=== PATIENT | male | born 1940 | race Caucasian/White ===

== ENCOUNTER → 2020-10-21 10:25 | Outpatient (BNVA) | payer BC, SELFPAY | PROVIDERS: PCP Internal Medicine; Visit Provider Urology ==

== ENCOUNTER 2020-10-25 09:31 | Outpatient (REF) | payer BC, SELFPAY ==
--- NOTE | ~2020-10-25 | XR_ITS ---
EXAMINATION: XR ANKLE, LEFT CLINICAL INFORMATION: Pain left ankle and left foot. COMPARISON: None. TECHNIQUE: AP, lateral, and mortise views of the left ankle. FINDINGS: There is no visible acute fracture, dislocation or lytic process. The ankle mortise and subtalar joints are normal. Small calcaneal heel and moderate retrocalcaneal enthesophytes are seen. There is extensive vascular calcification present. XR/XR ankle LT min 3V IMPRESSION: No acute fracture or dislocation. Moderate retrocalcaneal and small calcaneal heel enthesophyte.
== END 2020-10-25 09:32 | disposition home or self-care (01) ==
LOC: HO.HOSX 09:31
PROVIDERS: PCP Internal Medicine; Visit Provider Orthopaedic Surgery
DX: M25.572 Pain in left ankle and joints of left foot (principal); M25.372 Other instability, left ankle
CPT/HCPCS: 73610

== ENCOUNTER → 2020-11-01 10:56 | Outpatient (BNVA) | payer BC, SELFPAY | PROVIDERS: PCP Internal Medicine; Visit Provider Urology | DX: C67.9 Malignant neoplasm of bladder, unspecified (principal) | CPT/HCPCS: 52000 ==

== ENCOUNTER 2020-11-21 12:06 | Day surgery (SDC) | payer BC, SELFPAY ==
[2020-11-16 11:21] VITALS: BMI 25.1
--- NOTE | 2020-11-18 13:09 | HO.ANESPROP2 ---
Documented by User: Esperanza Debra 11/18/20 13:14 HPI - Anesthesia Eval Consult details Narrative: 80yo M for TUR Bladder Tumor,gemcitabine 2GM insertion last TURBT 02/2020 with GA-LMA 4 PMFSH Active Problems Active Problems: All Active Problems (Updated 11/01/20 @ 08:45 by HENRRY Segundo) Iron deficiency (Acute) Elevated PSA (Acute) Bradyarrhythmia (Acute) Diverticulosis (Acute) History of heart artery stent (Acute) Hypertension, essential (Acute) Coronary artery disease (Acute) Bladder cancer (Acute) Past Medical History Medical History Benign prostatic hyperplasia with lower urinary tract symptoms Bladder cancer Bladder tumor Bradyarrhythmia Cataract Coronary artery disease Past heart attack Family History Family History Father Heart problem CHF (congestive heart failure) Diabetes mellitus Mother Diabetes mellitus Sister Throat cancer Daughter No problems noted. Son No problems noted. Son No problems noted. Surgical History Surgical History History of coronary artery stent placement History of surgery Social History Social History Alcohol intake: current Alcohol intake frequency: a few times a month Advance Directives: No Advance Directives Information Provided: Yes Current occupational status: retired Gender identity: male Meds Allergies Allergy/AdvReac Type Severity Reaction Status Date / Time codeine [Codeine] Allergy Unknown LETHARGY Verified 11/01/20 08:45 From Antihistamine AdvReac Unknown CAN'T TAKE Uncoded 10/25/20 09:59 DUE TO BPH Home Medications Medication Instructions Recorded Confirmed Last Taken Type lisinopril 1 tab PO DAILY 04/13/20 07/08/20 Unknown History loteprednol etabonate 1 drp OPHTHALMIC (EYE) BID 04/13/20 07/08/20 Unknown History niacin 3 tab PO BEDTIME 04/13/20 07/08/20 Unknown History tamsulosin 1 cap PO DAILY 04/13/20 07/08/20 Unknown History thyroid (pork) [[place] Thyroid] 1.5 tab PO DAILY 04/13/20 07/08/20 Unknown History epinephrine 0.3 mg/0.3 mL 0.3 ml IM ONCE PRN 10/25/20 Unknown History injection, auto-injector finasteride 5 mg tablet 5 mg PO DAILY 10/25/20 Unknown History tadalafil 20 mg tablet 20 mg PO DAILY PRN 10/25/20 Unknown History Exam Exam Date and Time: November 18, 2020 1309 Height,Weight and Vital Signs: Height 5 ft 9 in Weight 77.111 kg Narrative Narrative: Routine cardiac visit 06/2020 - stable, physically active without any anginal symptoms Assessment and Plan Assessment Anesthesia Assessment: Chart Reviewed Documented by User: Aniyah Cisneros 11/21/20 16:17 [facility] Past Medical History Medical History Benign prostatic hyperplasia with lower urinary tract symptoms Bladder cancer Bladder tumor Bradyarrhythmia Cataract Coronary artery disease Past heart attack Family History Family History Father Heart problem CHF (congestive heart failure) Diabetes mellitus Mother Diabetes mellitus Sister Throat cancer Daughter No problems noted. Son No problems noted. Son No problems noted. Surgical History Surgical History History of coronary artery stent placement History of surgery Social History Social History Alcohol intake: current Alcohol intake frequency: a few times a month Advance Directives: No Advance Directives Information Provided: Yes Current occupational status: retired Gender identity: male Meds Allergies Allergy/AdvReac Type Severity Reaction Status Date / Time codeine [Codeine] Allergy Unknown LETHARGY Verified 11/01/20 08:45 From Antihistamine AdvReac Unknown CAN'T TAKE Uncoded 10/25/20 09:59 DUE TO BPH Home Medications Medication Instructions Recorded Confirmed Last Taken Type lisinopril 1 tab PO DAILY 04/13/20 07/08/20 Unknown History loteprednol etabonate 1 drp OPHTHALMIC (EYE) BID 04/13/20 07/08/20 Unknown History niacin 3 tab PO BEDTIME 04/13/20 07/08/20 Unknown History tamsulosin 1 cap PO DAILY 04/13/20 07/08/20 Unknown History thyroid (pork) [[place] Thyroid] 1.5 tab PO DAILY 04/13/20 07/08/20 Unknown History epinephrine 0.3 mg/0.3 mL 0.3 ml IM ONCE PRN 10/25/20 Unknown History injection, auto-injector finasteride 5 mg tablet 5 mg PO DAILY 10/25/20 Unknown History tadalafil 20 mg tablet 20 mg PO DAILY PRN 10/25/20 Unknown History Exam Airway Mallampati Class: II TM Dist: >3cm Neck ROM: Full Loose/Missing/Broken Teeth: No Heart: RRR Lungs: CTA Assessment and Plan Assessment Anesthesia Assessment: Anesthesia Plan Discussed and Chart Reviewed Final Anesthetic Review NPO: Yes ASA Class: II Final Preanesthetic Review: Meds/Allgs Chart Reviewed, Consent Obtained/Reviewed and Anes Risks/Benef Reviewed Patient Risk: Low Procedure Risk: Low Anesthetic Plan Anesthetic Plan: GA Disposition: Standard PACU
[2020-11-21] VITALS (11 sets, daily range): BP systolic 133–179; BP diastolic 53–76; PULSE 39–64; RESP 14–17; TEMP 35.9–36.1; O2SAT 97–100
--- NOTE | 2020-11-21 09:24 | HE.PHANOTE ---
GEMZAR FOR BLADDER INSTILLATION GIVEN TODAY FOR OR ADMINISTRATION
--- NOTE | 2020-11-21 16:28 | MHC.SHP ---
Pre-Procedural Eval Section A The patient is an INPATIENT: No Changes since office visit: No Cold of Flu in the past 2 weeks, No New Medical Problems, No Changes in Medication and No Patient answered all questions The History & Physical has been completed within 30 days and I have reviewed it.: Yes Section B Chief Complaint: bladder ca Allergies: Allergies Allergy/AdvReac Type Severity Reaction Status Date / Time codeine [Codeine] Allergy Unknown LETHARGY Verified 11/01/20 08:45 From Antihistamine AdvReac Unknown CAN'T TAKE Uncoded 10/25/20 09:59 DUE TO BPH Plan Diagnosis/Plan: Unchanged (TURBT with gemcitabine) I have reviewed the history and physical and performed a pertinent physical examination on my patient. No changes have occurred unless specified.
[2020-11-21] MEDS: levoFLOXacin 500 MG TABLET PO (16:48)
--- NOTE | 2020-11-21 17:24 | W.PM.OPN ---
Operative Note Operative Note Date of Service: 11/21/20 Narrative: PreOperative Diagnosis: bladder cancer Post Operative Diagnosis: bladder cancer Procedure: TURBT and Gemcitabine installation Surgeon: Dr Claudio Davalos Anesthesia: general Indications for procedure: Satnam has had prior bladder cancer resection. He presents for surveillance TURBT with gemcitabine. Appointments were delayed secondary to caring for his sick daughter. He understands them may be extensive tumor. Risks and benefits of cystoscopy and TURBT have been discussed. Gemcitabine is intended to reduce clinical recurrence. Procedure: After informed consent was verified the patient was brought to the operating room and placed in a supine position. anesthesia was administered per protocol. the patient was placed in a modified dorsal lithotomy position and prepped and draped in a sterile fashion. Safety pause time-out was performed. Antibiotics were confirmed. A 26 Nepali continuous flow resectoscope was inserted per urethra. The visual obturator was used in order to minimize potential for urethral damage. Examination of his bladder revealed it was in surprisingly good condition. There were 3 small lesions all of which were able to be resected and fulgurated. The narrow band imaging light was used and areas of potential change were identified which were fulgurated. These were quite extensive on the posterior bladder wall. Mild ooze was Encountered. Of note his prostate is rather large and While he has been on combination therapy he would benefit from a prostate procedure. This will be discussed in follow-up. At the completion of the procedure the bladder was irrigated. The cystoscope was removed. A [address] catheter was inserted into the bladder. 10 cc was placed in the balloon. 2 g of gemcitabine in 100 cc of normal saline was instilled into the bladder. the flow from the catheter was left clamped. The inflow to the catheter was attached to a 3 L normal saline bag. The patient Tolerated the procedure well. They were extubated in the operating room and transferred in stable condition to the recovery area. Gemcitabine will remain in the bladder for 1 hour. At the completion of 1 hour the clamp will be removed. The gemcitabine will be allowed to egress to the urine collection bag. The 3 L bag of normal saline will be run at maximum rate through the bladder in order to dilute any residual gemcitabine. The Jack catheter will then be removed. Pathology: none Drains: none
[2020-11-21] MEDS: Ketorolac Tromethamine 30 MG/ML VIAL IVPUSH (17:56)
[2020-11-21] MEDS: Acetaminophen 325 MG TABLET 650 MG PO (17:58)
[2020-11-21] MEDS: oxyCODONE HCl Immed Release 5 MG TABLET PO (18:00)
== END 2020-11-21 19:35 | disposition home or self-care (01) ==
PROVIDERS: PCP Internal Medicine; Visit Provider Urology
PROC: 0TBB8ZZ Excision of Bladder, Via Natural or Artificial Opening Endoscopic (ICD-10-PCS; CPT 52234; principal; 2020-11-21 12:30)
DX: C67.9 Malignant neoplasm of bladder, unspecified (principal); N40.1 Benign prostatic hyperplasia with lower urinary tract symptoms; I25.10 Atherosclerotic heart disease of native coronary artery without angina pectoris; Z98.61 Coronary angioplasty status; I25.2 Old myocardial infarction; Z79.899 Other long term (current) drug therapy; Z88.8 Allergy status to other drugs, medicaments and biological substances
CPT/HCPCS: 52234; 51720; J1885; J2405; J3010; J9201

== ENCOUNTER → 2020-12-01 11:55 | Outpatient (BNVA) | payer BC, SELFPAY | PROVIDERS: PCP Internal Medicine; Visit Provider Urology ==

== ENCOUNTER 2021-03-07 08:54 | Outpatient (REF) | payer BC, SELFPAY ==
[2021-03-07 17:18] LABS: Urine Cytology See Pathology rpt
== END 2021-03-07 08:55 | disposition home or self-care (01) ==
LOC: HO.LNP 08:54
PROVIDERS: PCP Internal Medicine; Visit Provider Urology
DX: C67.9 Malignant neoplasm of bladder, unspecified (principal); N40.1 Benign prostatic hyperplasia with lower urinary tract symptoms
CPT/HCPCS: 52000; 88112

== ENCOUNTER 2021-06-06 09:43 | Outpatient (REF) | payer BC, SELFPAY | END 2021-06-06 09:44 | disposition home or self-care (01) | LOC: HO.LAB 09:43 | PROVIDERS: PCP Internal Medicine; Visit Provider Urology | DX: C67.9 Malignant neoplasm of bladder, unspecified (principal); N40.1 Benign prostatic hyperplasia with lower urinary tract symptoms | CPT/HCPCS: 51798; 52000; 88121 ==

== ENCOUNTER 2021-07-27 12:35 | Outpatient (REF) | payer BC, SELFPAY ==
--- NOTE | ~2021-07-27 | US_ITS ---
EXAMINATION: US RETROPERITONEAL LIMITED (RENAL ONLY) CLINICAL INFORMATION: Left-sided back pain.. COMPARISON: CT scan abdomen pelvis 05/28/2019 TECHNIQUE: Grayscale ultrasound and color Doppler exam of kidneys bilateral. FINDINGS: RIGHT KIDNEY: 12.3 x 6.5 x 5.5 cm (SAG x AP x TRV). The kidney is normal in size, contour, and echogenicity. Renal cortical thickness is normal. No calculi or focal parenchymal lesions. No hydronephrosis. LEFT KIDNEY: 11.8 x 6.7 x 4.2 cm (SAG x AP x TRV). There is moderate hydronephrosis of left kidney with distention renal pelvis, calyces and left hydroureter. Dilatation of the ureter can be visualized down to the mid- lower pelvis. Left UVJ is not visualized due to bowel gas. There is a small 1 to 2 mm size stone at the lower pole left kidney. No stone in the visualized portion of the left ureter. In the bladder the right ureteral jet is seen but the left ureteral jet is not visualized. The prostate is enlarged but better visualized on CAT scan 05/28/2019. The severity of the hydronephrosis of left kidney has worsened since prior CAT scan 05/28/2019. US/US renal BI IMPRESSION: Moderate hydronephrosis left kidney which has worsened since CAT scan 05/28/2019. This may be due to the enlarged prostate which was better visualized on the prior CT study..
== END 2021-07-27 12:36 | disposition home or self-care (01) ==
LOC: HO.US 12:35
PROVIDERS: PCP Internal Medicine; Visit Provider Internal Medicine
DX: M54.10 Radiculopathy, site unspecified (principal); M54.9 Dorsalgia, unspecified
CPT/HCPCS: 76775

== ENCOUNTER 2021-07-29 11:08 | Inpatient (IN) | payer BC, SELFPAY ==
--- NOTE | ~2021-07-29 | FL_ITS ---
EXAMINATION: XR FL WITH IMAGES CLINICAL INFORMATION: Ureteral stent. COMPARISON: None TECHNIQUE: Fluoroscopy performed by Dr. Claudio Davalos. Fluoroscopy Time: 24.7 seconds. DAP: 9.49 mGy. Images: 1. FINDINGS: A single image demonstrates the upper portion of an internally dwelling double-J stent on the left. FL/FL guidance in OR IMPRESSION: Fluoroscopy and spot films provided during stent placement.
--- NOTE | ~2021-07-29 | CT_ITS ---
EXAMINATION: CT CHEST, ABDOMEN AND PELVIS WITH CONTRAST CLINICAL INFORMATION: History of cancer, upper back and flank pain COMPARISON: None TECHNIQUE: Multidetector volumetric imaging was performed of the chest, abdomen and pelvis following administration of 85 mL of Omnipaque 350. Oral contrast was not administered. Sagittal and coronal reformatted images were obtained on the technologist's workstation. This CT examination was performed using dose optimization techniques as appropriate, variously including the following: *Automated exposure control *Adjustment of mA and/or kV according to patient size (this includes techniques or standardized protocols for targeted exams where dose is matched to indication/reason for exam; i.e. extremities or head) *Use of iterative reconstruction technique DLP: 848 mGy-cm FINDINGS: CHEST WALL: Unremarkable. ABDOMINAL AND PELVIC WALL: Small fat-containing umbilical hernia. Small fat-containing left inguinal hernia. AXILLA: No lymphadenopathy. MEDIASTINUM: Heart is normal in size. There is circumferential thickening of the mid to distal esophagus, difficult to assess degree given lack of esophageal distention. No mediastinal lymphadenopathy. No hilar lymphadenopathy. Multivessel coronary artery calcification. Prominent pulmonary arteries which can be seen in the setting of pulmonary hypertension PLEURA: Trace left pleural effusion. LIVER AND BILIARY TREE: Focal fat in the liver noted along the falciform ligament. GALLBLADDER: Layering density within the gallbladder lumen may reflect layering sludge or noncalcified stones. No findings to suggest cholecystitis. PANCREAS: Unremarkable SPLEEN: Unremarkable ADRENAL GLANDS: Unremarkable. KIDNEYS AND URETERS: Moderate left hydroureteronephrosis with the ureter dilated to the level of the pelvic sidewall not to the level of the bladder without obstructing stone. The ureter at the point of decompression appears relatively asymmetrically hyperenhancing and a discrete lesion cannot be excluded. There is associated periureteral subtle thickening and enhancement proximally and involving the renal pelvis. There is asymmetric left perinephric fat stranding with mulugeta free fluid surrounding the proximal ureter and renal collecting system suggestive of calyceal rupture. UPPER GASTROINTESTINAL TRACT: The stomach and duodenum are unremarkable. VASCULAR: Unremarkable. LYMPH NODES: No lymphadenopathy. FREE FLUID: Perinephric free fluid as detailed above. BLADDER: There is asymmetric masslike hyperenhancing wall thickening wall thickening involving the right anterolateral superior and posterior bladder wall, measuring up to 1.1 cm in thickness. PELVIC VISCERA: Prostate is markedly enlarged measuring 6.2 cm in transverse diameter. LOWER GASTROINTESTINAL TRACT: Colonic diverticulosis without evidence of diverticulitis. OSSEOUS STRUCTURES: Multilevel anterior flowing syndesmophytes in the thoracic spine recommend correlation with any history of ankylosing spondylitis.. Multilevel degenerative disc disease. LUNGS: Left lower lobe pulmonary micronodule, 9:194. Few scattered calcified pulmonary granulomas. Bibasilar atelectasis. 3 mm solid left upper lobe pulmonary nodule, 9:217. Dependent and linear appearing secretions are noted within the trachea suggesting aspiration. CT/CT abdomen pelvis w con IMPRESSION: There is asymmetric masslike hyperenhancing wall thickening involving the right anterolateral superior and posterior bladder wall, measuring up to 1.1 cm in thickness, suspicious for bladder neoplasm. Recommend urologic referral if not already obtained. Moderate left hydroureteronephrosis with the ureter dilated to the level of the pelvic sidewall not to the level of the bladder without obstructing stone. The ureter at the point of decompression appears relatively asymmetrically hyperenhancing and a discrete lesion cannot be excluded. Urologic referral is again recommended. There is asymmetric left perinephric fat stranding with mulugeta free fluid surrounding the proximal ureter and renal collecting system suggestive of calyceal rupture. There is associated periureteral subtle thickening and enhancement proximally and involving the renal pelvis, for which superinfection cannot be excluded. There is circumferential thickening of the mid to distal esophagus, difficult to assess degree given lack of esophageal distention. Recommend correlation with symptoms of reflux or esophagitis and consideration of endoscopy if clinically appropriate. Few indeterminate solid pulmonary nodules measuring up to 3 mm. Recommend continued imaging follow-up per clinical oncologic recommendations, given provided history of malignancy. Dependent and linear appearing secretions are noted within the trachea suggesting aspiration, however recommend attention on follow-up to ensure no discrete endobronchial nodule. Trace left pleural effusion. Layering density within the gallbladder lumen may reflect layering sludge or noncalcified stones. No findings to suggest cholecystitis. The findings and recommendations were discussed with ELIOT Garrett by telephone at 07/29/2021 5:44 PM and it was ascertained that the content and urgency of the report was understood at the time of direct communication.
[2021-07-29 11:12] VITALS: BP 167/67; PULSE 90; RESP 16; TEMP 36.6; O2SAT 98; BMI 26.6
--- NOTE | 2021-07-29 14:56 | ED.MALEGU ---
HPI - Male Genitourinary General Chief complaint: Urogenital-Male Stated complaint: swollen groin, problem urinating Time Seen by Provider: 07/29/21 14:44 Source: patient and family () Mode of arrival: ambulatory Limitations: no limitations History of Present Illness HPI Narrative: Patient is a 80 year old male presenting to the emergency department today with scrotal swelling and left flank pain. Patient states that a week ago, he began to have left flank pain. Patient states that he saw his PCP on Saturday who did an ultrasound that showed swelling of the kidney but was otherwise unremarkable. Patient states that now he is having scrotal swelling and his left flank pain is getting worse. Patient denies any dizziness, lightheadedness, nausea, vomiting, fever, chills, blurry vision, double vision, loss of vision, chest pain, difficulty breathing, shortness of breath, back pain, night sweats, pain with urination, increased urinary frequency, increased urinary urgency, blood in his urine or stool, syncope or a near syncopal episode, recent trauma or falls, bowel incontinence, bladder incontinence, bowel retention, bladder retention, or any other complaints at this time. Patient states that he has a history of bladder cancer for which he follows up with a local urologist. Patient states that he has been urinating appropriately. MD Complaint: testicle swelling Onset (ago): day(s) Duration: constant Location: penis, right testicle and left testicle Related Data Home Medications Medication Instructions Recorded Confirmed lisinopril 10 mg tablet 1 tab PO DAILY 04/13/20 07/25/21 loteprednol etabonate 0.5 % eye 1 drp OPHTHALMIC (EYE) BID 04/13/20 07/25/21 drops,suspension niacin 500 mg tablet,extended 3 tab PO BEDTIME 04/13/20 07/25/21 release 24 hr thyroid (pork) 30 mg tablet 1.5 tab PO DAILY 04/13/20 07/25/21 (Twilight Thyroid) epinephrine 0.3 mg/0.3 mL 0.3 ml IM ONCE PRN 10/25/20 07/25/21 injection, auto-injector finasteride 5 mg tablet 5 mg PO DAILY 10/25/20 07/25/21 tadalafil 20 mg tablet 20 mg PO DAILY 10/25/20 07/25/21 Previous Rx's Medication Instructions Recorded tamsulosin 0.4 mg capsule 0.4 mg PO BEDTIME 90 Days #90 cap 06/06/21 baclofen 5 mg tablet 5 mg PO BID 7 Days #14 tab 07/25/21 tramadol 50 mg tablet 50 mg PO Q8H PRN 7 Days #20 tab 07/26/21 Allergies Allergy/AdvReac Type Severity Reaction Status Date / Time codeine [Codeine] Allergy Unknown LETHARGY Verified 07/25/21 09:40 From Antihistamine AdvReac Unknown CAN'T TAKE Uncoded 07/25/21 09:40 DUE TO BPH Review of Systems Constitutional: Constitutional: Reports no additional constitutional complaints, Denies chills, Denies fever(s) and Denies night sweats Eyes: Eyes: Reports no additional eye complaints, Denies blurry vision, Denies change in vision, Denies diplopia, Denies eye discharge, Denies loss of vision and Denies eye pain ENT: Denies dizziness Cardiovascular: Cardiovascular: Reports no additional cardiovascular complaints, Denies chest pain, Denies lightheadedness, Denies Loss of Consciousness and Denies dyspnea Respiratory: Respiratory: Reports no additional respiratory complaints and Denies dyspnea Gastrointestinal: Gastrointestinal: Reports no additional gastrointestinal complaints, Denies abdominal pain, Denies melena, Denies hematochezia, Denies change in bowel habits and Denies change in stool character Comments: left flank pain Genitourinary: Genitourinary: Reports no additional male genitourinary complaints, Denies hematuria, Denies oliguria, Denies difficulty urinating, Denies dysuria, Denies urinary frequency, Denies urinary hesitancy, Denies urinary incontinence and Denies urinary urgency Musculoskeletal: Musculoskeletal: Reports no additional musculoskeletal complaints, Denies numbness and Denies tingling Neurologic: Denies dizziness, Denies loss of vision, Denies numbness and Denies tingling Psychiatric: Psychiatric: Reports no additional psychiatric complaints Endocrine: Endocrine: Reports no additional endocrine complaints Hematologic/Lymphatic: Hematologic/Lymphatic: Reports no additional hematologic/lymphatic complaints Allergic/Immunologic: Allergic/Immunologic: Reports no additional allergic/immunologic complaints PMFSH Past Medical History Attestation statement: The following information was validated with the patient. Source: old records reviewed Medical History Benign prostatic hyperplasia with lower urinary tract symptoms Bladder cancer Bladder tumor Bradyarrhythmia Cataract Coronary artery disease Past heart attack Surgical History History of coronary artery stent placement History of surgery Family History Family History Father Heart problem CHF (congestive heart failure) Diabetes mellitus Mother Diabetes mellitus Sister Throat cancer Daughter No problems noted. Son No problems noted. Son No problems noted. Other Substance use disorder Social History Social History Housing: House Alcohol intake: current Alcohol intake frequency: does not drink Patient Tobacco Use Status: Never used Tobacco Use of substances other than those prescribed or required for medical reasons: No Advance Directives: No Advance Directives Information Provided: No Current occupational status: retired Gender identity: Male Physical Exam Vital Signs: Vital Signs: Last Vital Signs Temp 98.9 F 07/29/21 15:37 Pulse 88 07/29/21 15:37 Resp 16 07/29/21 15:37 BP 168/66 H 07/29/21 15:37 Pulse Ox 99 07/29/21 15:37 BMI result Body Mass Index 26.6 Const: General: cooperative, no acute distress, alert and awake Nutritional Appearance: well nourished Orientation/consciousness: patient oriented x3 Limitations: no limitations HENMT: Head: Yes normal to inspection and Yes atraumatic Ears: hearing grossly normal bilaterally and external ears normal General nose exam: Normal external nose present, no nasal discharge noted and no epistaxis Face and sinus: Yes normal facial exam, No abrasion and No laceration Mouth: Normal oral and palatal mucosa present, no drooling and no muffled voice Eyes: General: appearance normal, both eyes and all related structures Periorbital: periorbital findings normal Eyelids: Yes eyelids normal Conjunctivae: conjunctivae normal Pupils: Equal, round and reactive pupils present EOM: EOMs intact bilaterally Neck: Neck: Yes normal visual inspection, Yes full ROM and Yes no lymphadenopathy Chest: Chest palpation & inspection: normal inspection of the chest Resp: Effort & Inspection: normal respiratory effort and able to speak in complete sentences Auscultation: clear to auscultation bilaterally Cardio: Rate: regular rate Rhythm: regular rhythm GI: Inspection: Yes normal to inspection Palpation (GI): Soft to palpation and Tenderness to palpation present (GI) (left flank with CVA tenderness) : Penis: Localized penile swelling present (scrotal and penile) Neuro: General: patient oriented x3 and moves all extremities Cranial nerves: Yes Equal, round and reactive pupils present Cognition (Neuro): normal cognition Motor exam (neuro): 5/5 motor strength present throughout Sensory Exam: Normal double simultaneous stimulation for sensation Coordination: [id number] test normal Extrem: General: Yes normal to inspection, Yes full ROM and Yes capillary refill normal Psych: Appearance: grossly normal Mental Status: mental status grossly normal Affect: normal affect Attitude: cooperative Thought process: Normal thought process present Thought content: Normal thought content present Insight: Good insight present (Psych) Course Consultations Consultation #1: Spoke to radiologist at [facility] who stated that the patient's bladder cancer possibly spread up his left ureter and he has a calyceal rupture. Time: 17:43 Consultation #2: Spoke to Dr. Samuel who stated the patient should be admitted for pain management and may possibly need to undergo a nephrectomy at some point during his hospital stay. States that his service will consult on the patient. Time: 17:50 Consultation #3: Dr. Gonzales agrees to hospital admission. MDM - Male Genitourinary MDM Narrative Medical decision making narrative: Patient is a 80 year old male presenting to the emergency department today with left flank pain and scrotal swelling. Patient's physical exam showed swelling of the scrotum and penis with left sided CVA tenderness. Patient's blood work showed an elevated WBC count and creatine. Patient's abdominal and chest CT had multiple findings on it, as noted in the imaging portion of this note. Of note, the radiologist states that there could be spreading of the bladder cancer up the ureter and there is free fluid suggesting a calyceal rupture. I called and spoke to the communications station manager diamond selector, Dr. Burch who recommended the patient be admitted for pain control and his service would consult on the case. I explained my physical exam findings as well as all test results to the patient and the patient's . I answered all questions asked by the patient and the patient's . Patient received 8mg of IV Morphine which he stated only helped his symptoms slightly. I spoke to Dr. Gonzales, the hospitalist diamond selector, who agreed to admission. Patient's clinical presentation was not consistent with sepsis throughout my time caring for him. Differential Diagnosis Differential diagnosis: Likely urinary tract infection (kidney stone, bladder cancer metastasis) Medical Records Attestation: I reviewed the patient's medical records. Lab Data Attestation: I reviewed the patient's lab results. Result diagrams: 07/29/21 15:17 07/29/21 15:17 Labs: Lab Results 07/29/21 07/29/21 Range/Units 15:17 15:17 WBC 11.8 H (4.8-10.8) X10*3/uL RBC 4.34 L (4.60-5.80) X10*6/uL Hgb 12.1 L (14.0-18.0) g/dl Hct 37.6 L (42.0-52.0) % MCV 86.6 (80.0-98.0) fL MCH 27.9 (27.0-33.0) pg MCHC 32.2 (31.0-36.0) g/dl RDW 16.8 H (11.0-16.0) % Plt Count 456 H (160-400) X10*3/uL MPV 9.2 L (9.4-12.4) fL Immature Gran % (Auto) 0.6 H (0.0-0.4) % Neut % (Auto) 78.4 H (45-73) % Lymph % (Auto) 10.5 L (20-40) % [place] % (Auto) 9.9 (2-11) % Eos % (Auto) 0.3 (0-4) % Baso % (Auto) 0.3 (0-2) % Lymph # (Auto) 1.2 (1.2-4.9) X10*3/uL [place] # (Auto) 1.2 (0.1-1.2) X10*3/uL Eos # (Auto) 0.0 (0.0-0.4) X10*3/uL Baso # (Auto) 0.0 (0.0-0.2) X10*3/uL Abs Immat Gran (auto) 0.07 H (0.00-0.03) X10*3/uL Absolute Neuts (auto) 9.2 H (2.0-8.3) x10*3/uL Absolute Nucleated RBC 0.000 (0.0-0.012) X10*3/uL Nucleated RBC % (auto) 0.0 (0.0-0.2) /100WBC Sodium 129 L (135-145) mmol/L Potassium 4.6 (3.3-5.1) mmol/L Chloride 95 L (96-108) mmol/L Carbon Dioxide 22 (22-29) mmol/L Anion Gap 17 (12-20) BUN 20 H (9-16) mg/dL Creatinine 1.54 H (0.5-1.4) mg/dL Estim Creat Clear Calc 38.8 Estimated GFR 44 Fasting Glucose 101 H (60-99) mg/dL Calcium 8.7 (8.4-10.2) mg/dL Magnesium 2.0 (1.6-2.6) mg/dL Total Bilirubin 0.6 (0.0-1.0) mg/dL AST 14 (5-37) U/L ALT 8 (0-40) U/L Alkaline Phosphatase 61 (39-117) U/L Total Protein 6.5 (6.5-8.0) g/dL Albumin 3.4 L (3.5-5.0) g/dL Imaging Data Chest, abdomen, pelvis CT: Attestation: I personally reviewed and interpreted this imaging study as follows: Radiologist's impression: EXAMINATION: CT CHEST, ABDOMEN AND PELVIS WITH CONTRAST CLINICAL INFORMATION: History of cancer, upper back and flank pain? COMPARISON: None? TECHNIQUE: Multidetector volumetric imaging was performed of the chest, abdomen and pelvis following administration of 85 mL of Omnipaque 350. Oral contrast was not administered. Sagittal and coronal reformatted images were obtained on the technologist's workstation. This CT examination was performed using dose optimization techniques as appropriate, variously including the following: *Automated exposure control *Adjustment of mA and/or kV according to patient size (this includes techniques or standardized protocols for targeted exams where dose is matched to indication/reason for exam; i.e. extremities or head) *Use of iterative reconstruction technique DLP: 848 mGy-cm FINDINGS: CHEST WALL: Unremarkable. ABDOMINAL AND PELVIC WALL:? Small fat-containing umbilical hernia. Small fat-containing left inguinal hernia.? AXILLA: No lymphadenopathy.? MEDIASTINUM:? Heart is normal in size. There is circumferential thickening of the mid to distal esophagus, difficult to assess degree given lack of esophageal distention. No mediastinal lymphadenopathy. No hilar lymphadenopathy. Multivessel coronary artery calcification. Prominent pulmonary arteries which can be seen in the setting of pulmonary hypertension PLEURA: Trace left pleural effusion.? LIVER AND BILIARY TREE: Focal fat in the liver noted along the falciform ligament.? GALLBLADDER: Layering density within the gallbladder lumen may reflect layering sludge or noncalcified stones. No findings to suggest cholecystitis.? PANCREAS: Unremarkable? SPLEEN: Unremarkable? ADRENAL GLANDS: Unremarkable.? KIDNEYS AND URETERS: Moderate left hydroureteronephrosis with the ureter dilated to the level of the pelvic sidewall not to the level of the bladder without obstructing stone. The ureter at the point of decompression appears relatively asymmetrically hyperenhancing and a discrete lesion cannot be excluded. There is associated periureteral subtle thickening and enhancement proximally and involving the renal pelvis.? There is asymmetric left perinephric fat stranding with mulugeta free fluid surrounding the proximal ureter and renal collecting system suggestive of calyceal rupture. UPPER GASTROINTESTINAL TRACT: The stomach and duodenum are unremarkable. ? VASCULAR: Unremarkable. LYMPH NODES: No lymphadenopathy. FREE FLUID: Perinephric free fluid as detailed above. BLADDER: There is asymmetric masslike hyperenhancing wall thickening wall thickening involving the right anterolateral superior and posterior bladder wall, measuring up to 1.1 cm in thickness. PELVIC VISCERA: Prostate is markedly enlarged measuring 6.2 cm in transverse diameter. LOWER GASTROINTESTINAL TRACT: Colonic diverticulosis without evidence of diverticulitis. OSSEOUS STRUCTURES: Multilevel anterior flowing syndesmophytes in the thoracic spine recommend correlation with any history of ankylosing spondylitis.. Multilevel degenerative disc disease.? LUNGS:? Left lower lobe pulmonary micronodule, 9:194. Few scattered calcified pulmonary granulomas. Bibasilar atelectasis. 3 mm solid left upper lobe pulmonary nodule, 9:217.? Dependent and linear appearing secretions are noted within the trachea suggesting aspiration. CT/CT chest w con IMPRESSION: ? There is asymmetric masslike hyperenhancing wall thickening involving the right anterolateral superior and posterior bladder wall, measuring up to 1.1 cm in thickness, suspicious for bladder neoplasm. Recommend urologic referral if not already obtained. ? Moderate left hydroureteronephrosis with the ureter dilated to the level of the pelvic sidewall not to the level of the bladder without obstructing stone. The ureter at the point of decompression appears relatively asymmetrically hyperenhancing and a discrete lesion cannot be excluded. Urologic referral is again recommended.? There is asymmetric left perinephric fat stranding with umlugeta free fluid surrounding the proximal ureter and renal collecting system suggestive of calyceal rupture. ? There is associated periureteral subtle thickening and enhancement proximally and involving the renal pelvis, for which superinfection cannot be excluded. ? There is circumferential thickening of the mid to distal esophagus, difficult to assess degree given lack of esophageal distention. Recommend correlation with symptoms of reflux or esophagitis and consideration of endoscopy if clinically appropriate. ? Few indeterminate solid pulmonary nodules measuring up to 3 mm. Recommend continued imaging follow-up per clinical oncologic recommendations, given provided history of malignancy. ? Dependent and linear appearing secretions are noted within the trachea suggesting aspiration, however recommend attention on follow-up to ensure no discrete endobronchial nodule. ? Trace left pleural effusion.? ? Layering density within the gallbladder lumen may reflect layering sludge or noncalcified stones. No findings to suggest cholecystitis.? ? The findings and recommendations were discussed with ELIOT Garrett by telephone at 07/29/2021 5:44 PM and it was ascertained that the content and urgency of the report was understood at the time of direct communication. ? Dictated By: Pushpa Lora MD Signed By: Electronically signed by Pushpa Lora MD 07/29/21 Discharge Plan Discharge Clinical Impression: Intractable pain, Hydronephrosis, Bladder cancer Patient Disposition: Admitted As Inpatient Print Language: Malaysian
[2021-07-29] MEDS: Morphine Sulfate 4 MG/ML CARTRIDGE IVPUSH ×3 (15:21→19:28)
[2021-07-29 15:23] VITALS: BP 166/74; PULSE 92; RESP 16; O2SAT 98
[2021-07-29 15:26] LABS: MANUAL DIFF FLAG NO
[2021-07-29 15:27] LABS: Basophils Percent Auto 0.3 % (0-2); Eosinophils Percent Auto 0.3 % (0-4); Hematocrit 37.6 % (42.0-52.0); Hemoglobin 12.1 g/dl (14.0-18.0); Imm Gran Abs Auto 0.07 X10*3/uL (0.00-0.03); Imm Gran Pct Auto 0.6 % (0.0-0.4); Lymphocytes Absolute Auto 1.2 X10*3/uL (1.2-4.9); Lymphocytes Percent Auto 10.5 % (20-40); Mean Corpuscular HGB Conc 32.2 g/dl (31.0-36.0); Mean Corpuscular Hemoglobin 27.9 pg (27.0-33.0); Mean Corpuscular Volume 86.6 fL (80.0-98.0); Mean Platelet Volume 9.2 fL (9.4-12.4); Monocytes Absolute Auto 1.2 X10*3/uL (0.1-1.2); Monocytes Percent Auto 9.9 % (2-11); Neutrophils Absolute Auto 9.2 x10*3/uL (2.0-8.3); Neutrophils Percent Auto 78.4 % (45-73); Platelet Count 456 X10*3/uL (160-400); Red Blood Count 4.34 X10*6/uL (4.60-5.80); Red Cell Distribution Width 16.8 % (11.0-16.0); White Blood Count 11.8 X10*3/uL (4.8-10.8)
[2021-07-29 15:37] VITALS: BP 168/66; PULSE 88; RESP 16; TEMP 37.2; O2SAT 99
[2021-07-29 15:45] LABS: Alanine Aminotransferase 8 U/L (0-40); Albumin Level 3.4 g/dL (3.5-5.0); Alkaline Phosphatase 61 U/L (39-117); Anion Gap 17 (12-20); Aspartate Amino Transferase 14 U/L (5-37); Bilirubin Total 0.6 mg/dL (0.0-1.0); Blood Urea Nitrogen 20 mg/dL (9-16); Calcium 8.7 mg/dL (8.4-10.2); Carbon Dioxide 22 mmol/L (22-29); Chloride 95 mmol/L (96-108); Creatinine Clr Calc Pharmacy 38.8; Estimated Glomerular Filt Rate 44; Glucose Fasting 101 mg/dL (60-99); Potassium 4.6 mmol/L (3.3-5.1); Sodium 129 mmol/L (135-145); Total Protein 6.5 g/dL (6.5-8.0)
[2021-07-29] MEDS: iohexoL 350 MG/ML 100 ML INFUS..BTL IV (16:38)
[2021-07-29 18:00] VITALS: BP 169/79; PULSE 92; RESP 16; TEMP 36.8; O2SAT 99
[2021-07-29] MEDS: Ketorolac Tromethamine 30 MG/ML VIAL IVPUSH (18:17)
[2021-07-29 18:43] LABS: Appearance Urine CLEAR; Color Urine YELLOW; Glucose Urine UA NEG (NEG); Leukocyte Esterase Urine NEG (NEG); Nitrite Urine NEG (NEG); PH 5.5 (5.0-8.0); UACC Culture Trigger NO; Urine Blood TRACE (NEG); Urine Ketones 40 MG/DL (NEG); Urine Protein 1+ MG/DL (NEG-TRACE)
--- NOTE | 2021-07-29 18:48 | PHA.MEDREC ---
Pharmacy Consult ? Medication Reconciliation Pharmacy has completed the medication reconciliation. Pt was on 10 day course of doxycycline hyclate but stated that he is no longer taking it. Also stated that he took a hundred OTC supplements for his cancer but could only recall 3 of them (multivitamin, vitamin C, and vitamin D) but was unsure of what doses. He also had a prescription bottle of tramadol with him but stated that he was no longer taking that either. Selena Bearden, PharmD
[2021-07-29 18:49] LABS: Mucus Urine TRACE /LPF; Squamous Epithelial Cell Urine TRACE /LPF; WBC Urine 0-2 /HPF (0-4)
--- NOTE | 2021-07-29 18:51 | PM.IMHP ---
History of Present Illness Date of Service: 07/29/21 Chief Complaint: flank pain 80 year old male presenting to the emergency department today with scrotal swelling and left flank pain. Patient states that a week ago, he began to have left flank pain. Patient states that he saw his PCP on Saturday who did an ultrasound that showed swelling of the kidney but was otherwise unremarkable. Patient states that now he is having scrotal swelling and his left flank pain is getting worse. Patient denies any dizziness, lightheadedness, nausea, vomiting, fever, chills, blurry vision, double vision, loss of vision, chest pain, difficulty breathing, shortness of breath, back pain, night sweats, pain with urination, increased urinary frequency, increased urinary urgency, blood in his urine or stool, syncope or a near syncopal episode, recent trauma or falls, bowel incontinence, bladder incontinence, bowel retention, bladder retention, or any other complaints at this time. Patient states that he has a history of bladder cancer for which he follows up with a local urologist. Patient states that he has been urinating appropriately. ER course CT abd/pelvis demonstrates extension of known bladder Ca into ureter with hydronephrosis left kidney. Discussion with Urology..admit pain management and Uro consulr Review of Systems Review of Systems: as per [facility] Medical History Benign prostatic hyperplasia with lower urinary tract symptoms Bladder cancer Bladder tumor Bradyarrhythmia Cataract Coronary artery disease Past heart attack Family History Father Heart problem CHF (congestive heart failure) Diabetes mellitus Mother Diabetes mellitus Sister Throat cancer Daughter No problems noted. Son No problems noted. Son No problems noted. Other Substance use disorder Surgical History History of coronary artery stent placement History of surgery Social History Housing: House Alcohol intake: current Alcohol intake frequency: does not drink Patient Tobacco Use Status: Never used Tobacco Use of substances other than those prescribed or required for medical reasons: No Advance Directives: No Advance Directives Information Provided: No Current occupational status: retired Gender identity: Male Meds Allergies Allergy/AdvReac Type Severity Reaction Status Date / Time codeine [Codeine] Allergy Unknown LETHARGY Verified 07/25/21 09:40 From Antihistamine AdvReac Unknown CAN'T TAKE Uncoded 07/25/21 09:40 DUE TO BPH Active Medications: Current Medications Acetaminophen (Acetaminophen 325 Mg Tablet) 650 mg PO Q6H PRN PRN Reason: Pain, Mild (Pain Scale 1-3) Enoxaparin Sodium (Enoxaparin Sodium 40 Mg/0.4 Ml Syringe) 40 mg SUBCUT Q24H [facility] Piperacillin Sod/Tazobactam (Sod 3.375 gm/ Sodium Chloride) 50 mls @ 100 mls/hr IV Q6H [facility] Morphine Sulfate (Morphine Sulfate 4 Mg/Ml Cartridge) 4 mg IVPUSH Q4H PRN; Protocol PRN Reason: Pain, Severe (Pain Scale 7-10) Ondansetron HCl (Ondansetron Hcl 4 Mg/2 Ml Vial) 4 mg IVPUSH Q8H PRN PRN Reason: Nausea Oxycodone HCl (Oxycodone Hcl Immed Release 5 Mg Tablet) 10 mg PO Q4H PRN PRN Reason: Pain, Moderate (Pain Scale 4-6 Pharmacy Consult (Consult Rx Perform Med Rec) 1 each MISCELLANE ONCE PRN PRN Reason: Consult order Sodium Chloride (0.9 % Sodium Chloride Flush 3 Ml Syringe) [facility] Medications Medication Instructions Recorded Confirmed Last Taken Type lisinopril 10 mg tablet 1 tab PO BEDTIME 04/13/20 07/29/21 07/29/21 History niacin 500 mg tablet,extended 3 tab PO BEDTIME 04/13/20 07/29/21 07/28/21 History release 24 hr thyroid (pork) 30 mg tablet 1.5 tab PO DAILY 04/13/20 07/29/21 07/29/21 History ([place] Thyroid) epinephrine 0.3 mg/0.3 mL 0.3 ml IM ONCE PRN 10/25/20 07/29/21 Unknown History injection, auto-injector ascorbic acid (vitamin C) 500 mg 500 mg PO DAILY 07/29/21 07/29/21 Unknown History tablet (Vitamin C) chlorhexidine gluconate 0.12 % 15 ml PO BID 07/29/21 07/29/21 07/29/21 History mouthwash cholecalciferol (vitamin D3) 10 20 mcg PO DAILY 07/29/21 07/29/21 Unknown History mcg (400 unit) tablet (Vitamin D3) multivitamin 1 tab PO DAILY 07/29/21 07/29/21 Unknown History Physical Exam Vital Signs and Narrative: Vital Signs: Last Vital Signs Temp 98.2 F 07/29/21 18:00 Pulse 92 07/29/21 18:00 Resp 16 07/29/21 18:00 BP 169/79 H 07/29/21 18:00 Pulse Ox 99 07/29/21 18:00 BMI result Body Mass Index 26.6 Const: General: No acute distress Orientation/consciousness: patient oriented x3 Resp: Effort & Inspection: normal respiratory effort Auscultation: clear to auscultation bilaterally, no crackles, no rales and no rhonchi Cardio: Jugular venous distension: no JVD Rate: regular rate Rhythm: regular rhythm Heart sounds: S1 normal heart sound present and S2 normal heart sound present GI: Inspection: Yes normal to inspection and No distended Palpation (GI): Soft to palpation, nontender and no guarding Auscultation: normal bowel sounds : General: Yes CVA tenderness (left) Penis: edematous Scrotum: edematous Back/Spine/Pelvis: Back: CVA tenderness (left) Neuro: General: patient oriented x3, gait normal and CN's II-XI intact bilaterally Extrem: General: Yes edema (1+) Results Labs CBC and Chem 7: 07/29/21 15:17 07/29/21 15:17 Labs: Laboratory Results - last 24 hr 07/29/21 07/29/21 07/29/21 15:17 15:17 18:35 MCV 86.6 MCH 27.9 MCHC 32.2 RDW 16.8 H Plt Count 456 H MPV 9.2 L Immature Gran % (Auto) 0.6 H Neut % (Auto) 78.4 H Lymph % (Auto) 10.5 L [place] % (Auto) 9.9 Eos % (Auto) 0.3 Baso % (Auto) 0.3 Lymph # (Auto) 1.2 [place] # (Auto) 1.2 Eos # (Auto) 0.0 Baso # (Auto) 0.0 Abs Immat Gran (auto) 0.07 H Absolute Neuts (auto) 9.2 H Absolute Nucleated RBC 0.000 Nucleated RBC % (auto) 0.0 Anion Gap 17 Estim Creat Clear Calc 38.8 Estimated GFR 44 Fasting Glucose 101 H Calcium 8.7 Magnesium 2.0 Total Bilirubin 0.6 AST 14 ALT 8 Alkaline Phosphatase 61 Total Protein 6.5 Albumin 3.4 L Urine Color YELLOW Urine Appearance CLEAR Urine pH 5.5 Ur Specific [place] 1.020 Urine Protein 1+ H Urine Glucose (UA) NEG Urine Ketones 40 Urine Blood TRACE Urine Nitrite NEG Ur Leukocyte Esterase NEG Urine RBC 1-4 Urine WBC 0-2 Ur Squamous Epith Cells TRACE Urine Bacteria NONE Urine Mucus TRACE Imaging Radiologist's Impressions: Impressions Abdomen/Pelvis CT 07/29/21 16:50 IMPRESSION: There is asymmetric masslike hyperenhancing wall thickening involving the right anterolateral superior and posterior bladder wall, measuring up to 1.1 cm in thickness, suspicious for bladder neoplasm. Recommend urologic referral if not already obtained. Moderate left hydroureteronephrosis with the ureter dilated to the level of the pelvic sidewall not to the level of the bladder without obstructing stone. The ureter at the point of decompression appears relatively asymmetrically hyperenhancing and a discrete lesion cannot be excluded. Urologic referral is again recommended. There is asymmetric left perinephric fat stranding with mulugeta free fluid surrounding the proximal ureter and renal collecting system suggestive of calyceal rupture. There is associated periureteral subtle thickening and enhancement proximally and involving the renal pelvis, for which superinfection cannot be excluded. There is circumferential thickening of the mid to distal esophagus, difficult to assess degree given lack of esophageal distention. Recommend correlation with symptoms of reflux or esophagitis and consideration of endoscopy if clinically appropriate. Few indeterminate solid pulmonary nodules measuring up to 3 mm. Recommend continued imaging follow-up per clinical oncologic recommendations, given provided history of malignancy. Dependent and linear appearing secretions are noted within the trachea suggesting aspiration, however recommend attention on follow-up to ensure no discrete endobronchial nodule. Trace left pleural effusion. Layering density within the gallbladder lumen may reflect layering sludge or noncalcified stones. No findings to suggest cholecystitis. The findings and recommendations were discussed with ELIOT Garrett by telephone at 07/29/2021 5:44 PM and it was ascertained that the content and urgency of the report was understood at the time of direct communication. Chest CT 07/29/21 16:50 IMPRESSION: There is asymmetric masslike hyperenhancing wall thickening involving the right anterolateral superior and posterior bladder wall, measuring up to 1.1 cm in thickness, suspicious for bladder neoplasm. Recommend urologic referral if not already obtained. Moderate left hydroureteronephrosis with the ureter dilated to the level of the pelvic sidewall not to the level of the bladder without obstructing stone. The ureter at the point of decompression appears relatively asymmetrically hyperenhancing and a discrete lesion cannot be excluded. Urologic referral is again recommended. There is asymmetric left perinephric fat stranding with mulugeta free fluid surrounding the proximal ureter and renal collecting system suggestive of calyceal rupture. There is associated periureteral subtle thickening and enhancement proximally and involving the renal pelvis, for which superinfection cannot be excluded. There is circumferential thickening of the mid to distal esophagus, difficult to assess degree given lack of esophageal distention. Recommend correlation with symptoms of reflux or esophagitis and consideration of endoscopy if clinically appropriate. Few indeterminate solid pulmonary nodules measuring up to 3 mm. Recommend continued imaging follow-up per clinical oncologic recommendations, given provided history of malignancy. Dependent and linear appearing secretions are noted within the trachea suggesting aspiration, however recommend attention on follow-up to ensure no discrete endobronchial nodule. Trace left pleural effusion. Layering density within the gallbladder lumen may reflect layering sludge or noncalcified stones. No findings to suggest cholecystitis. The findings and recommendations were discussed with ELIOT Garrett by telephone at 07/29/2021 5:44 PM and it was ascertained that the content and urgency of the report was understood at the time of direct communication. Assessment and Plan (1) Bladder cancer: Status: Acute (2) Hydronephrosis of left kidney: Status: Acute (3) Coronary artery disease: Status: Acute Plan [id number] with know Hx bladder Ca presents with left flank pain along with scrotal/leg swelling worse over last [address] demonstratesextension of bladder ca into adjacent ureter with hydrouretal/nephrosis. 1. Bladder Ca w/extension to ureter -Urology Consult -empirical coverage with Zosyn - pain control with oxycodone/MSO4 (received toradol in ER..caution with FAITH) 2. HTN - took ACEI tonight - follow renals/divalents in am -adjust/modify based on forthcoming data 3. Hypothyroidism - continue outpatient therapies 4. Edema( in backdrop of know CAD) -check BNP now and in am 5. Hyponatremia -check urine sodium - gentle IVF's overnight if BNP normal Full Code Lovenox Quality Stroke Does the patient have a stroke diagnosis?: No VTE Prior VTE?: No VTE Risk Level:: Medical - moderate - high VTE Device Contraindication: Treatment Not Indicated VTE Drug Contraindication: N/A - Med Ordered
[2021-07-29 19:01] LABS: COVID-19 Test Negative (Negative)
[2021-07-29] MEDS: Piperacillin Sodium/Tazobactam 3.375 GM in 0.9 % Sodium Chloride 50 ML IV (19:23)
[2021-07-29] MEDS: Enoxaparin Sodium 40 MG/0.4 ML SYRINGE SUBCUT (19:24)
[2021-07-29 19:28] VITALS: RESP 16
[2021-07-29 19:33] LABS: B Type Natriuretic Peptide 26 pg/mL (<100)
[2021-07-29] MEDS: Tamsulosin HCL 0.4 MG CAPSULE PO (20:29)
[2021-07-29] MEDS: Chlorhexidine Gluc Oral Rinse 15 ML MOUTHWASH BUCCAL (20:30)
[2021-07-29] MEDS: 0.9 % Sodium Chloride 1,000 ML 75 ML IVCONT (20:32)
--- NOTE | 2021-07-29 20:32 | PC.NURSE ---
pt ate 100% of dinner. pt denies any complaints at this time and resting comfortably. will continue to monitor pt.
--- NOTE | 2021-07-29 22:43 | PC.NURSE ---
pt up and ambulates around stretcher, pt denies complaints. no chg in pt's condition. will continue to monitor pt.
[2021-07-30] VITALS (7 sets, daily range): BP systolic 135–167; BP diastolic 57–76; PULSE 76–87; RESP 16–18; TEMP 36.2–37.1; O2SAT 98
--- NOTE | 2021-07-30 00:20 | PC.NURSE ---
pt awake and c/o pain, pt fell back to sleep and meds witnessed wasted with araceli marvin. will continue to monitor pt.
[2021-07-30] MEDS: Morphine Sulfate 4 MG/ML CARTRIDGE IVPUSH ×3 (01:33→10:17)
[2021-07-30] MEDS: Piperacillin Sodium/Tazobactam 3.375 GM in 0.9 % Sodium Chloride 50 ML IV ×4 (01:37→19:54)
--- NOTE | 2021-07-30 04:30 | PC.NURSE ---
pt up to restroom to brush teeth w/o difficulty. pt alert, respirations easy, n/l. skin w/d. pt awaiting for morning labs. will continue to monitor pt.
[2021-07-30 07:11] LABS: MANUAL DIFF FLAG NO
[2021-07-30 07:15] LABS: Basophils Percent Auto 0.4 % (0-2); Eosinophils Absolute Auto 0.1 X10*3/uL (0.0-0.4); Eosinophils Percent Auto 1.1 % (0-4); Hematocrit 35.8 % (42.0-52.0); Hemoglobin 11.8 g/dl (14.0-18.0); Imm Gran Abs Auto 0.06 X10*3/uL (0.00-0.03); Imm Gran Pct Auto 0.7 % (0.0-0.4); Lymphocytes Absolute Auto 1.2 X10*3/uL (1.2-4.9); Lymphocytes Percent Auto 13.3 % (20-40); Mean Corpuscular Hemoglobin 28.4 pg (27.0-33.0); Mean Corpuscular Volume 86.1 fL (80.0-98.0); Mean Platelet Volume 9.4 fL (9.4-12.4); Monocytes Absolute Auto 0.9 X10*3/uL (0.1-1.2); Monocytes Percent Auto 10.3 % (2-11); Neutrophils Absolute Auto 6.7 x10*3/uL (2.0-8.3); Neutrophils Percent Auto 74.2 % (45-73); Platelet Count 462 X10*3/uL (160-400); Red Blood Count 4.16 X10*6/uL (4.60-5.80); Red Cell Distribution Width 16.7 % (11.0-16.0); White Blood Count 9.1 X10*3/uL (4.8-10.8)
[2021-07-30 07:43] LABS: Alanine Aminotransferase 11 U/L (0-40); Albumin Level 3.2 g/dL (3.5-5.0); Alkaline Phosphatase 55 U/L (39-117); Anion Gap 13 (12-20); Aspartate Amino Transferase 16 U/L (5-37); Bilirubin Total 0.6 mg/dL (0.0-1.0); Blood Urea Nitrogen 22 mg/dL (9-16); Calcium 8.5 mg/dL (8.4-10.2); Carbon Dioxide 24 mmol/L (22-29); Chloride 96 mmol/L (96-108); Creatinine Clr Calc Pharmacy 39.6; Estimated Glomerular Filt Rate 45; Glucose Fasting 100 mg/dL (60-99); Potassium 4.6 mmol/L (3.3-5.1); Sodium 128 mmol/L (135-145); Total Protein 6.1 g/dL (6.5-8.0)
[2021-07-30] MEDS: Thyroid,Pork 30 MG TABLET 45 MG PO (07:59)
[2021-07-30] MEDS: Chlorhexidine Gluc Oral Rinse 15 ML MOUTHWASH BUCCAL ×2 (07:59→19:54)
[2021-07-30] MEDS: 0.9 % Sodium Chloride Flush 3 ML SYRINGE IVFLUSH ×3 (07:59→19:55)
[2021-07-30] MEDS: 0.9 % Sodium Chloride 1,000 ML 75 ML IVCONT (08:17)
--- NOTE | 2021-07-30 08:31 | MHC.CM.PN ---
EMR REVIEWED, PT ADMITTED W/FLANK PAIN AND HAS BLADDER CA AND SEES DR PATRICK, CM MET W/PT WHO IS A&OX4, REPORTS HE LIVES W/HIS WFE, IS INDEPENDENT W/ALL CARE, NO DME AND NO HOME SERVICES, PT VERIFIES PCP AND HCP, PT DECLINES NEED FOR VNA/HOME SERVICES AT THIS TIME. PCP: DARREN SIMPSON HCP: ALVARADOLIDYA BLANCHARD (SPOUSE) [phone], COPY REQUESTED. [facility] X2 D/C PLAN: HOME NO SERVICES, FOR TRANSPORT
[2021-07-30] MEDS: Famotidine 20 MG TABLET PO ×2 (10:17→19:54)
[2021-07-30] MEDS: Magnesium Hydrox/Alum Hydrox 30 ML ORAL.SUSP PO (10:17)
[2021-07-30] MEDS: oxyCODONE HCl Immed Release 5 MG TABLET 10 MG PO ×3 (13:14→22:05)
--- NOTE | 2021-07-30 13:47 | HO.PM.IMPN ---
Subjective Subjective Date of Service: 07/30/21 Review of Systems as per [facility] Physical Exam Vital Signs: Vital Signs: Last Vital Signs Temp 98 F 07/30/21 07:52 Pulse 87 07/30/21 10:16 Resp 16 07/30/21 10:16 BP 167/76 H 07/30/21 10:16 Pulse Ox 98 07/30/21 07:52 BMI result Body Mass Index 26.6 Const: General: No acute distress Orientation/consciousness: patient oriented x3 Resp: Effort & Inspection: normal respiratory effort Auscultation: clear to auscultation bilaterally, no crackles, no rales and no rhonchi Cardio: Jugular venous distension: no JVD Rate: regular rate Rhythm: regular rhythm Heart sounds: S1 normal heart sound present and S2 normal heart sound present GI: Inspection: Yes normal to inspection and No distended Palpation (GI): Soft to palpation, nontender and no guarding Auscultation: normal bowel sounds : General: Yes CVA tenderness (left) Penis: edematous Scrotum: edematous Back/Spine/Pelvis: Back: CVA tenderness (left) Neuro: General: patient oriented x3, gait normal and CN's II-XI intact bilaterally Extrem: General: Yes edema (1+) Objective Data Active Medications Acetaminophen (Acetaminophen 325 Mg Tablet) 650 mg PO Q6H PRN PRN Reason: Pain, Mild (Pain Scale 1-3) Al Hydroxide/Mg Hydroxide (Magnesium Hydrox/Alum Hydrox 30 Ml Oral.Susp) 30 ml PO Q4H PRN PRN Reason: Heartburn Last Admin: 07/30/21 10:17 Dose: 30 ml Documented by: HALLIE Chlorhexidine Gluconate (Chlorhexidine Gluc Oral Rinse 15 Ml Mouthwash) 15 ml BUCCAL BID [facility] Last Admin: 07/30/21 07:59 Dose: 15 ml Documented by: HALLIE Enoxaparin Sodium (Enoxaparin Sodium 40 Mg/0.4 Ml Syringe) 40 mg SUBCUT Q24H [facility] Last Admin: 07/29/21 19:24 Dose: 40 mg Documented by: SHIRA Famotidine (Famotidine 20 Mg Tablet) 20 mg PO BID [facility] Last Admin: 07/30/21 10:17 Dose: 20 mg Documented by: HALLIE Piperacillin Sod/Tazobactam (Sod 3.375 gm/ Sodium Chloride) 50 mls @ 100 mls/hr IV Q6H [facility] Last Infusion: 07/30/21 08:29 Dose: 0 mls/hr Documented by: HALLIE Lisinopril (Lisinopril 10 Mg Tablet) 10 mg PO BEDTIME [facility]; Protocol Last Admin: 07/29/21 20:30 Dose: Not Given Documented by: SHIRA Non-Admin Reason: Patient Refused Morphine Sulfate (Morphine Sulfate 4 Mg/Ml Cartridge) 4 mg IVPUSH Q4H PRN; Protocol PRN Reason: Pain, Severe (Pain Scale 7-10) Last Admin: 07/30/21 10:17 Dose: 4 mg Documented by: HALLIE Niacin (Niacin Er 250 Mg Tablet.Er) 1,500 mg PO BEDTIME [facility] Last Admin: 07/29/21 20:34 Dose: Not Given Documented by: SHIRA Non-Admin Reason: Med Not Available Ondansetron HCl (Ondansetron Hcl 4 Mg/2 Ml Vial) 4 mg IVPUSH Q8H PRN PRN Reason: Nausea Oxycodone HCl (Oxycodone Hcl Immed Release 5 Mg Tablet) 10 mg PO Q4H PRN PRN Reason: Pain, Moderate (Pain Scale 4-6 Last Admin: 07/30/21 13:14 Dose: 10 mg Documented by: HALLIE Pharmacy Consult (Consult Rx Perform Med Rec) 1 each MISCELLANE ONCE PRN PRN Reason: Consult order Sodium Chloride (0.9 % Sodium Chloride Flush 3 Ml Syringe) 3 ml IVFLUSH QSHIFT [facility] Last Admin: 07/30/21 07:59 Dose: 3 ml Documented by: HALLIE Tamsulosin HCl (Tamsulosin Hcl 0.4 Mg Capsule) 0.4 mg PO BEDTIME [facility] Last Admin: 07/29/21 20:29 Dose: 0.4 mg Documented by: SHIRA Thyroid (Thyroid,Pork 30 Mg Tablet) 45 mg PO DAILY@0600 [facility] Last Admin: 07/30/21 07:59 Dose: 45 mg Documented by: HALLIE Labs CBC & Chem 7: 07/30/21 07:05 07/30/21 07:05 Labs: Laboratory Results - last 24 hr 07/29/21 07/29/21 07/29/21 15:17 15:17 15:17 MCV 86.6 MCH 27.9 MCHC 32.2 RDW 16.8 H Plt Count 456 H MPV 9.2 L Immature Gran % (Auto) 0.6 H Neut % (Auto) 78.4 H Lymph % (Auto) 10.5 L [place] % (Auto) 9.9 Eos % (Auto) 0.3 Baso % (Auto) 0.3 Lymph # (Auto) 1.2 [place] # (Auto) 1.2 Eos # (Auto) 0.0 Baso # (Auto) 0.0 Abs Immat Gran (auto) 0.07 H Absolute Neuts (auto) 9.2 H Absolute Nucleated RBC 0.000 Nucleated RBC % (auto) 0.0 Anion Gap 17 Estim Creat Clear Calc 38.8 Estimated GFR 44 Fasting Glucose 101 H Calcium 8.7 Magnesium 2.0 Total Bilirubin 0.6 AST 14 ALT 8 Alkaline Phosphatase 61 B-Natriuretic Peptide 26 Total Protein 6.5 Albumin 3.4 L Urine Color Urine Appearance Urine pH Ur Specific [place] Urine Protein Urine Glucose (UA) Urine Ketones Urine Blood Urine Nitrite Ur Leukocyte Esterase Urine RBC Urine WBC Ur Squamous Epith Cells Urine Bacteria Urine Mucus COVID-19 ([facility]) COVID-19 Clin Com 07/29/21 07/29/21 07/30/21 18:35 18:35 07:05 MCV 86.1 MCH 28.4 MCHC 33.0 RDW 16.7 H Plt Count 462 H MPV 9.4 Immature Gran % (Auto) 0.7 H Neut % (Auto) 74.2 H Lymph % (Auto) 13.3 L [place] % (Auto) 10.3 Eos % (Auto) 1.1 Baso % (Auto) 0.4 Lymph # (Auto) 1.2 [place] # (Auto) 0.9 Eos # (Auto) 0.1 Baso # (Auto) 0.0 Abs Immat Gran (auto) 0.06 H Absolute Neuts (auto) 6.7 Absolute Nucleated RBC 0.000 Nucleated RBC % (auto) 0.0 Anion Gap Estim Creat Clear Calc Estimated GFR Fasting Glucose Calcium Magnesium Total Bilirubin AST ALT Alkaline Phosphatase B-Natriuretic Peptide Total Protein Albumin Urine Color YELLOW Urine Appearance CLEAR Urine pH 5.5 Ur Specific [place] 1.020 Urine Protein 1+ H Urine Glucose (UA) NEG Urine Ketones 40 Urine Blood TRACE Urine Nitrite NEG Ur Leukocyte Esterase NEG Urine RBC 1-4 Urine WBC 0-2 Ur Squamous Epith Cells TRACE Urine Bacteria NONE Urine Mucus TRACE COVID-19 ([facility]) Negative COVID-19 Clin Com See Note 07/30/21 07:05 MCV MCH MCHC RDW Plt Count MPV Immature Gran % (Auto) Neut % (Auto) Lymph % (Auto) [place] % (Auto) Eos % (Auto) Baso % (Auto) Lymph # (Auto) [place] # (Auto) Eos # (Auto) Baso # (Auto) Abs Immat Gran (auto) Absolute Neuts (auto) Absolute Nucleated RBC Nucleated RBC % (auto) Anion Gap 13 Estim Creat Clear Calc 39.6 Estimated GFR 45 Fasting Glucose 100 H Calcium 8.5 Magnesium Total Bilirubin 0.6 AST 16 ALT 11 Alkaline Phosphatase 55 B-Natriuretic Peptide Total Protein 6.1 L Albumin 3.2 L Urine Color Urine Appearance Urine pH Ur Specific [place] Urine Protein Urine Glucose (UA) Urine Ketones Urine Blood Urine Nitrite Ur Leukocyte Esterase Urine RBC Urine WBC Ur Squamous Epith Cells Urine Bacteria Urine Mucus COVID-19 ([facility]) COVID-19 Clin Com Assessment and Plan (1) Bladder cancer: Status: Acute (2) Elevated blood pressure reading: Status: Acute (3) Coronary artery disease: Status: Acute Plan 80yom with know Hx bladder Ca presents with left flank pain along with scrotal/leg swelling worse over last [address] demonstratesextension of bladder ca into adjacent ureter with hydrouretal/nephrosis. 1. Bladder Ca w/extension to ureter -Urology Consult -empirical coverage with Zosyn - pain control with oxycodone/MSO4 (received toradol in ER..caution with FAITH) 2. HTN - took ACEI tonight - follow renals/divalents in am -adjust/modify based on forthcoming data 3. Hypothyroidism - continue outpatient therapies 4. Edema( in backdrop of know CAD) - improved overnight -check BNP now and in am 5. Hyponatremia -check urine sodium - gentle IVF's overnight if BNP normal -renal consult Full Code Lovenox Quality Stroke Does the patient have a stroke diagnosis?: No VTE Prior VTE?: No VTE Risk Level:: Medical - moderate - high VTE Device Contraindication: Treatment Not Indicated VTE Drug Contraindication: N/A - Med Ordered
--- NOTE | 2021-07-30 17:53 | P.CONNP_ITS ---
History of Present Illness Reason for Consult Consult date: 07/30/21 Reason for consult: FAITH, hyponatremia Chief Complaint Chief complaint: flank pain History of Present Illness Narrative: 80 year old male with past medical history of bladder cancer who presented to the ED on 07/29 with scrotal swelling and left flank pain. He states the flank pain started ~ 1 week prior to his hospital presentation. Patient denies any dizziness, lightheadedness, nausea, vomiting, fever, chills, pain with urination, increased urinary frequency, increased urinary urgency, blood in his urine or stool, or any other complaints at this time. Patient states that he has been urinating appropriately. Initial labwork demonstrated elevated wbc ct and elevated S-Cr. In ED he received a CT scan with contrast which revealed moderate left hydroureteronephrosis. he received 8 mg IV morphine as well as toradol for pain control ROS otherwise negative. Review of Systems Review of Systems Yes all other systems are reviewed and are negative Constitutional: Reports as per [facility] Past Medical History Medical History Benign prostatic hyperplasia with lower urinary tract symptoms Bladder cancer Bladder tumor Bradyarrhythmia Cataract Coronary artery disease Past heart attack Family History Family History Father Heart problem CHF (congestive heart failure) Diabetes mellitus Mother Diabetes mellitus Sister Throat cancer Daughter No problems noted. Son No problems noted. Son No problems noted. Other Substance use disorder Surgical History Surgical History History of coronary artery stent placement History of surgery Social History Social History Housing: House Alcohol intake: current Alcohol intake frequency: does not drink Patient Tobacco Use Status: Never used Tobacco service: No Current occupational status: retired Gender identity: Male Meds Allergies Allergy/AdvReac Type Severity Reaction Status Date / Time codeine [Codeine] Allergy Unknown LETHARGY Verified 07/25/21 09:40 From Antihistamine AdvReac Unknown CAN'T TAKE Uncoded 07/25/21 09:40 DUE TO BPH Active Medications: Current Medications Acetaminophen (Acetaminophen 325 Mg Tablet) 650 mg PO Q6H PRN PRN Reason: Pain, Mild (Pain Scale 1-3) Al Hydroxide/Mg Hydroxide (Magnesium Hydrox/Alum Hydrox 30 Ml Oral.Susp) 30 ml PO Q4H PRN PRN Reason: Heartburn Last Admin: 07/30/21 10:17 Dose: 30 ml Documented by: Chlorhexidine Gluconate (Chlorhexidine Gluc Oral Rinse 15 Ml Mouthwash) 15 ml BUCCAL BID [facility] Last Admin: 07/30/21 07:59 Dose: 15 ml Documented by: Enoxaparin Sodium (Enoxaparin Sodium 40 Mg/0.4 Ml Syringe) 40 mg SUBCUT Q24H [facility] Last Admin: 07/29/21 19:24 Dose: 40 mg Documented by: Famotidine (Famotidine 20 Mg Tablet) 20 mg PO BID [facility] Last Admin: 07/30/21 10:17 Dose: 20 mg Documented by: Piperacillin Sod/Tazobactam (Sod 3.375 gm/ Sodium Chloride) 50 mls @ 100 mls/hr IV Q6H [facility] Last Infusion: 07/30/21 17:40 Dose: Infused Documented by: Lisinopril (Lisinopril 10 Mg Tablet) 10 mg PO BEDTIME [facility]; Protocol Last Admin: 07/29/21 20:30 Dose: Not Given Documented by: Morphine Sulfate (Morphine Sulfate 4 Mg/Ml Cartridge) 4 mg IVPUSH Q4H PRN; Protocol PRN Reason: Pain, Severe (Pain Scale 7-10) Last Admin: 07/30/21 10:17 Dose: 4 mg Documented by: Niacin (Niacin Er 250 Mg Tablet.Er) 1,500 mg PO BEDTIME [facility] Last Admin: 07/29/21 20:34 Dose: Not Given Documented by: Ondansetron HCl (Ondansetron Hcl 4 Mg/2 Ml Vial) 4 mg IVPUSH Q8H PRN PRN Reason: Nausea Oxycodone HCl (Oxycodone Hcl Immed Release 5 Mg Tablet) 10 mg PO Q4H PRN PRN Reason: Pain, Moderate (Pain Scale 4-6 Last Admin: 07/30/21 17:26 Dose: 10 mg Documented by: Pharmacy Consult (Consult Rx Perform Med Rec) 1 each MISCELLANE ONCE PRN PRN Reason: Consult order Sodium Chloride (0.9 % Sodium Chloride Flush 3 Ml Syringe) 3 ml IVFLUSH QSHIFT [facility] Last Admin: 07/30/21 17:07 Dose: 3 ml Documented by: Tamsulosin HCl (Tamsulosin Hcl 0.4 Mg Capsule) 0.4 mg PO BEDTIME [facility] Last Admin: 07/29/21 20:29 Dose: 0.4 mg Documented by: Thyroid (Thyroid,Pork 30 Mg Tablet) 45 mg PO DAILY@0600 [facility] Last Admin: 07/30/21 07:59 Dose: 45 mg Documented by: Home Medications Medication Instructions Recorded Confirmed Last Taken Type lisinopril 10 mg tablet 1 tab PO BEDTIME 04/13/20 07/29/21 07/29/21 History niacin 500 mg tablet,extended 3 tab PO BEDTIME 04/13/20 07/29/21 07/28/21 History release 24 hr thyroid (pork) 30 mg tablet 1.5 tab PO DAILY 04/13/20 07/29/21 07/29/21 History (Nahma Thyroid) epinephrine 0.3 mg/0.3 mL 0.3 ml IM ONCE PRN 10/25/20 07/29/21 Unknown History injection, auto-injector ascorbic acid (vitamin C) 500 mg 500 mg PO DAILY 07/29/21 07/29/21 Unknown History tablet (Vitamin C) chlorhexidine gluconate 0.12 % 15 ml PO BID 07/29/21 07/29/21 07/29/21 History mouthwash cholecalciferol (vitamin D3) 10 20 mcg PO DAILY 07/29/21 07/29/21 Unknown Histor y mcg (400 unit) tablet (Vitamin D3) multivitamin 1 tab PO DAILY 07/29/21 07/29/21 Unknown History Physical Exam Vital Signs: Last Vital Signs Temp 97.2 F 07/30/21 16:00 Pulse 77 07/30/21 16:00 Resp 18 07/30/21 16:00 BP 145/67 H 07/30/21 16:00 Pulse Ox 98 07/30/21 16:00 BMI result Body Mass Index 26.6 Const General: cooperative, alert and awake Resp Effort & Inspection: normal respiratory effort Auscultation: clear to auscultation bilaterally Cardio Jugular venous distension: no JVD Rate: regular rate Extrem General: Yes no clubbing, cyanosis or edema Results Lab Results Result Diagrams: 07/30/21 07:05 07/30/21 07:05 Lab results: Chemistry 07/29/21 07/30/21 15:17 07:05 Sodium 129 L 128 L Potassium 4.6 4.6 Carbon Dioxide 22 24 BUN 20 H 22 H Creatinine 1.54 H 1.51 H Calcium 8.7 8.5 Hematology 07/29/21 07/30/21 15:17 07:05 WBC 11.8 H 9.1 Hgb 12.1 L 11.8 L Plt Count 456 H 462 H Urinalysis 07/29/21 18:35 Urine Color YELLOW Urine Appearance CLEAR Urine pH 5.5 Ur Specific [place] 1.020 Urine Protein 1+ H Urine Glucose (UA) NEG Urine Ketones 40 Urine Blood TRACE Urine Nitrite NEG Ur Leukocyte Esterase NEG Urine RBC 1-4 Urine WBC 0-2 Ur Squamous Epith Cells TRACE Assessment and Plan (1) Hydronephrosis: Status: Acute (2) Acute kidney injury: Status: Acute Plan 80 yom with know Hx bladder Ca presents with left flank pain along with scrotal/leg swelling worse over last [address] demonstrates extension of bladder ca into adjacent ureter with hydrouretal/nephrosis. Noted to have FAITH, hyponatremia, and hydronephrosis. Nephrology consulted for additional input. Problem List: FAITH hyponatremia hydronephrosis 1.FAITH - likely 2/2 hydronephrosis and obstructive nephropathy. Urology consulted and will evaluate. Monitor I/O's avoidance of NSAIDs, acei/arb, contrast. renal dosing abx. He received contrast for CT on initial presentation. Monitor for BREONNA and support accordingly. no indication for CAGE MAKER. 2.Hyponatremia. Urine studies added. Likely secondary to poor po intake and stimulation of ADH given 1 week of flank pain/scrotal pain. Monitor S-Na Q 6 hours. limit Sodium correction to 6-8 meq/L in 24 hour period. 3. Hydronephrosis - 2/2 bladder cancer with noted rupture of calyx? Urology on board. Procedures Date of Service Date of Service: 07/30/21
[2021-07-30 18:49] LABS: Uric Acid 5.1 mg/dL (3.4-7.0)
[2021-07-30 18:54] LABS: Osmolality, Serum 280 mosm/kg (281-305)
[2021-07-30] MEDS: Enoxaparin Sodium 40 MG/0.4 ML SYRINGE SUBCUT (19:53)
[2021-07-30] MEDS: Tamsulosin HCL 0.4 MG CAPSULE PO (19:54)
[2021-07-30] MEDS: lisinopriL 10 MG TABLET PO (19:54)
[2021-07-31] MEDS: Piperacillin Sodium/Tazobactam 3.375 GM in 0.9 % Sodium Chloride 50 ML IV ×4 (01:15→20:12)
[2021-07-31] MEDS: oxyCODONE HCl Immed Release 5 MG TABLET 10 MG PO ×5 (02:31→20:12)
[2021-07-31] MEDS: Thyroid,Pork 30 MG TABLET 45 MG PO (06:19)
[2021-07-31 06:24] LABS: MANUAL DIFF FLAG NO
[2021-07-31 06:58] LABS: Basophils Percent Auto 0.5 % (0-2); Eosinophils Absolute Auto 0.1 X10*3/uL (0.0-0.4); Eosinophils Percent Auto 1.8 % (0-4); Hematocrit 32.3 % (42.0-52.0); Hemoglobin 10.5 g/dl (14.0-18.0); Imm Gran Abs Auto 0.06 X10*3/uL (0.00-0.03); Imm Gran Pct Auto 0.8 % (0.0-0.4); Lymphocytes Absolute Auto 1.1 X10*3/uL (1.2-4.9); Lymphocytes Percent Auto 14.7 % (20-40); Mean Corpuscular HGB Conc 32.5 g/dl (31.0-36.0); Mean Corpuscular Volume 86.1 fL (80.0-98.0); Mean Platelet Volume 10.4 fL (9.4-12.4); Monocytes Percent Auto 13.1 % (2-11); Neutrophils Absolute Auto 5.2 x10*3/uL (2.0-8.3); Neutrophils Percent Auto 69.1 % (45-73); Platelet Count 381 X10*3/uL (160-400); Red Blood Count 3.75 X10*6/uL (4.60-5.80); Red Cell Distribution Width 16.6 % (11.0-16.0); White Blood Count 7.6 X10*3/uL (4.8-10.8)
[2021-07-31 07:13] LABS: Alanine Aminotransferase 12 U/L (0-40); Albumin Level 2.8 g/dL (3.5-5.0); Alkaline Phosphatase 49 U/L (39-117); Anion Gap 15 (12-20); Aspartate Amino Transferase 19 U/L (5-37); Bilirubin Total 0.4 mg/dL (0.0-1.0); Blood Urea Nitrogen 24 mg/dL (9-16); Calcium 8.1 mg/dL (8.4-10.2); Carbon Dioxide 21 mmol/L (22-29); Chloride 99 mmol/L (96-108); Creatinine Clr Calc Pharmacy 39.6; Estimated Glomerular Filt Rate 45; Glucose Fasting 111 mg/dL (60-99); Potassium 5.5 mmol/L (3.3-5.1); Sodium 129 mmol/L (135-145); Total Protein 5.8 g/dL (6.5-8.0)
[2021-07-31 07:41] VITALS: BP 149/65; PULSE 77; RESP 18; TEMP 36.6; O2SAT 96
[2021-07-31] MEDS: 0.9 % Sodium Chloride Flush 3 ML SYRINGE IVFLUSH ×3 (08:34→20:13)
[2021-07-31] MEDS: Acetaminophen 325 MG TABLET 650 MG PO ×2 (08:35→17:05)
[2021-07-31] MEDS: Famotidine 20 MG TABLET PO ×2 (08:35→20:12)
[2021-07-31] MEDS: Chlorhexidine Gluc Oral Rinse 15 ML MOUTHWASH BUCCAL ×2 (08:36→20:12)
--- NOTE | 2021-07-31 12:44 | P.PNIM_ITS ---
Subjective Subjective Date of Service: 07/31/21 Review of Systems as per [facility] Physical Exam Vital Signs: Vital Signs: Last Vital Signs Temp 97.8 F 07/31/21 07:41 Pulse 77 07/31/21 07:41 Resp 18 07/31/21 07:41 BP 149/65 H 07/31/21 07:41 Pulse Ox 96 07/31/21 07:41 BMI result Body Mass Index 26.6 Const: General: No acute distress Orientation/consciousness: patient orie nted x3 Resp: Effort & Inspection: normal respiratory effort Auscultation: clear to auscultation bilaterally, no crackles, no rales and no rhonchi Cardio: Jugular venous distension: no JVD Rate: regular rate Rhythm: regular rhythm Heart sounds: S1 normal heart sound present and S2 normal heart sound present GI: Inspection: Yes normal to inspection and No distended Palpation (GI): Soft to palpation, nontender and no guarding Auscultation: normal bowel sounds : General: Yes CVA tenderness (left) Penis: edematous Scrotum: edematous Back/Spine/Pelvis: Back: CVA tenderness (left) Neuro: General: patient oriented x3, gait normal and CN's II-XI intact bilat erally Extrem: General: Yes edema (1+) Objective Data Active Medications Acetaminophen (Acetaminophen 325 Mg Tablet) 650 mg PO Q6H PRN PRN Reason: Pain, Mild (Pain Scale 1-3) Last Admin: 07/31/21 08:35 Dose: 650 mg Documented by: KAYE Al Hydroxide/Mg Hydroxide (Magnesium Hydrox/Alum Hydrox 30 Ml Oral.Susp) 30 ml PO Q4H PRN PRN Reason: Heartburn Last Admin: 07/30/21 10:17 Dose: 30 ml Documented by: HALLIE Chlorhexidine Gluconate (Chlorhexidine Gluc Oral Rinse 15 Ml Mouthwash) 15 ml BUCCAL BID [facility] Last Admin: 07/31/21 08:36 Dose: 15 ml Documented by: KAYE Enoxaparin Sodium (Enoxaparin Sodium 40 Mg/0.4 Ml Syringe) 40 mg SUBCUT Q24H [facility] Last Admin: 07/30/21 19:53 Dose: 40 mg Documented by: ELIOT Famotidine (Famotidine 20 Mg Tablet) 20 mg PO BID [facility] Last Admin: 07/31/21 08:35 Dose: 20 mg Documented by: KAYE Piperacillin Sod/Tazobactam (Sod 3.375 gm/ Sodium Chloride) 50 mls @ 100 mls/hr IV Q6H [facility] Last Infusion: 07/31/21 09:39 Dose: 0 mls/hr Documented by: CAROLE Morphine Sulfate (Morphine Sulfate 4 Mg/Ml Cartridge) 4 mg IVPUSH Q4H PRN; Protocol PRN Reason: Pain, Severe (Pain Scale 7-10) Last Admin: 07/30/21 10:17 Dose: 4 mg Documented by: HALLIE Niacin (Niacin Er 250 Mg Tablet.Er) 1,500 mg PO BEDTIME [facility] Last Admin: 07/30/21 19:54 Dose: 1,500 mg Documented by: ELIOT Ondansetron HCl (Ondansetron Hcl 4 Mg/2 Ml Vial) 4 mg IVPUSH Q8H PRN PRN Reason: Nausea Oxycodone HCl (Oxycodone Hcl Immed Release 5 Mg Tablet) 10 mg PO Q4H PRN PRN Reason: Pain, Moderate (Pain Scale 4-6 Last Admin: 07/31/21 10:47 Dose: 10 mg Documented by: KAYE Pharmacy Consult (Consult Rx Perform Med Rec) 1 each MISCELLANE ONCE PRN PRN Reason: Consult order Sodium Chloride (0.9 % Sodium Chloride Flush 3 Ml Syringe) [facility] Last Admin: 07/31/21 08:34 Dose: 3 ml Documented by: KAYE Tamsulosin HCl (Tamsulosin Hcl 0.4 Mg Capsule) 0.4 mg PO BEDTIME [facility] Last Admin: 07/30/21 19:54 Dose: 0.4 mg Documented by: ELIOT Thyroid (Thyroid,Pork 30 Mg Tablet) 45 mg PO DAILY@0600 [facility] Last Admin: 07/31/21 06:19 Dose: 45 mg Documented by: ELIOT Labs CBC & Chem 7: 07/31/21 05:58 07/31/21 05:58 Labs: Laboratory Results - last 24 hr 07/30/21 07/30/21 07/30/21 13:12 18:06 18:06 MCV MCH MCHC RDW Plt Count MPV Immature Gran % (Auto) Neut % (Auto) Lymph % (Auto) [place] % (Auto) Eos % (Auto) Baso % (Auto) Lymph # (Auto) [place] # (Auto) Eos # (Auto) Baso # (Auto) Abs Immat Gran (auto) Absolute Neuts (auto) Absolute Nucleated RBC Nucleated RBC % (auto) Anion Gap Estim Creat Clear Calc Estimated GFR Fasting Glucose Osmolality 280 L Uric Acid 5.1 Calcium Total Bilirubin AST ALT Alkaline Phosphatase Total Protein Albumin Ur Random Sodium 21.0 07/31/21 07/31/21 05:58 05:58 MCV 86.1 MCH 28.0 MCHC 32.5 RDW 16.6 H Plt Count 381 MPV 10.4 Immature Gran % (Auto) 0.8 H Neut % (Auto) 69.1 Lymph % (Auto) 14.7 L [place] % (Auto) 13.1 H Eos % (Auto) 1.8 Baso % (Auto) 0.5 Lymph # (Auto) 1.1 L [place] # (Auto) 1.0 Eos # (Auto) 0.1 Baso # (Auto) 0.0 Abs Immat Gran (auto) 0.06 H Absolute Neuts (auto) 5.2 Absolute Nucleated RBC 0.000 Nucleated RBC % (auto) 0.0 Anion Gap 15 Estim Creat Clear Calc 39.6 Estimated GFR 45 Fasting Glucose 111 H Osmolality Uric Acid Calcium 8.1 L Total Bilirubin 0.4 AST 19 ALT 12 Alkaline Phosphatase 49 Total Protein 5.8 L Albumin 2.8 L Ur Random Sodium Microbiology Microbiology Results: Microbiology 07/29/21 15:44 Blood Culture - Preliminary Blood - Venous No growth after 24 hours. 07/29/21 15:17 Blood Culture - Preliminary Blood - Venous No growth after 24 hours. Assessment and Plan (1) Bladder cancer: Status: Acute (2) Acute kidney injury: Status: Acute (3) Hypertension, essential: Status: Acute Plan 80yom with know Hx bladder Ca presents with left flank pain along with scrotal/leg swelling worse over last [address] demonstratesextension of bladder ca into adjacent ureter with hydrouretal/nep hrosis. 1. Bladder Ca w/extension to ureter -Urology Consult -empirical coverage with Zosyn - pain control with oxycodone/MSO4 (received toradol in ER..caution with FAITH) 2. HTN - D/C ACEI - follow renals/divalents in am -adjust/modify based on forthcoming data 3. Hypothyroidism - continue outpatient therapies 4. Edema( in backdrop of know CAD) -mild return -await renal Full Code Lovenox Quality Stroke Does the patient have a stroke diagnosis?: No VTE Prior VTE?: No VTE Risk Level:: Medical - moderate - high VTE Device Contraindication: Treatment Not Indicated VTE Drug Contraindication: N/A - Med Ordered
[2021-07-31] MEDS: Morphine Sulfate 4 MG/ML CARTRIDGE IVPUSH ×2 (12:51→18:29)
[2021-07-31 15:24] VITALS: BP 188/79; PULSE 78; RESP 18; TEMP 36.3; O2SAT 98
--- NOTE | 2021-07-31 17:46 | P.CNUR_ITS ---
History of Present Illness Consult details Consult date: 07/31/21 Narrative: Anmol is a patient well known to Urology Has been managed for high-grade superficial bladder cancer Prior CT imaging 2019 within normal limits He states he had had back pain for about 2 weeks prior to presentation then had swollen right testicle which appeared to be epididymitis At the point of view of admission CT scanning was done which showed left hydroureteronephrosis and a creatinine of 1.5. Baseline creatinine 0.9 Recommend cystoscopy with left retrograde, left ureteroscopy diagnostic and stent placement This will be organized for tomorrow Review of Systems Constitutional: Constitutional: Reports as per HPI and Reports no additional constitutional complaints Cardiovascular: Cardiovascular: Reports as per HPI and Reports no additional cardiovascular complaints Respiratory: Respiratory: Reports as per HPI and Reports no additional respiratory complaints Gastrointestinal: Gastrointestinal: Reports as per HPI and Reports no a dditional gastrointestinal complaints Genitourinary: Genitourinary: Reports as per HPI Musculoskeletal: Musculoskeletal: Reports no additional musculoskeletal complaints and Reports as per HPI Neurologic: Reports system reviewed and no additional complaints, except as documented and Reports as per HPI [facility] Past Medical History Medical History Benign prostatic hyperplasia with lower urinary tract symptoms Bladder cancer Bladder tumor Bradyarrhythmia Cataract Coronary artery disease Past heart attack Family History Family History Father Heart problem CHF (congestive heart failure) Diabetes mellitus Mother Diabetes mellitus Sister Throat cancer Daughter No problems noted. Son No problems noted. Son No problems noted. Other Substance use disorder Surgical History Surgical History History of coronary artery stent placement History of surgery Social History Social History Household Members: Spouse Housing: House Do you presently have visiting nurse or other home services: No Alcohol intake: current Alcohol intake frequency: does not drink Patient Tobacco Use Status: Never used Tobacco Use of substances other than those prescribed or required for medical reasons: No Currently Displaying Signs/Symptoms of Drug Intoxication Withdrawal: No Have you been hit, kicked, punched, or otherwise hurt by someone within the past year? If so, by whom?: No Do you feel safe in your current relationship?: Yes Is there a partner from a previous relationship who is making you feel unsafe now?: No Are you made to feel afraid or neglected: No Advance Directives: No Advance Directives Information Provided: No Do you have thoughts of harming others: None Do you have a plan to hurt others: No Plan Recently lost weight without trying: No How much weight loss: Not applicable Eating poorly because of decreased appetite: No Nutrition screen score: 0 Nutrition Risks: No Nutritional Risk Poor oral hygiene: No service: No Current occupational status: retired Gender identity: Male Meds Allergies Allergy/AdvReac Type Severity Reaction Status Date / Time codeine [Codeine] Allergy Unknown LETHARGY Verified 07/25/21 09:40 From Antihistamine AdvReac Unknown CAN'T TAKE Uncoded 07/25/21 09:40 DUE TO BPH Active Medications: Current Medications Acetaminophen (Acetaminophen 325 Mg Tablet) 650 mg PO Q6H PRN PRN Reason: Pain, Mild (Pain Scale 1-3) Last Admin: 07/31/21 17:05 Dose: 650 mg Documented by: Al Hydroxide/Mg Hydroxide (Magnesium Hydrox/Alum Hydrox 30 Ml Oral.Susp) 30 ml PO Q4H PRN PRN Reason: Heartburn Last Admin: 07/30/21 10:17 Dose: 30 ml Documented by: Chlorhexidine Gluconate (Chlorhexidine Gluc Oral Rinse 15 Ml Mouthwash) 15 ml BUCCAL BID [facility] Last Admin: 07/31/21 08:36 Dose: 15 ml Documented by: Enoxaparin Sodium (Enoxaparin Sodium 40 Mg/0.4 Ml Syringe) 40 mg SUBCUT Q24H [facility] Last Admin: 07/30/21 19:53 Dose: 40 mg Documented by: Famotidine (Famotidine 20 Mg Tablet) 20 mg PO BID [facility] Last Admin: 07/31/21 08:35 Dose: 20 mg Documented by: Piperacillin Sod/Tazobactam (Sod 3.375 gm/ Sodium Chloride) 50 mls @ 100 mls/hr IV Q6H [facility] Last Infusion: 07/31/21 14:28 Dose: Infused Documented by: Morphine Sulfate (Morphine Sulfate 4 Mg/Ml Cartridge) 4 mg IVPUSH Q4H PRN; Protocol PRN Reason: Pain, Severe (Pain Scale 7-10) Last Admin: 07/31/21 12:51 Dose: 4 mg Documented by: Niacin (Niacin Er 250 Mg Tablet.Er) 1,500 mg PO BEDTIME [facility] Last Admin: 07/30/21 19:54 Dose: 1,500 mg Documented by: Ondansetron HCl (Ondansetron Hcl 4 Mg/2 Ml Vial) 4 mg IVPUSH Q8H PRN PRN Reason: Nausea Oxycodone HCl (Oxycodone Hcl Immed Release 5 Mg Tablet) 10 mg PO Q4H PRN PRN Reason: Pain, Moderate (Pain Scale 4-6 Last Admin: 07/31/21 15:43 Dose: 10 mg Documented by: Pharmacy Consult (Consult Rx Perform Med Rec) 1 each MISCELLANE ONCE PRN PRN Reason: Consult order Sodium Chloride (0.9 % Sodium Chloride Flush 3 Ml Syringe) 3 ml IVFLUSH QSHIFT [facility] Last Admin: 07/31/21 15:43 Dose: 3 ml Documented by: Tamsulosin HCl (Tamsulosin Hcl 0.4 Mg Capsule) 0.4 mg PO BEDTIME [facility] Last Admin: 07/30/21 19:54 Dose: 0.4 mg Documented by: Thyroid (Thyroid,Pork 30 Mg Tablet) 45 mg PO DAILY@0600 [facility] Last Admin: 07/31/21 06:19 Dose: 45 mg Documented by: Home Medications Medication Instructions Recorded Confirmed Last Taken Type lisinopril 10 mg tablet 1 tab PO BEDTIME 04/13/20 07/29/21 07/29/21 History niacin 500 mg tablet,extended 3 tab PO BEDTIME 04/13/20 07/29/21 07/28/21 History release 24 hr thyroid (pork) 30 mg tablet 1.5 tab PO DAILY 04/13/20 07/29/21 07/29/21 History ([place] Thyroid) epinephrine 0.3 mg/0.3 mL 0.3 ml IM ONCE PRN 10/25/20 07/29/21 Unknown History injection, auto-injector ascorbic acid (vitamin C) 500 mg 500 mg PO DAILY 07/29/21 07/29/21 Unknown History tablet (Vitamin C) chlorhexidine gluconate 0.12 % 15 ml PO BID 07/29/21 07/29/21 07/29/21 History mouthwash cholecalciferol (vitamin D3) 10 20 mcg PO DAILY 07/29/21 07/29/21 Unknown History mcg (400 unit) tablet (Vitamin D3) multivitamin 1 tab PO DAILY 07/29/21 07/29/21 Unknown History Physical Exam Vital Signs: Vital Signs: Last Vital Signs Temp 97.3 F 07/31/21 15:24 Pulse 78 07/31/21 15:24 Resp 18 07/31/21 15:24 BP 188/79 H 07/31/21 15:24 Pulse Ox 98 07/31/21 15:24 BMI result Body Mass Index 26.6 Const: General: cooperative, healthy appearing, comfortable and no acute distress Orientation/consciousness: patient oriented x3 HENMT: Face and sinus: Yes normal facial exam Mouth: moist mucous membranes Neck: Neck: Yes normal visual inspection, Yes full ROM and Yes trachea midline Chest: Chest palpation & inspection: normal inspection of the chest Resp: Effort & Inspection: normal respiratory effort, able to speak in complete sentences and no respiratory distress GI: Inspection: Yes normal to inspection Back/Spine/Pelvis: Cervical Spine: normal cervical lordosis Thoracic/Lumbar Spine: thoracic and lumbar spine normal to inspection Skin: General skin exam: no rashes or lesions noted Neuro: General: patient oriented x3, tone normal and moves all extremities Extrem: General: Yes normal to inspection and Yes capillary refill normal Results Labs Result diagrams: 07/31/21 05:58 07/31/21 05:58 Labs: Abnormal lab results 07/30/21 07/31/21 07/31/21 Range/Units 18:06 05:58 05:58 RBC 3.75 L (4.60-5.80) X10*6/uL Hgb 10.5 L (14.0-18.0) g/dl Hct 32.3 L (42.0-52.0) % RDW 16.6 H (11.0-16.0) % Immature Gran % (Auto) 0.8 H (0.0-0.4) % Lymph % (Auto) 14.7 L (20-40) % [place] % (Auto) 13.1 H (2-11) % Lymph # (Auto) 1.1 L (1.2-4.9) X10*3/uL Abs Immat Gran (auto) 0.06 H (0.00-0.03) X10*3/uL Sodium 129 L (135-145) mmol/L Potassium 5.5 H (3.3-5.1) mmol/L Carbon Dioxide 21 L (22-29) mmol/L BUN 24 H (9-16) mg/dL Creatinine 1.51 H (0.5-1.4) mg/dL Fasting Glucose 111 H (60-99) mg/dL Osmolality 280 L (281-305) mosm/kg Calcium 8.1 L (8.4-10.2) mg/dL Total Protein 5.8 L (6.5-8.0) g/dL Albumin 2.8 L (3.5-5.0) g/dL Short CBC 07/31/21 Range/Units 05:58 WBC 7.6 (4.8-10.8) X10*3/uL Hgb 10.5 L (14.0-18.0) g/dl Hct 32.3 L (42.0-52.0) % Plt Count 381 (160-400) X10*3/uL BMP 07/31/21 05:58 Sodium 129 L Potassium 5.5 H Chloride 99 Carbon Dioxide 21 L BUN 24 H Creatinine 1.51 H Calcium 8.1 L Liver Function 07/31/21 Range/Units 05:58 Total Bilirubin 0.4 (0.0-1.0) mg/dL AST 19 (5-37) U/L ALT 12 (0-40) U/L Alkaline Phosphatase 49 (39-117) U/L Albumin 2.8 L (3.5-5.0) g/dL Urine 07/29/21 Range/Units 18:35 Urine Color YELLOW Urine Appearance CLEAR Urine pH 5.5 (5.0-8.0) Ur Specific [place] 1.020 (1.005-1.025) Urine Protein 1+ H (NEG-TRACE) MG/DL Urine Glucose (UA) NEG (NEG) MG/DL All other labs normal. Assessment and Plan (1) Hydronephrosis: Status: Acute (2) Benign prostatic hyperplasia with lower urinary tract symptoms: Status: Acute (3) Bladder cancer: Status: Acute Plan Risks, benefits and alternatives to therapy were discussed. These include but are not limited to infection, bleeding, damage to local organs and tissues, need for further interventions. Anesthetic risks regarding cardiac arrhythmia, blood clots, and potential mortality were discussed. The patient understands the typical recovery time and the outpatient nature of the procedure. After consideration of these risks the patient gives full informed consent and they wish to move ahead with the procedure. cystoscopy, left retrograde, left diagnostic ureteroscopy with stent placement Procedures Date of Service Date of Service: 07/31/21
[2021-07-31] MEDS: Enoxaparin Sodium 40 MG/0.4 ML SYRINGE SUBCUT (20:11)
[2021-07-31] MEDS: Tamsulosin HCL 0.4 MG CAPSULE PO (20:12)
[2021-07-31 23:40] VITALS: BP 141/67; PULSE 56; RESP 20; TEMP 36.5; O2SAT 99
[2021-08-01] MEDS: oxyCODONE HCl Immed Release 5 MG TABLET 10 MG PO ×4 (03:16→22:03)
[2021-08-01] MEDS: Piperacillin Sodium/Tazobactam 3.375 GM in 0.9 % Sodium Chloride 50 ML IV ×4 (03:16→19:33)
[2021-08-01 07:10] LABS: MANUAL DIFF FLAG NO
[2021-08-01 07:12] VITALS: BP 161/71; PULSE 83; RESP 18; TEMP 36.6; O2SAT 96
[2021-08-01 07:16] LABS: Basophils Absolute Auto 0.1 X10*3/uL (0.0-0.2); Basophils Percent Auto 0.6 % (0-2); Eosinophils Absolute Auto 0.1 X10*3/uL (0.0-0.4); Hematocrit 37.7 % (42.0-52.0); Hemoglobin 12.3 g/dl (14.0-18.0); Imm Gran Abs Auto 0.09 X10*3/uL (0.00-0.03); Imm Gran Pct Auto 0.8 % (0.0-0.4); Lymphocytes Absolute Auto 1.2 X10*3/uL (1.2-4.9); Mean Corpuscular HGB Conc 32.6 g/dl (31.0-36.0); Mean Corpuscular Hemoglobin 28.5 pg (27.0-33.0); Mean Corpuscular Volume 87.3 fL (80.0-98.0); Mean Platelet Volume 10.3 fL (9.4-12.4); Monocytes Absolute Auto 0.9 X10*3/uL (0.1-1.2); Neutrophils Absolute Auto 8.4 x10*3/uL (2.0-8.3); Neutrophils Percent Auto 78.6 % (45-73); Platelet Count 426 X10*3/uL (160-400); Red Blood Count 4.32 X10*6/uL (4.60-5.80); White Blood Count 10.7 X10*3/uL (4.8-10.8)
[2021-08-01] MEDS: Morphine Sulfate 4 MG/ML CARTRIDGE IVPUSH (07:51)
[2021-08-01 07:53] LABS: Alanine Aminotransferase 17 U/L (0-40); Albumin Level 3.3 g/dL (3.5-5.0); Alkaline Phosphatase 60 U/L (39-117); Anion Gap 20 (12-20); Aspartate Amino Transferase 29 U/L (5-37); Bilirubin Total 0.3 mg/dL (0.0-1.0); Blood Urea Nitrogen 24 mg/dL (9-16); Calcium 8.9 mg/dL (8.4-10.2); Carbon Dioxide 17 mmol/L (22-29); Chloride 100 mmol/L (96-108); Creatinine Clr Calc Pharmacy 36.7; Estimated Glomerular Filt Rate 41; Glucose Fasting 76 mg/dL (60-99); Potassium 6.1 mmol/L (3.3-5.1); Sodium 131 mmol/L (135-145); Total Protein 6.8 g/dL (6.5-8.0)
[2021-08-01] MEDS: 0.9 % Sodium Chloride Flush 3 ML SYRINGE IVFLUSH ×3 (08:03→22:04)
[2021-08-01] MEDS: Famotidine 20 MG TABLET PO ×2 (08:05→19:32)
[2021-08-01] MEDS: Chlorhexidine Gluc Oral Rinse 15 ML MOUTHWASH BUCCAL ×2 (08:08→19:33)
[2021-08-01] MEDS: Sodium Zirconium Cyclosilicate 10 GM POWD.PACK PO ×3 (08:32→19:32)
--- NOTE | 2021-08-01 10:22 | P.PNNP_ITS ---
Subjective Subjective Date of Service: 08/01/21 Interval history: Events noted Feeling OK Physical Exam Vital Signs: Vital Signs: Last Vital Signs Temp 97.8 F 08/01/21 07:12 Pulse 83 08/01/21 07:12 Resp 18 08/01/21 07:12 BP 161/71 H 08/01/21 07:12 Pulse Ox 96 08/01/21 07:12 BMI result Body Mass Index 26.6 Neck: Neck: Yes supple and Yes no JVD Resp: Auscultation: clear to auscultation bilaterally Cardio: Palpation: no palpable S3 Heart sounds: no murmurs and no rubs GI: Palpation (GI): Soft to palpation Auscultation: normal bowel sounds : Male General Exam: Yes edema Neuro: Motor exam (neuro): no asterixis Extrem: General: Yes edema Objective Data Labs CBC & Chem 7: 08/01/21 06:44 08/01/21 06:44 Labs: Laboratory Results - last 24 hr 08/01/21 08/01/21 06:44 06:44 WBC 10.7 RBC 4.32 L Hgb 12.3 L Hct 37.7 L MCV 87.3 MCH 28.5 MCHC 32.6 RDW 17.0 H Plt Count 426 H MPV 10.3 Immature Gran % (Auto) 0.8 H Neut % (Auto) 78.6 H Lymph % (Auto) 11.0 L [place] % (Auto) 8.0 Eos % (Auto) 1.0 Baso % (Auto) 0.6 Lymph # (Auto) 1.2 [place] # (Auto) 0.9 Eos # (Auto) 0.1 Baso # (Auto) 0.1 Abs Immat Gran (auto) 0.09 H Absolute Neuts (auto) 8.4 H Absolute Nucleated RBC 0.000 Nucleated RBC % (auto) 0.0 Sodium 131 L Potassium 6.1 H* Chloride 100 Carbon Dioxide 17 L Anion Gap 20 BUN 24 H Creatinine 1.63 H Estim Creat Clear Calc 36.7 Estimated GFR 41 Fasting Glucose 76 Calcium 8.9 D Total Bilirubin 0.3 AST 29 D ALT 17 Alkaline Phosphatase 60 D Total Protein 6.8 Albumin 3.3 L Microbiology Microbiology Results: Microbiology 07/29/21 15:44 Blood - Venous Blood Culture - Preliminary No growth after 48 hours. 02/12/22 15:17 Blood - Venous Blood Culture - Preliminary No growth after 48 hours. Procedures Date of Service Date of Service: 08/01/21 Assessment & Plan Assessment and plan (1) Acute kidney injury: Status: Acute Plan 80 ym with know Hx bladder Ca presents with left flank pain along with scrotal/leg swelling . CT demonstrates extension of bladder ca into adjacent ureter with hydrouretal /nephrosis. Noted to have FAITH, hyponatremia, and hydronephrosis. Nephrology consulted for additional input. Problem List: FAITH hyponatremia hydronephrosis 1.FAITH - likely 2/2 hydronephrosis and obstructive nephropathy. Monitor I/O's avoidance of NSAIDs, acei/arb, contrast. renal dosing abx. He received contrast for CT on initial presentation. Monitor for BREONNA and support accordingly. no indication for [employer]. 2.Hyponatremia. Likely secondary to poor po intake and stimulation of ADH given 1 week of flank pain/scrotal pain. Monitor S-Na Q 6 hours. limit Sodium correction to 6-8 meq/L in 24 hour period. 3. Hydronephrosis - 2/2 bladder cancer with noted rupture of calyx? Urology For stent today 4. Hyperkalemia due to FAITH/Obstruction Lokelma.? Recheck K Time Spent With Patient Time: Total time spent is greater than 50% in coordination of care (as documented) at patient's floor/unit and/or counseling patient: Time with patient: 15 - 24 minutes Progress Note: Quality Stroke Does the patient have a stroke diagnosis?: No
[2021-08-01] MEDS: Acetaminophen 325 MG TABLET 650 MG PO ×2 (11:10→19:31)
--- NOTE | 2021-08-01 13:46 | HO.PM.IMPN ---
Subjective Subjective Date of Service: 08/01/21 Review of Systems as per [facility] Physical Exam Vital Signs: Vital Signs: Last Vital Signs Temp 97.8 F 08/01/21 07:12 Pulse 83 08/01/21 07:12 Resp 18 08/01/21 07:12 BP 161/71 H 08/01/21 07:12 Pulse Ox 96 08/01/21 07:12 BMI result Body Mass Index 26.6 Const: General: No acute distress Orientation/consciousness: patient oriented x3 Resp: Effort & Inspection: normal respiratory effort Auscultation: clear to auscultation bilaterally, no crackles, no rales and no rhonchi Cardio: Jugular venous distension: no JVD Rate: regular rate Rhythm: regular rhythm Heart sounds: S1 normal heart sound present and S2 normal heart sound present GI: Inspection: Yes normal to inspection and No distended Palpation (GI): Soft to palpation, nontender and no guarding Auscultation: normal bowel sounds : General: Yes CVA tenderness (left) Penis: edematous Scrotum: edematous Back/Spine/Pelvis: Back: CVA tenderness (left) Neuro: General: patient oriented x3, gait normal and CN's II-XI intact bilaterally Extrem: General: Yes edema (1+) Objective Data Active Medications Acetaminophen (Acetaminophen 325 Mg Tablet) 650 mg PO Q6H PRN PRN Reason: Pain, Mild (Pain Scale 1-3) Last Admin: 08/01/21 11:10 Dose: 650 mg Documented by: CAROLE Al Hydroxide/Mg Hydroxide (Magnesium Hydrox/Alum Hydrox 30 Ml Oral.Susp) 30 ml PO Q4H PRN PRN Reason: Heartburn Last Admin: 07/30/21 10:17 Dose: 30 ml Documented by: HALLIE Chlorhexidine Gluconate (Chlorhexidine Gluc Oral Rinse 15 Ml Mouthwash) 15 ml BUCCAL BID [facility] Last Admin: 08/01/21 08:08 Dose: 15 ml Documented by: KAYE Enoxaparin Sodium (Enoxaparin Sodium 40 Mg/0.4 Ml Syringe) 40 mg SUBCUT Q24H [facility] Last Admin: 07/31/21 20:11 Dose: 40 mg Documented by: ELIOT Famotidine (Famotidine 20 Mg Tablet) 20 mg PO BID [facility] Last Admin: 08/01/21 08:05 Dose: 20 mg Documented by: KAYE Piperacillin Sod/Tazobactam (Sod 3.375 gm/ Sodium Chloride) 50 mls @ 100 mls/hr IV Q6H [facility] Last Infusion: 08/01/21 08:38 Dose: 0 mls/hr Documented by: CAROLE Morphine Sulfate (Morphine Sulfate 4 Mg/Ml Cartridge) 4 mg IVPUSH Q4H PRN; Protocol PRN Reason: Pain, Severe (Pain Scale 7-10) Last Admin: 08/01/21 07:51 Dose: 4 mg Documented by: KAYE Niacin (Niacin Er 250 Mg Tablet.Er) 1,500 mg PO BEDTIME [facility] Last Admin: 07/31/21 20:12 Dose: 1,500 mg Documented by: ELIOT Ondansetron HCl (Ondansetron Hcl 4 Mg/2 Ml Vial) 4 mg IVPUSH Q8H PRN PRN Reason: Nausea Oxycodone HCl (Oxycodone Hcl Immed Release 5 Mg Tablet) 10 mg PO Q4H PRN PRN Reason: Pain, Moderate (Pain Scale 4-6 Last Admin: 08/01/21 11:11 Dose: 10 mg Documented by: CAROLE Pharmacy Consult (Consult Rx Perform Med Rec) 1 each MISCELLANE ONCE PRN PRN Reason: Consult order Sodium Chloride (0.9 % Sodium Chloride Flush 3 Ml Syringe) 3 ml IVFLUSH QSHIFT [facility] Last Admin: 08/01/21 08:03 Dose: 3 ml Documented by: KAYE Sodium Zirconium Cyclosilicate (Sodium Zirconium Cyclosilicate 10 Gm Powd.Pack) 10 gm PO TID [facility] Stop: 08/02/21 21:01 Last Admin: 08/01/21 08:32 Dose: 10 gm Documented by: CAROLE Tamsulosin HCl (Tamsulosin Hcl 0.4 Mg Capsule) 0.4 mg PO BEDTIME [facility] Last Admin: 07/31/21 20:12 Dose: 0.4 mg Documented by: ELIOT Thyroid (Thyroid,Pork 30 Mg Tablet) 45 mg PO DAILY@0600 [facility] Last Admin: 08/01/21 05:04 Dose: Not Given Documented by: HO.[email or web address] Non-Admin Reason: NPO Labs CBC & Chem 7: 08/01/21 06:44 08/01/21 06:44 Labs: Laboratory Results - last 24 hr 08/01/21 08/01/21 06:44 06:44 MCV 87.3 MCH 28.5 MCHC 32.6 RDW 17.0 H Plt Count 426 H MPV 10.3 Immature Gran % (Auto) 0.8 H Neut % (Auto) 78.6 H Lymph % (Auto) 11.0 L [place] % (Auto) 8.0 Eos % (Auto) 1.0 Baso % (Auto) 0.6 Lymph # (Auto) 1.2 [place] # (Auto) 0.9 Eos # (Auto) 0.1 Baso # (Auto) 0.1 Abs Immat Gran (auto) 0.09 H Absolute Neuts (auto) 8.4 H Absolute Nucleated RBC 0.000 Nucleated RBC % (auto) 0.0 Anion Gap 20 Estim Creat Clear Calc 36.7 Estimated GFR 41 Fasting Glucose 76 Calcium 8.9 D Total Bilirubin 0.3 AST 29 D ALT 17 Alkaline Phosphatase 60 D Total Protein 6.8 Albumin 3.3 L Microbiology Microbiology Results: Microbiology 07/29/21 15:44 Blood Culture - Preliminary Blood - Venous No growth after 48 hours. 07/29/21 15:17 Blood Culture - Preliminary Blood - Venous No growth after 48 hours. Assessment and Plan (1) Bladder cancer: Status: Acute (2) Hypertension, essential: Status: Acute Plan 80yom with know Hx bladder Ca presents with left flank pain along with scrotal/leg swelling worse over last [address] demonstratesextension of bladder ca into adjacent ureter with hydrouretal/nephrosis. 1. Bladder Ca w/extension to ureter -Urology Consult...cysto/stent today -empirical coverage with Zosyn -pain control with oxycodone/MSO4 (received toradol in ER..caution with FAITH) 2. HTN - D/C ACEI - follow renals/divalents in am -adjust/modify based on forthcoming data - K+ 6.1...lokelma 3. Hypothyroidism - continue outpatient therapies 4. Edema( in backdrop of know CAD) -mild return -await renal Full Code Lovenox Quality Stroke Does the patient have a stroke diagnosis?: No VTE Prior VTE?: No VTE Risk Level:: Medical - moderate - high VTE Device Contraindication: Treatment Not Indicated VTE Drug Contraindication: N/A - Med Ordered
[2021-08-01 15:05] LABS: Potassium 5.2 mmol/L (3.3-5.1)
[2021-08-01 16:18] VITALS: BP 166/74; PULSE 68; RESP 18; TEMP 37; O2SAT 97
[2021-08-01] MEDS: Enoxaparin Sodium 40 MG/0.4 ML SYRINGE SUBCUT (19:32)
[2021-08-01] MEDS: Tamsulosin HCL 0.4 MG CAPSULE PO (19:32)
[2021-08-02] VITALS (12 sets, daily range): BP systolic 114–165; BP diastolic 61–80; PULSE 70–81; RESP 14–18; TEMP 36.6–37.3; O2SAT 96–100
[2021-08-02] MEDS: Morphine Sulfate 4 MG/ML CARTRIDGE IVPUSH (02:33)
[2021-08-02] MEDS: Piperacillin Sodium/Tazobactam 3.375 GM in 0.9 % Sodium Chloride 50 ML IV ×2 (02:33→14:34)
[2021-08-02 06:32] LABS: MANUAL DIFF FLAG NO
[2021-08-02 06:36] LABS: Basophils Absolute Auto 0.1 X10*3/uL (0.0-0.2); Basophils Percent Auto 0.5 % (0-2); Eosinophils Absolute Auto 0.2 X10*3/uL (0.0-0.4); Eosinophils Percent Auto 1.9 % (0-4); Hematocrit 37.2 % (42.0-52.0); Imm Gran Abs Auto 0.08 X10*3/uL (0.00-0.03); Imm Gran Pct Auto 0.8 % (0.0-0.4); Lymphocytes Percent Auto 18.9 % (20-40); Mean Corpuscular HGB Conc 32.3 g/dl (31.0-36.0); Mean Corpuscular Hemoglobin 28.3 pg (27.0-33.0); Mean Corpuscular Volume 87.7 fL (80.0-98.0); Mean Platelet Volume 9.6 fL (9.4-12.4); Monocytes Absolute Auto 0.9 X10*3/uL (0.1-1.2); Monocytes Percent Auto 8.3 % (2-11); Neutrophils Absolute Auto 7.2 x10*3/uL (2.0-8.3); Neutrophils Percent Auto 69.6 % (45-73); Platelet Count 570 X10*3/uL (160-400); Red Blood Count 4.24 X10*6/uL (4.60-5.80); Red Cell Distribution Width 16.8 % (11.0-16.0); White Blood Count 10.4 X10*3/uL (4.8-10.8)
[2021-08-02 07:09] LABS: Alanine Aminotransferase 16 U/L (0-40); Albumin Level 3.4 g/dL (3.5-5.0); Alkaline Phosphatase 58 U/L (39-117); Anion Gap 20 (12-20); Aspartate Amino Transferase 29 U/L (5-37); Bilirubin Total < 0.2 mg/dL (0.0-1.0); Blood Urea Nitrogen 25 mg/dL (9-16); Calcium 8.6 mg/dL (8.4-10.2); Carbon Dioxide 20 mmol/L (22-29); Chloride 99 mmol/L (96-108); Creatinine Clr Calc Pharmacy 35.4; Estimated Glomerular Filt Rate 39; Glucose Fasting 84 mg/dL (60-99); Potassium 4.9 mmol/L (3.3-5.1); Sodium 134 mmol/L (135-145)
--- NOTE | 2021-08-02 08:26 | P.CONAN_ITS ---
[facility] Active Problems Active Problems: All Active Problems (Updated 07/30/21 @ 17:56 by Yogi Soriano MD) Acute kidney injury (Acute) Hydronephrosis (Acute) Intractable pain (Acute) Hydronephrosis (Acute) Hydronephrosis of left kidney (Acute) Elevated blood pressure reading (Acute) Back pain (Acute) Back pain with left-sided radiculopathy (Acute) Benign prostatic hyperplasia with lower urinary tract symptoms (Acute) Bladder cancer (Acute) Coronary artery disease (Acute) Iron deficiency (Acute) Elevated PSA (Acute) Diverticulosis (Acute) Hypertension, essential (Acute) Past Medical History Medical History Benign prostatic hyperplasia with lower urinary tract symptoms Bladder cancer Bladder tumor Bradyarrhythmia Cataract Coronary artery disease Past heart attack Family History Family History Father Heart problem CHF (congestive heart failure) Diabetes mellitus Mother Diabetes mellitus Sister Throat cancer Daughter No problems noted. Son No problems noted. Son No problems noted. Other Substance use disorder Surgical History Surgical History History of coronary artery stent placement History of surgery History of Problems with Anesthesia: No Social History Social History Household Members: Spouse Housing: House Do you presently have visiting nurse or other home services: No Alcohol intake: current Alcohol intake frequency: a few times a month Patient Tobacco Use Status: Never used Tobacco Use of substances other than those prescribed or required for medical reasons: No Currently Displaying Signs/Symptoms of Drug Intoxication Withdrawal: No Have you been hit, kicked, punched, or otherwise hurt by someone within the past year? If so, by whom?: No Do you feel safe in your current relationship?: Yes Is there a partner from a previous relationship who is making you feel unsafe now?: No Are you made to feel afraid or neglected: No Are you DNR?: No Advance Directives: No Advance Directives Information Provided: No Do you have thoughts of harming others: None Do you have a plan to hurt others: No Plan Recently lost weight without trying: No How much weight loss: Not applicable Eating poorly because of decreased appetite: No Nutrition screen score: 0 Nutrition Risks: No Nutritional Risk Poor oral hygiene: No service: No Current occupational status: retired Gender identity: Male Meds Allergies Allergy/AdvReac Type Severity Reaction Status Date / Time codeine [Codeine] Allergy Unknown LETHARGY Verified 07/25/21 09:40 From Antihistamine AdvReac Unknown CAN'T TAKE Uncoded 07/25/21 09:40 DUE TO BPH Active Medications: Current Medications Acetaminophen (Acetaminophen 325 Mg Tablet) 650 mg PO Q6H PRN PRN Reason: Pain, Mild (Pain Scale 1-3) Last Admin: 08/01/21 19:31 Dose: 650 mg Documented by: Al Hydroxide/Mg Hydroxide (Magnesium Hydrox/Alum Hydrox 30 Ml Oral.Susp) 30 ml PO Q4H PRN PRN Reason: Heartburn Last Admin: 07/30/21 10:17 Dose: 30 ml Documented by: Chlorhexidine Gluconate (Chlorhexidine Gluc Oral Rinse 15 Ml Mouthwash) 15 ml BUCCAL BID [facility] Last Admin: 08/02/21 08:10 Dose: Not Given Documented by: Enoxaparin Sodium (Enoxaparin Sodium 40 Mg/0.4 Ml Syringe) 40 mg SUBCUT Q24H S Last Admin: 08/01/21 19:32 Dose: 40 mg Documented by: Famotidine (Famotidine 20 Mg Tablet) 20 mg PO BID [facility] Last Admin: 08/02/21 08:10 Dose: Not Given Documented by: Piperacillin Sod/Tazobactam (Sod 3.375 gm/ Sodium Chloride) 50 mls @ 100 mls/hr IV Q6H [facility] Last Admin: 08/02/21 08:09 Dose: Not Given Documented by: Morphine Sulfate (Morphine Sulfate 4 Mg/Ml Cartridge) 4 mg IVPUSH Q4H PRN; Protocol PRN Reason: Pain, Severe (Pain Scale 7-10) Last Admin: 08/02/21 02:33 Dose: 4 mg Documented by: Niacin (Niacin Er 250 Mg Tablet.Er) 1,500 mg PO BEDTIME [facility] Last Admin: 08/01/21 19:32 Dose: 1,500 mg Documented by: Ondansetron HCl (Ondansetron Hcl 4 Mg/2 Ml Vial) 4 mg IVPUSH Q8H PRN PRN Reason: Nausea Oxycodone HCl (Oxycodone Hcl Immed Release 5 Mg Tablet) 10 mg PO Q4H PRN PRN Reason: Pain, Moderate (Pain Scale 4-6 Last Admin: 08/01/21 22:03 Dose: 10 mg Documented by: Pharmacy Consult (Consult Rx Perform Med Rec) 1 each MISCELLANE ONCE PRN PRN Reason: Consult order Sodium Chloride (0.9 % Sodium Chloride Flush 3 Ml Syringe) 3 ml IVFLUSH QSHIFT [facility] Last Admin: 08/02/21 08:09 Dose: Not Given Documented by: Sodium Zirconium Cyclosilicate (Sodium Zirconium Cyclosilicate 10 Gm Powd.Pack) 10 gm PO TID [facility] Stop: 08/02/21 21:01 Last Admin: 08/02/21 08:10 Dose: Not Given Documented by: Tamsulosin HCl (Tamsulosin Hcl 0.4 Mg Capsule) 0.4 mg PO BEDTIME [facility] Last Admin: 08/01/21 19:32 Dose: 0.4 mg Documented by: Thyroid (Thyroid,Pork 30 Mg Tablet) 45 mg PO DAILY@0600 [facility] Last Admin: 08/02/21 05:04 Dose: Not Given Documented by: Home Medications Medication Instructions Recorded Confirmed Last Taken Type lisinopril 10 mg tablet 1 tab PO BEDTIME 04/13/20 07/29/21 07/29/21 History niacin 500 mg tablet,extended 3 tab PO BEDTIME 04/13/20 07/29/21 07/28/21 History release 24 hr thyroid (pork) 30 mg tablet 1.5 tab PO DAILY 04/13/20 07/29/21 07/29/21 History ([place] Thyroid) epinephrine 0.3 mg/0.3 mL 0.3 ml IM ONCE PRN 10/25/20 07/29/21 Unknown History injection, auto-injector ascorbic acid (vitamin C) 500 mg 500 mg PO DAILY 07/29/21 07/29/21 Unknown History tablet (Vitamin C) chlorhexidine gluconate 0.12 % 15 ml PO BID 07/29/21 07/29/21 07/29/21 History mouthwash cholecalciferol (vitamin D3) 10 20 mcg PO DAILY 07/29/21 07/29/21 Unknown History mcg (400 unit) tablet (Vitamin D3) multivitamin 1 tab PO DAILY 07/29/21 07/29/21 Unknown History Exam Exam Date and Time: August 02, [id number] Height,Weight and Vital Signs: Height 5 ft 9 in Weight 81.647 kg Last Vital Signs Temp 98.7 F 08/02/21 08:01 Pulse 79 08/02/21 08:01 Resp 18 08/02/21 08:01 BP 163/62 H 08/02/21 08:01 Pulse Ox 97 08/02/21 08:01 Pertinent Lab Results Pertinent Lab Results: Laboratory Tests 07/29/21 07/29/21 07/29/21 15:17 15:17 15:17 WBC 11.8 H RBC 4.34 L Hgb 12.1 L Hct 37.6 L MCV 86.6 MCH 27.9 MCHC 32.2 RDW 16.8 H Plt Count 456 H MPV 9.2 L Immature Gran % (Auto) 0.6 H Neut % (Auto) 78.4 H Lymph % (Auto) 10.5 L [place] % (Auto) 9.9 Eos % (Auto) 0.3 Baso % (Auto) 0.3 Lymph # (Auto) 1.2 [place] # (Auto) 1.2 Eos # (Auto) 0.0 Baso # (Auto) 0.0 Abs Immat Gran (auto) 0.07 H Absolute Neuts (auto) 9.2 H Absolute Nucleated RBC 0.000 Nucleated RBC % (auto) 0.0 Sodium 129 L Potassium 4.6 Chloride 95 L Carbon Dioxide 22 Anion Gap 17 BUN 20 H Creatinine 1.54 H Estim Creat Clear Calc 38.8 Estimated GFR 44 Fasting Glucose 101 H Osmolality Uric Acid Calcium 8.7 Magnesium 2.0 Total Bilirubin 0.6 AST 14 ALT 8 Alkaline Phosphatase 61 B-Natriuretic Peptide 26 Total Protein 6.5 Albumin 3.4 L Urine Color Urine Appearance Urine pH Ur Specific [place] Urine Protein Urine Glucose (UA) Urine Ketones Urine Blood Urine Nitrite Ur Leukocyte Esterase Urine RBC Urine WBC Ur Squamous Epith Cells Urine Bacteria Urine Mucus Ur Random Sodium COVID-19 ([facility]) COVID-19 Clin Com 07/29/21 07/29/21 07/30/21 18:35 18:35 07:05 WBC 9.1 RBC 4.16 L Hgb 11.8 L Hct 35.8 L MCV 86.1 MCH 28.4 MCHC 33.0 RDW 16.7 H Plt Count 462 H MPV 9.4 Immature Gran % (Auto) 0.7 H Neut % (Auto) 74.2 H Lymph % (Auto) 13.3 L [place] % (Auto) 10.3 Eos % (Auto) 1.1 Baso % (Auto) 0.4 Lymph # (Auto) 1.2 [place] # (Auto) 0.9 Eos # (Auto) 0.1 Baso # (Auto) 0.0 Abs Immat Gran (auto) 0.06 H Absolute Neuts (auto) 6.7 Absolute Nucleated RBC 0.000 Nucleated RBC % (auto) 0.0 Sodium Potassium Chloride Carbon Dioxide Anion Gap BUN Creatinine Estim Creat Clear Calc Estimated GFR Fasting Glucose Osmolality Uric Acid Calcium Magnesium Total Bilirubin AST ALT Alkaline Phosphatase B-Natriuretic Peptide Total Protein Albumin Urine Color YELLOW Urine Appearance CLEAR Urine pH 5.5 Ur Specific [place] 1.020 Urine Protein 1+ H Urine Glucose (UA) NEG Urine Ketones 40 Urine Blood TRACE Urine Nitrite NEG Ur Leukocyte Esterase NEG Urine RBC 1-4 Urine WBC 0-2 Ur Squamous Epith Cells TRACE Urine Bacteria NONE Urine Mucus TRACE Ur Random Sodium COVID-19 ([facility]) Negative COVID-19 [employer] Com See Note 07/30/21 07/30/21 07/30/21 07:05 13:12 18:06 WBC RBC Hgb Hct MCV MCH MCHC RDW Plt Count MPV Immature Gran % (Auto) Neut % (Auto) Lymph % (Auto) [place] % (Auto) Eos % (Auto) Baso % (Auto) Lymph # (Auto) [place] # (Auto) Eos # (Auto) Baso # (Auto) Abs Immat Gran (auto) Absolute Neuts (auto) Absolute Nucleated RBC Nucleated RBC % (auto) Sodium 128 L Potassium 4.6 Chloride 96 Carbon Dioxide 24 Anion Gap 13 BUN 22 H Creatinine 1.51 H Estim Creat Clear Calc 39.6 Estimated GFR 45 Fasting Glucose 100 H Osmolality 280 L Uric Acid Calcium 8.5 Magnesium Total Bilirubin 0.6 AST 16 ALT 11 Alkaline Phosphatase 55 B-Natriuretic Peptide Total Protein 6.1 L Albumin 3.2 L Urine Color Urine Appearance Urine pH Ur Specific [place] Urine Protein Urine Glucose (UA) Urine Ketones Urine Blood Urine Nitrite Ur Leukocyte Esterase Urine RBC Urine WBC Ur Squamous Epith Cells Urine Bacteria Urine Mucus Ur Random Sodium 21.0 COVID-19 ([facility]) COVID-19 Clin Com 07/30/21 07/31/21 07/31/21 18:06 05:58 05:58 WBC 7.6 RBC 3.75 L Hgb 10.5 L Hct 32.3 L MCV 86.1 MCH 28.0 MCHC 32.5 RDW 16.6 H Plt Count 381 MPV 10.4 Immature Gran % (Auto) 0.8 H Neut % (Auto) 69.1 Lymph % (Auto) 14.7 L [place] % (Auto) 13.1 H Eos % (Auto) 1.8 Baso % (Auto) 0.5 Lymph # (Auto) 1.1 L [place] # (Auto) 1.0 Eos # (Auto) 0.1 Baso # (Auto) 0.0 Abs Immat Gran (auto) 0.06 H Absolute Neuts (auto) 5.2 Absolute Nucleated RBC 0.000 Nucleated RBC % (auto) 0.0 Sodium 129 L Potassium 5.5 H Chloride 99 Carbon Dioxide 21 L Anion Gap 15 BUN 24 H Creatinine 1.51 H Estim Creat Clear Calc 39.6 Estimated GFR 45 Fasting Glucose 111 H Osmolality Uric Acid 5.1 Calcium 8.1 L Magnesium Total Bilirubin 0.4 AST 19 ALT 12 Alkaline Phosphatase 49 B-Natriuretic Peptide Total Protein 5.8 L Albumin 2.8 L Urine Color Urine Appearance Urine pH Ur Specific [place] Urine Protein Urine Glucose (UA) Urine Ketones Urine Blood Urine Nitrite Ur Leukocyte Esterase Urine RBC Urine WBC Ur Squamous Epith Cells Urine Bacteria Urine Mucus Ur Random Sodium COVID-19 ([facility]) COVID-19 Clin Com 08/01/21 08/01/21 08/01/21 06:44 06:44 14:30 WBC 10.7 RBC 4.32 L Hgb 12.3 L Hct 37.7 L MCV 87.3 MCH 28.5 MCHC 32.6 RDW 17.0 H Plt Count 426 H MPV 10.3 Immature Gran % (Auto) 0.8 H Neut % (Auto) 78.6 H Lymph % (Auto) 11.0 L [place] % (Auto) 8.0 Eos % (Auto) 1.0 Baso % (Auto) 0.6 Lymph # (Auto) 1.2 [place] # (Auto) 0.9 Eos # (Auto) 0.1 Baso # (Auto) 0.1 Abs Immat Gran (auto) 0.09 H Absolute Neuts (auto) 8.4 H Absolute Nucleated RBC 0.000 Nucleated RBC % (auto) 0.0 Sodium 131 L Potassium 6.1 H* 5.2 H Chloride 100 Carbon Dioxide 17 L Anion Gap 20 BUN 24 H Creatinine 1.63 H Estim Creat Clear Calc 36.7 Estimated GFR 41 Fasting Glucose 76 Osmolality Uric Acid Calcium 8.9 D Magnesium Total Bilirubin 0.3 AST 29 D ALT 17 Alkaline Phosphatase 60 D B-Natriuretic Peptide Total Protein 6.8 Albumin 3.3 L Urine Color Urine Appearance Urine pH Ur Specific [place] Urine Protein Urine Glucose (UA) Urine Ketones Urine Blood Urine Nitrite Ur Leukocyte Esterase Urine RBC Urine WBC Ur Squamous Epith Cells Urine Bacteria Urine Mucus Ur Random Sodium COVID-19 ([facility]) COVID-19 [employer] Com 08/02/21 08/02/21 06:22 06:22 WBC 10.4 RBC 4.24 L Hgb 12.0 L Hct 37.2 L MCV 87.7 MCH 28.3 MCHC 32.3 RDW 16.8 H Plt Count 570 H D MPV 9.6 Immature Gran % (Auto) 0.8 H Neut % (Auto) 69.6 Lymph % (Auto) 18.9 L [place] % (Auto) 8.3 Eos % (Auto) 1.9 Baso % (Auto) 0.5 Lymph # (Auto) 2.0 [place] # (Auto) 0.9 Eos # (Auto) 0.2 Baso # (Auto) 0.1 Abs Immat Gran (auto) 0.08 H Absolute Neuts (auto) 7.2 Absolute Nucleated RBC 0.000 Nucleated RBC % (auto) 0.0 Sodium 134 L Potassium 4.9 Chloride 99 Carbon Dioxide 20 L Anion Gap 20 BUN 25 H Creatinine 1.69 H Estim Creat Clear Calc 35.4 Estimated GFR 39 Fasting Glucose 84 Osmolality Uric Acid Calcium 8.6 Magnesium Total Bilirubin < 0.2 AST 29 ALT 16 Alkaline Phosphatase 58 B-Natriuretic Peptide Total Protein 7.0 Albumin 3.4 L Urine Color Urine Appearance Urine pH Ur Specific [place] Urine Protein Urine Glucose (UA) Urine Ketones Urine Blood Urine Nitrite Ur Leukocyte Esterase Urine RBC Urine WBC Ur Squamous Epith Cells Urine Bacteria Urine Mucus Ur Random Sodium COVID-19 ([facility]) COVID-19 [employer] Airway Mallampati Class: III TM Dist: >3cm Neck ROM: Full Loose/Missing/Broken Teeth: No Heart: RRR Lungs: CTA Assessment and Plan Assessment Anesthesia Assessment: Anesthesia Plan Discussed and Chart Reviewed Final Anesthetic Review History of Problems with Anesthesia: No NPO: Yes ASA Class: III Final Preanesthetic Review: Meds/Allgs Chart Reviewed, Consent Obtained/Reviewed and Anes Risks/Benef Reviewed Patient Risk: Intermediate Procedure Risk: Low Anesthetic Plan Anesthetic Plan: GA Disposition: Standard PACU
--- NOTE | 2021-08-02 08:34 | MHC.SHP ---
Pre-Procedural Eval Section A Date of Service: 08/02/21 The patient is an INPATIENT: Yes Changes since office visit: No Cold of Flu in the past 2 weeks, No New Medical Problems, No Changes in Medication and No Patient answered all questions The History & Physical has been completed within 30 days and I have reviewed it.: Yes Section B Chief Complaint: flank pain Allergies: Allergies Allergy/AdvReac Type Severity Reaction Status Date / Time codeine [Codeine] Allergy Unknown LETHARGY Verified 07/25/21 09:40 From Antihistamine AdvReac Unknown CAN'T TAKE Uncoded 07/25/21 09:40 DUE TO BPH Plan Diagnosis/Plan: Unchanged ( cystoscopy, left retrograde, left ureteroscopy, left stent placement) I have reviewed the history and physical and performed a pertinent physical examination on my patient. No changes have occurred unless specified.
--- NOTE | 2021-08-02 09:39 | P.OP_ITS ---
Operative Note Operative Note Date of Service: 08/02/21 Narrative: PreOperative Diagnosis: Left hydro ureteral nephrosis Post Operative Diagnosis: Enlarged prostate with J hooking of left ureter and hydroureteronephrosis Procedure: Cystoscopy, left retrograde, left ureteroscopy with left stent placement Surgeon: Dr Claudio Davalos Anesthesia: General Indications for procedure: Elevated creatinine, question of bladder mass on imaging Procedure: After informed consent was verified the patient was brought to the operating room and placed in a supine position. Anesthesia was administered per protocol. Patient was placed in modified dorsal lithotomy position and prepped and draped in sterile fashion. Safety pause time-out was performed. Antibiotics have been given. Cystoscopy performed. No abnormality noted of anterior posterior urethra. Bladder was entered. No evidence of recurrent bladder cancer. He has a very large median lobe was prostate. Both ureteric orifices normal position. Left ureteric orifice cannulated retrograde examination performed. Tortuous ureter shown with J hooking. Attempt made to place wire however was unable to advance. Switched to rigid ureteral scope. Rigid ureteral scope was advanced into the opening of the left ureteric orifice and a sharp turn could be seen in the path of the ureter. We were able to navigate a wire around the stone up into the kidney. The rigid scope was removed. The open-ended catheter was placed over the wire in wire exchanged for a Sensor wire. The Sensor wire was backloaded on the cystoscope in cystoscope advanced again. Six [place] by 26 cm stent was placed without difficulty. The bladder was emptied. A Jack catheter was placed. He tolerated procedure well was extubated in operating room transferred in stable condition to recovery area Pathology: Enlarged prostate Drains: 6 [place] by 26 cm double-J stent
[2021-08-02] MEDS: Sodium Zirconium Cyclosilicate 10 GM POWD.PACK PO ×2 (14:31→22:55)
--- NOTE | 2021-08-02 15:04 | P.PNIM_ITS ---
Subjective Subjective Date of Service: 08/02/21 Interval History: To OR today; had cysto/L retrograde/L ureteroscopy with L stent placement No pain No hematuria No fever Review of Systems Review of Systems: Yes all other systems are reviewed and are negative Physical Exam Vital Signs: Vital Signs: Last Vital Signs Temp 97.9 F 08/02/21 11:14 Pulse 75 08/02/21 11:14 Resp 18 08/02/21 11:14 BP 165/66 H 08/02/21 11:14 Pulse Ox 98 08/02/21 11:14 BMI result Body Mass Index 26.6 Gen: in no acute distress HEENT: sclera anicteric, moist mucus membranes Neck: supple Lungs: clear to auscultation bilaterally Heart: regular rate and rhythm, no murmurs Abd: soft, non-tender, non-distended Ext: no edema Skin: warm/well-perfused Neuro: alert and oriented x3, no focal findings Psych: appropriate affect Objective Data Active Medications Acetaminophen (Acetaminophen 325 Mg Tablet) 650 mg PO Q6H PRN PRN Reason: Pain, Mild (Pain Scale 1-3) Last Admin: 08/01/21 19:31 Dose: 650 mg Documented by: JEOVANY Acetaminophen (Acetaminophen 325 Mg Tablet) 650 mg PO ONCE PRN PRN Reason: Pain, Mild (Pain Scale 1-3) Al Hydroxide/Mg Hydroxide (Magnesium Hydrox/Alum Hydrox 30 Ml Oral.Susp) 30 ml PO Q4H PRN PRN Reason: Heartburn Last Admin: 07/30/21 10:17 Dose: 30 ml Documented by: COOPEB Albuterol Sulfate (Albuterol Sulfate (0.083%) 2.5 Mg/3 Ml Vial.Neb) 2.5 mg INHALE ONCE PRN PRN Reason: Wheezing Chlorhexidine Gluconate (Chlorhexidine Gluc Oral Rinse 15 Ml Mouthwash) 15 ml BUCCAL BID [facility] Last Admin: 08/02/21 08:10 Dose: Not Given Documented by: KEVIN Non-Admin Reason: NPO Enoxaparin Sodium (Enoxaparin Sodium 40 Mg/0.4 Ml Syringe) 40 mg SUBCUT Q24H [facility] Last Admin: 08/01/21 19:32 Dose: 40 mg Documented by: JEOVANY Famotidine (Famotidine 20 Mg Tablet) 20 mg PO BID [facility] Last Admin: 08/02/21 08:10 Dose: Not Given Documented by: KEVIN Non-Admin Reason: NPO Fentanyl (Fentanyl Citrate/Pf 100 Mcg/2 Ml Vial) 25 mcg IVPUSH Q5M PRN; Protocol PRN Reason: Pain, Moderate (Pain Scale 4-6 Piperacillin Sod/Tazobactam (Sod 3.375 gm/ Sodium Chloride) 50 mls @ 100 mls/hr IV Q6H [facility] Last Admin: 08/02/21 14:34 Dose: 100 mls/hr Documented by: KEVIN Morphine Sulfate (Morphine Sulfate 4 Mg/Ml Cartridge) 4 mg IVPUSH Q4H PRN; Protocol PRN Reason: Pain, Severe (Pain Scale 7-10) Last Admin: 08/02/21 02:33 Dose: 4 mg Documented by: JEOVANY Niacin (Niacin Er 250 Mg Tablet.Er) 1,500 mg PO BEDTIME [facility] Last Admin: 08/01/21 19:32 Dose: 1,500 mg Documented by: JEOVANY Ondansetron HCl (Ondansetron Hcl 4 Mg/2 Ml Vial) 4 mg IVPUSH Q8H PRN PRN Reason: Nausea Ondansetron HCl (Ondansetron Hcl 4 Mg/2 Ml Vial) 4 mg IVPUSH ONCE PRN PRN Reason: Nausea and Vomiting Oxycodone HCl (Oxycodone Hcl Immed Release 5 Mg Tablet) 10 mg PO Q4H PRN PRN Reason: Pain, Moderate (Pain Scale 4-6 Last Admin: 08/01/21 22:03 Dose: 10 mg Documented by: JEOVANY Oxycodone HCl (Oxycodone Hcl Immed Release 5 Mg Tablet) 5 mg PO ONCE PRN PRN Reason: Pain, Severe (Pain Scale 7-10) Pharmacy Consult (Consult Rx Perform Med Rec) 1 each MISCELLANE ONCE PRN PRN Reason: Consult order Sodium Chloride (0.9 % Sodium Chloride Flush 3 Ml Syringe) 3 ml IVFLUSH QSHIFT [facility] Last Admin: 08/02/21 08:09 Dose: Not Given Documented by: KEVIN Non-Admin Reason: NPO Sodium Zirconium Cyclosilicate (Sodium Zirconium Cyclosilicate 10 Gm Powd.Pack) 10 gm PO TID [facility] Stop: 08/02/21 21:01 Last Admin: 08/02/21 14:31 Dose: 10 gm Documented by: KEVIN Tamsulosin HCl (Tamsulosin Hcl 0.4 Mg Capsule) 0.4 mg PO BEDTIME [facility] Last Admin: 08/01/21 19:32 Dose: 0.4 mg Documented by: JEOVANY Thyroid (Thyroid,Pork 30 Mg Tablet) 45 mg PO DAILY@0600 [facility] Last Admin: 08/02/21 05:04 Dose: Not Given Documented by: JEOVANY Non-Admin Reason: NPO Labs CBC & Chem 7: 08/02/21 06:22 08/02/21 06:22 Labs: Laboratory Results - last 24 hr 08/02/21 08/02/21 06:22 06:22 MCV 87.7 MCH 28.3 MCHC 32.3 RDW 16.8 H Plt Count 570 H D MPV 9.6 Immature Gran % (Auto) 0.8 H Neut % (Auto) 69.6 Lymph % (Auto) 18.9 L Day % (Auto) 8.3 Eos % (Auto) 1.9 Baso % (Auto) 0.5 Lymph # (Auto) 2.0 Day # (Auto) 0.9 Eos # (Auto) 0.2 Baso # (Auto) 0.1 Abs Immat Gran (auto) 0.08 H Absolute Neuts (auto) 7.2 Absolute Nucleated RBC 0.000 Nucleated RBC % (auto) 0.0 Anion Gap 20 Estim Creat Clear Calc 35.4 Estimated GFR 39 Fasting Glucose 84 Calcium 8.6 Total Bilirubin < 0.2 AST 29 ALT 16 Alkaline Phosphatase 58 Total Protein 7.0 Albumin 3.4 L Assessment and Plan (1) Acute kidney injury: Status: Acute (2) Hydronephrosis: Status: Acute (3) Bladder cancer: Status: Acute (4) Hypertension, essential: Status: Acute Plan hospital d#4 80yo M wit hx bladder CA presenting with L flank pain + scrotal/leg swelling CT scan showed concern of extension of bladder CA into adjacent ureter with hydroureteronephrosis # hydronephrosis - intraoperative findings: no evidence for recurrent bladder CA. rather, there was enlarged prostate with J hooking of left ureter and hydroureteronephrosis - POD #0 cysto/retrograde/stent placement - UCx negative- d/c pip/belinda # hyperK - resolved with lisinopril discontinuation and SZC treatment; repeat BMP in am # FAITH - likely due to postrenal obstruction, treated as above; repeat BMP in am # hypoNa - resolving, likely SIADH # hypothyroidism - continue thyroid hormone replacement # VTE ppx - LMWH # dispo - possibly home tomorrow Quality Stroke Does the patient have a stroke diagnosis?: No VTE Prior VTE?: No VTE Risk Level:: Medical - moderate - high VTE Device Contraindication: Treatment Not Indicated VTE Drug Contraindication: N/A - Med Ordered
--- NOTE | 2021-08-02 15:22 | MHC.CM.PN ---
Per Rounds discussion, Patient has Bladder CA and getting a stent today. Home is the goal and CM will follow for possible need to adjust the dc plan.
[2021-08-02] MEDS: 0.9 % Sodium Chloride Flush 3 ML SYRINGE IVFLUSH (17:41)
[2021-08-02] MEDS: Enoxaparin Sodium 40 MG/0.4 ML SYRINGE SUBCUT (20:06)
[2021-08-02] MEDS: Chlorhexidine Gluc Oral Rinse 15 ML MOUTHWASH BUCCAL (21:09)
[2021-08-02] MEDS: Tamsulosin HCL 0.4 MG CAPSULE PO (21:09)
[2021-08-02] MEDS: Famotidine 20 MG TABLET PO (21:09)
[2021-08-03] VITALS (7 sets, daily range): BP systolic 160–190; BP diastolic 72–86; PULSE 69–94; RESP 16–18; TEMP 35.6–37.1; O2SAT 95–99
[2021-08-03] MEDS: 0.9 % Sodium Chloride Flush 3 ML SYRINGE IVFLUSH ×2 (01:19→07:55)
[2021-08-03] MEDS: Acetaminophen 325 MG TABLET 650 MG PO (04:26)
[2021-08-03] MEDS: Thyroid,Pork 30 MG TABLET 45 MG PO (04:26)
[2021-08-03] MEDS: bisacodyL 5 MG TABLET.DR 10 MG PO (04:28)
[2021-08-03 06:44] LABS: MANUAL DIFF FLAG NO
[2021-08-03 06:55] LABS: Basophils Percent Auto 0.2 % (0-2); Eosinophils Percent Auto 0.1 % (0-4); Hematocrit 37.8 % (42.0-52.0); Hemoglobin 12.2 g/dl (14.0-18.0); Imm Gran Abs Auto 0.12 X10*3/uL (0.00-0.03); Imm Gran Pct Auto 0.7 % (0.0-0.4); Lymphocytes Absolute Auto 1.1 X10*3/uL (1.2-4.9); Mean Corpuscular HGB Conc 32.3 g/dl (31.0-36.0); Mean Corpuscular Volume 86.9 fL (80.0-98.0); Mean Platelet Volume 9.4 fL (9.4-12.4); Monocytes Absolute Auto 0.9 X10*3/uL (0.1-1.2); Monocytes Percent Auto 5.3 % (2-11); Neutrophils Absolute Auto 15.6 x10*3/uL (2.0-8.3); Neutrophils Percent Auto 87.7 % (45-73); Platelet Count 628 X10*3/uL (160-400); Red Blood Count 4.35 X10*6/uL (4.60-5.80); Red Cell Distribution Width 16.5 % (11.0-16.0); White Blood Count 17.8 X10*3/uL (4.8-10.8)
[2021-08-03 07:23] LABS: Alanine Aminotransferase 15 U/L (0-40); Albumin Level 3.4 g/dL (3.5-5.0); Alkaline Phosphatase 57 U/L (39-117); Anion Gap 22 (12-20); Aspartate Amino Transferase 21 U/L (5-37); Bilirubin Total 0.4 mg/dL (0.0-1.0); Blood Urea Nitrogen 16 mg/dL (9-16); Calcium 8.9 mg/dL (8.4-10.2); Carbon Dioxide 20 mmol/L (22-29); Chloride 101 mmol/L (96-108); Creatinine Clr Calc Pharmacy 59.3; Estimated Glomerular Filt Rate > 60; Glucose Fasting 93 mg/dL (60-99); Potassium 4.5 mmol/L (3.3-5.1); Sodium 138 mmol/L (135-145); Total Protein 6.8 g/dL (6.5-8.0)
[2021-08-03] MEDS: Famotidine 20 MG TABLET PO (07:55)
[2021-08-03] MEDS: Chlorhexidine Gluc Oral Rinse 15 ML MOUTHWASH BUCCAL (07:55)
--- NOTE | 2021-08-03 10:40 | PM.PNNEP ---
Subjective Subjective Date of Service: 08/16/21 Interval history: had cysto/L retrograde/L ureteroscopy with L stent placement No pain No hematuria No fever Physical Exam Vital Signs: Vital Signs: Last Vital Signs Temp 97.4 F 08/03/21 07:17 Pulse 85 08/03/21 07:17 Resp 18 08/03/21 07:17 BP 160/78 H 08/03/21 07:17 Pulse Ox 96 08/03/21 07:17 BMI result Body Mass Index 26.6 Neck: Neck: Yes supple and Yes no JVD Resp: Auscultation: clear to auscultation bilaterally Cardio: Palpation: no palpable S3 Heart sounds: no murmurs and no rubs GI: Palpation (GI): Soft to palpation Auscultation: normal bowel sounds : Male General Exam: Yes edema Neuro: Motor exam (neuro): no asterixis Extrem: General: Yes edema Objective Data Labs CBC & Chem 7: 08/03/21 06:16 08/03/21 06:16 Labs: Laboratory Results - last 24 hr 08/03/21 08/03/21 06:16 06:16 WBC 17.8 H RBC 4.35 L Hgb 12.2 L Hct 37.8 L MCV 86.9 MCH 28.0 MCHC 32.3 RDW 16.5 H Plt Count 628 H MPV 9.4 Immature Gran % (Auto) 0.7 H Neut % (Auto) 87.7 H Lymph % (Auto) 6.0 L [place] % (Auto) 5.3 Eos % (Auto) 0.1 Baso % (Auto) 0.2 Lymph # (Auto) 1.1 L [place] # (Auto) 0.9 Eos # (Auto) 0.0 Baso # (Auto) 0.0 Abs Immat Gran (auto) 0.12 H Absolute Neuts (auto) 15.6 H Absolute Nucleated RBC 0.000 Nucleated RBC % (auto) 0.0 Sodium 138 Potassium 4.5 Chloride 101 Carbon Dioxide 20 L Anion Gap 22 H BUN 16 Creatinine 1.01 Estim Creat Clear Calc 59.3 Estimated GFR > 60 Fasting Glucose 93 Calcium 8.9 Total Bilirubin 0.4 AST 21 ALT 15 Alkaline Phosphatase 57 Total Protein 6.8 Albumin 3.4 L Microbiology Microbiology Results: Microbiology 07/29/21 15:44 Blood - Venous Blood Culture - Preliminary No growth after 48 hours. 07/29/21 15:17 Blood - Venous Blood Culture - Preliminary No growth after 48 hours. Procedures Date of Service Date of Service: 08/31/21 Assessment & Plan Assessment and plan (1) Acute kidney injury: Status: Resolved Plan 80 ym with know Hx bladder Ca presents with left flank pain along with scrotal/leg swelling . CT demonstrates extension of bladder ca into adjacent ureter with hydrouretal/nephrosis. Noted to have FAITH, hyponatremia, and hydronephrosis. Nephrology consulted for additional input. Problem List: FAITH hyponatremia hydronephrosis 1.FAITH - likely 2/2 hydronephrosis and obstructive nephropathy. Monitor I/O's avoidance of NSAIDs, acei/arb, contrast. renal dosing abx. He received contrast for CT on initial presentation. Monitor for BREONNA and support accordingly. no indication for DENTOFACIAL ORTHOPEDICS DENTIST. Creatinine back to baseline after stent 2.Hyponatremia. Likely secondary to poor po intake and stimulation of ADH given 1 week of flank pain/scrotal pain. Na back to baseline 3. Hydronephrosis - 2/2 bladder cancer with noted rupture of calyx? Urology s/p stent 4. Hyperkalemia due to FAITH/Obstruction s/p Lokelma.? resolved Time Spent With Patient Time: Total time spent is greater than 50% in coordination of care (as documented) at patient's floor/unit and/or counseling patient: Time with patient: 15 - 24 minutes Progress Note: Quality Stroke Does the patient have a stroke diagnosis?: No
--- NOTE | 2021-08-03 12:38 | PC.NURSE ---
butcher cath dc'd per Dr. Ellison's orders. instructed patient to be sure to void in urinal so that we can assess first void amount. refusing mag citrate at this time i went enough this morning after my coffee on my own .
--- NOTE | 2021-08-03 13:20 | HO.POSTANES ---
Post Anesthesia Evaluation Post Anesthesia Evaluation Vital Signs: Vital Signs Temp Pulse Resp BP Pulse Ox 08/03/21 12:01 97 08/03/21 10:58 98.1 F 80 18 160/72 H 97 08/03/21 07:17 97.4 F 85 18 160/78 H 96 08/03/21 04:00 96.4 F L 77 18 178/83 H 99 Anesthesia: General Mental Status: Awake Pain Control: Satisfactory Nausea/Vomiting: None Hydration: Adequate Anesthesia-Related Issues: No Anes. Related Issues
--- NOTE | 2021-08-03 14:40 | P.DS_ITS ---
DS: Providers Provider Date of Service: 08/03/21 Date of admission: 07/29/21 18:34 Primary care physician: Jazmin Dacosta MD Consults: 07/30/21 09:08 Consult to Nephrology Routine Consulting Provider: Yogi Soriano Reason for consultation: hyponatremia Has provider been notified: No 07/31/21 12:41 Consult to Urology Routine Consulting Provider: Claudio Davalos Reason for consultation: Bladder Ca Has provider been notified: Yes DS: Diagnosis Discharge Diagnosis (1) Acute kidney injury: Status: Acute (2) Hydronephrosis of left kidney: Status: Acute (3) Prostate hypertrophy: Status: Acute (4) Hyponatremia: Status: Acute DS: Summary Hospital Course Hospital Course: From admission history and physical by Dr Dante Gonzales, 07/31/21: 80 year old male presenting to the emergency department today with scrotal swelling and left flank pain. Patient states that a week ago, he began to have left flank pain. Patient states that he saw his PCP on Saturday who did an ultrasound that showed swelling of the kidney but was otherwise unremarkable. Patient states that now he is having scrotal swelling and his left flank pain is getting worse. Patient denies any dizziness, lightheadedness, nausea, vomiting, fever, chills, blurry vision, double vision, loss of vision, chest pain, difficulty breathing, shortness of breath, back pain, night sweats, pain with urination, increased urinary frequency, increased urinary urgency, blood in his urine or stool, syncope or a near syncopal episode, recent trauma or falls, bowel incontinence, bladder incontinence, bowel retention, bladder retention, or any other complaints at this time. Patient states that he has a history of bladder cancer for which he follows up with a local urologist. Patient states that he has been urinating appropriately. ER course CT abd/pelvis demonstrates extension of known bladder Ca into ureter with hydronephrosis left kidney. Discussion with Urology..admit pain management and Uro consul[t] This 80yo M with a history bladder CA presenting with L flank pain + scrotal/leg swelling was admitted for hydroureteronephrosis, postrenal FAITH, and hyperkalemia. CT scan showed concern of extension of bladder CA into adjacent ureter. Urology was consulted. On cystoscopic direct visualization, there was no evidence of recurrent bladder CA. Rather, there was an enlarged median prostate lobe with J-hooking of the left ureter. He underwent stent placement and creatinine normalized. Hyperkalemia resolved with discontinuation of lisinopril and a dose of SZC. 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 Jack was discontinued and the patient voided on his own. He was discharged home with instructions to discontinue lisinopril for now, recheck BMP in 1 week, and follow up with Primary Care and Urology in 1-2 weeks. Time Spent with Patient Time attestation: Total time spent providing and/or coordinating discharge services: Discharge coordination time: Greater than 30 minutes Quality: Stroke Does the patient have a stroke diagnosis?: No Physical Exam Vital Signs: Vital Signs: Last Vital Signs Temp 98.1 F 08/03/21 10:58 Pulse 80 08/03/21 10:58 Resp 18 08/03/21 10:58 BP 160/72 H 08/03/21 10:58 Pulse Ox 97 08/03/21 12:01 BMI result Body Mass Index 26.6 Gen: in no acute distress HEENT: sclera anicteric, moist mucus membranes Neck: supple Lungs: clear to auscultation bilaterally Heart: regular rate and rhythm, no murmurs Abd: soft, non-tender, non-distended : scrotal edema Ext: trace LLE edema Skin: warm/well-perfused Neuro: alert and oriented x3, no focal findings Psych: appropriate affect DS: Data Data Completed and Pending Completed studies during hospitalization [Text1]: Laboratory Results WBC 17.8 X10*3/uL (4.8-10.8) H 08/03/21 06:16 RBC 4.35 X10*6/uL (4.60-5.80) L 08/03/21 06:16 Hgb 12.2 g/dl (14.0-18.0) L 08/03/21 06:16 Hct 37.8 % (42.0-52.0) L 08/03/21 06:16 MCV 86.9 fL (80.0-98.0) 08/03/21 06:16 MCH 28.0 pg (27.0-33.0) 08/03/21 06:16 MCHC 32.3 g/dl (31.0-36.0) 08/03/21 06:16 RDW 16.5 % (11.0-16.0) H 08/03/21 06:16 Plt Count 628 X10*3/uL (160-400) H 08/03/21 06:16 MPV 9.4 fL (9.4-12.4) 08/03/21 06:16 Immature Gran % (Auto) 0.7 % (0.0-0.4) H 08/03/21 06:16 Neut % (Auto) 87.7 % (45-73) H 08/03/21 06:16 Lymph % (Auto) 6.0 % (20-40) L 08/03/21 06:16 [place] % (Auto) 5.3 % (2-11) 08/03/21 06:16 Eos % (Auto) 0.1 % (0-4) 08/03/21 06:16 Baso % (Auto) 0.2 % (0-2) 08/03/21 06:16 Lymph # (Auto) 1.1 X10*3/uL (1.2-4.9) L 08/03/21 06:16 [place] # (Auto) 0.9 X10*3/uL (0.1-1.2) 08/03/21 06:16 Eos # (Auto) 0.0 X10*3/uL (0.0-0.4) 08/03/21 06:16 Baso # (Auto) 0.0 X10*3/uL (0.0-0.2) 08/03/21 06:16 Abs Immat Gran (auto) 0.12 X10*3/uL (0.00-0.03) H 08/03/21 06:16 Absolute Neuts (auto) 15.6 x10*3/uL (2.0-8.3) H 08/03/21 06:16 Absolute Nucleated RBC 0.000 X10*3/uL (0.0-0.012) 08/03/21 06:16 Nucleated RBC % (auto) 0.0 /100WBC (0.0-0.2) 08/03/21 06:16 Sodium 138 mmol/L (135-145) 08/03/21 06:16 Potassium 4.5 mmol/L (3.3-5.1) 08/03/21 06:16 Chloride 101 mmol/L (96-108) 08/03/21 06:16 Carbon Dioxide 20 mmol/L (22-29) L 08/03/21 06:16 Anion Gap 22 (12-20) H 08/03/21 06:16 BUN 16 mg/dL (9-16) 08/03/21 06:16 Creatinine 1.01 mg/dL (0.5-1.4) 08/03/21 06:16 Estim Creat Clear Calc 59.3 08/03/21 06:16 Estimated GFR > 60 08/03/21 06:16 Fasting Glucose 93 mg/dL (60-99) 08/03/21 06:16 Osmolality 280 mosm/kg (281-305) L 07/30/21 18:06 Uric Acid 5.1 mg/dL (3.4-7.0) 07/30/21 18:06 Calcium 8.9 mg/dL (8.4-10.2) 08/03/21 06:16 Magnesium 2.0 mg/dL (1.6-2.6) 07/29/21 15:17 Total Bilirubin 0.4 mg/dL (0.0-1.0) 08/03/21 06:16 AST 21 U/L (5-37) 08/03/21 06:16 ALT 15 U/L (0-40) 08/03/21 06:16 Alkaline Phosphatase 57 U/L (39-117) 08/03/21 06:16 B-Natriuretic Peptide 26 pg/mL (<100) 07/29/21 15:17 Total Protein 6.8 g/dL (6.5-8.0) 08/03/21 06:16 Albumin 3.4 g/dL (3.5-5.0) L 08/03/21 06:16 Urine Color YELLOW 07/29/21 18:35 Urine Appearance CLEAR 07/29/21 18:35 Urine pH 5.5 (5.0-8.0) 07/29/21 18:35 Ur Specific [place] 1.020 (1.005-1.025) 07/29/21 18:35 Urine Protein 1+ MG/DL (NEG-TRACE) H 07/29/21 18:35 Urine Glucose (UA) NEG MG/DL (NEG) 07/29/21 18:35 Urine Ketones 40 MG/DL (NEG) 07/29/21 18:35 Urine Blood TRACE (NEG) 07/29/21 18:35 Urine Nitrite NEG (NEG) 07/29/21 18:35 Ur Leukocyte Esterase NEG (NEG) 07/29/21 18:35 Urine RBC 1-4 /HPF (0) 07/29/21 18:35 Urine WBC 0-2 /HPF (0-4) 07/29/21 18:35 Ur Squamous Epith Cells TRACE /LPF 07/29/21 18:35 Urine Bacteria NONE /LPF 07/29/21 18:35 Urine Mucus TRACE /LPF 07/29/21 18:35 Ur Random Sodium 21.0 mmol/L 07/30/21 13:12 COVID-19 ([facility]ORY) Negative (Negative) 07/29/21 18:35 COVID-19 Clin Com See Note 07/29/21 18:35 Impressions Abdomen/Pelvis CT 07/29/21 16:50 IMPRESSION: There is asymmetric masslike hyperenhancing wall thickening involving the right anterolateral superior and posterior bladder wall, measuring up to 1.1 cm in thickness, suspicious for bladder neoplasm. Recommend urologic referral if not already obtained. Moderate left hydroureteronephrosis with the ureter dilated to the level of the pelvic sidewall not to the level of the bladder without obstructing stone. The ureter at the point of decompression appears relatively asymmetrically hyperenhancing and a discrete lesion cannot be excluded. Urologic referral is again recommended. There is asymmetric left perinephric fat stranding with mulugeta free fluid surrounding the proximal ureter and renal collecting system suggestive of calyceal rupture. There is associated periureteral subtle thickening and enhancement proximally and involving the renal pelvis, for which superinfection cannot be excluded. There is circumferential thickening of the mid to distal esophagus, difficult to assess degree given lack of esophageal distention. Recommend correlation with symptoms of reflux or esophagitis and consideration of endoscopy if clinically appropriate. Few indeterminate solid pulmonary nodules measuring up to 3 mm. Recommend continued imaging follow-up per clinical oncologic recommendations, given provided history of malignancy. Dependent and linear appearing secretions are noted within the trachea suggesting aspiration, however recommend attention on follow-up to ensure no discrete endobronchial nodule. Trace left pleural effusion. Layering density within the gallbladder lumen may reflect layering sludge or noncalcified stones. No findings to suggest cholecystitis. The findings and recommendations were discussed with ELIOT Garrett by telephone at 07/29/2021 5:44 PM and it was ascertained that the content and urgency of the report was understood at the time of direct communication. Chest CT 07/29/21 16:50 IMPRESSION: There is asymmetric masslike hyperenhancing wall thickening involving the right anterolateral superior and posterior bladder wall, measuring up to 1.1 cm in thickness, suspicious for bladder neoplasm. Recommend urologic referral if not already obtained. Moderate left hydroureteronephrosis with the ureter dilated to the level of the pelvic sidewall not to the level of the bladder without obstructing stone. The ureter at the point of decompression appears relatively asymmetrically hyperenhancing and a discrete lesion cannot be excluded. Urologic referral is again recommended. There is asymmetric left perinephric fat stranding with [place] free fluid surrounding the proximal ureter and renal collecting system suggestive of calyceal rupture. There is associated periureteral subtle thickening and enhancement proximally and involving the renal pelvis, for which superinfection cannot be excluded. There is circumferential thickening of the mid to distal esophagus, difficult to assess degree given lack of esophageal distention. Recommend correlation with symptoms of reflux or esophagitis and consideration of endoscopy if clinically appropriate. Few indeterminate solid pulmonary nodules measuring up to 3 mm. Recommend continued imaging follow-up per clinical oncologic recommendations, given provided history of malignancy. Dependent and linear appearing secretions are noted within the trachea suggesting aspiration, however recommend attention on follow-up to ensure no discrete endobronchial nodule. Trace left pleural effusion. Layering density within the gallbladder lumen may reflect layering sludge or noncalcified stones. No findings to suggest cholecystitis. The findings and recommendations were discussed with ELIOT Garrett by telephone at 07/29/2021 5:44 PM and it was ascertained that the content and urgency of the report was understood at the time of direct communication. Guidance Fluoroscopy 08/02/21 09:40 IMPRESSION: Fluoroscopy and spot films provided during stent placement. Discharge Plan Discharge Patient Disposition: Home, Self-Care Discharge Diagnosis: FAITH/hyperkalemia/hydroureteronephrosis due to obstructive uropathy from prostate enlargement Referrals: Claudio Davalos MD [Physician] - 1 Week Jazmin Dacosta MD [Primary Care Provider] - 1 Week Discharge Medications: Continued tamsulosin 0.4 mg capsule 0.4 mg PO BEDTIME 90 Days Qty: 90 3RF niacin 500 mg tablet extended release 24 hr 3 tab PO BEDTIME 0RF thyroid (pork) [[facility] [place] Thyroid] 30 mg tablet 1.5 tab PO DAILY 0RF chlorhexidine gluconate 0.12 % mouthwash 15 ml PO BID 0RF multivitamin Tablet 1 tab PO DAILY 0RF ascorbic acid (vitamin C) [Vitamin C] 500 mg Tablet 500 mg PO DAILY 0RF cholecalciferol (vitamin D3) [Vitamin D3] 10 mcg (400 unit) Tablet 20 mcg PO DAILY 0RF epinephrine 0.3 mg/0.3 mL auto-injector 0.3 ml IM ONCE PRN (Reason: Anaphylaxis) 0RF Discontinued lisinopril 10 mg tablet 1 tab PO BEDTIME 0RF Discharge Orders: Discharge Order (Routine); Ordered 08/03/21 Ordered By: Pankaj Ellison Diet: advance to usual diet and low salt diet Activity on Discharge: As tolerated Stand Alone Forms: Patient Portal Discharge page Print Language: Uzbek Other Ambulatory Orders: Basic Metabolic Panel (Routine) Timeframe: 1 Week Facility: [facility] - Location: Laboratory Ordered By: Pankaj Ellison Care Plan Goals: kidney health relief of pain/swelling related to obstructive uropathy from prostate enlargement Health Concerns: FAITH/hyperkalemia/hydroureteronephrosis due to obstructive uropathy from prostate enlargement Plan of Treatment: STOP lisinopril due to elevated potassium recheck labs [non-fasting basic metabolic panel, BMP] in 1 week follow up with Primary Care and Urology in 1-2 weeks Assessment: see Discharge Summary Patient Instructions: Hydronephrosis (DC), Ureteral Stent Placement (DC)
--- NOTE | 2021-08-03 15:11 | MHC.CM.PN ---
Patient has been medically cleared for dc to home today, self care.
== END 2021-08-03 16:57 | disposition home or self-care (01) | DRG 465 ==
LOC: HO.ED 18:06 → HO.EDOVER 18:40 → HO.IMC 07-30 15:23
PROVIDERS: Internal Medicine Nephrology; Physician Assistant Medical; Urology; Admitting Provider Hospitalist; Emergency Provider Emergency Medicine; PCP Internal Medicine; Visit Provider Family Medicine
PROC: 0T778DZ Dilation of Left Ureter with Intraluminal Device, Via Natural or Artificial Opening Endoscopic (ICD-10-PCS; principal; 2021-08-02 08:30)
DX: N13.8 Other obstructive and reflux uropathy (principal); N17.9 Acute kidney failure, unspecified; E22.2 Syndrome of inappropriate secretion of antidiuretic hormone; N13.1 Hydronephrosis with ureteral stricture, not elsewhere classified; C67.9 Malignant neoplasm of bladder, unspecified; E87.5 Hyperkalemia; N40.1 Benign prostatic hyperplasia with lower urinary tract symptoms; I10 Essential (primary) hypertension; E03.9 Hypothyroidism, unspecified; I25.10 Atherosclerotic heart disease of native coronary artery without angina pectoris; Z20.822 Contact with and (suspected) exposure to COVID-19; Z88.5 Allergy status to narcotic agent; Z79.899 Other long term (current) drug therapy
CPT/HCPCS: 36415; 71260; 74177; 80053; 81001; 83735; 83880; 83930; 84132; 84300; 84550; 85025; 87040; 87635; 96374; 96375; 96376; 99223; 99285; C1758; C1769; C2617; J1650; J1885; J1956; J2270; J2405; J2543; J3010; Q9967

== ENCOUNTER 2021-08-09 12:28 | Outpatient (REF) | payer BC, SELFPAY ==
[2021-08-09 13:49] LABS: Urine Cytology See Pathology rpt
[2021-08-09 14:08] LABS: Anion Gap 18 (12-20); Blood Urea Nitrogen 16 mg/dL (9-16); Calcium 9.6 mg/dL (8.4-10.2); Carbon Dioxide 22 mmol/L (22-29); Chloride 101 mmol/L (96-108); Estimated Glomerular Filt Rate > 60; Glucose Random 91 mg/dL (60-115); Potassium 5.3 mmol/L (3.3-5.1); Sodium 136 mmol/L (135-145)
== END 2021-08-09 12:29 | disposition home or self-care (01) ==
LOC: HO.LAB 12:28
PROVIDERS: Absent Provider Urology; PCP Internal Medicine; Visit Provider Family Medicine
DX: N17.9 Acute kidney failure, unspecified (principal); C67.9 Malignant neoplasm of bladder, unspecified
CPT/HCPCS: 36415; 80048; 88112

== ENCOUNTER → 2021-08-16 13:19 | Outpatient (BNVA) | payer BC, SELFPAY | PROVIDERS: PCP Internal Medicine; Visit Provider Urology ==

== ENCOUNTER 2021-08-18 13:19 | Outpatient (REF) | payer BC, SELFPAY ==
--- NOTE | ~2021-08-18 | XR_ITS ---
EXAMINATION: XR LUMBOSACRAL SPINE CLINICAL INFORMATION: Low back pain COMPARISON: CT abdomen and pelvis 07/29/2021 TECHNIQUE: Three views of the lumbosacral spine. FINDINGS: There is normal lumbar segmentation with 5 nonrib-bearing lumbar vertebrae of normal height and normal lumbar lordosis. There is no lumbar vertebral compression, spondylolisthesis, destructive process. There are multilevel degenerative changes with bridging anterior and lesser partially bridging lateral osteophytes. Again, there are degenerative disc changes with disc narrowing L4-L5 and borderline and L5-S1. Facet degeneration is again seen L4-S1. The SI joints and visualized sacrum are unremarkable. Bowel gas is unremarkable. There is a left ureteral stent in position. XR/XR lumbar spine 2-3V IMPRESSION: 1. Degenerative changes with disc narrowing L4-L5 and L5-S1 and facet degeneration L4-S1. 2. Multilevel vertebral body spurring. No vertebral compression, spondylolisthesis, destructive process. 3. Left ureteral stent in position.
[2021-08-18 14:11] LABS: Anion Gap 12 (12-20); Blood Urea Nitrogen 16 mg/dL (9-16); Carbon Dioxide 27 mmol/L (22-29); Chloride 99 mmol/L (96-108); Estimated Glomerular Filt Rate 50; Potassium 4.4 mmol/L (3.3-5.1); Sodium 134 mmol/L (135-145)
[2021-08-18 14:20] LABS: B Type Natriuretic Peptide 116 pg/mL (<100)
== END 2021-08-18 13:20 | disposition home or self-care (01) ==
LOC: HO.HMGCLDS 13:19
PROVIDERS: Urology; Visit Provider Internal Medicine
DX: M54.50 Low back pain, unspecified (principal); C67.9 Malignant neoplasm of bladder, unspecified; E87.5 Hyperkalemia; N13.30 Unspecified hydronephrosis; N40.0 Benign prostatic hyperplasia without lower urinary tract symptoms
CPT/HCPCS: 36415; 72100; 80051; 82565; 83880; 84520

== ENCOUNTER 2021-08-30 13:53 | Emergency (ER) | payer BC, SELFPAY ==
[2021-08-30 14:12] VITALS: BP 163/67; PULSE 67; RESP 18; TEMP 37.1; O2SAT 98; BMI 24.3
--- NOTE | 2021-08-30 14:48 | ED.MALEGU ---
HPI - Male Genitourinary General Chief complaint: Urogenital-Male Stated complaint: swollen scrotum sent by Dr Davalos Time Seen by Provider: 08/30/21 14:35 Source: patient and family (Spouse) Mode of arrival: ambulatory Limitations: no limitations History of Present Illness HPI Narrative: 80-year-old male history of BPH, bladder cancer had a recent left ureteric stent, usually follow up with our urologist Dr. Davalos. Patient returned today for extensive swelling of the penis and scrotum started this morning, stated that it is better when he laid on his back and elevated his scrotum. They called Dr. Davalos's office this morning asking to come to the ED and he will see them in the emergency department. Patient otherwise complaining of chronic low back pain, no dysuria, no frequency, no fever or chills. Dr. Davalos was contacted who will come and see the patient the emergency department. Related Data Home Medications Medication Instructions Recorded Confirmed niacin 500 mg tablet,extended 3 tab PO BEDTIME 04/13/20 08/18/21 release 24 hr thyroid (pork) 30 mg tablet 1.5 tab PO DAILY 04/13/20 08/18/21 ([place] Thyroid) epinephrine 0.3 mg/0.3 mL 0.3 ml IM ONCE PRN 10/25/20 08/18/21 injection, auto-injector ascorbic acid (vitamin C) 500 mg 500 mg PO DAILY 07/29/21 08/18/21 tablet (Vitamin C) chlorhexidine gluconate 0.12 % 15 ml PO BID 07/29/21 08/18/21 mouthwash cholecalciferol (vitamin D3) 10 20 mcg PO DAILY 07/29/21 08/18/21 mcg (400 unit) tablet (Vitamin D3) multivitamin 1 tab PO DAILY 07/29/21 08/18/21 Previous Rx's Medication Instructions Recorded tamsulosin 0.4 mg capsule 0.4 mg PO BEDTIME 90 Days #90 cap 06/06/21 levofloxacin 500 mg tablet 500 mg PO DAILY 14 Days #14 tab 08/04/21 finasteride 5 mg tablet 5 mg PO DAILY 90 Days #90 tab 08/08/21 cyclobenzaprine 5 mg tablet 10 mg PO Q8H 7 Days #42 tab 08/18/21 Allergies Allergy/AdvReac Type Severity Reaction Status Date / Time codeine [Codeine] Allergy Unknown LETHARGY Verified 08/18/21 12:58 From Antihistamine AdvReac Unknown CAN'T TAKE Uncoded 08/18/21 12:58 DUE TO BPH Review of Systems Review of Systems: All other systems are reviewed and are negative Constitutional: Reports as per HPI and Reports no additional constitutional complaints Eyes: Reports as per HPI and Reports no additional eye complaints Reports system reviewed and no additional complaints, except as documented Cardiovascular: Reports as per HPI and Reports no additional cardiovascular complaints Respiratory: Reports as per HPI and Reports no additional respiratory complaints Gastrointestinal: Reports as per HPI and Reports no additional gastrointestinal complaints Genitourinary: Reports no additional female genitourinary complaints Musculoskeletal: Reports no additional musculoskeletal complaints Skin/Breast: Reports system reviewed and no additional complaints, except as docu Psychiatric: Reports no additional psychiatric complaints Endocrine: Reports no additional endocrine complaints Hematologic/Lymphatic: Reports no additional hematologic/lymphatic complaints Allergic/Immunologic: Reports no additional allergic/immunologic complaints Reports system reviewed and no additional complaints, except as documented and Reports Abnormal speech present [facility] Past Medical History Medical History Benign prostatic hyperplasia with lower urinary tract symptoms Bladder cancer Bladder tumor Bradyarrhythmia Cataract Coronary artery disease Hypertension, essential Past heart attack Surgical History History of coronary artery stent placement History of surgery Family History Family History Father Heart problem CHF (congestive heart failure) Diabetes mellitus Mother Diabetes mellitus Sister Throat cancer Daughter No problems noted. Son No problems noted. Son No problems noted. Other Substance use disorder Social History Social History Household Members: Spouse Housing: House Do you presently have visiting nurse or other home services: No Alcohol intake: current Alcohol intake frequency: a few times a month Patient Tobacco Use Status: Never used Tobacco Advance Directives: Yes Advance Directives Information Provided: No Advance Directives on File: No service: No Current occupational status: retired Gender identity: Male Physical Exam Vital Signs: Vital Signs: Last Vital Signs Temp 98.7 F 08/30/21 14:12 Pulse 67 08/30/21 14:12 Resp 18 08/30/21 14:12 BP 163/67 H 08/30/21 14:12 Pulse Ox 98 08/30/21 14:12 BMI result Body Mass Index 24.3 Vital signs have been reviewed as appeared to be correct. Blood pressure normal. Heart rate normal. Respiration rate normal. Temperature normal. Oxygen saturation normal. Appearance: Alert. Oriented X3. No acute distress. Head: Normal external exam. Normocephalic. Atraumatic. No Dubose signs noted. No raccoon eyes noted Eyes: PERRLA. EOMI. Conjunctiva and sclera normal. Eyelids normal. ENT: TM's Normal. Pharynx normal. Uvula midline. Moist mucous membranes. No trismus noted. No drooling noted. No muffled voice noted. Neck: Normal inspection. Neck supple. FROM. No adenopathy. Thyroid Normal. No meningeal signs. No neck mass noted. CVS: Normal heart rate and rhythm. Heart sound normal. No murmurs noted. Pulses normal throughout. Respiratory: No respiratory distress. Painless inspiration. Breath sounds normal. No wheezes/rales/rhonchi noted. Chest nontender. No accessory muscle usage noted or decreased air movement noted. Abdomen: Soft and nontender. Bowel sounds normal in all 4 quadrants. No distention noted. No organomegaly noted. No visible injury noted. : Swollen scrotum and penis, positive cremasteric reflex, testicle is not tender in normal lie and position. Back: No CVA tenderness. Full range of motion noted. Skin: Skin warm and dry. Normal skin color. Normal skin turgor. No rashes/lesions/lacerations noted. Extremities: No lower extremity edema. Extremities exhibit normal range of motion. Extremities nontender. Neuro: Oriented X 3. Cranial nerve exam: II-XII are grossly intact No motor deficit. No sensory deficit. Reflexes normal. Course Course Course Narrative: Assessment and plan. 80-year-old male history of chronic urologic problems had recent left ureteric stent placed by Dr. Davalos, scheduled for TURBT, clean urine, exam is only significant for swelling around the penis and the scrotum but normal testicular exam was presence of normal cremasteric reflex. The case discussed with Dr. Davalos the plan is to discharge the patient and he will call him tomorrow to arrange for outpatient appointment. MDM - Male Genitourinary Lab Data Attestation: I reviewed the patient's lab results. Labs: Lab Results 08/30/21 Range/Units 15:25 Urine Color YELLOW Urine Appearance CLEAR Urine pH 5.5 (5.0-8.0) Ur Specific [place] 1.010 (1.005-1.025) Urine Protein NEG (NEG-TRACE) MG/DL Urine Glucose (UA) NEG (NEG) MG/DL Urine Ketones NEG (NEG) MG/DL Urine Blood NEG (NEG) Urine Nitrite NEG (NEG) Ur Leukocyte Esterase NEG (NEG) Discharge Plan Discharge Clinical Impression: Scrotal swelling Patient Disposition: Home, Self-Care Instructions: Scrotal Pain (ED) Prescriptions: No Action tamsulosin 0.4 mg capsule 0.4 mg PO BEDTIME 90 Days Qty: 90 3RF levofloxacin 500 mg tablet 500 mg PO DAILY 14 Days Qty: 14 0RF finasteride 5 mg tablet 5 mg PO DAILY 90 Days Qty: 90 1RF niacin 500 mg tablet extended release 24 hr 3 tab PO BEDTIME 0RF thyroid (pork) [[place] Thyroid] 30 mg tablet 1.5 tab PO DAILY 0RF chlorhexidine gluconate 0.12 % mouthwash 15 ml PO BID 0RF multivitamin Tablet 1 tab PO DAILY 0RF ascorbic acid (vitamin C) [Vitamin C] 500 mg Tablet 500 mg PO DAILY 0RF cholecalciferol (vitamin D3) [Vitamin D3] 10 mcg (400 unit) Tablet 20 mcg PO DAILY 0RF cyclobenzaprine 5 mg tablet 10 mg PO Q8H 7 Days Qty: 42 0RF epinephrine 0.3 mg/0.3 mL auto-injector 0.3 ml IM ONCE PRN (Reason: Anaphylaxis) 0RF Referrals: Claudio Davalos MD [Physician] - 2 days Jazmin Dacosta MD [Primary Care Provider] - 2 days
[2021-08-30 15:48] LABS: Appearance Urine CLEAR; Color Urine YELLOW; Glucose Urine UA NEG (NEG); Leukocyte Esterase Urine NEG (NEG); Nitrite Urine NEG (NEG); PH 5.5 (5.0-8.0); Urine Blood NEG (NEG); Urine Ketones NEG (NEG); Urine Protein NEG (NEG-TRACE)
== END 2021-08-30 19:01 | disposition home or self-care (01) ==
PROVIDERS: Emergency Provider Emergency Medicine; PCP Internal Medicine
DX: N50.89 Other specified disorders of the male genital organs (principal); N50.812 Left testicular pain; N50.811 Right testicular pain; M54.50 Low back pain, unspecified; Z79.899 Other long term (current) drug therapy
CPT/HCPCS: 81003; 99283

== ENCOUNTER → 2021-08-31 11:08 | Outpatient (BNVA) | payer BC, SELFPAY | PROVIDERS: PCP Internal Medicine; Visit Provider Urology | DX: Z13.89 Encounter for screening for other disorder (principal) ==

== ENCOUNTER 2021-09-03 08:43 | Inpatient (IN) | payer BC, SELFPAY ==
[2021-09-03] VITALS (9 sets, daily range): BP systolic 95–181; BP diastolic 49–95; PULSE 46–64; RESP 14–20; TEMP 36.2–36.8; O2SAT 94–97; BMI 25.9
--- NOTE | ~2021-09-03 | FL_ITS ---
EXAMINATION: XR FLUOROSCOPY WITH IMAGES CLINICAL INFORMATION: Left stent removal and replacement COMPARISON: None. TECHNIQUE: Fluoroscopy performed by Dr. Claudio Davalos. Fluoroscopy time: 0.6 minutes DAP: 3.28 Gycm2 Images: 1 FINDINGS: Single view of the pelvis with cystoscope advanced into the bladder. The distal portion of the ureteral stents are visualized. FL/FL guidance in OR IMPRESSION: Fluoroscopy for the urology department. Please see operative report for further information.
--- NOTE | ~2021-09-03 | US_ITS ---
EXAMINATION: US VENOUS ULTRASOUND WITH DOPPLER LOWER EXTREMITY, LEFT CLINICAL INFORMATION: Left leg swelling. Rule out DVT. COMPARISON: None TECHNIQUE: Ultrasound of the deep veins is performed from the hip to the calf with compression sonography and color and pulse Doppler assessment. Spectral analysis with color-flow imaging is performed. FINDINGS: There is normal venous compression and respiratory variation and augmented flow. The visualized common femoral vein, superficial femoral vein, profunda femoral vein, popliteal vein, and the trifurcation region shows no evidence of deep venous thrombosis. There is no significant popliteal fossa cyst. US/US venous duplex LE LT IMPRESSION: No DVT demonstrated in the left lower extremity.
--- NOTE | ~2021-09-03 | CT_ITS ---
EXAMINATION: CT ABDOMEN AND PELVIS WITHOUT CONTRAST CLINICAL INFORMATION: Abdominal pain. COMPARISON: 09/03/2021 TECHNIQUE: Multidetector volumetric imaging was performed from the superior aspect of the liver through the pubic symphysis. Sagittal and coronal reformatted images were obtained on the technologist's workstation. This CT examination was performed using dose optimization techniques as appropriate, variously including the following: *Automated exposure control *Adjustment of mA and/or kV according to patient size (this includes techniques or standardized protocols for targeted exams where dose is matched to indication/reason for exam; i.e. extremities or head) *Use of iterative reconstruction technique DLP: 613 mGy-cm FINDINGS: LUNG BASES: Small right pleural effusion is decreased in size from prior. Trace left pleural effusion. There is associated dependent atelectasis in the lung bases. LIVER, GALLBLADDER, AND BILIARY TREE: The liver is normal in size, shape, and attenuation. No focal hepatic lesion or biliary ductal dilatation is present. The gallbladder is unremarkable with no evidence of radiopaque gallstones, gallbladder wall thickening, or obvious pericholecystic inflammatory changes. PANCREAS: Unremarkable. SPLEEN: Unremarkable. ADRENAL GLANDS: Unremarkable. KIDNEYS AND URETERS: Moderate left-sided hydronephrosis is unchanged. The left double-J ureteral stent remains in place with the proximal coil and an upper pole calyx in the distal coil in the bladder. There is surrounding (depressed stranding as well as periureteral fat stranding. [id number] right-sided hydronephrosis is improved as compared to prior status post placement of a right nephroureteral stent with a loop within a calyx in the interpolar region and the distal coil in the pelvis. Marked right perinephric fat stranding is again noted with fluid in the surrounding pararenal retroperitoneal fascial planes. The fluid is decreased in volume as compared to prior. Small foci of gas in the right renal collecting system, likely postprocedural in nature. Kidneys normal in size and cortical thickness. No nephrolithiasis. BLADDER: The bladder is thick-walled and trabeculated, likely due to chronic bladder obstruction. A few punctate foci of gas are present in the bladder. A small diverticulum is present at the bladder dome. Surrounding fat stranding is noted. GASTROINTESTINAL TRACT: There is marked diverticulosis in the descending and sigmoid colon. Stomach, small bowel, and colon are normal in caliber. No bowel wall thickening. Significant fat stranding around the duodenum is likely reactive to the adjacent abnormality at the right kidney. No intraperitoneal free fluid. ABDOMINAL WALL: Anasarca. No hernia. LYMPH NODES: Normal. VASCULAR: Atherosclerotic calcifications are present in the abdominal aorta and iliac arteries. No aneurysmal dilatation. PELVIC VISCERA: Prostate gland is enlarged, measuring 5.6 cm transverse. OSSEOUS STRUCTURES: Diffuse idiopathic skeletal hyperostosis is present in the thoracic spine. Mild to moderate multilevel degenerative disc disease in the lumbar spine. There is ankylosis of the SI joints. 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 No acute osseous findings. CT/CT abdomen pelvis wo con IMPRESSION: 1. Mild to moderate right hydronephrosis is improved status post placement of a right transcutaneous nephroureteral stent. The volume of fluid in the right pararenal fascial planes is also significantly improved. 2. Unchanged moderate left-sided hydronephrosis. Left ureteral stent is unchanged. 3. Prostatomegaly. Marked bladder wall trabeculation and thickening is most consistent with chronic bladder obstruction. Superimposed cystitis cannot be excluded. 4. Small right pleural effusion, decreased from prior. Fleischner guidelines were followed.
--- NOTE | ~2021-09-03 | FL_ITS ---
EXAMINATION: Intraoperative fluoroscopy CLINICAL INFORMATION: Right stent placement COMPARISON: CT abdomen pelvis 09/08/2021 TECHNIQUE: Intraoperative fluoroscopy was provided for use by Dr. Davalos. A total of 2 images were saved to PACS. A radiologist was not present during imaging. Today's dictation is only for administrative purposes to document intraoperative fluoroscopic usage. TOTAL FLUOROSCOPIC TIME: 2 minutes and 8 seconds FL/FL guidance in OR FINDINGS~\^^ Intraoperative fluoroscopy provided for use by Dr. Davalos. Please see operative note for detailed findings.
--- NOTE | ~2021-09-03 | IR_ITS ---
PROCEDURE: IR FL NEPHROSTOGRAM IR NEPHROURETERAL STENT PLACEMENT CLINICAL INFORMATION: Development of right hydronephrosis with ureteral rupture. COMPARISON: CT scan of 09/03/2021 and 07/29/2021. TECHNIQUE: Ultrasound and fluoroscopic-guided placement of nephroureteral stent. PROCEDURE/FINDINGS: Informed consent was obtained from the patient prior to the procedure. During this process, the procedure and potential alternatives were explained, along with the intended outcome and benefits. The risks of the procedure, as well as the risk of not doing the procedure, were discussed. The patient was given the opportunity to ask questions regarding the procedure and appeared competent to make medical decisions. A signed consent form which documents this discussion was placed in the medical record. Patient was placed prone on the fluoroscopy table and ultrasound used to locate the right kidney. A 22-gauge needle was then directed into a posterior midpole calyx from a posterior approach. Once urine was obtained contrast was administered demonstrating the upper collecting system of the right kidney. A guidewire was then placed into the proximal ureter and over the guidewire, a 5-[place] sheath was placed. The tip of the sheath was positioned within the proximal ureter and contrast injection performed. There is noted to be obstruction to flow within the mid ureter with what appears to be a small amount of extravasation of contrast. Attempts to cross the region of obstruction was then performed with an angled glidewire which eventually was placed into the more distal portion of the ureter and advanced into urinary bladder. A 5-[place] catheter was then placed [id number] into the urinary bladder and through this an Amplatz superstiff wire was placed. Over the superstiff wire, a 9-[place] peel-away sheath was placed and through the peel-away sheath over the guidewire an 8.5-[place] by 26 cm nephroureteral stent was placed with its distal pigtail formed within the urinary bladder and with the proximal pigtail formed within the right upper collecting system. The upper collecting system pigtail was locked and contrast study demonstrated patency of the catheter and stent. The catheter was sutured to skin and placed to urinary drainage bag. The catheter was left to internal and external drainage. Once blood and clots have cleared from the urine, the external portion of the catheter can be capped with the catheter left to internal drainage. If patient develops pain, fever, or leakage to the skin then the catheter should be uncapped and placed to external drainage. Would expect urine diuresis following decompression of an obstructed system. FLUOROSCOPY TIME: 7.1 minutes. DOSE AREA PRODUCT: 2717 Gy-cm2 (rose-centimeter squared). SEDATION TIME: 70 minutes. IR/IR nephrostomy IMPRESSION: Placement of 8.5-[place] by 26 cm right nephroureteral stent as described.
--- NOTE | ~2021-09-03 | CT_ITS ---
EXAMINATION: CT ABDOMEN AND PELVIS WITHOUT CONTRAST CLINICAL INFORMATION: Right-sided abdominal pain COMPARISON: July 29, 2021 TECHNIQUE: Multidetector volumetric imaging was performed from the superior aspect of the liver through the pubic symphysis. Sagittal and coronal reformatted images were obtained on the technologist's workstation. This CT examination was performed using dose optimization techniques as appropriate, variously including the following: *Automated exposure control *Adjustment of mA and/or kV according to patient size (this includes techniques or standardized protocols for targeted exams where dose is matched to indication/reason for exam; i.e. extremities or head) *Use of iterative reconstruction technique DLP: 1254 mGy-cm FINDINGS: LUNG BASES: Heart normal size. Minimal anterior pericardial fluid. Coronary artery calcification present. Minimal left pleural effusion with basilar atelectasis again seen. Since previous study patient has developed a moderate-sized right pleural effusion with right lower lobe consolidation likely related to atelectasis. LIVER, GALLBLADDER, AND BILIARY TREE: The liver is normal in size, shape, and attenuation. No focal hepatic lesion or biliary ductal dilatation is present. There is layering of some increased density material which may be related to sludge or dense bile. No gallbladder wall thickening is identified. PANCREAS: Unremarkable. SPLEEN: Unremarkable. ADRENAL GLANDS: Unremarkable. KIDNEYS AND URETERS: Right kidney: Patient has developed moderate right hydronephrosis. There is a 2 mm nonobstructing calculus within the upper pole. I do not see a definite obstructing ureteral calculus. There is fluid and large amount of fat stranding seen within Gerota's fascia as well as free fluid seen within the retroperitoneum and peritoneal cavity. This likely related to perforation of the collecting system or ureter. The fluid density present has Hounsfield unit measurements of water and not blood. Left kidney: There is still noted to be moderate to severe left hydronephrosis with left ureteral stent in place. BLADDER: Jack catheter in place. Distal loop of left ureteral stent pigtail in place. GASTROINTESTINAL TRACT: No dilated loops of large or small bowel evident. No free air. Appendix not identified. ABDOMINAL WALL: No significant hernia is appreciated. Small fat-containing umbilical hernia. LYMPH NODES: No lymphadenopathy appreciated. VASCULAR: No abdominal aortic aneurysm. Calcified aortoiliac plaque present. PELVIC VISCERA: No abnormal mass identified. Prostate and urinary bladder not well evaluated OSSEOUS STRUCTURES: No suspicious destructive bony lesions identified. Changes of enthesopathy seen about the pelvis. There is degenerative change of the sacroiliac joints bilaterally with what appears to be bony fusion inferiorly. There is multilevel degenerative disc disease seen within the thoracic spine. CT/CT abdomen pelvis wo con IMPRESSION: Interval development of moderate right hydronephrosis with evidence of rupture of the collecting system or ureter with large amount of fluid seen within Gerota's fascia as well as in the retroperitoneum and peritoneal cavity. No obstructing right ureteral calculus identified. Continued moderate to severe left hydronephrosis with left ureteral stent in place. Fleischner guidelines were followed.
--- NOTE | ~2021-09-03 | IR_ITS ---
PROCEDURE: IR FL NEPHROSTOGRAM IR NEPHROURETERAL STENT PLACEMENT CLINICAL INFORMATION: Development of right hydronephrosis with ureteral rupture. COMPARISON: CT scan of 09/03/2021 and 07/29/2021. TECHNIQUE: Ultrasound and fluoroscopic-guided placement of nephroureteral stent. PROCEDURE/FINDINGS: Informed consent was obtained from the patient prior to the procedure. During this process, the procedure and potential alternatives were explained, along with the intended outcome and benefits. The risks of the procedure, as well as the risk of not doing the procedure, were discussed. The patient was given the opportunity to ask questions regarding the procedure and appeared competent to make medical decisions. A signed consent form which documents this discussion was placed in the medical record. Patient was placed prone on the fluoroscopy table and ultrasound used to locate the right kidney. A 22-gauge needle was then directed into a posterior midpole calyx from a posterior approach. Once urine was obtained contrast was administered demonstrating the upper collecting system of the right kidney. A guidewire was then placed into the proximal ureter and over the guidewire, a 5-Cymraes sheath was placed. The tip of the sheath was positioned within the proximal ureter and contrast injection performed. There is noted to be obstruction to flow within the mid ureter with what appears to be a small amount of extravasation of contrast. Attempts to cross the region of obstruction was then performed with an angled glidewire which eventually was placed into the more distal portion of the ureter and advanced into urinary bladder. A 5-Cymraes catheter was then placed [id number] into the urinary bladder and through this an Amplatz superstiff wire was placed. Over the superstiff wire, a 9-Cymraes peel-away sheath was placed and through the peel-away sheath over the guidewire an 8.5-Cymraes by 26 cm nephroureteral stent was placed with its distal pigtail formed within the urinary bladder and with the proximal pigtail formed within the right upper collecting system. The upper collecting system pigtail was locked and contrast study demonstrated patency of the catheter and stent. The catheter was sutured to skin and placed to urinary drainage bag. The catheter was left to internal and external drainage. Once blood and clots have cleared from the urine, the external portion of the catheter can be capped with the catheter left to internal drainage. If patient develops pain, fever, or leakage to the skin then the catheter should be uncapped and placed to external drainage. Would expect urine diuresis following decompression of an obstructed system. FLUOROSCOPY TIME: 7.1 minutes. DOSE AREA PRODUCT: 2717 Gy-cm2 (rose-centimeter squared). SEDATION TIME: 70 minutes. IR/IR us guide needle place IMPRESSION: Placement of 8.5-Cymraes by 26 cm right nephroureteral stent as described.
[2021-09-03] MEDS: Ketorolac Tromethamine 30 MG/ML VIAL IVPUSH (10:21)
[2021-09-03] MEDS: ondansetron HCL 4 MG/2 ML VIAL IVPUSH (10:21)
[2021-09-03] MEDS: 0.9 % Sodium Chloride 1,000 ML 999 ML IVCONT ×2 (10:24→13:31)
[2021-09-03 11:03] LABS: MANUAL DIFF FLAG NO
[2021-09-03 11:04] LABS: Basophils Percent Auto 0.1 % (0-2); Eosinophils Percent Auto 0.1 % (0-4); Hematocrit 35.9 % (42.0-52.0); Hemoglobin 11.6 g/dl (14.0-18.0); Imm Gran Abs Auto 0.07 X10*3/uL (0.00-0.03); Imm Gran Pct Auto 0.6 % (0.0-0.4); Lymphocytes Absolute Auto 0.8 X10*3/uL (1.2-4.9); Lymphocytes Percent Auto 6.8 % (20-40); Mean Corpuscular HGB Conc 32.3 g/dl (31.0-36.0); Mean Corpuscular Hemoglobin 27.2 pg (27.0-33.0); Mean Corpuscular Volume 84.3 fL (80.0-98.0); Mean Platelet Volume 9.8 fL (9.4-12.4); Monocytes Absolute Auto 0.7 X10*3/uL (0.1-1.2); Monocytes Percent Auto 6.2 % (2-11); Neutrophils Absolute Auto 10.2 x10*3/uL (2.0-8.3); Neutrophils Percent Auto 86.2 % (45-73); Platelet Count 409 X10*3/uL (160-400); Red Blood Count 4.26 X10*6/uL (4.60-5.80); Red Cell Distribution Width 17.4 % (11.0-16.0); White Blood Count 11.8 X10*3/uL (4.8-10.8)
[2021-09-03 11:10] LABS: INTERNATIONAL NORM RATIO 1.2 (0.9-1.1); Prothrombin Time 13.2 SEC (9.9-13.0)
[2021-09-03 11:16] LABS: Lactic Acid 0.5 mmol/L (0.5-2.0)
[2021-09-03 11:17] LABS: COVID-19 Test Negative (Negative); IDNOW Serial# 16C4AD1C
[2021-09-03 11:32] LABS: Alanine Aminotransferase 11 U/L (0-40); Albumin Level 3.3 g/dL (3.5-5.0); Alkaline Phosphatase 82 U/L (39-117); Anion Gap 22 (12-20); Aspartate Amino Transferase 12 U/L (5-37); Bilirubin Total 0.5 mg/dL (0.0-1.0); Blood Urea Nitrogen 82 mg/dL (9-16); Calcium 8.5 mg/dL (8.4-10.2); Carbon Dioxide 18 mmol/L (22-29); Chloride 99 mmol/L (96-108); Creatinine Clr Calc Pharmacy 5.8; Estimated Glomerular Filt Rate 5; Glucose Random 114 mg/dL (60-115); Lipase 13 U/L (8-78); Magnesium 4.2 mg/dL (1.6-2.6); Sodium 132 mmol/L (135-145); Total Protein 6.5 g/dL (6.5-8.0)
--- NOTE | 2021-09-03 11:32 | ECG_ITS ---
Test Reason : high pottassium Blood Pressure : / mmHG Vent. Rate : 062 BPM Atrial Rate : 062 BPM P-R Int : 164 ms QRS Dur : 090 ms QT Int : 418 ms P-R-T Axes : 042 017 070 degrees QTc Int : 424 ms Normal sinus rhythm with sinus arrhythmia Normal ECG When compared with ECG of 28-MAY-2019 14:06, Vent. rate has increased BY 22 BPM Referred By: Chyna Bronson Electronically Signed By:Josias Martin
--- NOTE | 2021-09-03 11:45 | ED_ITS ---
HPI - Abdominal Pain General Chief Complaint: General Medical <ELIOT Carroll Last Filed: 09/03/21 14:47> Stated Complaint: in pain unable urinate constipation <ELIOT Carroll Last Filed: 09/03/21 14:47> Time Seen by Provider: 09/03/21 09:12 <ELIOT Carroll Last Filed: 09/03/21 14:47> Source: patient and family <ELIOT Carroll Last Filed: 09/03/21 14:47> Mode of arrival: ambulatory <ELIOT Carroll Last Filed: 09/03/21 14:47> Limitations: no limitations <ELIOT Carroll Last Filed: 09/03/21 14:47> History of Present Illness HPI narrative: 80-year-old male with a past medical history of bladder cancer being followed by Dr. Davalos who was recently admitted and discharged here on 07/29/2021 until 08/03/2021 for FAITH/hyperkalemia and had a ureteral stent placed to the left ureteral due to bilateral hydronephrosis presenting to the ED with complaints of abdominal pain that started on the right side/right flank/right back that is now radiating to the left side and to the left side of the back for the past 3 days worse today with decreased urine output and constipation. He also reports associated nausea. He denies any fevers, chills, dizziness, headache, neck pain/stiffness, trouble swallowing or breathing, chest pain or shortness of b reath, dyspnea on exertion, orthopnea, palpitations, paresthesias, dysuria, hematuria, abnormal penile discharge, diarrhea, black or bloody stools, rashes, recent falls or trauma, recent travel or sick contacts, lower extremity edema or calf tenderness or any other symptoms complaints or concerns at this time. He also has a medical history of benign prostatic hyperplasia with recurrent lower urinary tract symptoms, bradycardia, fatter act, CAD and a past MT. <ELIOT Carroll Last Filed: 09/03/21 14:47> MD elicited complaint: abdominal pain and flank pain <ELIOT Carroll Last Filed: 09/03/21 14 :47> Pertinent past history: other (See above) <ELIOT Carroll Last Filed: 09/03/21 14:47> Onset (ago): day(s) (3 days worse today) <ELIOT Carroll - Last Filed: 09/03/21 14:47> Pain Consistency: constant <ELIOT Carroll - Last Filed: 09/03/21 14:47> Location: R flank <ELIOT Carroll - Last Filed: 09/03/21 14:47> Severity: severe <ELIOT Carroll - Last Filed: 09/03/21 14:47> Pain scale (0-10): 10 <ELIOT Carroll - Last Filed: 09/03/21 14:47> Quality: sharp <ELIOT Carroll - Last Filed: 09/03/21 14:47> Radiation: other (diffusely to the whole abdomen and b/l back ) <ELIOT Carroll - Last Filed: 09/03/21 14:47> Exacerbating factors: movement <ELIOT Carroll - Last Filed: 09/03/21 14:47> Relieving factors: nothing <ELIOT Carroll - Last Filed: 09/03/21 14:47> Context: history of similar episodes (See above) <ELIOT Carroll - Last Filed: 09/03/21 14:47> Associated symptoms: nausea and constipation <ELIOT Carroll - Last Filed: 09/03/21 14:47> Related Data Home Medications: Home Medications Medication Instructions Recorded Confirmed niacin 500 mg tablet,extended 3 tab PO BEDTIME 04/13/20 09/03/21 release 24 hr thyroid (pork) 30 mg tablet 1.5 tab PO DAILY 04/13/20 09/03/21 ([place] Thyroid) ascorbic acid (vitamin C) 500 mg 500 mg PO DAILY 07/29/21 09/03/21 tablet (Vitamin C) chlorhexidine gluconate 0.12 % 15 ml PO BID 07/29/21 09/03/21 mouthwash cholecalciferol (vitamin D3) 10 20 mcg PO DAILY 07/29/21 09/03/21 mcg (400 unit) tablet (Vitamin D3) multivitamin 1 tab PO DAILY 07/29/21 09/03/21 Previous Rx's Medication Instructions Recorded tamsulosin 0.4 mg capsule 0.4 mg PO BEDTIME 90 Days #90 cap 06/06/21 finasteride 5 mg tablet 5 mg PO DAILY 90 Days #90 tab 08/08/21 lactulose 20 gram/30 mL oral 20 g (30 mL) PO DAILY PRN #1200 ml 09/01/21 solution <ELIOT Carroll - Last Filed: 09/03/21 14:47> Allergies/Adverse Reactions: Allergies Allergy/AdvReac Type Severity Reaction Status Date / Time codeine [Codeine] Allergy Unknown LETHARGY Verified 08/31/21 11:13 From Antihistamine AdvReac Unknown CAN'T TAKE Uncoded 08/31/21 11:13 DUE TO BPH <ELIOT Carroll - Last Filed: 09/03/21 14:47> Review of Systems Review of Systems Constitutional : No Fever, No Chills, No Night Sweats, No Fatigue, No Malaise Cardiovascular : No Chest Pain, No SOB Respiratory : No Cough, No Sputum, No Wheezing, No Dyspnea Gastrointestinal : + Nausea, + Abdominal pain, No Vomiting, No Diarrhea, No Hematochezia, No Melena Genitourinary : + decreased urine output to almost no output per patient, No irregular bleeding, No Dysuria, No Urinary Frequency, No Hematuria,No Urinary Incontinence, No Urgency, No Flank Pain Musculoskeletal : No joint pain, No Myalgias, No Joint Swelling Skin : No Skin Lesions, No rash Neuro : No Weakness, No Numbness, No Paresthesias, No Loss of Consciousness, No Dizziness, No Headache Heme/Lymph: No Lymphadenopathy Endocrine : No Temperature Intolerance <ELIOT Carroll - Last Filed: 09/03/21 14:47> Yes all other systems are reviewed and are negative <ELIOT Carroll - Last Filed: 09/03/21 14:47> [facility] Past Medical History Attestation statement: The following information was validated with the patient. <ELIOT Carroll - Last Filed: 09/03/21 14:47> Medical History: Medical History Benign prostatic hyperplasia with lower urinary tract symptoms Bladder cancer Bladder tumor Bradyarrhythmia Cataract Coronary artery disease Hypertension, essential Past heart attack <ELIOT Carroll - Last Filed: 09/03/21 14:47> Surgical History: Surgical History History of coronary artery stent placement History of surgery <ELIOT Carroll - Last Filed: 09/03/21 14:47> Family History Family History: Family History Father Heart problem CHF (congestive heart failure) Diabetes mellitus Mother Diabetes mellitus Sister Throat cancer Daughter No problems noted. Son No problems noted. Son No problems noted. Other Substance use disorder <ELIOT Carroll - Last Filed: 09/03/21 14:47> Social History Social History: Social History Household Members: Spouse Housing: House Do you presently have visiting nurse or other home services: No Alcohol intake: current Alcohol intake frequency: a few times a month Patient Tobacco Use Status: Never used Tobacco Smoked in Last 30 Days: No Use of substances other than those prescribed or required for medical reasons: No Advance Directives: Yes Advance Directives Information Provided: Yes Advance Directives on File: No service: No Current occupational status: retired Gender identity: Male <ELIOT Carroll - Last Filed: 09/03/21 14:47> Physical Exam ED Vital Signs: Vital Signs - 24 hr 09/03/21 08:57 09/03/21 11:33 09/03/21 12:13 Temperature 97.1 F 98.0 F Pulse Rate 57 56 64 Respiratory Rate 14 16 17 Blood Pressure 178/57 H 181/69 H 135/62 Pulse Oximetry 95 94 09/03/21 13:20 Temperature Pulse Rate Respiratory Rate 16 Blood Pressure Pulse Oximetry BMI result Body Mass Index 25.9 vital signs have been reviewed as normal and appeared to be correct. Blood pressure 178/57 Heart rate normal. Respiration rate normal. Temperature normal. Oxygen saturation normal. <ELIOT Carroll - Last Filed: 09/03/21 14:47> Vital Signs - 24 hr 09/03/21 08:57 09/03/21 11:33 09/03/21 12:13 Temperature 97.1 F 98.0 F Pulse Rate 57 56 64 Respiratory Rate 14 16 17 Blood Pressure 178/57 H 181/69 H 135/62 Pulse Oximetry 95 94 09/03/21 13:20 Temperature Pulse Rate Respiratory Rate 16 Blood Pressure Pulse Oximetry BMI result Body Mass Index 25.9 <Melly Thurman MD - Last Filed: 09/03/21 14:40> Appearance: Alert. Oriented X3. In severe pain otherwise no other acute distress. Head: Normal external exam. Normocephalic. Atraumatic. Eyes: PERRLA. EOMI. Conjunctiva and sclera normal. Eyelids normal. ENT: Pharynx normal. Uvula midline. Moist mucous membranes. Normal voice. No trismus noted. No drooling noted. No muffled voice noted. Neck: Normal inspection. Neck supple. FROM. No adenopathy. Thyroid Normal. No tracheal deviation noted. No crepitus is noted. No meningeal signs. No neck mass noted. No signs of trauma noted. CVS: Normal heart rate and rhythm. Heart sound normal. Pulses normal throughout. No murmurs/rales/gallops. Respiratory: No respiratory distress. Painless inspiration. Breath sounds normal. No wheezes/rales/rhonchi noted. Chest nontender. No crepitus is noted. No signs of trauma noted. No accessory muscle usage noted or decreased air movement noted. No signs of trauma. Abdomen: Soft and severe tenderness diffusely with bilateral CVA tenderness with guarding. Bowel sounds normal in all 4 quadrants. No distention noted. No organomegaly noted. No visible injury noted. Back: + b/l CVA tenderness. Full range of motion noted. Nontender. No signs of trauma. Patient neuro intact bilaterally and distally on all 4 extremities. Patient's reflexes intact bilaterally and distally on all 4 extremities. No rashes/lesion/induration/fluctuance or signs of infection noted. Skin: Skin warm and dry. Normal skin color. Normal skin turgor. No rashes/lesions/lacerations noted. Extremities: No lower extremity edema. No calf tenderness is noted. Extremities exhibit normal range of motion and nontender. Neuro: Oriented X 3. No motor deficit. No sensory deficit. Reflexes normal. Normal steady gait. No focal neuro deficits noted. CN's II-XII intact bilaterally? Vascular: + radial pulses/+ 2 distal pedal pulses/+2 dorsalis pedis b/l. Normal cap refill. No cyanosis noted to upper extremity nails and lower extremity toes nails. <ELIOT Carroll - Last Filed: 09/03/21 14:47> Course Course Course Narrative: 9:30am - 80-year-old male with a past medical history of bladder cancer being followed by Dr. Davalos who was recently admitted and discharged here on 07/29/2021 until 08/03/2021 for FAITH/hyperkalemia and had a ureteral stent placed to the left ureteral due to bilateral hydronephrosis presenting to the ED with complaints of abdominal pain that started on the right side/right flank/right back that is now radiating to the left side and to the left side of the back for the past 3 days worse today with decreased urine output and constipation. He also reports associated nausea. He also has a medical history of benign prostatic hyperplasia with recurrent lower urinary tract symptoms, bradycardia, fatter act, CAD and a past MT. Plan: Bladder scan then place a Jack catheter, labs, UA, CT scan abdomen and pelvis with or without IV contrast depending on the patient's kidney function, blood cultures, lactic acid provide L of IV fluids, 30 mg of IV Toradol and 4 mg of IV Zofran and re-evaluate. <ELIOT Carroll - Last Filed: 09/03/21 14:47> Reevaluation(s) Reevaluation #1: - labs reviewed and patient with elevated white blood cell count 05173. Mild baseline anemia. Platelet count 409 similar compared to prior. Sodium 132. Potassium 7.0. Carbon dioxide 18. Anion gap 22. BUN 82. Creatinine 10.26. Magnesium 4.2. Albumin 3.3. Otherwise all the labs are within normal limits. Patient is negative for COVID - therefore at this time patient had an EKG which is normal sinus rhythm with sinus arrhythmia with ventricular rate of 62 otherwise no acute ischemic change are noted. Patient was placed on a monitoring coordinator. - we ordered 1 amp of dextrose, 1 amp of bicarb and 10 units of normal insulin - after he refused the medication discussed above patient went to CT scan and Dr. Thurman noticed that he has bilateral nephrosis therefore at this time we are discussing this case with Urology and IR for further evaluation and treatment possible external stent placement will continue to monitor. <ELIOT Carroll - Last Filed: 09/03/21 14:47> Time: 12:05 <ELIOT Carroll - Last Filed: 09/03/21 14:47> Reevaluation #2: - Both Dr. Thurman and I both spoke with Dr. Davalos does does not believe this is secondary to hydronephrosis he does not believe that the patient need the left stent removed or any nephrostomy tube or any new stents are indicated at this time. He instructed us to admit the patient to the ICU and continue to give him IV fluids/hydration. And to treat the hyperkalemia. - therefore we are discussing this case with Dr. Robledo the contracts law professor will come down and evaluate the patient do an echocardiogram and further evaluation treatment and admission. <ELIOT Carroll Last Filed: 09/03/21 14:47> Time: 12:31 <ELIOT Carroll - Last Filed: 09/03/21 14:47> Reevaluation #3: - Dr. Robledo performed a bedside ECHO IVC showed a good amount of fluid pt is not low in volume and we are planning to possibly admit versus transfer the patient at this time. - CT scan abdomen pelvis without IV contrast due to the patient's kidney function revealed moderate right hydronephrosis with evidence of rupture of the collecting system or ureter with large amount of fluid seen within the Gerota's fascia as well as in the retroperitoneum and peritoneal cavity. No obstructing right ureteral calculus identified. Continued moderate to severe left hydronephrosis with left ureteral stent in place. Otherwise no other acute processes were noted. <ELIOT Carroll Last Filed: 09/03/21 14:47> Time: 13:34 <ELIOT Carroll Last Filed: 09/03/21 14:47> Consultations Consultation #1: - at this time patient will be admitted and he will have a nephrostomy placed by DEVENDRA. Dr. Robledo to admit. Dr. Thurman arranged all of this. Patient and at bedside understand and agree to this plan. <ELIOT Carroll - Last Filed: 09/03/21 14:47> Time: 14:33 <ELIOT Carroll Last Filed: 09/03/21 14:47> Consultation #2: Got involved in this case after discussion with ELIOT Bronson. Patient has a history of hydronephrosis bilaterally. Had a ureteral stent placed on the left side by Dr. Trivedi in middle of July. Patient had a CT scan of the abdomen pelvis done outpatient at [facility]. The report was given to me. It showed hydro bilaterally on August 23. Patient had normal creatinine at [place] on August 18. Today the creatinine had bumped up to 10. Also show evidence for hyperkalemia. An EKG was done stat. Did not show any hyperacute T-waves. No widened QRS. Treated for the hyperkalemia. CT scan was done. CT shows hydro bilaterally. There is likely ruptured of the collecting system on the right. Case discussed initially with Dr. Davalos. [place] it may be secondary to dehydration as patient had an elevated BUN and creatinine. Patient given IV fluids. Evaluated by the contracts law professor. Patient IVC was checked. It showed good filling to the right ventricle. No evidence for dehydration. Patient has a Jack catheter in place. There is no urine in the bladder by bladder scan. No drainage from the Jack catheter. The obstruction is likely to be higher up. Discussed with urology medtronics technician. , felt patient should receive nephrostomy tube. Patient is being admitted to the intensive care unit. Melly Thurman <ELIOT Carroll - Last Filed: 09/03/21 14:47> Got involved in this case after discussion with ELIOT Cervantes. Patient has a history of hydronephrosis bilaterally. Had a ureteral stent placed on the left side by Dr. Trivedi in middle of July. Patient had a CT scan of the abdomen pelvis done outpatient at [facility]. The report was given to me. It showed hydro bilaterally on August 23. Patient had normal creatinine at [place] on August 18. Today the creatinine had bumped up to 10. Also show evidence for hyperkalemia. An EKG was done stat. Did not show any hyperacute T-waves. No widened QRS. Treated for the hyperkalemia. CT scan was done. CT shows hydro bilaterally. There is likely ruptured of the collecting system on the right. Case discussed initially with Dr. Davalos. [place] it may be secondary to dehydration as patient had an elevated BUN and creatinine. Patient given IV fluids. Evaluated by the contracts law professor. Patient IVC was checked. It showed good filling to the right ventricle. No evidence for dehydration. Patient has a Jack catheter in place. There is no urine in the bladder by bladder scan. No drainage from the Jack catheter. The obstruction is likely to be higher up. Discussed with urology medtronics technician. , felt patient should receive nephrostomy tube. Patient is being admitted to the intensive care unit. Melly Thurman <Melly Thurman MD - Last Filed: 09/03/21 14:40> MDM - Abdominal Pain Medical Records Attestation: I reviewed the patient's medical records. <ELIOT Carroll - Last Filed: 09/03/21 14:47> Lab Data Attestation: I reviewed the patient's lab results. <ELIOT Carroll - Last Filed: 09/03/21 14:47> Result diagrams: : 09/03/21 10:51 09/03/21 10:51 <ELIOT Carroll - Last Filed: 09/03/21 14:47> Labs: Lab Results 09/03/21 09/03/21 09/03/21 Range/Units 10:45 10:50 10:51 WBC 11.8 H (4.8-10.8) X10*3/uL RBC 4.26 L (4.60-5.80) X10*6/uL Hgb 11.6 L (14.0-18.0) g/dl Hct 35.9 L (42.0-52.0) % MCV 84.3 (80.0-98.0) fL MCH 27.2 (27.0-33.0) pg MCHC 32.3 (31.0-36.0) g/dl RDW 17.4 H (11.0-16.0) % Plt Count 409 H D (160-400) X10*3/uL MPV 9.8 (9.4-12.4) fL Immature Gran % (Auto) 0.6 H (0.0-0.4) % Neut % (Auto) 86.2 H (45-73) % Lymph % (Auto) 6.8 L (20-40) % Craig % (Auto) 6.2 (2-11) % Eos % (Auto) 0.1 (0-4) % Baso % (Auto) 0.1 (0-2) % Lymph # (Auto) 0.8 L (1.2-4.9) X10*3/uL Craig # (Auto) 0.7 (0.1-1.2) X10*3/uL Eos # (Auto) 0.0 (0.0-0.4) X10*3/uL Baso # (Auto) 0.0 (0.0-0.2) X10*3/uL Abs Immat Gran (auto) 0.07 H (0.00-0.03) X10*3/uL Absolute Neuts (auto) 10.2 H (2.0-8.3) x10*3/uL Absolute Nucleated RBC 0.000 (0.0-0.012) X10*3/uL Nucleated RBC % (auto) 0.0 (0.0-0.2) /100WBC Hold Purple Top PT (9.9-13.0) SEC INR (0.9-1.1) Sodium (135-145) mmol/L Potassium (3.3-5.1) mmol/L Chloride (96-108) mmol/L Carbon Dioxide (22-29) mmol/L Anion Gap (12-20) BUN (9-16) mg/dL Creatinine (0.5-1.4) mg/dL Estim Creat Clear Calc Estimated GFR Random Glucose (60-115) mg/dL Lactic Acid 0.5 (0.5-2.0) mmol/L Calcium (8.4-10.2) mg/dL Magnesium (1.6-2.6) mg/dL Total Bilirubin (0.0-1.0) mg/dL AST (5-37) U/L ALT (0-40) U/L Alkaline Phosphatase (39-117) U/L Total Protein (6.5-8.0) g/dL Albumin (3.5-5.0) g/dL Lipase (8-78) U/L COVID-19 ([facility]) Negative (Negative) COVID-19 Clin Com See Note 09/03/21 09/03/21 09/03/21 Range/Units 10:51 10:51 10:51 WBC (4.8-10.8) X10*3/uL RBC (4.60-5.80) X10*6/uL Hgb (14.0-18.0) g/dl Hct (42.0-52.0) % MCV (80.0-98.0) fL MCH (27.0-33.0) pg MCHC (31.0-36.0) g/dl RDW (11.0-16.0) % Plt Count (160-400) X10*3/uL MPV (9.4-12.4) fL Immature Gran % (Auto) (0.0-0.4) % Neut % (Auto) (45-73) % Lymph % (Auto) (20-40) % Craig % (Auto) (2-11) % Eos % (Auto) (0-4) % Baso % (Auto) (0-2) % Lymph # (Auto) (1.2-4.9) X10*3/uL Craig # (Auto) (0.1-1.2) X10*3/uL Eos # (Auto) (0.0-0.4) X10*3/uL Baso # (Auto) (0.0-0.2) X10*3/uL Abs Immat Gran (auto) (0.00-0.03) X10*3/uL Absolute Neuts (auto) (2.0-8.3) x10*3/uL Absolute Nucleated RBC (0.0-0.012) X10*3/uL Nucleated RBC % (auto) (0.0-0.2) /100WBC Hold Purple Top SEE NOTE PT 13.2 H (9.9-13.0) SEC INR 1.2 H (0.9-1.1) Sodium 132 L (135-145) mmol/L Potassium 7.0 H* D (3.3-5.1) mmol/L Chloride 99 (96-108) mmol/L Carbon Dioxide 18 L (22-29) mmol/L Anion Gap 22 H (12-20) BUN 82 H D (9-16) mg/dL Creatinine 10.26 H* (0.5-1.4) mg/dL Estim Creat Clear Calc 5.8 Estimated GFR 5 Random Glucose 114 (60-115) mg/dL Lactic Acid (0.5-2.0) mmol/L Calcium 8.5 D (8.4-10.2) mg/dL Magnesium 4.2 H* (1.6-2.6) mg/dL Total Bilirubin 0.5 (0.0-1.0) mg/dL AST 12 D (5-37) U/L ALT 11 (0-40) U/L Alkaline Phosphatase 82 D (39-117) U/L Total Protein 6.5 (6.5-8.0) g/dL Albumin 3.3 L (3.5-5.0) g/dL Lipase 13 (8-78) U/L COVID-19 ([facility]) (Negative) COVID-19 Clin Com <ELIOT Carroll - Last Filed: 09/03/21 14:47> Lab Results 09/03/21 09/03/21 09/03/21 Range/Units 10:45 10:50 10:51 WBC 11.8 H (4.8-10.8) X10*3/uL RBC 4.26 L (4.60-5.80) X10*6/uL Hgb 11.6 L (14.0-18.0) g/dl Hct 35.9 L (42.0-52.0) % MCV 84.3 (80.0-98.0) fL MCH 27.2 (27.0-33.0) pg MCHC 32.3 (31.0-36.0) g/dl RDW 17.4 H (11.0-16.0) % Plt Count 409 H D (160-400) X10*3/uL MPV 9.8 (9.4-12.4) fL Immature Gran % (Auto) 0.6 H (0.0-0.4) % Neut % (Auto) 86.2 H (45-73) % Lymph % (Auto) 6.8 L (20-40) % Craig % (Auto) 6.2 (2-11) % Eos % (Auto) 0.1 (0-4) % Baso % (Auto) 0.1 (0-2) % Lymph # (Auto) 0.8 L (1.2-4.9) X10*3/uL Craig # (Auto) 0.7 (0.1-1.2) X10*3/uL Eos # (Auto) 0.0 (0.0-0.4) X10*3/uL Baso # (Auto) 0.0 (0.0-0.2) X10*3/uL Abs Immat Gran (auto) 0.07 H (0.00-0.03) X10*3/uL Absolute Neuts (auto) 10.2 H (2.0-8.3) x10*3/uL Absolute Nucleated RBC 0.000 (0.0-0.012) X10*3/uL Nucleated RBC % (auto) 0.0 (0.0-0.2) /100WBC Hold Purple Top PT (9.9-13.0) SEC INR (0.9-1.1) Sodium (135-145) mmol/L Potassium (3.3-5.1) mmol/L Chloride (96-108) mmol/L Carbon Dioxide (22-29) mmol/L Anion Gap (12-20) BUN (9-16) mg/dL Creatinine (0.5-1.4) mg/dL Estim Creat Clear Calc Estimated GFR Random Glucose (60-115) mg/dL Lactic Acid 0.5 (0.5-2.0) mmol/L Calcium (8.4-10.2) mg/dL Magnesium (1.6-2.6) mg/dL Total Bilirubin (0.0-1.0) mg/dL AST (5-37) U/L ALT (0-40) U/L Alkaline Phosphatase (39-117) U/L Total Protein (6.5-8.0) g/dL Albumin (3.5-5.0) g/dL Lipase (8-78) U/L COVID-19 ([facility]) Negative (Negative) COVID-19 Clin Com See Note 09/03/21 09/03/21 09/03/21 Range/Units 10:51 10:51 10:51 WBC (4.8-10.8) X10*3/uL RBC (4.60-5.80) X10*6/uL Hgb (14.0-18.0) g/dl Hct (42.0-52.0) % MCV (80.0-98.0) fL MCH (27.0-33.0) pg MCHC (31.0-36.0) g/dl RDW (11.0-16.0) % Plt Count (160-400) X10*3/uL MPV (9.4-12.4) fL Immature Gran % (Auto) (0.0-0.4) % Neut % (Auto) (45-73) % Lymph % (Auto) (20-40) % Craig % (Auto) (2-11) % Eos % (Auto) (0-4) % Baso % (Auto) (0-2) % Lymph # (Auto) (1.2-4.9) X10*3/uL Craig # (Auto) (0.1-1.2) X10*3/uL Eos # (Auto) (0.0-0.4) X10*3/uL Baso # (Auto) (0.0-0.2) X10*3/uL Abs Immat Gran (auto) (0.00-0.03) X10*3/uL Absolute Neuts (auto) (2.0-8.3) x10*3/uL Absolute Nucleated RBC (0.0-0.012) X10*3/uL Nucleated RBC % (auto) (0.0-0.2) /100WBC Hold Purple Top SEE NOTE PT 13.2 H (9.9-13.0) SEC INR 1.2 H (0.9-1.1) Sodium 132 L (135-145) mmol/L Potassium 7.0 H* D (3.3-5.1) mmol/L Chloride 99 (96-108) mmol/L Carbon Dioxide 18 L (22-29) mmol/L Anion Gap 22 H (12-20) BUN 82 H D (9-16) mg/dL Creatinine 10.26 H* (0.5-1.4) mg/dL Estim Creat Clear Calc 5.8 Estimated GFR 5 Random Glucose 114 (60-115) mg/dL Lactic Acid (0.5-2.0) mmol/L Calcium 8.5 D (8.4-10.2) mg/dL Magnesium 4.2 H* (1.6-2.6) mg/dL Total Bilirubin 0.5 (0.0-1.0) mg/dL AST 12 D (5-37) U/L ALT 11 (0-40) U/L Alkaline Phosphatase 82 D (39-117) U/L Total Protein 6.5 (6.5-8.0) g/dL Albumin 3.3 L (3.5-5.0) g/dL Lipase 13 (8-78) U/L COVID-19 ([facility]) (Negative) COVID-19 Clin Com <Melly Thurman MD - Last Filed: 09/03/21 14:40> Imaging Data CT scan abdomen pelvis without IV contrast: Attestation: I personally reviewed and interpreted this imaging study as follows: <ELIOT Carroll - Last Filed: 09/03/21 14:47> Radiologist's impression: FINDINGS: LUNG BASES: Heart normal size. Minimal anterior pericardial fluid. Coronary artery calcification present. Minimal left pleural effusion with basilar atelectasis again seen. Since previous study patient has developed a moderate-sized right pleural effusion with right lower lobe consolidation likely related to atelectasis.? LIVER, GALLBLADDER, AND BILIARY TREE: The liver is normal in size, shape, and attenuation. No focal hepatic lesion or biliary ductal dilatation is present. There is layering of some increased density material which may be related to sludge or dense bile. No gallbladder wall thickening is identified. PANCREAS: Unremarkable.? SPLEEN: Unremarkable.? ADRENAL GLANDS: Unremarkable.? KIDNEYS AND URETERS: Right kidney: Patient has developed moderate right hydronephrosis. There is a 2 mm nonobstructing calculus within the upper pole. I do not see a definite obstructing ureteral calculus. There is fluid and large amount of fat stranding seen within Gerota's fascia as well as free fluid seen within the retroperitoneum and peritoneal cavity. This likely related to perforation of the collecting system or ureter. The fluid density present has Hounsfield unit measurements of water and not blood. Left kidney: There is still noted to be moderate to severe left hydronephrosis with left ureteral stent in place. BLADDER: Jack catheter in place. Distal loop of left ureteral stent pigtail in place.? GASTROINTESTINAL TRACT: No dilated loops of large or small bowel evident. No free air. Appendix not identified.? ABDOMINAL WALL: No significant hernia is appreciated. Small fat-containing umbilical hernia. LYMPH NODES: No lymphadenopathy appreciated. VASCULAR: No abdominal aortic aneurysm. Calcified aortoiliac plaque present. PELVIC VISCERA: No abnormal mass identified. Prostate and urinary bladder not well evaluated OSSEOUS STRUCTURES: No suspicious destructive bony lesions identified. Changes of enthesopathy seen about the pelvis. There is degenerative change of the sacroiliac joints bilaterally with what appears to be bony fusion inferiorly. There is multilevel degenerative disc disease seen within the thoracic spine.? CT/CT abdomen pelvis wo con IMPRESSION: Interval development of moderate right hydronephrosis with evidence of rupture of the collecting system or ureter with large amount of fluid seen within Gerota's fascia as well as in the retroperitoneum and peritoneal cavity. No obstructing right ureteral calculus identified. ? Continued moderate to severe left hydronephrosis with left ureteral stent in place.? ? Fleischner guidelines were followed. <ELIOT Carroll - Last Filed: 09/03/21 14:47> ECG Data Attestation: I personally reviewed and interpreted this ECG as follows: <ELIOT Carroll - Last Filed: 09/03/21 14:47> ECG interpretation date: 09/03/21 <ELIOT Carroll - Last Filed: 09/03/21 14:47> ECG interpretation time: 11:34 <ELIOT Carroll - Last Filed: 09/03/21 14:47> Interpretation: Normal sinus rhythm with sinus arrhythmia with ventricular rate of 62 no acute ischemic changes are noted. Similar compared to prior EKG 05/28/2019. <ELIOT Carroll - Last Filed: 09/03/21 14:47> Critical Care Time Critical Care Time Critical Care Time: Yes <ELIOT Carroll Last Filed: 09/03/21 14:47> Total Critical Care Time: 60 <ELIOT Carroll - Last Filed: 09/03/21 14:47> Attestation: I personally attest to this time spent taking care of the patient <ELIOT Carroll Last Filed: 09/03/21 14:47> Discharge Plan Discharge Clinical Impression: Kidney capsule rupture, Hyperkalemia, FAITH (acute kidney injury), Bilateral hydronephrosis <ELIOT Carroll Last Filed: 09/03/21 14:47> Patient Disposition: Admitted As Inpatient <ELIOT Carroll Last Filed: 09/03/21 14:47>
[2021-09-03] MEDS: Sodium Bicarbonate 8.4% 50 MEQ/50 ML SYRINGE IVPUSH (11:46)
[2021-09-03] MEDS: Insulin Regular, Human 100 UNIT/ML 3 ML VIAL 10 UNIT IVPUSH (11:49)
--- NOTE | 2021-09-03 12:49 | PHA.MEDREC ---
Pharmacy Consult ? Medication Reconciliation Pharmacy has completed the medication reconciliation. Patient reports he takes finasteride at home however it has not been filled since December 2020. Ina Murphy, AmandaD
[2021-09-03] MEDS: HYDROmorphone HCl 1 MG/ML SYRINGE IVPUSH (13:20)
--- NOTE | 2021-09-03 14:14 | PC.NURSE ---
call placed to dr bird at 1400
--- NOTE | 2021-09-03 14:21 | PC.NURSE ---
continuing to await uro to call back for consult
--- NOTE | 2021-09-03 15:50 | PM.CCHP ---
History of Present Illness Date of Service: 09/03/21 Attending physician on admission: Vince Robledo Chief Complaint: anorexia nausea and diarrhea and anuria 80-year-old male with a history of benign prostatic hypertrophy as well as history of bladder carcinoma that has had multiple procedures all of which were bladder sparing including adjuvant chemotherapy and came in a little over a month ago with left flank pain and was noted to have left hydronephrosis at that time which sheet turner to be not a recurrence of the bladder CA but it was obstruction imposed by the prostate and had a ureteral stent with a postobstructive diuresis and normalizing of his renal function and then he started to have these last 3 days progressive anorexia abdominal discomfort nausea and then his last urination was yesterday and none since and presented to the emergency room currently has very significant bilateral hydronephrosis with a urine extravasation into the retroperitoneum and peritoneal cavity and now has uremia with a BUN and creatinine of 82/10.2 and a potassium of 7.0 so severe hyperkalemia and severe hyper magnesemia at 4.2 so he had insulin and bicarb and glucose and we are awaiting a repeat BNP and were making arrangement to do at least a left-sided nephrostomy with Interventional Radiology he had received 2 L of fluid in the ER and I did a bedside echo showing globally normal left ventricular and right ventricular systolic wall motion and no primary valve or pericardial disease and this is a gentleman who was previously stented for coronary disease and his inferior vena cava in end expiratory phase measured 2 cm diameter but with close to 50% inspiratory collapse so he appears to be at least euvolemic at this point but remains an uric certainly implying that obstruction is the cause a not dehydration Review of Systems Review of Systems: Yes all other systems are reviewed and are negative [facility] Past Medical History Medical History (Updated 09/03/21 @ 15:58 by Vince Robledo MD) Benign prostatic hyperplasia with lower urinary tract symptoms Bladder cancer Bladder tumor Bradyarrhythmia Cataract Coronary artery disease Hypertension, essential Ischemic heart disease due to coronary artery obstruction Past heart attack Family History Family History Father Heart problem CHF (congestive heart failure) Diabetes mellitus Mother Diabetes mellitus Sister Throat cancer Daughter No problems noted. Son No problems noted. Son No problems noted. Other Substance use disorder Surgical History Surgical History History of coronary artery stent placement History of surgery Social History Social History Household Members: Spouse Housing: House Do you presently have visiting nurse or other home services: No Alcohol intake: current Alcohol intake frequency: a few times a month Patient Tobacco Use Status: Never used Tobacco Smoked in Last 30 Days: No Use of substances other than those prescribed or required for medical reasons: No Advance Directives: Yes Advance Directives Information Provided: Yes Advance Directives on File: No service: No Current occupational status: retired Gender identity: Male Meds Allergies Allergy/AdvReac Type Severity Reaction Status Date / Time codeine [Codeine] Allergy Unknown LETHARGY Verified 08/31/21 11:13 From Antihistamine AdvReac Unknown CAN'T TAKE Uncoded 08/31/21 11:13 DUE TO BPH Active Medications: Current Medications Pharmacy Consult (Consult Rx Perform Med Rec) 1 each MISCELLANE ONCE PRN PRN Reason: Consult order Home Medications Medication Instructions Recorded Confirmed Last Taken Type niacin 500 mg tablet,extended 3 tab PO BEDTIME 04/13/20 09/03/21 08/30/21 History release 24 hr thyroid (pork) 30 mg tablet 1.5 tab PO DAILY 04/13/20 09/03/21 08/30/21 History ([place] Thyroid) ascorbic acid (vitamin C) 500 mg 500 mg PO DAILY 07/29/21 09/03/21 08/30/21 History tablet (Vitamin C) chlorhexidine gluconate 0.12 % 15 ml PO BID 07/29/21 09/03/21 08/30/21 History mouthwash cholecalciferol (vitamin D3) 10 20 mcg PO DAILY 07/29/21 09/03/21 08/30/21 History mcg (400 unit) tablet (Vitamin D3) multivitamin 1 tab PO DAILY 07/29/21 09/03/21 08/30/21 History Physical Exam Vital Signs: Vital Signs: Last Vital Signs Temp 98.0 F 09/03/21 11:33 Pulse 64 09/03/21 12:13 Resp 16 09/03/21 13:20 BP 135/62 09/03/21 12:13 Pulse Ox 94 09/03/21 12:13 BMI result Body Mass Index 25.9 awake alert oriented and nonfocal neurologically abdomen is benign although he is complaining of discomfort nontender no organomegaly chest no event tissue sounds no accessory muscle use cardiac exam as described by echo skin intact no acrocyanosis EKG normal sinus rhythm no QRS prolongation no QT prolongation no significant ST-T changes Results Labs CBC and Chem 7: 09/03/21 10:51 09/03/21 10:51 Labs: Laboratory Results - last 24 hr 09/03/21 09/03/21 09/03/21 10:45 10:50 10:51 MCV 84.3 MCH 27.2 MCHC 32.3 RDW 17.4 H Plt Count 409 H D MPV 9.8 Immature Gran % (Auto) 0.6 H Neut % (Auto) 86.2 H Lymph % (Auto) 6.8 L [place] % (Auto) 6.2 Eos % (Auto) 0.1 Baso % (Auto) 0.1 Lymph # (Auto) 0.8 L [place] # (Auto) 0.7 Eos # (Auto) 0.0 Baso # (Auto) 0.0 Abs Immat Gran (auto) 0.07 H Absolute Neuts (auto) 10.2 H Absolute Nucleated RBC 0.000 Nucleated RBC % (auto) 0.0 Hold Purple Top PT INR Anion Gap Estim Creat Clear Calc Estimated GFR Random Glucose Lactic Acid 0.5 Calcium Magnesium Total Bilirubin AST ALT Alkaline Phosphatase Total Protein Albumin Lipase COVID-19 ([facility]) Negative COVID-19 Clin Com See Note 09/03/21 09/03/21 09/03/21 10:51 10:51 10:51 MCV MCH MCHC RDW Plt Count MPV Immature Gran % (Auto) Neut % (Auto) Lymph % (Auto) [place] % (Auto) Eos % (Auto) Baso % (Auto) Lymph # (Auto) [place] # (Auto) Eos # (Auto) Baso # (Auto) Abs Immat Gran (auto) Absolute Neuts (auto) Absolute Nucleated RBC Nucleated RBC % (auto) Hold Purple Top SEE NOTE PT 13.2 H INR 1.2 H Anion Gap 22 H Estim Creat Clear Calc 5.8 Estimated GFR 5 Random Glucose 114 Lactic Acid Calcium 8.5 D Magnesium 4.2 H* Total Bilirubin 0.5 AST 12 D ALT 11 Alkaline Phosphatase 82 D Total Protein 6.5 Albumin 3.3 L Lipase 13 COVID-19 ([facility]) COVID-19 Clin Com Imaging Radiologist's Impressions: Impressions Abdomen/Pelvis CT 09/03/21 12:19 IMPRESSION: Interval development of moderate right hydronephrosis with evidence of rupture of the collecting system or ureter with large amount of fluid seen within Gerota's fascia as well as in the retroperitoneum and peritoneal cavity. No obstructing right ureteral calculus identified. Continued moderate to severe left hydronephrosis with left ureteral stent in place. Fleischner guidelines were followed. Assessment and Plan (1) FAITH (acute kidney injury): Status: Acute (2) Bilateral hydronephrosis: Status: Acute (3) Kidney capsule rupture: Status: Acute (4) Scrotal swelling: Status: Acute (5) Lumbar pain: Status: Acute (6) Hyperkalemia: Status: Acute (7) Hydronephrosis: Status: Acute (8) Bladder cancer: Status: Acute (9) Hyponatremia: Status: Acute (10) Prostate hypertrophy: Status: Acute (11) Elevated PSA: Status: Acute (12) Diverticulosis: Status: Acute (13) Ischemic heart disease due to coronary artery obstruction: Status: Acute (14) Hyperkalemia, diminished renal excretion: Status: Acute (15) Hypermagnesemia: Status: Acute Plan so we have acute on chronic renal failure currently with uremia and additionally complicated by hyperkalemia as well as hypermagnesemia and he has been temporized with insulin glucose and bicarb repeat studies are pending clot unequivocally needs to have relief of his obstruction which is bilateral hydronephrosis due to bilateral ureteral disease and this will be the preferred route this time will be via nephrostomy and then urology will look into definitive treatment of his ureteral disease
[2021-09-03 16:28] LABS: Anion Gap 22 (12-20); Blood Urea Nitrogen 82 mg/dL (9-16); Calcium 8.1 mg/dL (8.4-10.2); Carbon Dioxide 19 mmol/L (22-29); Chloride 100 mmol/L (96-108); Creatinine Clr Calc Pharmacy 5.9; Estimated Glomerular Filt Rate 5; Glucose Random 95 mg/dL (60-115); Potassium 5.5 mmol/L (3.3-5.1); Sodium 135 mmol/L (135-145)
[2021-09-03 16:35] LABS: Magnesium 4.1 mg/dL (1.6-2.6)
[2021-09-03] MEDS: 0.9 % Sodium Chloride 1,000 ML 100 ML IVCONT ×2 (16:41→20:38)
[2021-09-03 19:40] LABS: Glucose, Whole Blood 101 mg/dL (60-115)
[2021-09-03] MEDS: iohexoL 300 MG/ML 50 ML INFUS..BTL 20 ML INTRAUTERI (19:40)
[2021-09-03] MEDS: Lidocaine HCl 1 % MPF 5 ML VIAL 10 ML INFILTRATI (19:41)
[2021-09-03 21:54] LABS: Anion Gap 19 (12-20); Blood Urea Nitrogen 79 mg/dL (9-16); Calcium 8.2 mg/dL (8.4-10.2); Carbon Dioxide 22 mmol/L (22-29); Chloride 102 mmol/L (96-108); Creatinine Clr Calc Pharmacy 6.5; Estimated Glomerular Filt Rate 6; Glucose Random 136 mg/dL (60-115); Magnesium 4.1 mg/dL (1.6-2.6); Potassium 5.4 mmol/L (3.3-5.1); Sodium 138 mmol/L (135-145)
[2021-09-04] VITALS (15 sets, daily range): BP systolic 122–166; BP diastolic 41–68; PULSE 45–95; RESP 14–27; TEMP 36.3–37.2; O2SAT 92–98; BMI 29.0
[2021-09-04 01:58] LABS: Anion Gap 16 (12-20); Blood Urea Nitrogen 71 mg/dL (9-16); Calcium 7.6 mg/dL (8.4-10.2); Carbon Dioxide 21 mmol/L (22-29); Chloride 106 mmol/L (96-108); Creatinine Clr Calc Pharmacy 8.4; Estimated Glomerular Filt Rate 8; Glucose Random 117 mg/dL (60-115); Magnesium 3.9 mg/dL (1.6-2.6); Potassium 5.7 mmol/L (3.3-5.1); Sodium 137 mmol/L (135-145)
[2021-09-04] MEDS: Insulin Regular, Human 100 UNIT/ML 3 ML VIAL IVPUSH (02:15)
[2021-09-04] MEDS: Albuterol Sulfate (0.083%) 2.5 MG/3 ML VIAL.NEB 5 MG INHALE (02:42)
--- NOTE | 2021-09-04 04:38 | PC.NURSE ---
Initial contact: pt recieved from the PACU. Pt is alert and oreinted times 3. Pupils are perrl answers questions appropriately speech is clear. LS are clear, with even unlabored resps. No chest pain no edema sinus taco on the monitor. Pt has some abd tednerness/firmness. BS presnt and patient did have a bowel movement. Pt has a butcher with reddish output roughly 50-100ml/hr. Pt has a right flank surgical site for a nephrostomy with ~50ml/hr reddish output. PA is aware of both. Surgical site has small amount of red staining on the bandage. Otherwise the bandage is clean dry intact and it is not soaked. Pt is able to repo self. Pt denies weakness. Pt denies pain, no complaints at this time. ~0200 lab work showed hyperK and patient received insulin,d50, albuterol. Pt has also had improving creatnine currently at 7 down from 10.
[2021-09-04] MEDS: 0.9 % Sodium Chloride 1,000 ML 100 ML IVCONT (05:44)
[2021-09-04] MEDS: Omeprazole 40 MG CAPSULE.DR PO (05:44)
[2021-09-04 05:48] LABS: MANUAL DIFF FLAG NO
[2021-09-04 05:50] LABS: Basophils Percent Auto 0.3 % (0-2); Eosinophils Absolute Auto 0.1 X10*3/uL (0.0-0.4); Eosinophils Percent Auto 1.1 % (0-4); Hematocrit 30.1 % (42.0-52.0); Hemoglobin 9.7 g/dl (14.0-18.0); Imm Gran Abs Auto 0.04 X10*3/uL (0.00-0.03); Imm Gran Pct Auto 0.5 % (0.0-0.4); Lymphocytes Absolute Auto 0.7 X10*3/uL (1.2-4.9); Lymphocytes Percent Auto 7.8 % (20-40); Mean Corpuscular HGB Conc 32.2 g/dl (31.0-36.0); Mean Corpuscular Hemoglobin 27.5 pg (27.0-33.0); Mean Corpuscular Volume 85.3 fL (80.0-98.0); Mean Platelet Volume 9.9 fL (9.4-12.4); Monocytes Absolute Auto 0.7 X10*3/uL (0.1-1.2); Monocytes Percent Auto 7.4 % (2-11); Neutrophils Absolute Auto 7.3 x10*3/uL (2.0-8.3); Neutrophils Percent Auto 82.9 % (45-73); Platelet Count 364 X10*3/uL (160-400); Red Blood Count 3.53 X10*6/uL (4.60-5.80); Red Cell Distribution Width 17.3 % (11.0-16.0); White Blood Count 8.8 X10*3/uL (4.8-10.8)
[2021-09-04 06:22] LABS: Anion Gap 15 (12-20); Blood Urea Nitrogen 63 mg/dL (9-16); Calcium 7.8 mg/dL (8.4-10.2); Carbon Dioxide 21 mmol/L (22-29); Chloride 106 mmol/L (96-108); Creatinine Clr Calc Pharmacy 11.7; Estimated Glomerular Filt Rate 10; Glucose Random 109 mg/dL (60-115); Magnesium 3.7 mg/dL (1.6-2.6); Phosphorus 4.4 mg/dL (2.7-4.5); Potassium 5.4 mmol/L (3.3-5.1); Sodium 137 mmol/L (135-145)
--- NOTE | 2021-09-04 10:56 | P.PNCC_ITS ---
Subjective Subjective Date of Service: 09/04/21 Interval History: 80-year-old gentleman with underlying history of BPH and bladder carcinoma with blood aspirin procedures for treatment together with adjuvant chemotherapy, with recent placement of left ureteral stent by Dr. Davalos admitted on 09/03/2021 with 1 week history of progressive abdominal discomfort. On ER evaluation patient no дмитрий to be in acute renal failure with CT abdomen demonstrating new right-sided hydroureteronephrosis with likely ureteral rupture. Patient underwent a right- sided nephrostomy placement with stent extending down into the bladder with resolution of hydroureteronephrosis and improvement in his pain. Urology was consulted an is considering a definitive procedure. No events overnight. Critical Care Time (minutes): 0 Physical Exam Vital Signs: Vital Signs: Last Vital Signs Temp 98.9 F 09/04/21 08:00 Pulse 70 09/04/21 09:00 Resp 15 09/04/21 09:00 BP 149/56 H 09/04/21 09:00 Pulse Ox 94 09/04/21 09:00 BMI result Body Mass Index 29.0 Const: General: no acute distress, alert and awake Eyes: Sclerae: sclerae normal EOM: EOMs intact bilaterally Neck: Neck: Yes no lymphadenopathy, Yes trachea midline and Yes supple Resp: Effort & Inspection: normal respiratory effort and no respiratory dis tress Auscultation: clear to auscultation bilaterally Cardio: Rate: regular rate Rhythm: regular rhythm Heart sounds: no gallops, no murmurs and no rubs GI: Palpation (GI): Soft to palpation and Other GI palpation findings present ( Nontender) Auscultation: normal bowel sounds Extrem: General: No clubbing, No cyanosis and Yes pedal edema ( Trace bilateral) Objective Data Labs CBC & Chem 7: 09/04/21 05:25 09/04/21 05:25 Labs: Laboratory Results - last 24 hr 09/03/21 09/03/21 09/03/21 10:45 10:50 10:51 WBC 11.8 H RBC 4.26 L Hgb 11.6 L Hct 35.9 L MCV 84.3 MCH 27.2 MCHC 32.3 RDW 17.4 H Plt Count 409 H D MPV 9.8 Immature Gran % (Auto) 0.6 H Neut % (Auto) 86.2 H Lymph % (Auto) 6.8 L [place] % (Auto) 6.2 Eos % (Auto) 0.1 Baso % (Auto) 0.1 Lymph # (Auto) 0.8 L [place] # (Auto) 0.7 Eos # (Auto) 0.0 Baso # (Auto) 0.0 Abs Immat Gran (auto) 0.07 H Absolute Neuts (auto) 10.2 H Absolute Nucleated RBC 0.000 Nucleated RBC % (auto) 0.0 Hold Purple Top PT INR Sodium Potassium Chloride Carbon Dioxide Anion Gap BUN Creatinine Estim Creat Clear Calc Estimated GFR POC Glucose Random Glucose Lactic Acid 0.5 Calcium Phosphorus Magnesium Total Bilirubin AST ALT Alkaline Phosphatase Total Protein Albumin Lipase COVID-19 ([facility]) Negative COVID-19 [facility] Com See Note 09/03/21 09/03/21 09/03/21 10:51 10:51 10:51 WBC RBC Hgb Hct MCV MCH MCHC RDW Plt Count MPV Immature Gran % (Auto) Neut % (Auto) Lymph % (Auto) [place] % (Auto) Eos % (Auto) Baso % (Auto) Lymph # (Auto) [place] # (Auto) Eos # (Auto) Baso # (Auto) Abs Immat Gran (auto) Absolute Neuts (auto) Absolute Nucleated RBC Nucleated RBC % (auto) Hold Purple Top SEE NOTE PT 13.2 H INR 1.2 H Sodium 132 L Potassium 7.0 H* D Chloride 99 Carbon Dioxide 18 L Anion Gap 22 H BUN 82 H D Creatinine 10.26 H* Estim Creat Clear Calc 5.8 Estimated GFR 5 POC Glucose Random Glucose 114 Lactic Acid Calcium 8.5 D Phosphorus Magnesium 4.2 H* Total Bilirubin 0.5 AST 12 D ALT 11 Alkaline Phosphatase 82 D Total Protein 6.5 Albumin 3.3 L Lipase 13 COVID-19 ([facility]) COVID-[employer] 09/03/21 09/03/21 09/03/21 16:04 16:04 19:37 WBC RBC Hgb Hct MCV MCH MCHC RDW Plt Count MPV Immature Gran % (Auto) Neut % (Auto) Lymph % (Auto) [place] % (Auto) Eos % (Auto) Baso % (Auto) Lymph # (Auto) [place] # (Auto) Eos # (Auto) Baso # (Auto) Abs Immat Gran (auto) Absolute Neuts (auto) Absolute Nucleated RBC Nucleated RBC % (auto) Hold Purple Top PT INR Sodium 135 Potassium 5.5 H D Chloride 100 Carbon Dioxide 19 L Anion Gap 22 H BUN 82 H Creatinine 10.15 H* Estim Creat Clear Calc 5.9 Estimated GFR 5 POC Glucose 101 Random Glucose 95 Lactic Acid Calcium 8.1 L Phosphorus Magnesium 4.1 H* Total Bilirubin AST ALT Alkaline Phosphatase Total Protein Albumin Lipase COVID-19 ([facility]) COVID-19 Clin Com 09/03/21 09/04/21 09/04/21 21:10 01:20 05:25 WBC 8.8 RBC 3.53 L Hgb 9.7 L Hct 30.1 L MCV 85.3 MCH 27.5 MCHC 32.2 RDW 17.3 H Plt Count 364 MPV 9.9 Immature Gran % (Auto) 0.5 H Neut % (Auto) 82.9 H Lymph % (Auto) 7.8 L [place] % (Auto) 7.4 Eos % (Auto) 1.1 Baso % (Auto) 0.3 Lymph # (Auto) 0.7 L [place] # (Auto) 0.7 Eos # (Auto) 0.1 Baso # (Auto) 0.0 Abs Immat Gran (auto) 0.04 H Absolute Neuts (auto) 7.3 Absolute Nucleated RBC 0.000 Nucleated RBC % (auto) 0.0 Hold Purple Top PT INR Sodium 138 137 Potassium 5.4 H 5.7 H Chloride 102 106 Carbon Dioxide 22 21 L Anion Gap 19 16 BUN 79 H 71 H Creatinine 9.08 H* 7.07 H* Estim Creat Clear Calc 6.5 8.4 Estimated GFR 6 8 POC Glucose Random Glucose 136 H D 117 H Lactic Acid Calcium 8.2 L 7.6 L D Phosphorus Magnesium 4.1 H* 3.9 H* Total Bilirubin AST ALT Alkaline Phosphatase Total Protein Albumin Lipase COVID-19 ([facility]) COVID-19 Clin Com 09/04/21 05:25 WBC RBC Hgb Hct MCV MCH MCHC RDW Plt Count MPV Immature Gran % (Auto) Neut % (Auto) Lymph % (Auto) [place] % (Auto) Eos % (Auto) Baso % (Auto) Lymph # (Auto) [place] # (Auto) Eos # (Auto) Baso # (Auto) Abs Immat Gran (auto) Absolute Neuts (auto) Absolute Nucleated RBC Nucleated RBC % (auto) Hold Purple Top PT INR Sodium 137 Potassium 5.4 H Chloride 106 Carbon Dioxide 21 L Anion Gap 15 BUN 63 H Creatinine 5.63 H* Estim Creat Clear Calc 11.7 Estimated GFR 10 POC Glucose Random Glucose 109 Lactic Acid Calcium 7.8 L Phosphorus 4.4 Magnesium 3.7 H* Total Bilirubin AST ALT Alkaline Phosphatase Total Protein Albumin Lipase COVID-19 ([facility]) COVID-19 Clin Com Progress Note: A&P Assessment and plan (1) FAITH (acute kidney injury): Status: Acute (2) Bilateral hydronephrosis: Status: Acute (3) Ischemic heart disease due to coronary artery obstruction: Status: Acute Plan Assessment: 80-year-old gentleman admitted with abdominal pain secondary to development of right-sided hydronephrosis on the background of known left hydronephrosis and worsening acute kidney injury. Now status post placement of right-sided nephrostomy with Urology service planning definitive procedure. Plan: Neuro: No acute issues. Cardiac: No acute issues. Underlying CAD. Pulmonary: No acute issues. Renal: Acute kidney injury secondary to development of right-sided hydronephrosis on the background of the left-sided hydronephrosis. Oliguric. Status post right nephrostomy. Urology service care appreciated. Planned for left-sided stent exchange. Continue to monitor renal indices and urine output. Endo: No acute issues. GI: No acute issues. ID: No acute issues Heme/Onc: No acute issues. Psych: No acute issues. Miscellaneous: No acute issues. Prophylaxis: Intermittent pneumatic compression Diet: NPO for procedure after midnight Quality Stroke Does the patient have a stroke diagnosis?: No VTE Prior VTE?: No VTE Risk Level:: Medical - moderate - high VTE Device Contraindication: N/A - Device Ordered VTE Drug Contraindication: Treatment Not Tolerated
[2021-09-05 01:00] VITALS: BP 188/73; PULSE 71; RESP 20; TEMP 37.2; O2SAT 98
[2021-09-05] MEDS: Acetaminophen 325 MG TABLET 650 MG PO ×2 (03:05→10:54)
[2021-09-05 03:20] VITALS: BP 162/73; PULSE 63; RESP 20; TEMP 36.7; O2SAT 93
[2021-09-05 06:00] VITALS: BMI 28.7
[2021-09-05] MEDS: Omeprazole 40 MG CAPSULE.DR PO (06:13)
[2021-09-05 06:25] LABS: MANUAL DIFF FLAG NO
[2021-09-05 06:49] LABS: Anion Gap 11 (12-20); Blood Urea Nitrogen 30 mg/dL (9-16); Calcium 7.9 mg/dL (8.4-10.2); Carbon Dioxide 24 mmol/L (22-29); Chloride 108 mmol/L (96-108); Creatinine Clr Calc Pharmacy 34.8; Estimated Glomerular Filt Rate 35; Glucose Fasting 109 mg/dL (60-99); Magnesium 2.8 mg/dL (1.6-2.6); Sodium 138 mmol/L (135-145)
[2021-09-05 06:50] LABS: Basophils Percent Auto 0.4 % (0-2); Eosinophils Absolute Auto 0.3 X10*3/uL (0.0-0.4); Eosinophils Percent Auto 3.5 % (0-4); Hematocrit 26.6 % (42.0-52.0); Hemoglobin 8.5 g/dl (14.0-18.0); Imm Gran Abs Auto 0.04 X10*3/uL (0.00-0.03); Imm Gran Pct Auto 0.5 % (0.0-0.4); Lymphocytes Absolute Auto 1.4 X10*3/uL (1.2-4.9); Lymphocytes Percent Auto 16.6 % (20-40); Mean Corpuscular Hemoglobin 27.3 pg (27.0-33.0); Mean Corpuscular Volume 85.5 fL (80.0-98.0); Mean Platelet Volume 9.9 fL (9.4-12.4); Monocytes Absolute Auto 0.8 X10*3/uL (0.1-1.2); Monocytes Percent Auto 9.7 % (2-11); Neutrophils Absolute Auto 5.7 x10*3/uL (2.0-8.3); Neutrophils Percent Auto 69.3 % (45-73); Platelet Count 336 X10*3/uL (160-400); Red Blood Count 3.11 X10*6/uL (4.60-5.80); Red Cell Distribution Width 17.2 % (11.0-16.0); White Blood Count 8.3 X10*3/uL (4.8-10.8)
[2021-09-05 07:38] VITALS: BP 152/78; PULSE 56; RESP 18; TEMP 36.8; O2SAT 98
--- NOTE | 2021-09-05 08:28 | MHC.CM.PN ---
CM met with Patient at bedside. 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 Home/no services is the goal for dc and CM has initiated and will follow for dc planning. PCP is Dr. Jazmin Dacosta and Patient has received [employer] vax X2.
--- NOTE | 2021-09-05 10:19 | P.PNIM_ITS ---
Subjective Subjective Date of Service: 09/05/21 Interval History: cc: bloating, weight gain interval history: feeling better, nephrostomy output without blood, no further events on tele Cardiovascular Cardiovascular: Reports no additional cardiovascular complaints Respiratory Respiratory: Reports no additional respiratory complaints Physical Exam Vital Signs: Vital Signs: Last Vital Signs Temp 98.2 F 09/05/21 07:38 Pulse 56 09/05/21 07:38 Resp 18 09/05/21 07:38 BP 152/78 H 09/05/21 07:38 Pulse Ox 98 09/05/21 07:38 BMI result Body Mass Index 28.7 General: AO X 3, no acute distress Resp: CTA bilateral, no accessory muscles used CVS: S1,S2,RRR GI: soft, non tender, non distended Neuro: motor grossly intact, alert Psych: appropriate affect, appropriate insight Objective Data Active Medications Acetaminophen (Acetaminophen 325 Mg Tablet) 650 mg PO Q6H PRN PRN Reason: Pain, Mild (Pain Scale 1-3) Last Admin: 09/05/21 03:05 Dose: 650 mg Documented by: BRUNO Finasteride (Finasteride 5 Mg Tablet) 5 mg PO DAILY COUNT INCLUDES THE [facility] Multivitamins/Vitamin C (Multivitamin Tablet) 1 tab PO DAILY COUNT INCLUDES THE [facility] Non-Formulary Medication (Niacin) 3 tab PO BEDTIME COUNT INCLUDES THE [facility] Omeprazole (Omeprazole 40 Mg Capsule.Dr) 40 mg PO DAILY@0630 COUNT INCLUDES THE [facility] Last Admin: 09/05/21 06:13 Dose: 40 mg Documented by: BRUNO Pharmacy Consult (Consult Rx Perform Med Rec) 1 each MISCELLANE ONCE PRN PRN Reason: Consult order Tamsulosin HCl (Tamsulosin Hcl 0.4 Mg Capsule) 0.4 mg PO BEDTIME COUNT INCLUDES THE [facility] Labs CBC & Chem 7: 09/05/21 06:01 09/05/21 06:01 Labs: Laboratory Results - last 24 hr 09/05/21 09/05/21 06:01 06:01 MCV 85.5 MCH 27.3 MCHC 32.0 RDW 17.2 H Plt Count 336 MPV 9.9 Immature Gran % (Auto) 0.5 H Neut % (Auto) 69.3 Lymph % (Auto) 16.6 L [place] % (Auto) 9.7 Eos % (Auto) 3.5 Baso % (Auto) 0.4 Lymph # (Auto) 1.4 [place] # (Auto) 0.8 Eos # (Auto) 0.3 Baso # (Auto) 0.0 Abs Immat Gran (auto) 0.04 H Absolute Neuts (auto) 5.7 Absolute Nucleated RBC 0.000 Nucleated RBC % (auto) 0.0 Anion Gap 11 L Estim Creat Clear Calc 34.8 Estimated GFR 35 Random Glucose TNP Fasting Glucose 109 H Calcium 7.9 L Magnesium 2.8 H Microbiology Microbiology Results: Microbiology 09/03/21 11:29 Blood Culture - Preliminary Blood - Venous No growth after 24 hours. 09/03/21 10:51 Blood Culture - Preliminary Blood - Venous No growth after 24 hours. Assessment and Plan (1) Hydroureteronephrosis: Status: Acute Plan 80M with BPH and bladder CA presented with abdominal discomfort, found to have significant bilateral hydronephrosis, FAITH (Cr - 10.2) with hyperkalemia (7). he was admitted to ICU, nephrostomy was placed on right, labs improved, downgraded to medical floor. FAITH with hyperkalemia and hypermagnesemia due to obstruction improved significantly conitnue to monitor s/p right nephrostomy, plan for left nephrostomy today ? AV nereyda block had some taco arrhythmia on tele while in ICU with questionable AV block no further events, was likely due to faith and electrolyte abnormalities, continue to monitor on tele cardio to see BPH proscar, flomax hypothyroid on armour thyroid at home can bring in, or have hospital equivalent dvt prophyalxis - mechacnical (due to plan for IR interventions) full code Quality Stroke Does the patient have a stroke diagnosis?: No VTE Prior VTE?: No VTE Risk Level:: Medical - moderate - high VTE Device Contraindication: N/A - Device Ordered VTE Drug Contraindication: Treatment Not Tolerated
[2021-09-05 11:22] VITALS: BP 160/70; PULSE 62; RESP 18; TEMP 36.4; O2SAT 97
--- NOTE | 2021-09-05 15:28 | P.CONCA_ITS ---
History of Present Illness History of Present Illness Date of Service: 09/05/21 Requesting physician: Mina Burden Chief complaint: Bilateal Hydronephrosis/Uremia, PACs Narrative: 80-year-old gentleman with hydronephrosis status post nephrostomy who was in the ICU and was downgraded. He was noted to have premature atrial complexes with some block on telemetry. Telemetry was reviewed in detail and there is no evidence of any heart block right now. He had some runs of what appears like paroxysmal atrial tachycardia. There is also some blocked PACs with co mpensatory pause. Discussing with him he has no chest pain or shortness of breath. He has no dizziness or lightheadedness or palpitations. he is waiting for surgery today. [facility] Past Medical History Medical History (Updated 09/05/21 @ 15:31 by Josias Martin MD) Benign prostatic hyperplasia with lower urinary tract symptoms Bladder cancer Bladder tumor Bradyarrhythmia Cataract Coronary artery disease Hypertension, essential Ischemic heart disease due to coronary artery obstruction Past heart attack Family History Family History Father Heart problem CHF (congestive heart failure) Diabetes mellitus Mother Diabetes mellitus Sister Throat cancer Daughter No problems noted. Son No problems noted. Son No problems noted. Other Substance use disorder Surgical History Surgical History History of coronary artery stent placement History of surgery Social History Social History Household Members: Spouse Housing: House Do you presently have visiting nurse or other home services: No Alcohol intake: current Alcohol intake frequency: a few times a month Patient Tobacco Use Status: Never used Tobacco Smoked in Last 30 Days: No Use of substances other than those prescribed or required for medical reasons: No Currently Displaying Signs/Symptoms of Drug Intoxication Withdrawal: No Advance Directives: Yes Advance Directives Information Provided: Yes Advance Directives on File: No service: No Current occupational status: retired Gender identity: Male Meds Allergies Allergy/AdvReac Type Severity Reaction Status Date / Time codeine [Codeine] Allergy Unknown LETHARGY Verified 08/31/21 11:13 From Antihistamine AdvReac Unknown CAN'T TAKE Uncoded 08/31/21 11:13 DUE TO BPH Active Medications: Current Medications Acetaminophen (Acetaminophen 325 Mg Tablet) 650 mg PO Q6H PRN PRN Reason: Pain, Mild (Pain Scale 1-3) Last Admin: 09/05/21 10:54 Dose: 650 mg Documented by: Finasteride (Finasteride 5 Mg Tablet) 5 mg PO DAILY [facility] Multivitamins/Vitamin C (Multivitamin Tablet) 1 tab PO DAILY [facility] Niacin (Niacin Er 250 Mg Tablet.Er) 1,500 mg PO BEDTIME [facility] Omeprazole (Omeprazole 40 Mg Capsule.Dr) 40 mg PO DAILY@0630 [facility] Last Admin: 09/05/21 06:13 Dose: 40 mg Documented by: Pharmacy Consult (Consult Rx Perform Med Rec) 1 each MISCELLANE ONCE PRN PRN Reason: Consult order Tamsulosin HCl (Tamsulosin Hcl 0.4 Mg Capsule) 0.4 mg PO BEDTIME [facility] Thyroid (Thyroid,Pork 30 Mg Tablet) 45 mg PO DAILY [facility] Home Medications Medication Instructions Recorded Confirmed Last Taken Type niacin 500 mg tablet,extended 3 tab PO BEDTIME 04/13/20 09/03/21 08/30/21 History release 24 hr thyroid (pork) 30 mg tablet 1.5 tab PO DAILY 04/13/20 09/03/21 08/30/21 History ([place] Thyroid) ascorbic acid (vitamin C) 500 mg 500 mg PO DAILY 07/29/21 09/03/21 08/30/21 History tablet (Vitamin C) chlorhexidine gluconate 0.12 % 15 ml PO BID 07/29/21 09/03/21 08/30/21 History mouthwash cholecalciferol (vitamin D3) 10 20 mcg PO DAILY 07/29/21 09/03/21 08/30/21 History mcg (400 unit) tablet (Vitamin D3) multivitamin 1 tab PO DAILY 07/29/21 09/03/21 08/30/21 History Physical Exam Vital Signs: Vital Signs: Last Vital Signs Temp 97.5 F 09/05/21 11: Pulse 62 09/05/21 11:22 Resp 18 09/05/21 11:22 BP 160/70 H 09/05/21 11:22 Pulse Ox 97 09/05/21 11:22 BMI result Body Mass Index 28.7 GENERAL APPEARANCE: in no acute distress, pleasant. NECK: no carotid bruit, no jugular venous distention. SKIN: no suspicious lesions, warm and dry. HEART: no murmurs, regular rate and rhythm. LUNGS: clear to auscultation bilaterally. ABDOMEN: soft, nontender. EXTREMITIES: no edema. PERIPHERAL PULSES: equal. NEUROLOGIC: No gross deficits, AAO X 3 Objective Labs and Meds Result diagrams: 09/05/21 06:01 09/05/21 06:01 Lab results: Laboratory Results - last 24 hr 09/05/21 09/05/21 06:01 06:01 WBC 8.3 RBC 3.11 L Hgb 8.5 L Hct 26.6 L MCV 85.5 MCH 27.3 MCHC 32.0 RDW 17.2 H Plt Count 336 MPV 9.9 Immature Gran % (Auto) 0.5 H Neut % (Auto) 69.3 Lymph % (Auto) 16.6 L [place] % (Auto) 9.7 Eos % (Auto) 3.5 Baso % (Auto) 0.4 Lymph # (Auto) 1.4 [place] # (Auto) 0.8 Eos # (Auto) 0.3 Baso # (Auto) 0.0 Abs Immat Gran (auto) 0.04 H Absolute Neuts (auto) 5.7 Absolute Nucleated RBC 0.000 Nucleated RBC % (auto) 0.0 Sodium 138 Potassium 5.0 Chloride 108 Carbon Dioxide 24 Anion Gap 11 L BUN 30 H D Creatinine 1.89 H Estim Creat Clear Calc 34.8 Estimated GFR 35 Random Glucose TNP Fasting Glucose 109 H Calcium 7.9 L Magnesium 2.8 H Assessment and Plan (1) Hydroureteronephrosis: Status: Acute (2) Bradycardia: Status: Acute Plan 80-year-old gentleman with hydronephrosis status post nephrostomy. He has bradycardia and some blocked premature atrial complexes with compensatory pause on telemetry. He is asymptomatic. He is saying his heart rate is in 50s all the time and has been like this from young age. Overall clinically stable. Does not require any intervention right now. Continue monitoring on telemetry. Thank you for allowing me to participate in the care of your patient. Please feel free to contact me if you have any questions. Procedures Date of Service Date of Service: 09/05/21
[2021-09-05 15:50] VITALS: BP 141/69; PULSE 67; RESP 18; TEMP 37.1; O2SAT 98
[2021-09-05 19:19] VITALS: BP 149/67; PULSE 64; RESP 18; TEMP 37.2; O2SAT 98
[2021-09-05] MEDS: Tamsulosin HCL 0.4 MG CAPSULE PO (20:49)
[2021-09-06] VITALS (13 sets, daily range): BP systolic 136–167; BP diastolic 58–70; PULSE 58–96; RESP 15–20; TEMP 36.3–37.8; O2SAT 96–100; BMI 28.1
[2021-09-06 06:52] LABS: Hematocrit 29.9 % (42.0-52.0); Hemoglobin 9.4 g/dl (14.0-18.0); Mean Corpuscular HGB Conc 31.4 g/dl (31.0-36.0); Mean Corpuscular Hemoglobin 26.9 pg (27.0-33.0); Mean Corpuscular Volume 85.7 fL (80.0-98.0); Mean Platelet Volume 10.1 fL (9.4-12.4); Platelet Count 409 X10*3/uL (160-400); Red Blood Count 3.49 X10*6/uL (4.60-5.80); White Blood Count 10.6 X10*3/uL (4.8-10.8)
[2021-09-06 06:56] LABS: Anion Gap 15 (12-20); Blood Urea Nitrogen 22 mg/dL (9-16); Calcium 8.1 mg/dL (8.4-10.2); Carbon Dioxide 19 mmol/L (22-29); Chloride 108 mmol/L (96-108); Creatinine Clr Calc Pharmacy 50.9; Estimated Glomerular Filt Rate 54; Glucose Fasting 109 mg/dL (60-99); Magnesium 2.3 mg/dL (1.6-2.6); Potassium 4.6 mmol/L (3.3-5.1); Sodium 137 mmol/L (135-145)
[2021-09-06] MEDS: Morphine Sulfate 2 MG/ML CARTRIDGE IVPUSH (10:43)
[2021-09-06] MEDS: Lactated Ringers 1,000 ML 100 ML IVCONT (10:44)
--- NOTE | 2021-09-06 11:09 | MHC.CM.PN ---
CM met Patient's Daughter/Unique ([phone]) in the [place] on the way to [facility]. Patient and family are requesting to speak with Dr. Davalos. CM informed Attending at [facility] that Patient/family have questions. [place] tiger texted Dr. Davalos, requesting that he call Daughter/Unique and or meet with them this morning. CM will follow PRN.
[2021-09-06] MEDS: Thyroid,Pork 30 MG TABLET 45 MG PO (11:56)
--- NOTE | 2021-09-06 13:03 | PM.UROCN ---
History of Present Illness Consult details Consult date: 09/05/21 Narrative: Satnam is a pleasant male. 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 This should have preserved renal function Suggestive that left stent is not draining fully Recommendation for left stent exchange with cystoscopy Review of Systems Constitutional: Constitutional: Reports as per HPI and Reports no additional constitutional complaints Cardiovascular: Cardiovascular: Reports as per HPI and Reports no additional cardiovascular complaints Respiratory: Respiratory: Reports as per HPI and Reports no additional respiratory complaints Gastrointestinal: Gastrointestinal: Reports as per HPI and Reports no additional gastrointestinal complaints Genitourinary: Genitourinary: Reports as per HPI Musculoskeletal: Musculoskeletal: Reports no additional musculoskeletal complaints and Reports as per HPI Neurologic: Reports system reviewed and no additional complaints, except as documented and Reports as per HPI [facility] Past Medical History Medical History (Updated 09/05/21 @ 15:31 by Josias Martin MD) Benign prostatic hyperplasia with lower urinary tract symptoms Bladder cancer Bladder tumor Bradyarrhythmia Cataract Coronary artery disease Hypertension, essential Ischemic heart disease due to coronary artery obstruction Past heart attack Family History Family History Father Heart problem CHF (congestive heart failure) Diabetes mellitus Mother Diabetes mellitus Sister Throat cancer Daughter No problems noted. Son No problems noted. Son No problems noted. Other Substance use disorder Surgical History Surgical History History of coronary artery stent placement History of surgery Social History Social History Household Members: Spouse Housing: House Do you presently have visiting nurse or other home services: No Alcohol intake: current Alcohol intake frequency: a few times a month Patient Tobacco Use Status: Never used Tobacco Smoked in Last 30 Days: No Use of substances other than those prescribed or required for medical reasons: No Currently Displaying Signs/Symptoms of Drug Intoxication Withdrawal: No Advance Directives: Yes Advance Directives Information Provided: Yes Advance Directives on File: No service: No Current occupational status: retired Gender identity: Male Meds Allergies Allergy/AdvReac Type Severity Reaction Status Date / Time codeine [Codeine] Allergy Unknown LETHARGY Verified 08/31/21 11:13 From Antihistamine AdvReac Unknown CAN'T TAKE Uncoded 08/31/21 11:13 DUE TO BPH Active Medications: Current Medications Acetaminophen (Acetaminophen 325 Mg Tablet) 650 mg PO Q6H PRN PRN Reason: Pain, Mild (Pain Scale 1-3) Last Admin: 09/05/21 10:54 Dose: 650 mg Documented by: Diphenhydramine HCl (Diphenhydramine Hcl 50 Mg/Ml Vial) 12.5 mg IVPUSH Q6H PRN PRN Reason: Allergic Reaction Finasteride (Finasteride 5 Mg Tablet) 5 mg PO DAILY [facility] Lactated Ringer's (Lr) 1,000 mls @ 100 mls/hr IVCONT .Q10H [facility] Stop: 09/06/21 20:29 Last Admin: 09/06/21 10:44 Dose: 100 mls/hr Documented by: Morphine Sulfate (Morphine Sulfate 2 Mg/Ml Cartridge) 2 mg IVPUSH Q4H PRN; Protocol PRN Reason: Pain, Severe (Pain Scale 7-10) Last Admin: 09/06/21 10:43 Dose: 2 mg Documented by: Multivitamins/Vitamin C (Multivitamin Tablet) 1 tab PO DAILY [facility] Niacin (Niacin Er 250 Mg Tablet.Er) 1,500 mg PO BEDTIME [facility] Last Admin: 09/05/21 20:49 Dose: 1,500 mg Documented by: Omeprazole (Omeprazole 40 Mg Capsule.Dr) 40 mg PO DAILY@0630 [facility] Last Admin: 09/06/21 05:08 Dose: Not Given Documented by: Pharmacy Consult (Consult Rx Perform Med Rec) 1 each MISCELLANE ONCE PRN PRN Reason: Consult order Tamsulosin HCl (Tamsulosin Hcl 0.4 Mg Capsule) 0.4 mg PO BEDTIME [facility] Last Admin: 09/05/21 20:49 Dose: 0.4 mg Documented by: Thyroid (Thyroid,Pork 30 Mg Tablet) 45 mg PO DAILY [facility] Last Admin: 09/06/21 11:56 Dose: 45 mg Documented by: Home Medications Medication Instructions Recorded Confirmed Last Taken Type niacin 500 mg tablet,extended 3 tab PO BEDTIME 1009/03/21 08/30/21 History release 24 hr thyroid (pork) 30 mg tablet 1.5 tab PO DAILY 04/13/20 09/03/21 08/30/21 History ([place] Thyroid) ascorbic acid (vitamin C) 500 mg 500 mg PO DAILY 07/29/21 09/03/21 08/30/21 History tablet (Vitamin C) chlorhexidine gluconate 0.12 % 15 ml PO BID 07/29/21 09/03/21 08/30/21 History mouthwash cholecalciferol (vitamin D3) 10 20 mcg PO DAILY 07/29/21 09/03/21 08/30/21 History mcg (400 unit) tablet (Vitamin D3) multivitamin 1 tab PO DAILY 07/29/21 09/03/21 08/30/21 History Physical Exam Vital Signs: Vital Signs: Last Vital Signs Temp 98.7 F 09/06/21 11:37 Pulse 68 09/06/21 11:37 Resp 20 09/06/21 11:37 BP 136/68 09/06/21 11:37 Pulse Ox 97 09/06/21 11:37 BMI result Body Mass Index 28.1 Const: General: cooperative, healthy appearing, comfortable and no acute distress Orientation/consciousness: patient oriented x3 HEENT: Face and sinus: Yes normal facial exam Mouth: moist mucous membranes Neck: Neck: Yes normal visual inspection, Yes full ROM and Yes trachea midline Chest: Chest palpation & inspection: normal inspection of the chest Resp: Effort & Inspection: normal respiratory effort, able to speak in complete sentences and no respiratory distress GI: Inspection: Yes normal to inspection Back/Spine/Pelvis: Cervical Spine: normal cervical lordosis Thoracic/Lumbar Spine: thoracic and lumbar spine normal to inspection Skin: General skin exam: no rashes or lesions noted Neuro: General: patient oriented x3, tone normal and moves all extremities Extrem: General: Yes normal to inspection and Yes capillary refill normal Results Labs Result diagrams: 09/06/21 06:30 09/06/21 06:30 Labs: Abnormal lab results 09/06/21 09/06/21 Range/Units 06:30 06:30 RBC 3.49 L (4.60-5.80) X10*6/uL Hgb 9.4 L (14.0-18.0) g/dl Hct 29.9 L (42.0-52.0) % MCH 26.9 L (27.0-33.0) pg RDW 17.0 H (11.0-16.0) % Plt Count 409 H (160-400) X10*3/uL Carbon Dioxide 19 L (22-29) mmol/L BUN 22 H (9-16) mg/dL Fasting Glucose 109 H (60-99) mg/dL Calcium 8.1 L (8.4-10.2) mg/dL Short CBC 09/06/21 Range/Units 06:30 WBC 10.6 (4.8-10.8) X10*3/uL Hgb 9.4 L (14.0-18.0) g/dl Hct 29.9 L (42.0-52.0) % Plt Count 409 H (160-400) X10*3/uL [facility] 09/06/21 06:30 Sodium 137 Potassium 4.6 Chloride 108 Carbon Dioxide 19 L BUN 22 H Creatinine 1.28 Calcium 8.1 L All other labs normal. Assessment and Plan (1) FATIH (acute kidney injury): Status: Acute (2) Hydroureteronephrosis: Status: Acute Plan Plan for cystoscopy with left stent exchange Discussed with Satnam and his family Creatinine has now normalized Procedures Date of Service Date of Service: 09/05/21
[2021-09-06] MEDS: Multivitamin TABLET 1 TAB PO (13:49)
[2021-09-06] MEDS: Finasteride 5 MG TABLET PO (13:51)
--- NOTE | 2021-09-06 14:14 | P.PNIM_ITS ---
Subjective Subjective Date of Service: 09/06/21 Interval History: interval history: the patient was seen and evaluated this morning, family at the bedside feeling better, nephrostomy output without blood, no further events on tele Laying in bed, having back pain No reported other overnight events. Review of Systems No fever, chills or weakness with reported back pain No chest pain, palpitation No shortness of breath or coughing No abdominal pain, nausea or vomiting hematuria in the Jack, clear urine from the nephrostomy tube No any rash or wounds Physical Exam Vital Signs: Vital Signs: Last Vital Signs Temp 98.7 F 09/06/21 11:37 Pulse 68 09/06/21 11:37 Resp 20 09/06/21 11:37 BP 136/68 09/06/21 11:37 Pulse Ox 97 09/06/21 11:37 BMI result Body Mass Index 28.1 Const: Other: Constitutional : Alert, oriented, not in distress Neck : Normal inspection, Supple Cardiovascular : RRR, S1 S2, no lower extremity edema Respiratory : Good bilateral air entry, no crackles, wheezes or rhonchi Gastrointestinal: soft, lax, Normal bowel sounds, Non tender Skin : Warm, Dry, nephrostomy tube in place with clear urine, bloody tinged urine in the Jack catheter Neurological : Alert & oriented x3, No focal deficit Objective Data Active Medications Acetaminophen (Acetaminophen 325 Mg Tablet) 650 mg PO Q6H PRN PRN Reason: Pain, Mild (Pain Scale 1-3) Last Admin: 09/05/21 10:54 Dose: 650 mg Documented by: KAREL Diphenhydramine HCl (Diphenhydramine Hcl 50 Mg/Ml Vial) 12.5 mg IVPUSH Q6H PRN PRN Reason: Allergic Reaction Finasteride (Finasteride 5 Mg Tablet) 5 mg PO DAILY [facility] Last Admin: 09/06/21 13:51 Dose: 5 mg Documented by: MIGUEL Lactated Ringer's (Lr) 1,000 mls @ 100 mls/hr IVCONT .Q10H [facility] Stop: 09/06/21 20:29 Last Admin: 09/06/21 10:44 Dose: 100 mls/hr Documented by: IRVIN Morphine Sulfate (Morphine Sulfate 2 Mg/Ml Cartridge) 2 mg IVPUSH Q4H PRN; Protocol PRN Reason: Pain, Severe (Pain Scale 7-10) Last Admin: 09/06/21 10:43 Dose: 2 mg Documented by: IRVIN Multivitamins/Vitamin C (Multivitamin Tablet) 1 tab PO DAILY [facility] Last Admin: 09/06/21 13:49 Dose: 1 tab Documented by: MIGUEL Niacin (Niacin Er 250 Mg Tablet.Er) 1,500 mg PO BEDTIME [facility] Last Admin: 09/05/21 20:49 Dose: 1,500 mg Documented by: ZE Omeprazole (Omeprazole 40 Mg Capsule.Dr) 40 mg PO DAILY@0630 [facility] Last Admin: 09/06/21 05:08 Dose: Not Given Documented by: JEREMY Non-Admin Reason: NPO Pharmacy Consult (Consult Rx Perform Med Rec) 1 each MISCELLANE ONCE PRN PRN Reason: Consult order Tamsulosin HCl (Tamsulosin Hcl 0.4 Mg Capsule) 0.4 mg PO BEDTIME [facility] Last Admin: 09/05/21 20:49 Dose: 0.4 mg Documented by: ZE Thyroid (Thyroid,Pork 30 Mg Tablet) 45 mg PO DAILY [facility] Last Admin: 09/06/21 11:56 Dose: 45 mg Documented by: MIGUEL Labs CBC & Chem 7: 09/06/21 06:30 09/06/21 06:30 Labs: Laboratory Results - last 24 hr 09/06/21 09/06/21 06:30 06:30 MCV 85.7 MCH 26.9 L MCHC 31.4 RDW 17.0 H Plt Count 409 H MPV 10.1 Absolute Nucleated RBC 0.000 Nucleated RBC % (auto) 0.0 Anion Gap 15 Estim Creat Clear Calc 50.9 Estimated GFR 54 Fasting Glucose 109 H Calcium 8.1 L Magnesium 2.3 Microbiology Microbiology Results: Microbiology 09/03/21 11:29 Blood Culture - Preliminary Blood - Venous No growth after 48 hours. 09/03/21 10:51 Blood Culture - Preliminary Blood - Venous No growth after 48 hours. Assessment and Plan (1) Hydroureteronephrosis: Status: Acute (2) RO (acute kidney injury): Status: Acute Plan 80M with BPH and bladder CA presented with abdominal discomfort, found to have significant bilateral hydronephrosis, RO (Cr - 10.2) with hyperkalemia (7). he was admitted to ICU, nephrostomy was placed on right, labs improved, downgraded to medical floor. RO with hyperkalemia and hypermagnesemia bilateral hydronephrosis due to obstruction improved significantly with creatinine back to normal baseline conitnue to monitor s/p right nephrostomy, plan for left ureteric stentb exchange today AV nereyda block had some taco arrhythmia on tele while in ICU with questionable AV block no further events, was likely due to ro and electrolyte abnormalities, continue to monitor on tele cardiology input appreciated, no intervention needed BPH proscar, flomax hypothyroid on armour thyroid at home can bring in, or have hospital equivalent dvt prophyalxis - mechacnical (due to plan for IR interventions) full code need for inpatient stay overnight to continue treatment for hydronephrosis with cystoscopy and stent placement with monitoring vitals and labs overnight. Quality Stroke Does the patient have a stroke diagnosis?: No VTE Prior VTE?: No VTE Risk Level:: Medical - moderate - high VTE Device Contraindication: N/A - Device Ordered VTE Drug Contraindication: Treatment Not Tolerated
--- NOTE | 2021-09-06 17:39 | P.CONAN_ITS ---
[facility] Active Problems Active Problems: All Active Problems (Updated 09/05/21 @ 15:31 by Josias Martin MD) Bradycardia (Acute) Hydroureteronephrosis (Acute) Hypermagnesemia (Acute) Hyperkalemia, diminished renal excretion (Acute) Ischemic heart disease due to coronary artery obstruction (Acute) FAITH (acute kidney injury) (Acute) Bilateral hydronephrosis (Acute) Kidney capsule rupture (Acute) Scrotal swelling (Acute) Lumbar pain (Acute) Hospital discharge follow-up (Acute) Hyperkalemia (Acute) Hydronephrosis (Acute) Bladder cancer (Acute) Hyponatremia (Acute) Prostate hypertrophy (Acute) Back pain (Acute) Back pain with left-sided radiculopathy (Acute) Iron deficiency (Acute) Elevated PSA (Acute) Diverticulosis (Acute) Past Medical History Medical History (Updated 09/05/21 @ 15:31 by Josias Martin MD) Benign prostatic hyperplasia with lower urinary tract symptoms Bladder cancer Bladder tumor Bradyarrhythmia Cataract Coronary artery disease Hypertension, essential Ischemic heart disease due to coronary artery obstruction Past heart attack Family History Family History Father Heart problem CHF (congestive heart failure) Diabetes mellitus Mother Diabetes mellitus Sister Throat cancer Daughter No problems noted. Son No problems noted. Son No problems noted. Other Substance use disorder Family history of problems with anesthesia: No Surgical History Surgical History History of coronary artery stent placement History of surgery History of Problems with Anesthesia: No Social History Social History Household Members: Spouse Housing: House Do you presently have visiting nurse or other home services: No Alcohol intake: current Alcohol intake frequency: a few times a month Patient Tobacco Use Status: Never used Tobacco Smoked in Last 30 Days: No Use of substances other than those prescribed or required for medical reasons: No Currently Displaying Signs/Symptoms of Drug Intoxication Withdrawal: No Advance Directives: Yes Advance Directives Information Provided: Yes Advance Directives on File: No service: No Current occupational status: retired Gender identity: Male Meds Allergies Allergy/AdvReac Type Severity Reaction Status Date / Time codeine [Codeine] Allergy Unknown LETHARGY Verified 08/31/21 11:13 From Antihistamine AdvReac Unknown CAN'T TAKE Uncoded 08/31/21 11:13 DUE TO BPH Active Medications: Current Medications Acetaminophen (Acetaminophen 325 Mg Tablet) 650 mg PO Q6H PRN PRN Reason: Pain, Mild (Pain Scale 1-3) Last Admin: 09/05/21 10:54 Dose: 650 mg Documented by: Diphenhydramine HCl (Diphenhydramine Hcl 50 Mg/Ml Vial) 12.5 mg IVPUSH Q6H PRN PRN Reason: Allergic Reaction Finasteride (Finasteride 5 Mg Tablet) 5 mg PO DAILY [facility] Last Admin: 09/06/21 13:51 Dose: 5 mg Documented by: Lactated Ringer's (Lr) 1,000 mls @ 100 mls/hr IVCONT .Q10H [facility] Stop: 09/06/21 20:29 Last Admin: 09/06/21 10:44 Dose: 100 mls/hr Documented by: Levofloxacin (Levaquin) 500 mg in 100 mls @ 100 mls/hr IV PREOP ONE Stop: 09/06/21 18:34 Morphine Sulfate (Morphine Sulfate 2 Mg/Ml Cartridge) 2 mg IVPUSH Q4H PRN; Protocol PRN Reason: Pain, Severe (Pain Scale 7-10) Last Admin: 09/06/21 10:43 Dose: 2 mg Documented by: Multivitamins/Vitamin C (Multivitamin Tablet) 1 tab PO DAILY [facility] Last Admin: 09/06/21 13:49 Dose: 1 tab Documented by: Niacin (Niacin Er 250 Mg Tablet.Er) 1,500 mg PO BEDTIME [facility] Last Admin: 09/05/21 20:49 Dose: 1,500 mg Documented by: Omeprazole (Omeprazole 40 Mg Capsule.Dr) 40 mg PO DAILY@0630 [facility] Last Admin: 09/06/21 05:08 Dose: Not Given Documented by: Pharmacy Consult (Consult Rx Perform Med Rec) 1 each MISCELLANE ONCE PRN PRN Reason: Consult order Tamsulosin HCl (Tamsulosin Hcl 0.4 Mg Capsule) 0.4 mg PO BEDTIME [facility] Last Admin: 09/05/21 20:49 Dose: 0.4 mg Documented by: Thyroid (Thyroid,Pork 30 Mg Tablet) 45 mg PO DAILY [facility] Last Admin: 09/06/21 11:56 Dose: 45 mg Documented by: Home Medications Medication Instructions Recorded Confirmed Last Taken Type niacin 500 mg tablet,extended 3 tab PO BEDTIME 04/13/20 09/03/21 08/30/21 History release 24 hr thyroid (pork) 30 mg tablet 1.5 tab PO DAILY 04/13/20 09/03/21 08/30/21 History ([place] Thyroid) ascorbic acid (vitamin C) 500 mg 500 mg PO DAILY 07/29/21 09/03/21 08/30/21 History tablet (Vitamin C) chlorhexidine gluconate 0.12 % 15 ml PO BID 07/29/21 09/03/21 08/30/21 History mouthwash cholecalciferol (vitamin D3) 10 20 mcg PO DAILY 07/29/21 09/03/21 08/30/21 History mcg (400 unit) tablet (Vitamin D3) multivitamin 1 tab PO DAILY 07/29/21 09/03/21 08/30/21 History Exam Exam Date and Time: September 06, 2021 1740 Height,Weight and Vital Signs: Height 5 ft 9 in Weight 86.4 kg Last Vital Signs Temp 98.7 F 09/06/21 15:25 Pulse 87 09/06/21 15:25 Resp 18 09/06/21 15:25 BP 167/60 H 09/06/21 15:25 Pulse Ox 98 09/06/21 15:25 Pertinent Lab Results Pertinent Lab Results: Laboratory Tests 09/03/21 09/03/21 09/03/21 10:45 10:50 10:51 WBC 11.8 H RBC 4.26 L Hgb 11.6 L Hct 35.9 L MCV 84.3 MCH 27.2 MCHC 32.3 RDW 17.4 H Plt Count 409 H D MPV 9.8 Immature Gran % (Auto) 0.6 H Neut % (Auto) 86.2 H Lymph % (Auto) 6.8 L [place] % (Auto) 6.2 Eos % (Auto) 0.1 Baso % (Auto) 0.1 Lymph # (Auto) 0.8 L [place] # (Auto) 0.7 Eos # (Auto) 0.0 Baso # (Auto) 0.0 Abs Immat Gran (auto) 0.07 H Absolute Neuts (auto) 10.2 H Absolute Nucleated RBC 0.000 Nucleated RBC % (auto) 0.0 Hold Purple Top PT INR Sodium Potassium Chloride Carbon Dioxide Anion Gap BUN Creatinine Estim Creat Clear Calc Estimated GFR POC Glucose Random Glucose Fasting Glucose Lactic Acid 0.5 Calcium Phosphorus Magnesium Total Bilirubin AST ALT Alkaline Phosphatase Total Protein Albumin Lipase COVID-19 ([facility]) Negative COVID-[employer] See Note 09/03/21 09/03/21 09/03/21 10:51 10:51 10:51 WBC RBC Hgb Hct MCV MCH MCHC RDW Plt Count MPV Immature Gran % (Auto) Neut % (Auto) Lymph % (Auto) [place] % (Auto) Eos % (Auto) Baso % (Auto) Lymph # (Auto) [place] # (Auto) Eos # (Auto) Baso # (Auto) Abs Immat Gran (auto) Absolute Neuts (auto) Absolute Nucleated RBC Nucleated RBC % (auto) Hold Purple Top SEE NOTE PT 13.2 H INR 1.2 H Sodium 132 L Potassium 7.0 H* D Chloride 99 Carbon Dioxide 18 L Anion Gap 22 H BUN 82 H D Creatinine 10.26 H* Estim Creat Clear Calc 5.8 Estimated GFR 5 POC Glucose Random Glucose 114 Fasting Glucose Lactic Acid Calcium 8.5 D Phosphorus Magnesium 4.2 H* Total Bilirubin 0.5 AST 12 D ALT 11 Alkaline Phosphatase 82 D Total Protein 6.5 Albumin 3.3 L Lipase 13 COVID-19 ([facility]) [email or web address] 09/03/21 09/03/21 09/03/21 16:04 16:04 19:37 WBC RBC Hgb Hct MCV MCH MCHC RDW Plt Count MPV Immature Gran % (Auto) Neut % (Auto) Lymph % (Auto) [place] % (Auto) Eos % (Auto) Baso % (Auto) Lymph # (Auto) [place] # (Auto) Eos # (Auto) Baso # (Auto) Abs Immat Gran (auto) Absolute Neuts (auto) Absolute Nucleated RBC Nucleated RBC % (auto) Hold Purple Top PT INR Sodium 135 Potassium 5.5 H D Chloride 100 Carbon Dioxide 19 L Anion Gap 22 H BUN 82 H Creatinine 10.15 H* Estim Creat Clear Calc 5.9 Estimated GFR 5 POC Glucose 101 Random Glucose 95 Fasting Glucose Lactic Acid Calcium 8.1 L Phosphorus Magnesium 4.1 H* Total Bilirubin AST ALT Alkaline Phosphatase Total Protein Albumin Lipase COVID-19 ([facility]) [employer] 09/03/21 09/04/21 09/04/21 21:10 01:20 05:25 WBC 8.8 RBC 3.53 L Hgb 9.7 L Hct 30.1 L MCV 85.3 MCH 27.5 MCHC 32.2 RDW 17.3 H Plt Count 364 MPV 9.9 Immature Gran % (Auto) 0.5 H Neut % (Auto) 82.9 H Lymph % (Auto) 7.8 L [place] % (Auto) 7.4 Eos % (Auto) 1.1 Baso % (Auto) 0.3 Lymph # (Auto) 0.7 L [place] # (Auto) 0.7 Eos # (Auto) 0.1 Baso # (Auto) 0.0 Abs Immat Gran (auto) 0.04 H Absolute Neuts (auto) 7.3 Absolute Nucleated RBC 0.000 Nucleated RBC % (auto) 0.0 Hold Purple Top PT INR Sodium 138 137 Potassium 5.4 H 5.7 H Chloride 102 106 Carbon Dioxide 22 21 L Anion Gap 19 16 BUN 79 H 71 H Creatinine 9.08 H* 7.07 H* Estim Creat Clear Calc 6.5 8.4 Estimated GFR 6 8 POC Glucose Random Glucose 136 H D 117 H Fasting Glucose Lactic Acid Calcium 8.2 L 7.6 L D Phosphorus Magnesium 4.1 H* 3.9 H* Total Bilirubin AST ALT Alkaline Phosphatase Total Protein Albumin Lipase COVID-19 ([facility]) COVID-19 Clin Com 09/04/21 09/05/21 09/05/21 05:25 06:01 06:01 WBC 8.3 RBC 3.11 L Hgb 8.5 L Hct 26.6 L MCV 85.5 MCH 27.3 MCHC 32.0 RDW 17.2 H Plt Count 336 MPV 9.9 Immature Gran % (Auto) 0.5 H Neut % (Auto) 69.3 Lymph % (Auto) 16.6 L [place] % (Auto) 9.7 Eos % (Auto) 3.5 Baso % (Auto) 0.4 Lymph # (Auto) 1.4 [place] # (Auto) 0.8 Eos # (Auto) 0.3 Baso # (Auto) 0.0 Abs Immat Gran (auto) 0.04 H Absolute Neuts (auto) 5.7 Absolute Nucleated RBC 0.000 Nucleated RBC % (auto) 0.0 Hold Purple Top PT INR Sodium 137 138 Potassium 5.4 H 5.0 Chloride 106 108 Carbon Dioxide 21 L 24 Anion Gap 15 11 L BUN 63 H 30 H D Creatinine 5.63 H* 1.89 H Estim Creat Clear Calc 11.7 34.8 Estimated GFR 10 35 POC Glucose Random Glucose 109 TNP Fasting Glucose 109 H Lactic Acid Calcium 7.8 L 7.9 L Phosphorus 4.4 Magnesium 3.7 H* 2.8 H Total Bilirubin AST ALT Alkaline Phosphatase Total Protein Albumin Lipase COVID-19 ([facility]) COVID-19 Clin Com 09/06/21 09/06/21 06:30 06:30 WBC 10.6 RBC 3.49 L Hgb 9.4 L Hct 29.9 L MCV 85.7 MCH 26.9 L MCHC 31.4 RDW 17.0 H Plt Count 409 H MPV 10.1 Immature Gran % (Auto) Neut % (Auto) Lymph % (Auto) [place] % (Auto) Eos % (Auto) Baso % (Auto) Lymph # (Auto) [place] # (Auto) Eos # (Auto) Baso # (Auto) Abs Immat Gran (auto) Absolute Neuts (auto) Absolute Nucleated RBC 0.000 Nucleated RBC % (auto) 0.0 Hold Purple Top PT INR Sodium 137 Potassium 4.6 Chloride 108 Carbon Dioxide 19 L Anion Gap 15 BUN 22 H Creatinine 1.28 Estim Creat Clear Calc 50.9 Estimated GFR 54 POC Glucose Random Glucose Fasting Glucose 109 H Lactic Acid Calcium 8.1 L Phosphorus Magnesium 2.3 Total Bilirubin AST ALT Alkaline Phosphatase Total Protein Albumin Lipase COVID-19 ([facility]) COVID-19 Clin Com Airway Mallampati Class: III TM Dist: >3cm Neck ROM: Full Assessment and Plan Assessment Anesthesia Assessment: Anesthesia Plan Discussed and Chart Reviewed Final Anesthetic Review Family History of Problems with Anesthesia: No History of Problems with Anesthesia: No NPO: Yes ASA Class: III and Emergency Final Preanesthetic Review: No Changes in Pt Med Stat, Meds/Allgs Chart Reviewed, Consent Obtained/Reviewed and Anes Risks/Benef Reviewed Patient Risk: Intermediate Procedure Risk: Low Anesthetic Plan Anesthetic Plan: GA Disposition: Standard PACU
--- NOTE | 2021-09-06 17:58 | MHC.SHP ---
Pre-Procedural Eval Section A Date of Service: 09/06/21 The patient is an INPATIENT: Yes Changes since office visit: No Cold of Flu in the past 2 weeks, No New Medical Problems, No Changes in Medication and No Patient answered all questions The History & Physical has been completed within 30 days and I have reviewed it.: Yes Section B Chief Complaint: Bilateal Hydronephrosis/Uremia, PACs Allergies: Allergies Allergy/AdvReac Type Severity Reaction Status Date / Time codeine [Codeine] Allergy Unknown LETHARGY Verified 08/31/21 11:13 From Antihistamine AdvReac Unknown CAN'T TAKE Uncoded 08/31/21 11:13 DUE TO BPH Plan Diagnosis/Plan: Unchanged (left stent exchange - cystoscopy with stent removal and stent placement) I have reviewed the history and physical and performed a pertinent physical examination on my patient. No changes have occurred unless specified.
--- NOTE | 2021-09-06 18:28 | P.OP_ITS ---
Operative Note Operative Note Date of Service: 09/06/21 Narrative: PreOperative Diagnosis: Left renal stent obstruction Post Operative Diagnosis: left renal stent obstruction Procedure: cystoscopy with left stent exchange Surgeon: Dr Claudio Davalos Anesthesia: general Indications for procedure: 80-year-old presented with acute renal failure. PCN placed right side. Had indwelling left stent which appeared to be nonfunctional. Procedure: After informed consent was verified the patient was brought to the operating room and placed in a supine position. Anesthesia was administered per protocol. patient was placed in modified dorsal lithotomy position and prepped and draped sterile fashion. Safety pause time-out performed. Cystoscopy performed. Sensor guidewire placed alongside the left indwelling stent. The stent was then grasped and removed. an 8 Spanish by 26 cm stent was then placed in good position under fluoroscopy and visualization. Jack catheter placed. Pathology: None Drains: 8 Spanish by 26 cm stent
[2021-09-06] MEDS: Acetaminophen 325 MG TABLET 650 MG PO (19:41)
[2021-09-06] MEDS: Tamsulosin HCL 0.4 MG CAPSULE PO (21:18)
[2021-09-07] VITALS (7 sets, daily range): BP systolic 122–187; BP diastolic 64–81; PULSE 57–76; RESP 17–20; TEMP 36.1–37.3; O2SAT 96–99; BMI 28.0
[2021-09-07] MEDS: Omeprazole 40 MG CAPSULE.DR PO (05:45)
--- NOTE | 2021-09-07 06:42 | HO.POSTANES ---
Post Anesthesia Evaluation Post Anesthesia Evaluation Vital Signs: Vital Signs Temp Pulse Resp BP Pulse Ox 09/07/21 03:21 98.1 F 57 20 166/79 H 96 09/06/21 23:17 98.2 F 73 18 144/65 H 97 09/06/21 20:01 98.7 F 67 17 154/70 H 98 09/06/21 19:10 78 16 155/64 H 98 09/06/21 19:00 100.1 F 77 16 150/59 H 99 09/06/21 18:55 72 17 148/60 H 100 09/06/21 18:50 73 16 147/58 H 99 09/06/21 18:45 77 15 155/62 H 100 Anesthesia: General Mental Status: Awake Pain Control: Satisfactory Nausea/Vomiting: None Hydration: Adequate Anesthesia-Related Issues: No Anes. Related Issues
[2021-09-07 06:55] LABS: Hematocrit 30.3 % (42.0-52.0); Hemoglobin 9.6 g/dl (14.0-18.0); Mean Corpuscular HGB Conc 31.7 g/dl (31.0-36.0); Mean Corpuscular Hemoglobin 27.4 pg (27.0-33.0); Mean Corpuscular Volume 86.3 fL (80.0-98.0); Mean Platelet Volume 10.2 fL (9.4-12.4); Platelet Count 428 X10*3/uL (160-400); Red Blood Count 3.51 X10*6/uL (4.60-5.80); Red Cell Distribution Width 16.9 % (11.0-16.0); White Blood Count 9.9 X10*3/uL (4.8-10.8)
[2021-09-07] MEDS: Thyroid,Pork 30 MG TABLET 45 MG PO (08:56)
[2021-09-07] MEDS: Finasteride 5 MG TABLET PO (08:56)
[2021-09-07] MEDS: Multivitamin TABLET 1 TAB PO (08:56)
[2021-09-07 09:37] LABS: Anion Gap 14 (12-20); Blood Urea Nitrogen 19 mg/dL (9-16); Carbon Dioxide 23 mmol/L (22-29); Chloride 107 mmol/L (96-108); Creatinine Clr Calc Pharmacy 53.8; Estimated Glomerular Filt Rate 58; Glucose Random 143 mg/dL (60-115); Potassium 4.7 mmol/L (3.3-5.1); Sodium 139 mmol/L (135-145)
[2021-09-07 10:09] LABS: Calcium 8.7 mg/dL (8.4-10.2)
[2021-09-07] MEDS: Docusate Sodium 100 MG CAPSULE 200 MG PO (11:04)
--- NOTE | 2021-09-07 12:51 | HO.PM.IMPN ---
Subjective Subjective Date of Service: 09/07/21 Interval History: interval history: the patient was seen and evaluated this morning, family at the bedside Complaining of back pain that has been worsening since the morning nephrostomy tube locked Hematuria noticed in folic A run of PACs on tele No reported other overnight events. Review of Systems No fever, chills or weakness with reported back pain No chest pain, palpitation No shortness of breath or coughing No abdominal pain, nausea or vomiting hematuria in the Jack No any rash or wounds Physical Exam Vital Signs: Vital Signs: Last Vital Signs Temp 98.6 F 09/07/21 12:00 Pulse 76 09/07/21 12:00 Resp 18 09/07/21 12:00 BP 152/72 H 09/07/21 12:00 Pulse Ox 99 09/07/21 12:00 BMI result Body Mass Index 28.0 Const: Other: Constitutional : Alert, oriented, not in distress Neck : Normal inspection, Supple Cardiovascular : RRR, S1 S2, no lower extremity edema Respiratory : Good bilateral air entry, no crackles, wheezes or rhonchi Gastrointestinal: soft, lax, Normal bowel sounds, Non tender Skin : Warm, Dry, nephrostomy tube in place and locked, bloody tinged urine in the Jack catheter Neurological : Alert & oriented x3, No focal deficit Objective Data Active Medications Acetaminophen (Acetaminophen 325 Mg Tablet) 650 mg PO Q6H PRN PRN Reason: Pain, Mild (Pain Scale 1-3) Last Admin: 09/05/21 10:54 Dose: 650 mg Documented by: KAREL Diphenhydramine HCl (Diphenhydramine Hcl 50 Mg/Ml Vial) 12.5 mg IVPUSH Q6H PRN PRN Reason: Allergic Reaction Fentanyl (Fentanyl Citrate/Pf 100 Mcg/2 Ml Vial) 50 mcg IVPUSH Q5M PRN; Protocol PRN Reason: Pain, Severe (Pain Scale 7-10) Finasteride (Finasteride 5 Mg Tablet) 5 mg PO DAILY [facility] Last Admin: 09/07/21 08:56 Dose: 5 mg Documented by: IRVIN Sodium Chloride (Ns) 1,000 mls @ 50 mls/hr IVCONT .Q20H [facility] Last Admin: 09/06/21 19:23 Dose: Not Given Documented by: IRVIN Non-Admin Reason: OR order Morphine Sulfate (Morphine Sulfate 2 Mg/Ml Cartridge) 2 mg IVPUSH Q4H PRN; Protocol PRN Reason: Pain, Severe (Pain Scale 7-10) Last Admin: 09/06/21 10:43 Dose: 2 mg Documented by: IRVIN Multivitamins/Vitamin C (Multivitamin Tablet) 1 tab PO DAILY [facility] Last Admin: 09/07/21 08:56 Dose: 1 tab Documented by: IRVIN Niacin (Niacin Er 250 Mg Tablet.Er) 1,500 mg PO BEDTIME [facility] Last Admin: 09/06/21 21:18 Dose: 1,500 mg Documented by: MONSTER Omeprazole (Omeprazole 40 Mg Capsule.Dr) 40 mg PO DAILY@0630 [facility] Last Admin: 09/07/21 05:45 Dose: 40 mg Documented by: MONSTER Ondansetron HCl (Ondansetron Hcl 4 Mg/2 Ml Vial) 4 mg IVPUSH ONCE PRN PRN Reason: Nausea and Vomiting Oxycodone HCl (Oxycodone Hcl Immed Release 5 Mg Tablet) 5 mg PO ONCE PRN PRN Reason: Pain, Severe (Pain Scale 7-10) Pharmacy Consult (Consult Rx Perform Med Rec) 1 each MISCELLANE ONCE PRN PRN Reason: Consult order Tamsulosin HCl (Tamsulosin Hcl 0.4 Mg Capsule) 0.4 mg PO BEDTIME [facility] Last Admin: 09/06/21 21:18 Dose: 0.4 mg Documented by: MONSTER Thyroid (Thyroid,Pork 30 Mg Tablet) 45 mg PO DAILY [facility] Last Admin: 09/07/21 08:56 Dose: 45 mg Documented by: IRVIN Labs CBC & Chem 7: 09/07/21 06:15 09/07/21 06:15 Labs: Laboratory Results - last 24 hr 09/07/21 09/07/21 06:15 06:15 MCV 86.3 MCH 27.4 MCHC 31.7 RDW 16.9 H Plt Count 428 H MPV 10.2 Absolute Nucleated RBC 0.000 Nucleated RBC % (auto) 0.0 Anion Gap 14 Estim Creat Clear Calc 53.8 Estimated GFR 58 Random Glucose 143 H Calcium 8.7 D Assessment and Plan (1) Hydroureteronephrosis: Status: Acute (2) FAITH (acute kidney injury): Status: Acute (3) Bilateral hydronephrosis: Status: Acute Plan 80M with BPH and bladder CA presented with abdominal discomfort, found to have significant bilateral hydronephrosis, FAITH (Cr - 10.2) with hyperkalemia (7). he was admitted to ICU, nephrostomy was placed on right, labs improved, downgraded to medical floor. FAITH with hyperkalemia and hypermagnesemia bilateral hydronephrosis due to obstruction improved significantly with creatinine back to normal baseline conitnue to monitor s/p right nephrostomy, keep it locked per in Urology and will follow-up in the office Left ureteric stent replaced yesterday with plan to follow-up in the office in 2 weeks Hematuria Noticed in Jack catheter Hemoglobin stable Urology to follow and assess AV nereyda block had some taco arrhythmia on tele while in ICU with questionable AV block no further events, was likely due to faith and electrolyte abnormalities, continue to monitor on tele cardiology input appreciated, no intervention needed BPH proscar, flomax hypothyroid on armour thyroid at home can bring in, or have hospital equivalent dvt prophyalxis - mechacnical (due to plan for IR interventions) full code need for inpatient stay overnight to continue treatment for pain management, hematuria evaluation by Urology given his high-risk to decompensate. Quality Stroke Does the patient have a stroke diagnosis?: No VTE Prior VTE?: No VTE Risk Level:: Medical - moderate - high VTE Device Contraindication: N/A - Device Ordered VTE Drug Contraindication: Treatment Not Tolerated
--- NOTE | 2021-09-07 13:32 | PC.NURSE ---
Guero d/c per MD verbal order; take out at 2944; DTV @6175
--- NOTE | 2021-09-07 15:22 | PM.UROPN ---
Subjective Subjective Date of Service: 09/07/21 Interval history: Underwent stent exchange left side yesterday Creatinine has now dropped to 1.2 This is baseline Jack catheter in place Should have catheter voiding trial today and would be suitable for discharge without catheter if successful Physical Exam Vital Signs: Vital Signs: Last Vital Signs Temp 98.2 F 09/07/21 14:53 Pulse 74 09/07/21 14:53 Resp 17 09/07/21 14:53 BP 187/81 H 09/07/21 14:53 Pulse Ox 99 09/07/21 14:53 BMI result Body Mass Index 28.0 Const: General: cooperative, healthy appearing, comfortable and no acute distress Orientation/consciousness: patient oriented x3 HEENT: Face and sinus: Yes normal facial exam Mouth: moist mucous membranes Neck: Neck: Yes normal visual inspection, Yes full ROM and Yes trachea midline Chest: Chest palpation & inspection: normal inspection of the chest Resp: Effort & Inspection: normal respiratory effort, able to speak in complete sentences and no respiratory distress GI: Inspection: Yes normal to inspection Back/Spine/Pelvis: Cervical Spine: normal cervical lordosis Thoracic/Lumbar Spine: thoracic and lumbar spine normal to inspection Skin: General skin exam: no rashes or lesions noted Neuro: General: patient oriented x3, tone normal and moves all extremities Extrem: General: Yes normal to inspection and Yes capillary refill normal Urology Results Labs CBC & Chem 7: 09/07/21 06:15 09/07/21 06:15 Labs: Laboratory Results - last 24 hr 09/07/21 09/07/21 06:15 06:15 WBC 9.9 RBC 3.51 L Hgb 9.6 L Hct 30.3 L MCV 86.3 MCH 27.4 MCHC 31.7 RDW 16.9 H Plt Count 428 H MPV 10.2 Absolute Nucleated RBC 0.000 Nucleated RBC % (auto) 0.0 Sodium 139 Potassium 4.7 Chloride 107 Carbon Dioxide 23 Anion Gap 14 BUN 19 H Creatinine 1.21 Estim Creat Clear Calc 53.8 Estimated GFR 58 Random Glucose 143 H Calcium 8.7 D Progress Note: A&P Assessment and plan (1) Hydroureteronephrosis: Status: Acute (2) FAITH (acute kidney injury): Status: Acute Plan Voiding trial Has GreenLight laser Planned for october Fall Risk Details Current Medications: Current Medications Acetaminophen (Acetaminophen 325 Mg Tablet) 650 mg PO Q6H PRN PRN Reason: Pain, Mild (Pain Scale 1-3) Last Admin: 09/05/21 10:54 Dose: 650 mg Documented by: Diphenhydramine HCl (Diphenhydramine Hcl 50 Mg/Ml Vial) 12.5 mg IVPUSH Q6H PRN PRN Reason: Allergic Reaction Fentanyl (Fentanyl Citrate/Pf 100 Mcg/2 Ml Vial) 50 mcg IVPUSH Q5M PRN; Protocol PRN Reason: Pain, Severe (Pain Scale 7-10) Finasteride (Finasteride 5 Mg Tablet) 5 mg PO DAILY [facility] Last Admin: 09/07/21 08:56 Dose: 5 mg Documented by: Sodium Chloride (Ns) 1,000 mls @ 50 mls/hr IVCONT .Q20H [facility] Last Admin: 09/07/21 13:08 Dose: Not Given Documented by: Morphine Sulfate (Morphine Sulfate 2 Mg/Ml Cartridge) 2 mg IVPUSH Q4H PRN; Protocol PRN Reason: Pain, Severe (Pain Scale 7-10) Last Admin: 09/06/21 10:43 Dose: 2 mg Documented by: Multivitamins/Vitamin C (Multivitamin Tablet) 1 tab PO DAILY [facility] Last Admin: 09/07/21 08:56 Dose: 1 tab Documented by: Niacin (Niacin Er 250 Mg Tablet.Er) 1,500 mg PO BEDTIME [facility] Last Admin: 09/06/21 21:18 Dose: 1,500 mg Documented by: Omeprazole (Omeprazole 40 Mg Capsule.Dr) 40 mg PO DAILY@0630 [facility] Last Admin: 09/07/21 05:45 Dose: 40 mg Documented by: Ondansetron HCl (Ondansetron Hcl 4 Mg/2 Ml Vial) 4 mg IVPUSH ONCE PRN PRN Reason: Nausea and Vomiting Oxycodone HCl (Oxycodone Hcl Immed Release 5 Mg Tablet) 5 mg PO ONCE PRN PRN Reason: Pain, Severe (Pain Scale 7-10) Pharmacy Consult (Consult Rx Perform Med Rec) 1 each MISCELLANE ONCE PRN PRN Reason: Consult order Tamsulosin HCl (Tamsulosin Hcl 0.4 Mg Capsule) 0.4 mg PO BEDTIME [facility] Last Admin: 09/06/21 21:18 Dose: 0.4 mg Documented by: Thyroid (Thyroid,Pork 30 Mg Tablet) 45 mg PO DAILY [facility] Last Admin: 09/07/21 08:56 Dose: 45 mg Documented by: Time Spent With Patient Time: Total time spent is greater than 50% in coordination of care (as documented) at patient's floor/unit and/or counseling patient: Progress Note: Quality Stroke Does the patient have a stroke diagnosis?: No
[2021-09-07] MEDS: oxyCODONE HCl Immed Release 5 MG TABLET PO (16:08)
[2021-09-07] MEDS: Acetaminophen 325 MG TABLET 650 MG PO ×2 (16:09→22:48)
[2021-09-07] MEDS: Tamsulosin HCL 0.4 MG CAPSULE PO (20:26)
[2021-09-07] MEDS: Morphine Sulfate 2 MG/ML CARTRIDGE IVPUSH (20:29)
[2021-09-08] VITALS (7 sets, daily range): BP systolic 132–150; BP diastolic 56–70; PULSE 77–88; RESP 16–18; TEMP 36.7–37.1; O2SAT 93–96; BMI 28.3
[2021-09-08] MEDS: Morphine Sulfate 2 MG/ML CARTRIDGE IVPUSH ×2 (00:58→21:38)
[2021-09-08] MEDS: diphenhydrAMINE HCL 50 MG/ML VIAL 12.5 MG IVPUSH ×2 (01:01→21:37)
--- NOTE | 2021-09-08 02:44 | PC.NURSE ---
2029; Upon assessment, patient reported he has not voided since butcher catheter was removed on previous shift. Patient reported abdominal pain and right flank pain rating it 8/10, patient reported pain has been ongoing. Medicated with prn morphine per aug. 2099 bladder scan showed 161 cc. 2129; Patient up to the bathroom, urinated about 75 cc yellow clear urine. 2229; patient up to the bathroom again, supervised, urinated about 75-100 cc yellow clear urine. Patient reported he urinates small amounts at baseline d/t prostate. 2349; Patient's called, concerned about patient not voiding much and having abdominal pain. Dr. Veras made aware of this, STAT CT abd/pelvis ordered. Patient ambulated to bathroom supervised again, voided small amount yellow clear urine. Dr. Veras made aware of the results of CT abd/pelvis.
[2021-09-08 07:30] LABS: Hemoglobin 9.6 g/dl (14.0-18.0); Mean Corpuscular Volume 87.3 fL (80.0-98.0); Mean Platelet Volume 9.7 fL (9.4-12.4); Platelet Count 480 X10*3/uL (160-400); Red Blood Count 3.55 X10*6/uL (4.60-5.80); White Blood Count 14.7 X10*3/uL (4.8-10.8)
[2021-09-08 07:48] LABS: Anion Gap 14 (12-20); Blood Urea Nitrogen 26 mg/dL (9-16); Calcium 8.6 mg/dL (8.4-10.2); Carbon Dioxide 23 mmol/L (22-29); Chloride 105 mmol/L (96-108); Creatinine Clr Calc Pharmacy 30.8; Estimated Glomerular Filt Rate 30; Glucose Random 118 mg/dL (60-115); Potassium 5.3 mmol/L (3.3-5.1); Sodium 137 mmol/L (135-145)
[2021-09-08] MEDS: Acetaminophen 325 MG TABLET 650 MG PO ×2 (10:02→16:19)
[2021-09-08] MEDS: Thyroid,Pork 30 MG TABLET 45 MG PO (10:03)
[2021-09-08] MEDS: Multivitamin TABLET 1 TAB PO (10:05)
[2021-09-08] MEDS: Finasteride 5 MG TABLET PO (10:05)
[2021-09-08] MEDS: Docusate Sodium 100 MG CAPSULE PO ×2 (10:22→20:16)
[2021-09-08] MEDS: polyethylene glycoL 3350 17 GM POWD.PACK PO (10:23)
[2021-09-08] MEDS: oxyCODONE HCl Immed Release 5 MG TABLET PO ×2 (10:23→18:18)
--- NOTE | 2021-09-08 12:17 | P.CDIC_ITS ---
CDI Concurrent Query Documentation Clarification: PHYSICIAN'S DOCUMENTATION REQUEST Date of Query: 09/08/21 1218 Patient Name: Satnam Logan JR Admit Date: 09/03/21 Dear Doctor, A review of the medical record indicates additional documentation may be needed. Please review below and update the documentation accordingly. Risk Factors/Clinical Indicators/Treatments Per MD progress note 09/07/21: nephrostomy tube locked Hematuria noticed in butcher H/H on 09/03/21: 11.6/35.9 H/H on 09/08/21: 9.6/31.0 Based on the above, could you clarify in the Progress Notes the appropriate diagnosis, if significant, that supports the above abnormalities and additional evaluation, monitoring, and/or treatment rendered: * Labs indicate a diagnosis of (please specify) * Other (please specify) * Unable to determine Use of terms such as suspected, likely, concern for, or probable (associated with a specific diagnosis that is being evaluated, monitored, or treated as if it exists) are acceptable and can be coded in the inpatient setting, when documented at the time of discharge. Thank you, Devika Lopez RN Extension: [phone] Please use your independent medical judgment in providing your response. THIS QUERY IS PART OF THE PERMANENT MEDICAL RECORD Provider Response: Other Other Diagnosis: Acute on chronic anemia probably secondary to dilution
--- NOTE | 2021-09-08 14:02 | P.PNIM_ITS ---
Subjective Subjective Date of Service: 09/08/21 Interval History: the patient was seen and evaluated this morning, family at the bedside Complaining of back pain that worsened overnight requiring IV morphine nephrostomy tube locked WBCs increased this morning No reported other overnight events. Review of Systems No fever, chills or weakness with reported back pain No chest pain, palpitation No shortness of breath or coughing No abdominal pain, nausea or vomiting no urinary complaints No any rash or wounds Physical Exam Vital Signs: Vital Signs: Last Vital Signs Temp 98.7 F 09/08/21 12:00 Pulse 79 09/08/21 12:00 Resp 16 09/08/21 12:00 BP 140/70 H 09/08/21 12:00 Pulse Ox 96 09/08/21 12:00 BMI result Body Mass Index 28.3 Const: Other: Constitutional : Alert, oriented, not in distress Neck : Normal inspection, Supple Cardiovascular : RRR, S1 S2, no lower extremity edema Respiratory : Good bilateral air entry, no crackles, wheezes or rhonchi Gastrointestinal: soft, lax, Normal bowel sounds, Non tender Skin : Warm, Dry, nephrostomy tube in place and locked Neurological : Alert & oriented x3, No focal deficit Objective Data Active Medications Acetaminophen (Acetaminophen 325 Mg Tablet) 650 mg PO Q6H PRN PRN Reason: Pain, Mild (Pain Scale 1-3) Last Admin: 09/08/21 10:02 Dose: 650 mg Documented by: RADHIKA Acetaminophen (Acetaminophen 325 Mg Tablet) 650 mg PO Q6H [facility] Last Admin: 09/08/21 10:24 Dose: Not Given Documented by: RADHIKA Non-Admin Reason: pt just had tylenol prn Diphenhydramine HCl (Diphenhydramine Hcl 50 Mg/Ml Vial) 12.5 mg IVPUSH Q6H PRN PRN Reason: Allergic Reaction Last Admin: 09/08/21 01:01 Dose: 12.5 mg Documented by: SHELLEY Docusate Sodium (Docusate Sodium 100 Mg Capsule) 100 mg PO BID [facility] Last Admin: 09/08/21 10:22 Dose: 100 mg Documented by: RADHIKA Finasteride (Finasteride 5 Mg Tablet) 5 mg PO DAILY [facility] Last Admin: 09/08/21 10:05 Dose: 5 mg Documented by: RADHIKA Ceftriaxone Sodium 1 gm/ (Sodium Chloride) 50 mls @ 100 mls/hr IV Q24H [facility] Morphine Sulfate (Morphine Sulfate 2 Mg/Ml Cartridge) 2 mg IVPUSH Q4H PRN; Protocol PRN Reason: Pain, Severe (Pain Scale 7-10) Last Admin: 09/08/21 00:58 Dose: 2 mg Documented by: SHELLEY Multivitamins/Vitamin C (Multivitamin Tablet) 1 tab PO DAILY [facility] Last Admin: 09/08/21 10:05 Dose: 1 tab Documented by: RADHIKA Niacin (Niacin Er 250 Mg Tablet.Er) 1,500 mg PO BEDTIME [facility] Last Admin: 09/07/21 20:26 Dose: 1,500 mg Documented by: SHELLEY Omeprazole (Omeprazole 40 Mg Capsule.Dr) 40 mg PO DAILY@0630 [facility] Last Admin: 09/08/21 06:41 Dose: Not Given Documented by: SHELLEY Non-Admin Reason: Patient Refused Ondansetron HCl (Ondansetron Hcl 4 Mg/2 Ml Vial) 4 mg IVPUSH ONCE PRN PRN Reason: Nausea and Vomiting Oxycodone HCl (Oxycodone Hcl Immed Release 5 Mg Tablet) 5 mg PO Q8H [facility] Last Admin: 09/08/21 10:23 Dose: 5 mg Documented by: RADHIKA Pharmacy Consult (Consult Rx Perform Med Rec) 1 each MISCELLANE ONCE PRN PRN Reason: Consult order Polyethylene Glycol (Polyethylene Glycol 3350 17 Gm Powd.Pack) 17 gm PO DAILY [facility] Last Admin: 09/08/21 10:23 Dose: 17 gm Documented by: RADHIKA Tamsulosin HCl (Tamsulosin Hcl 0.4 Mg Capsule) 0.4 mg PO BEDTIME [facility] Last Admin: 09/07/21 20:26 Dose: 0.4 mg Documented by: SHELLEY Thyroid (Thyroid,Pork 30 Mg Tablet) 45 mg PO DAILY [facility] Last Admin: 09/08/21 10:03 Dose: 45 mg Documented by: RADHIKA Labs CBC & Chem 7: 09/08/21 07:01 09/08/21 07:01 Labs: Laboratory Results - last 24 hr 09/08/21 09/08/21 07:01 07:01 MCV 87.3 MCH 27.0 MCHC 31.0 RDW 17.0 H Plt Count 480 H MPV 9.7 Absolute Nucleated RBC 0.000 Nucleated RBC % (auto) 0.0 Anion Gap 14 Estim Creat Clear Calc 30.8 Estimated GFR 30 Random Glucose 118 H Calcium 8.6 Microbiology Microbiology Results: Microbiology 09/03/21 11:29 Blood Culture - Final Blood - Venous No growth after 5 days. 09/03/21 10:51 Blood Culture - Final Blood - Venous No growth after 5 days. Assessment and Plan (1) FAITH (acute kidney injury): Status: Acute (2) Bilateral hydronephrosis: Status: Acute (3) Leukocytosis: Status: Acute Plan 80M with BPH and bladder CA presented with abdominal discomfort, found to have significant bilateral hydronephrosis, FAITH (Cr - 10.2) with hyperkalemia (7). he was admitted to ICU, nephrostomy was placed on right, labs improved, downgraded to medical floor. FAITH with hyperkalemia and hypermagnesemia bilateral hydronephrosis due to obstruction creatinine start getting worse again to 2.2 Potassium elevated, to give Lokelma conitnue to monitor s/p right nephrostomy, keep it locked per in Urology and will follow-up in the office Repeated CT scan overnight showed improvement of the right-sided hydronephrosis but around same changes on the left side Left ureteric stent replaced with plan to follow-up in the office in 2 weeks Leukocytosis WBCs increased to 15,[address] concerning for possible cystitis Get urine analysis Start Empirical ceftriaxone Pending urine culture Acute on chronic anemia probably secondary to dilution stable, no other source of bleeding Continue to monitor Hematuria resolved Jack removed Urology to follow and assess AV nereyda block had some taco arrhythmia on tele while in ICU with questionable AV block no further events, was likely due to faith and electrolyte abnormalities, continue to monitor on tele cardiology input appreciated, no intervention needed BPH proscar, flomax hypothyroid on armour thyroid at home can bring in, or have hospital equivalent dvt prophyalxis - mechacnical (due to plan for IR interventions) full code need for inpatient stay overnight to continue treatment for pain management, S the evaluation of possible UTI and control his pain to prevent decompensation and possible readmission Quality Stroke Does the patient have a stroke diagnosis?: No VTE Prior VTE?: No VTE Risk Level:: Medical - moderate - high VTE Device Contraindication: N/A - Device Ordered VTE Drug Contraindication: Treatment Not Tolerated
[2021-09-08] MEDS: cefTRIAXone sodium 1 GM in 0.9 % Sodium Chloride 50 ML IV (14:35)
[2021-09-08] MEDS: Sodium Zirconium Cyclosilicate 10 GM POWD.PACK PO (14:37)
[2021-09-08 15:34] LABS: Appearance Urine CLEAR; Color Urine YELLOW; Glucose Urine UA NEG (NEG); Leukocyte Esterase Urine TRACE (NEG); Nitrite Urine NEG (NEG); PH 5.5 (5.0-8.0); Specific Gravity - Urine 1.015 (1.005-1.025); UACC Culture Trigger YES; Urine Blood 2+ (NEG); Urine Ketones NEG (NEG); Urine Protein NEG (NEG-TRACE)
[2021-09-08 15:47] LABS: RBC Urine 30-49 /HPF (0); Squamous Epithelial Cell Urine 1+ /LPF
[2021-09-08 15:48] LABS: Bacteria Urine TRACE /LPF
[2021-09-08] MEDS: Tamsulosin HCL 0.4 MG CAPSULE PO (20:16)
[2021-09-09] MEDS: oxyCODONE HCl Immed Release 5 MG TABLET PO ×3 (02:32→18:13)
[2021-09-09 03:34] VITALS: BP 165/74; PULSE 86; RESP 20; TEMP 37; O2SAT 98
[2021-09-09] MEDS: Acetaminophen 325 MG TABLET 650 MG PO ×5 (04:54→22:30)
[2021-09-09] MEDS: Morphine Sulfate 2 MG/ML CARTRIDGE IVPUSH (04:54)
[2021-09-09 06:00] VITALS: BMI 27.8
[2021-09-09 06:00] LABS: Hematocrit 28.8 % (42.0-52.0); Hemoglobin 9.1 g/dl (14.0-18.0); Mean Corpuscular HGB Conc 31.6 g/dl (31.0-36.0); Mean Corpuscular Hemoglobin 27.2 pg (27.0-33.0); Mean Corpuscular Volume 86.2 fL (80.0-98.0); Mean Platelet Volume 9.3 fL (9.4-12.4); Platelet Count 454 X10*3/uL (160-400); Red Blood Count 3.34 X10*6/uL (4.60-5.80)
[2021-09-09 06:11] LABS: Anion Gap 17 (12-20); Blood Urea Nitrogen 28 mg/dL (9-16); Calcium 8.3 mg/dL (8.4-10.2); Carbon Dioxide 20 mmol/L (22-29); Chloride 104 mmol/L (96-108); Creatinine Clr Calc Pharmacy 34.7; Estimated Glomerular Filt Rate 35; Glucose Random 122 mg/dL (60-115); Potassium 4.6 mmol/L (3.3-5.1); Sodium 136 mmol/L (135-145)
[2021-09-09 08:00] VITALS: BP 148/60; PULSE 94; RESP 18; TEMP 36.7; O2SAT 95
[2021-09-09] MEDS: Thyroid,Pork 30 MG TABLET 45 MG PO (09:50)
[2021-09-09] MEDS: polyethylene glycoL 3350 17 GM POWD.PACK PO (09:51)
[2021-09-09] MEDS: Finasteride 5 MG TABLET PO (09:51)
[2021-09-09] MEDS: Multivitamin TABLET 1 TAB PO (09:51)
[2021-09-09] MEDS: Lactulose 20 GM/30 ML SOLUTION PO ×2 (09:51→22:32)
[2021-09-09] MEDS: Docusate Sodium 100 MG CAPSULE PO ×2 (09:51→22:32)
[2021-09-09 10:51] VITALS: BP 146/62; PULSE 81; RESP 18; TEMP 36.9; O2SAT 97
--- NOTE | 2021-09-09 12:32 | HO.PM.IMPN ---
Subjective Subjective Date of Service: 09/09/21 Interval History: the patient was seen and evaluated this morning, family at the bedside Has leakage from the nephrostomy tube site Reporting pain on the right side of his abdomen and back Having leukocytosis No reported other overnight events. Review of Systems No fever, chills or weakness with reported back pain No chest pain, palpitation No shortness of breath or coughing No abdominal pain, nausea or vomiting Leakage of urine from nephrostomy tube, pain in his back No any rash or wounds Physical Exam Vital Signs: Vital Signs: Last Vital Signs Temp 98.4 F 09/09/21 10:51 Pulse 81 09/09/21 10:51 Resp 18 09/09/21 10:51 BP 146/62 H 09/09/21 10:51 Pulse Ox 97 09/09/21 10:51 BMI result Body Mass Index 27.8 Const: Other: Constitutional : Alert, oriented, not in distress Neck : Normal inspection, Supple Cardiovascular : RRR, S1 S2, no lower extremity edema Respiratory : Good bilateral air entry, no crackles, wheezes or rhonchi Gastrointestinal: soft, lax, Normal bowel sounds, Non tender Skin : Warm, Dry, nephrostomy tube in place and locked with surrounding area wet, no bleeding noticed Neurological : Alert & oriented x3, No focal deficit Objective Data Active Medications Acetaminophen (Acetaminophen 325 Mg Tablet) 650 mg PO Q6H PRN PRN Reason: Pain, Mild (Pain Scale 1-3) Last Admin: 09/08/21 10:02 Dose: 650 mg Documented by: RADHIKA Acetaminophen (Acetaminophen 325 Mg Tablet) 650 mg PO Q6H [facility] Last Admin: 09/09/21 09:51 Dose: 650 mg Documented by: IRVIN Diphenhydramine HCl (Diphenhydramine Hcl 50 Mg/Ml Vial) 12.5 mg IVPUSH Q6H PRN PRN Reason: Allergic Reaction Last Admin: 09/08/21 21:37 Dose: 12.5 mg Documented by: BRUNO Docusate Sodium (Docusate Sodium 100 Mg Capsule) 100 mg PO BID [facility] Last Admin: 09/09/21 09:51 Dose: 100 mg Documented by: IRVIN Finasteride (Finasteride 5 Mg Tablet) 5 mg PO DAILY [facility] Last Admin: 09/09/21 09:51 Dose: 5 mg Documented by: IRVIN Ceftriaxone Sodium 1 gm/ (Sodium Chloride) 50 mls @ 100 mls/hr IV Q24H [facility] Last Infusion: 09/08/21 15:14 Dose: 0 mls/hr Documented by: RADHIKA Lactulose (Lactulose 20 Gm/30 Ml Solution) 20 gm PO BID [facility] Last Admin: 09/09/21 09:51 Dose: 20 gm Documented by: IRVIN Morphine Sulfate (Morphine Sulfate 2 Mg/Ml Cartridge) 2 mg IVPUSH Q4H PRN; Protocol PRN Reason: Pain, Severe (Pain Scale 7-10) Last Admin: 09/09/21 04:54 Dose: 2 mg Documented by: BRUNO Multivitamins/Vitamin C (Multivitamin Tablet) 1 tab PO DAILY [facility] Last Admin: 09/09/21 09:51 Dose: 1 tab Documented by: IRVIN Niacin (Niacin Er 250 Mg Tablet.Er) 1,500 mg PO BEDTIME [facility] Last Admin: 09/08/21 20:16 Dose: 1,500 mg Documented by: BRUNO Omeprazole (Omeprazole 40 Mg Capsule.Dr) 40 mg PO DAILY@0630 [facility] Last Admin: 09/09/21 05:03 Dose: Not Given Documented by: BRUNO Non-Admin Reason: Patient Refused Ondansetron HCl (Ondansetron Hcl 4 Mg/2 Ml Vial) 4 mg IVPUSH ONCE PRN PRN Reason: Nausea and Vomiting Oxycodone HCl (Oxycodone Hcl Immed Release 5 Mg Tablet) 5 mg PO Q8H [facility] Last Admin: 09/09/21 09:50 Dose: 5 mg Documented by: IRVIN Pharmacy Consult (Consult Rx Perform Med Rec) 1 each MISCELLANE ONCE PRN PRN Reason: Consult order Polyethylene Glycol (Polyethylene Glycol 3350 17 Gm Powd.Pack) 17 gm PO DAILY [facility] Last Admin: 09/09/21 09:51 Dose: 17 gm Documented by: IRVIN Tamsulosin HCl (Tamsulosin Hcl 0.4 Mg Capsule) 0.4 mg PO BEDTIME [facility] Last Admin: 09/08/21 20:16 Dose: 0.4 mg Documented by: BRUNO Thyroid (Thyroid,Pork 30 Mg Tablet) 45 mg PO DAILY [facility] Last Admin: 09/09/21 09:50 Dose: 45 mg Documented by: IRVIN Labs CBC & Chem 7: 09/09/21 05:50 09/09/21 05:50 Labs: Laboratory Results - last 24 hr 09/08/21 09/09/21 09/09/21 Unknown 05:50 05:50 MCV 86.2 MCH 27.2 MCHC 31.6 RDW 17.0 H Plt Count 454 H MPV 9.3 L Absolute Nucleated RBC 0.000 Nucleated RBC % (auto) 0.0 Anion Gap 17 Estim Creat Clear Calc 34.7 Estimated GFR 35 Random Glucose 122 H Calcium 8.3 L Urine Color YELLOW Urine Appearance CLEAR Urine pH 5.5 Ur Specific [place] 1.015 Urine Protein NEG Urine Glucose (UA) NEG Urine Ketones NEG Urine Blood 2+ H Urine Nitrite NEG Ur Leukocyte Esterase TRACE H Urine RBC 30-49 H Urine WBC 10-14 H Ur Squamous Epith Cells 1+ Urine Bacteria TRACE Microbiology Microbiology Results: Microbiology 09/08/21 Unknown Urine Culture - Preliminary Urine clean catch - Urine rose top No growth to date. 09/03/21 11:29 Blood Culture - Final Blood - Venous No growth after 5 days. 09/03/21 10:51 Blood Culture - Final Blood - Venous No growth after 5 days. Assessment and Plan (1) Leukocytosis: Status: Acute (2) Hydroureteronephrosis: Status: Acute (3) Hypermagnesemia: Status: Acute (4) FAITH (acute kidney injury): Status: Acute Plan 80M with BPH and bladder CA presented with abdominal discomfort, found to have significant bilateral hydronephrosis, FAITH (Cr - 10.2) with hyperkalemia (7). he was admitted to ICU, nephrostomy was placed on right, labs improved, downgraded to medical floor. Nephrostomy tube problem Leakage around this morning Likely a flow back from bladder To place a new Jack catheter and monitor for today FAITH with hyperkalemia and hypermagnesemia bilateral hydronephrosis due to obstruction Repeated CT scan showed improvement of the right-sided hydronephrosis but around same changes on the left side creatinine fluctuating, improved to 1.8 today Potassium back to normal conitnue to monitor s/p right nephrostomy, keep it locked per in Urology and will follow-up in the office Left ureteric stent replaced with plan to follow-up in the office in 2 weeks Leukocytosis WBCs increased to 14,[address] concerning for possible cystitis Get urine analysis Start Empirical ceftriaxone Pending urine culture Acute on chronic anemia probably secondary to dilution stable, no other source of bleeding Continue to monitor Hematuria resolved Urology to follow and assess AV nereyda block had some taco arrhythmia on tele while in ICU with questionable AV block no further events, was likely due to faith and electrolyte abnormalities, continue to monitor on tele cardiology input appreciated, no intervention needed BPH proscar, flomax hypothyroid on armour thyroid at home can bring in, or have hospital equivalent dvt prophyalxis - mechacnical (due to plan for IR interventions) full code need for inpatient stay overnight to continue treatment for pain management, nephrostomy tube problem, evaluation of possible UTI and control his pain to prevent decompensation and possible readmission Quality Stroke Does the patient have a stroke diagnosis?: No VTE Prior VTE?: No VTE Risk Level:: Medical - moderate - high VTE Device Contraindication: N/A - Device Ordered VTE Drug Contraindication: Treatment Not Tolerated
[2021-09-09] MEDS: cefTRIAXone sodium 1 GM in 0.9 % Sodium Chloride 50 ML IV (14:49)
[2021-09-09 15:56] VITALS: BP 161/64; PULSE 67; RESP 18; TEMP 37.1; O2SAT 98
[2021-09-09 20:00] VITALS: BP 162/60; PULSE 81; RESP 20; TEMP 36.2; O2SAT 96
[2021-09-09] MEDS: Tamsulosin HCL 0.4 MG CAPSULE PO (22:29)
[2021-09-10] MEDS: oxyCODONE HCl Immed Release 5 MG TABLET PO ×4 (03:50→23:02)
[2021-09-10] MEDS: Acetaminophen 325 MG TABLET 650 MG PO ×3 (06:22→23:03)
[2021-09-10 06:39] LABS: Hematocrit 32.3 % (42.0-52.0); Hemoglobin 10.1 g/dl (14.0-18.0); Mean Corpuscular HGB Conc 31.3 g/dl (31.0-36.0); Mean Corpuscular Volume 86.4 fL (80.0-98.0); Mean Platelet Volume 9.8 fL (9.4-12.4); Platelet Count 546 X10*3/uL (160-400); Red Blood Count 3.74 X10*6/uL (4.60-5.80); Red Cell Distribution Width 17.1 % (11.0-16.0); White Blood Count 10.8 X10*3/uL (4.8-10.8)
[2021-09-10 06:57] LABS: Anion Gap 16 (12-20); Blood Urea Nitrogen 26 mg/dL (9-16); Calcium 8.6 mg/dL (8.4-10.2); Carbon Dioxide 21 mmol/L (22-29); Chloride 101 mmol/L (96-108); Creatinine Clr Calc Pharmacy 42.7; Estimated Glomerular Filt Rate 44; Glucose Random 117 mg/dL (60-115); Potassium 4.3 mmol/L (3.3-5.1); Sodium 134 mmol/L (135-145)
[2021-09-10 07:46] VITALS: BP 124/82; PULSE 86; RESP 20; TEMP 37; O2SAT 97
[2021-09-10] MEDS: Thyroid,Pork 30 MG TABLET 45 MG PO (10:39)
[2021-09-10] MEDS: Docusate Sodium 100 MG CAPSULE PO ×2 (10:40→20:41)
[2021-09-10] MEDS: Finasteride 5 MG TABLET PO (10:40)
[2021-09-10] MEDS: Lactulose 20 GM/30 ML SOLUTION PO ×2 (10:40→20:41)
[2021-09-10] MEDS: polyethylene glycoL 3350 17 GM POWD.PACK PO (10:40)
[2021-09-10] MEDS: Multivitamin TABLET 1 TAB PO (10:40)
[2021-09-10 11:41] VITALS: TEMP 36.2
[2021-09-10] MEDS: Glycerin Adult SUPP.RECT 1 SUPP PR (12:18)
--- NOTE | 2021-09-10 14:25 | HO.PM.IMPN ---
Subjective Subjective Date of Service: 09/10/21 Interval History: the patient was seen and evaluated this morning, family at the bedside No more leakage from the nephrostomy tube site Reporting pain on the right side of his abdomen and back that is shooting and 10/10 overnight Leukocytosis resolved No reported other overnight events. Review of Systems No fever, chills or weakness with reported back pain No chest pain, palpitation No shortness of breath or coughing No abdominal pain, nausea or vomiting pain in his back No any rash or wounds Physical Exam Vital Signs: Vital Signs: Last Vital Signs Temp 97.2 F 09/10/21 11:41 Pulse 86 09/10/21 07:46 Resp 20 09/10/21 07:46 BP 124/82 09/10/21 07:46 Pulse Ox 97 09/10/21 07:46 BMI result Body Mass Index 27.8 Const: Other: Constitutional : Alert, oriented, not in distress Neck : Normal inspection, Supple Cardiovascular : RRR, S1 S2, no lower extremity edema Respiratory : Good bilateral air entry, no crackles, wheezes or rhonchi Gastrointestinal: soft, lax, Normal bowel sounds, Non tender Skin : Warm, Dry, nephrostomy tube in place and locked with surrounding area wet, no bleeding noticed Neurological : Alert & oriented x3, No focal deficit Objective Data Active Medications Acetaminophen (Acetaminophen 325 Mg Tablet) 650 mg PO Q6H PRN PRN Reason: Pain, Mild (Pain Scale 1-3) Last Admin: 09/09/21 14:55 Dose: 650 mg Documented by: IRVIN Acetaminophen (Acetaminophen 325 Mg Tablet) 650 mg PO Q6H [facility] Last Admin: 09/10/21 10:40 Dose: Not Given Documented by: IRVIN Non-Admin Reason: last dose given late Diphenhydramine HCl (Diphenhydramine Hcl 50 Mg/Ml Vial) 12.5 mg IVPUSH Q6H PRN PRN Reason: Allergic Reaction Last Admin: 09/08/21 21:37 Dose: 12.5 mg Documented by: BRUNO Docusate Sodium (Docusate Sodium 100 Mg Capsule) 100 mg PO BID [facility] Last Admin: 09/10/21 10:40 Dose: 100 mg Documented by: RIVIN Finasteride (Finasteride 5 Mg Tablet) 5 mg PO DAILY [facility] Last Admin: 09/10/21 10:40 Dose: 5 mg Documented by: IRVIN Ceftriaxone Sodium 1 gm/ (Sodium Chloride) 50 mls @ 100 mls/hr IV Q24H [facility] Last Infusion: 09/09/21 15:19 Dose: 0 mls/hr Documented by: IRVIN Lactulose (Lactulose 20 Gm/30 Ml Solution) 20 gm PO BID [facility] Last Admin: 09/10/21 10:40 Dose: 20 gm Documented by: IRVIN Morphine Sulfate (Morphine Sulfate 2 Mg/Ml Cartridge) 2 mg IVPUSH Q4H PRN; Protocol PRN Reason: Pain, Severe (Pain Scale 7-10) Last Admin: 09/09/21 04:54 Dose: 2 mg Documented by: BRUNO Multivitamins/Vitamin C (Multivitamin Tablet) 1 tab PO DAILY [facility] Last Admin: 09/10/21 10:40 Dose: 1 tab Documented by: IRVIN Niacin (Niacin Er 250 Mg Tablet.Er) 1,500 mg PO BEDTIME [facility] Last Admin: 09/09/21 22:32 Dose: 1,500 mg Documented by: BRUNO Omeprazole (Omeprazole 40 Mg Capsule.Dr) 40 mg PO DAILY@0630 [facility] Last Admin: 09/10/21 05:57 Dose: Not Given Documented by: BRUNO Non-Admin Reason: Patient Refused Ondansetron HCl (Ondansetron Hcl 4 Mg/2 Ml Vial) 4 mg IVPUSH ONCE PRN PRN Reason: Nausea and Vomiting Oxybutynin Chloride (Oxybutynin Chloride Er 5 Mg Tab.Er.24) 5 mg PO DAILY [facility] Last Admin: 09/10/21 12:17 Dose: 5 mg Documented by: IRVIN Oxycodone HCl (Oxycodone Hcl Immed Release 5 Mg Tablet) 5 mg PO Q6H [facility] Last Admin: 09/10/21 10:47 Dose: 5 mg Documented by: IRVIN Pharmacy Consult (Consult Rx Perform Med Rec) 1 each MISCELLANE ONCE PRN PRN Reason: Consult order Polyethylene Glycol (Polyethylene Glycol 3350 17 Gm Powd.Pack) 17 gm PO DAILY [facility] Last Admin: 09/10/21 10:40 Dose: 17 gm Documented by: IRVIN Psyllium Hydrophilic Mucilloid (Psyllium Seed 3.4 Gm Powd.Pack) 3.4 gm PO BEDTIME [facility] Tamsulosin HCl (Tamsulosin Hcl 0.4 Mg Capsule) 0.4 mg PO BEDTIME [facility] Last Admin: 09/09/21 22:29 Dose: 0.4 mg Documented by: BRUNO Thyroid (Thyroid,Pork 30 Mg Tablet) 45 mg PO DAILY [facility] Last Admin: 09/10/21 10:39 Dose: 45 mg Documented by: IRVIN Labs CBC & Chem 7: 09/10/21 06:01 09/10/21 06:01 Labs: Laboratory Results - last 24 hr 09/10/21 09/10/21 06:01 06:01 MCV 86.4 MCH 27.0 MCHC 31.3 RDW 17.1 H Plt Count 546 H MPV 9.8 Absolute Nucleated RBC 0.000 Nucleated RBC % (auto) 0.0 Anion Gap 16 Estim Creat Clear Calc 42.7 Estimated GFR 44 Random Glucose 117 H Calcium 8.6 Microbiology Microbiology Results: Microbiology 09/08/21 Unknown Urine Culture - Final Urine clean catch - Urine rose top No growth. Assessment and Plan (1) Hydroureteronephrosis: Status: Acute (2) FAITH (acute kidney injury): Status: Acute (3) Back pain: Status: Acute Plan 80M with BPH and bladder CA presented with abdominal discomfort, found to have significant bilateral hydronephrosis, FAITH (Cr - 10.2) with hyperkalemia (7). he was admitted to ICU, nephrostomy was placed on right, labs improved, downgraded to medical floor. Intractable Back pain Requiring IV morphine on top of the oxycodone Likely secondary to bladder spasm To start oxybutynin and monitor response Nephrostomy tube problem Likely a backflow from bladder new Jack catheter placed, monitor for today FAITH with hyperkalemia and hypermagnesemia bilateral hydronephrosis due to obstruction Repeated CT scan showed improvement of the right-sided hydronephrosis but around same changes on the left side creatinine fluctuating, improved to 1.6 today Potassium back to normal conitnue to monitor s/p right nephrostomy, keep it locked per in Urology and will follow-up in the office Left ureteric stent replaced with plan to follow-up in the office in [address] concerning for possible cystitis Start Empirical ceftriaxone Negative urine culture Acute on chronic anemia probably secondary to dilution stable, no other source of bleeding Continue to monitor Hematuria resolved AV nereyda block had some taco arrhythmia on tele while in ICU with questionable AV block no further events, was likely due to faith and electrolyte abnormalities, continue to monitor on tele cardiology input appreciated, no intervention needed BPH proscar, flomax hypothyroid on armour thyroid at home can bring in, or have hospital equivalent dvt prophyalxis - mechacnical (due to plan for IR interventions) full code need for inpatient stay overnight to continue treatment for pain management, nephrostomy tube problem and control his pain to prevent decompensation and possible readmission Quality Stroke Does the patient have a stroke diagnosis?: No VTE Prior VTE?: No VTE Risk Level:: Medical - moderate - high VTE Device Contraindication: N/A - Device Ordered VTE Drug Contraindication: Treatment Not Tolerated
[2021-09-10] MEDS: bisacodyL 10 MG SUPP.RECT PR (14:33)
[2021-09-10] MEDS: cefTRIAXone sodium 1 GM in 0.9 % Sodium Chloride 50 ML IV (14:33)
[2021-09-10 14:58] VITALS: BP 163/74; PULSE 86; RESP 20; TEMP 37.3; O2SAT 97
[2021-09-10 19:04] VITALS: BP 180/86; PULSE 73; RESP 20; TEMP 36.7; O2SAT 96
--- NOTE | 2021-09-10 19:57 | PC.NURSE ---
Pt constipated d/t opiods. Pt on bowel regimen. Additional suppositories administered per MD. Pt had 2 small bms, 2 large bs, and a medium bm. Md updated.
[2021-09-10] MEDS: Tamsulosin HCL 0.4 MG CAPSULE PO (20:41)
[2021-09-10 20:42] VITALS: RESP 16
[2021-09-10] MEDS: Morphine Sulfate 2 MG/ML CARTRIDGE IVPUSH (20:42)
[2021-09-10 23:11] VITALS: BP 176/66; PULSE 73; RESP 20; TEMP 36.8; O2SAT 97
[2021-09-11] VITALS (7 sets, daily range): BP systolic 126–173; BP diastolic 62–82; PULSE 63–85; RESP 17–20; TEMP 36.2–36.9; O2SAT 96–99
[2021-09-11] MEDS: oxyCODONE HCl Immed Release 5 MG TABLET PO ×4 (04:38→22:12)
[2021-09-11] MEDS: Acetaminophen 325 MG TABLET 650 MG PO ×4 (04:39→22:11)
[2021-09-11] MEDS: Omeprazole 40 MG CAPSULE.DR PO (07:52)
[2021-09-11] MEDS: Multivitamin TABLET 1 TAB PO (09:50)
[2021-09-11] MEDS: Thyroid,Pork 30 MG TABLET 45 MG PO (09:51)
[2021-09-11] MEDS: Finasteride 5 MG TABLET PO (09:52)
[2021-09-11] MEDS: Lactulose 20 GM/30 ML SOLUTION PO ×2 (09:52→22:11)
[2021-09-11] MEDS: Docusate Sodium 100 MG CAPSULE PO ×2 (09:52→22:12)
[2021-09-11] MEDS: polyethylene glycoL 3350 17 GM POWD.PACK PO (09:52)
[2021-09-11] MEDS: amLODIPine Besylate 5 MG TABLET PO (10:15)
--- NOTE | 2021-09-11 12:56 | HO.PM.IMPN ---
Subjective Subjective Date of Service: 09/11/21 Interval History: the patient was seen and evaluated this morning Had some leakage from the nephrostomy tube site Pain is under fair control Reporting new left lower extremity swelling No reported other overnight events. Review of Systems No fever, chills or weakness with reported back pain No chest pain, palpitation No shortness of breath or coughing No abdominal pain, nausea or vomiting pain in his back No any rash or wounds Physical Exam Vital Signs: Vital Signs: Last Vital Signs Temp 98.4 F 09/11/21 11:48 Pulse 72 09/11/21 11:48 Resp 20 09/11/21 11:48 BP 140/66 H 09/11/21 11:48 Pulse Ox 96 09/11/21 11:48 BMI result Body Mass Index 27.8 Const: Other: Constitutional : Alert, oriented, not in distress Neck : Normal inspection, Supple Cardiovascular : RRR, S1 S2, trace edema in RLE but +2 edema in LLE with no erythema, warmth or tenderness Respiratory : Good bilateral air entry, no crackles, wheezes or rhonchi Gastrointestinal: soft, lax, Normal bowel sounds, Non tender Skin : Warm, Dry, nephrostomy tube in place and locked with surrounding area wet, no bleeding noticed Neurological : Alert & oriented x3, No focal deficit Objective Data Active Medications Acetaminophen (Acetaminophen 325 Mg Tablet) 650 mg PO Q6H PRN PRN Reason: Pain, Mild (Pain Scale 1-3) Last Admin: 09/09/21 14:55 Dose: 650 mg Documented by: IRVIN Acetaminophen (Acetaminophen 325 Mg Tablet) 650 mg PO Q6H [facility] Last Admin: 09/11/21 10:00 Dose: 650 mg Documented by: KAYE Amlodipine Besylate (Amlodipine Besylate 5 Mg Tablet) 5 mg PO DAILY [facility]; Protocol Last Admin: 09/11/21 10:15 Dose: 5 mg Documented by: KAYE Diphenhydramine HCl (Diphenhydramine Hcl 50 Mg/Ml Vial) 12.5 mg IVPUSH Q6H PRN PRN Reason: Allergic Reaction Last Admin: 09/08/21 21:37 Dose: 12.5 mg Documented by: BRUNO Docusate Sodium (Docusate Sodium 100 Mg Capsule) 100 mg PO BID [facility] Last Admin: 09/11/21 09:52 Dose: 100 mg Documented by: KAYE Finasteride (Finasteride 5 Mg Tablet) 5 mg PO DAILY [facility] Last Admin: 09/11/21 09:52 Dose: 5 mg Documented by: KAYE Furosemide (Furosemide 20 Mg/2 Ml Vial) 20 mg IVPUSH ONCE ONE; Protocol Stop: 09/11/21 12:54 Ceftriaxone Sodium 1 gm/ (Sodium Chloride) 50 mls @ 100 mls/hr IV Q24H [facility] Last Infusion: 09/10/21 15:03 Dose: 0 mls/hr Documented by: IRVIN Lactulose (Lactulose 20 Gm/30 Ml Solution) 20 gm PO BID [facility] Last Admin: 09/11/21 09:52 Dose: 20 gm Documented by: KAYE Morphine Sulfate (Morphine Sulfate 2 Mg/Ml Cartridge) 2 mg IVPUSH Q4H PRN; Protocol PRN Reason: Pain, Severe (Pain Scale 7-10) Last Admin: 09/10/21 20:42 Dose: 2 mg Documented by: RENEE Multivitamins/Vitamin C (Multivitamin Tablet) 1 tab PO DAILY [facility] Last Admin: 09/11/21 09:50 Dose: 1 tab Documented by: KAYE Niacin (Niacin Er 250 Mg Tablet.Er) 1,500 mg PO BEDTIME [facility] Last Admin: 09/10/21 20:40 Dose: 1,500 mg Documented by: RENEE Omeprazole (Omeprazole 40 Mg Capsule.Dr) 40 mg PO DAILY@0630 [facility] Last Admin: 09/11/21 07:52 Dose: 40 mg Documented by: RENEE Ondansetron HCl (Ondansetron Hcl 4 Mg/2 Ml Vial) 4 mg IVPUSH ONCE PRN PRN Reason: Nausea and Vomiting Oxybutynin Chloride (Oxybutynin Chloride Er 5 Mg Tab.Er.24) 5 mg PO DAILY [facility] Last Admin: 09/11/21 09:50 Dose: 5 mg Documented by: KAYE Oxycodone HCl (Oxycodone Hcl Immed Release 5 Mg Tablet) 5 mg PO Q6H [facility] Last Admin: 09/11/21 09:59 Dose: 5 mg Documented by: KAYE Pharmacy Consult (Consult Rx Perform Med Rec) 1 each MISCELLANE ONCE PRN PRN Reason: Consult order Polyethylene Glycol (Polyethylene Glycol 3350 17 Gm Powd.Pack) 17 gm PO DAILY [facility] Last Admin: 09/11/21 09:52 Dose: 17 gm Documented by: KAYE Psyllium Hydrophilic Mucilloid (Psyllium Seed 3.4 Gm Powd.Pack) 3.4 gm PO BEDTIME [facility] Last Admin: 09/10/21 20:41 Dose: 3.4 gm Documented by: RENEE Tamsulosin HCl (Tamsulosin Hcl 0.4 Mg Capsule) 0.4 mg PO BEDTIME [facility] Last Admin: 09/10/21 20:41 Dose: 0.4 mg Documented by: RENEE Thyroid (Thyroid,Pork 30 Mg Tablet) 45 mg PO DAILY [facility] Last Admin: 09/11/21 09:51 Dose: 45 mg Documented by: KAYE Labs CBC & Chem 7: 09/10/21 06:01 09/10/21 06:01 Microbiology Microbiology Results: Microbiology 09/08/21 Unknown Urine Culture - Final Urine clean catch - Urine rose top No growth. Assessment and Plan (1) Swelling of lower extremity: Status: Acute (2) Leakage of nephrostomy catheter: Status: Acute (3) Bilateral hydronephrosis: Status: Acute Plan 80M with BPH and bladder CA presented with abdominal discomfort, found to have significant bilateral hydronephrosis, FAITH (Cr - 10.2) with hyperkalemia (7). he was admitted to ICU, nephrostomy was placed on right, labs improved, downgraded to medical floor. Left lower extremity edema Seem secondary to fluid overload Though flex ruled out DVT To give Lasix Monitor response Nephrostomy tube problem Likely a backflow from bladder Jack catheter placed, to attached to bag specially at nighttime Intractable Back pain Improved Requiring IV morphine on top of the oxycodone Likely secondary to bladder spasm Continue oxybutynin and monitor response FAITH with hyperkalemia and hypermagnesemia bilateral hydronephrosis due to obstruction Repeated CT scan showed improvement of the right-sided hydronephrosis but around same changes on the left side creatinine fluctuating, improved to 1.6 Potassium back to normal conitnue to monitor s/p right nephrostomy, keep it locked per in Urology and will follow-up in the office Left ureteric stent replaced with plan to follow-up in the office in [address] concerning for possible cystitis Start Empirical ceftriaxone Negative urine culture Acute on chronic anemia probably secondary to dilution stable, no other source of bleeding Continue to monitor Hematuria resolved AV nereyda block had some taco arrhythmia on tele while in ICU with questionable AV block no further events, was likely due to faith and electrolyte abnormalities, continue to monitor on tele cardiology input appreciated, no intervention needed BPH proscar, flomax hypothyroid on armour thyroid at home can bring in, or have hospital equivalent dvt prophyalxis - mechacnical (due to plan for IR interventions) full code need for inpatient stay overnight to continue treatment for pain management, nephrostomy tube problem and control his pain to prevent decompensation and possible readmission Quality Stroke Does the patient have a stroke diagnosis?: No VTE Prior VTE?: No VTE Risk Level:: Medical - moderate - high VTE Device Contraindication: N/A - Device Ordered VTE Drug Contraindication: Treatment Not Tolerated
[2021-09-11] MEDS: Furosemide 20 MG/2 ML VIAL IVPUSH (13:11)
[2021-09-11] MEDS: cefTRIAXone sodium 1 GM in 0.9 % Sodium Chloride 50 ML IV (13:16)
--- NOTE | 2021-09-11 13:30 | MHC.CM.PN ---
per rounds pt may have a dvt needs to be seen by nephrostomy prior to dc
[2021-09-11] MEDS: Morphine Sulfate 2 MG/ML CARTRIDGE IVPUSH (13:47)
[2021-09-11] MEDS: Melatonin 3 MG TABLET 6 MG PO (22:11)
[2021-09-11] MEDS: Tamsulosin HCL 0.4 MG CAPSULE PO (22:12)
[2021-09-12] VITALS (11 sets, daily range): BP systolic 112–178; BP diastolic 32–81; PULSE 71–100; RESP 17–20; TEMP 36.2–37.4; O2SAT 97–100; BMI 27.8
[2021-09-12] MEDS: Famotidine/PF 20 MG/2 ML VIAL IVPUSH (02:36)
[2021-09-12] MEDS: Acetaminophen 325 MG TABLET 650 MG PO ×4 (03:40→23:10)
[2021-09-12] MEDS: oxyCODONE HCl Immed Release 5 MG TABLET PO ×3 (03:41→18:36)
[2021-09-12] MEDS: Omeprazole 40 MG CAPSULE.DR PO (06:15)
--- NOTE | 2021-09-12 09:22 | P.PNUR_ITS ---
Subjective Subjective Date of Service: 09/11/21 Interval history: Seen and discussed with daughter Has pain on right side where PCN has been placed Creatinine had elevated without Jack catheter and has declined now catheter is in position Discussed using plug during day and bag at night Will try and organized for internalization of PCN stent on Saturday Physical Exam Vital Signs: Vital Signs: Last Vital Signs Temp 97.1 F 09/12/21 06:55 Pulse 75 09/12/21 06:55 Resp 18 09/12/21 06:55 BP 152/40 H 09/12/21 06:55 Pulse Ox 98 09/12/21 06:55 BMI result Body Mass Index 27.8 Const: General: cooperative, healthy appearing, comfortable and no acute distress Orientation/consciousness: patient oriented x3 HEENT: Face and sinus: Yes normal facial exam Mouth: moist mucous membranes Neck: Neck: Yes normal visual inspection, Yes full ROM and Yes trachea midline Chest: Chest palpation & inspection: normal inspection of the chest Resp: Effort & Inspection: normal respiratory effort, able to speak in complete sentences and no respiratory distress GI: Inspection: Yes normal to inspection Back/Spine/Pelvis: Cervical Spine: normal cervical lordosis Thoracic/Lumbar Spine: thoracic and lumbar spine normal to inspection Skin: General skin exam: no rashes or lesions noted Neuro: General: patient oriented x3, tone normal and moves all extremities Extrem: General: Yes normal to inspection and Yes capillary refill normal Urology Results Labs CBC & Chem 7: 09/10/21 06:01 09/10/21 06:01 Progress Note: A&P Assessment and plan (1) Hydroureteronephrosis: Status: Acute (2) Leakage of nephrostomy catheter: Status: Acute Plan Plan for internalization of right PCN under sedation Fall Risk Details Current Medications: Current Medications Acetaminophen (Acetaminophen 325 Mg Tablet) 650 mg PO Q6H PRN PRN Reason: Pain, Mild (Pain Scale 1-3) Last Admin: 09/09/21 14:55 Dose: 650 mg Documented by: Acetaminophen (Acetaminophen 325 Mg Tablet) 650 mg PO Q6H [facility] Last Admin: 09/12/21 03:40 Dose: 650 mg Documented by: Amlodipine Besylate (Amlodipine Besylate 5 Mg Tablet) 5 mg PO DAILY [facility]; Protocol Last Admin: 09/11/21 10:15 Dose: 5 mg Documented by: Diphenhydramine HCl (Diphenhydramine Hcl 50 Mg/Ml Vial) 12.5 mg IVPUSH Q6H PRN PRN Reason: Allergic Reaction Last Admin: 09/08/21 21:37 Dose: 12.5 mg Documented by: Docusate Sodium (Docusate Sodium 100 Mg Capsule) 100 mg PO BID [facility] Last Admin: 09/11/21 22:12 Dose: 100 mg Documented by: Finasteride (Finasteride 5 Mg Tablet) 5 mg PO DAILY [facility] Last Admin: 09/11/21 09:52 Dose: 5 mg Documented by: Ceftriaxone Sodium 1 gm/ (Sodium Chloride) 50 mls @ 100 mls/hr IV Q24H [facility] Last Infusion: 09/11/21 13:50 Dose: Infused Documented by: Lactulose (Lactulose 20 Gm/30 Ml Solution) 20 gm PO BID [facility] Last Admin: 09/11/21 22:11 Dose: 20 gm Documented by: Melatonin (Melatonin 3 Mg Tablet) 6 mg PO BEDTIME PRN PRN Reason: Insomnia Last Admin: 09/11/21 22:11 Dose: 6 mg Documented by: Morphine Sulfate (Morphine Sulfate 2 Mg/Ml Cartridge) 2 mg IVPUSH Q4H PRN; Protocol PRN Reason: Pain, Severe (Pain Scale 7-10) Last Admin: 09/11/21 13:47 Dose: 2 mg Documented by: Multivitamins/Vitamin C (Multivitamin Tablet) 1 tab PO DAILY [facility] Last Admin: 09/11/21 09:50 Dose: 1 tab Documented by: Niacin (Niacin Er 250 Mg Tablet.Er) 1,500 mg PO BEDTIME [facility] Last Admin: 09/11/21 22:11 Dose: 1,500 mg Documented by: Omeprazole (Omeprazole 40 Mg Capsule.Dr) 40 mg PO DAILY@0630 [facility] Last Admin: 09/12/21 06:15 Dose: 40 mg Documented by: Ondansetron HCl (Ondansetron Hcl 4 Mg/2 Ml Vial) 4 mg IVPUSH ONCE PRN PRN Reason: Nausea and Vomiting Oxybutynin Chloride (Oxybutynin Chloride Er 5 Mg Tab.Er.24) 5 mg PO DAILY [facility] Last Admin: 09/11/21 09:50 Dose: 5 mg Documented by: Oxycodone HCl (Oxycodone Hcl Immed Release 5 Mg Tablet) 5 mg PO Q8H [facility] Pharmacy Consult (Consult Rx Perform Med Rec) 1 each MISCELLANE ONCE PRN PRN Reason: Consult order Polyethylene Glycol (Polyethylene Glycol 3350 17 Gm Powd.Pack) 17 gm PO DAILY [facility] Last Admin: 09/11/21 09:52 Dose: 17 gm Documented by: Psyllium Hydrophilic Mucilloid (Psyllium Seed 3.4 Gm Powd.Pack) 3.4 gm PO BEDTIME [facility] Last Admin: 09/11/21 22:11 Dose: 3.4 gm Documented by: Tamsulosin HCl (Tamsulosin Hcl 0.4 Mg Capsule) 0.4 mg PO BEDTIME [facility] Last Admin: 09/11/21 22:12 Dose: 0.4 mg Documented by: Thyroid (Thyroid,Pork 30 Mg Tablet) 45 mg PO DAILY [facility] Last Admin: 09/11/21 09:51 Dose: 45 mg Documented by: Time Spent With Patient Time: Total time spent is greater than 50% in coordination of care (as documented) at patient's floor/unit and/or counseling patient: Progress Note: Quality Stroke Does the patient have a stroke diagnosis?: No
[2021-09-12] MEDS: Thyroid,Pork 30 MG TABLET 45 MG PO (09:34)
[2021-09-12] MEDS: amLODIPine Besylate 5 MG TABLET PO (09:35)
[2021-09-12] MEDS: Finasteride 5 MG TABLET PO (09:35)
[2021-09-12] MEDS: Multivitamin TABLET 1 TAB PO (09:35)
[2021-09-12] MEDS: Furosemide 40 MG/4 ML VIAL IVPUSH (09:36)
[2021-09-12] MEDS: Lactulose 20 GM/30 ML SOLUTION PO ×2 (09:36→20:39)
[2021-09-12] MEDS: Docusate Sodium 100 MG CAPSULE PO ×2 (09:42→20:39)
--- NOTE | 2021-09-12 12:05 | HO.PM.IMPN ---
Subjective Subjective Date of Service: 09/12/21 Interval History: The patient was seen and evaluated this morning Had multiple episodes of leakage from the nephrostomy tube site Pain is under fair control Still has bilateral lower extremities swelling No reported other overnight events. Review of Systems No fever, chills or weakness with reported back pain No chest pain, palpitation No shortness of breath or coughing No abdominal pain, nausea or vomiting pain in his back No any rash or wounds Physical Exam Vital Signs: Vital Signs: Last Vital Signs Temp 98.4 F 09/12/21 11:32 Pulse 76 09/12/21 11:32 Resp 17 09/12/21 11:32 BP 150/32 H 09/12/21 11:32 Pulse Ox 98 09/12/21 11:32 BMI result Body Mass Index 27.8 Const: Other: Constitutional : Alert, oriented, not in distress Neck : Normal inspection, Supple Cardiovascular : RRR, S1 S2, trace edema in RLE but +1 edema bilaterally with no erythema, warmth or tenderness Respiratory : Good bilateral air entry, no crackles, wheezes or rhonchi Gastrointestinal: soft, lax, Normal bowel sounds, Non tender Skin : Warm, Dry, nephrostomy tube in place and locked with surrounding area wet, no bleeding noticed Neurological : Alert & oriented x3, No focal deficit Objective Data Active Medications Acetaminophen (Acetaminophen 325 Mg Tablet) 650 mg PO Q6H PRN PRN Reason: Pain, Mild (Pain Scale 1-3) Last Admin: 09/09/21 14:55 Dose: 650 mg Documented by: IRVIN Acetaminophen (Acetaminophen 325 Mg Tablet) 650 mg PO Q6H [facility] [place] Last Admin: 09/12/21 09:38 Dose: 650 mg Documented by: DEBORAH Amlodipine Besylate (Amlodipine Besylate 5 Mg Tablet) 5 mg PO DAILY [facility] [place]; Protocol Last Admin: 09/12/21 09:35 Dose: 5 mg Documented by: DEBORAH Diphenhydramine HCl (Diphenhydramine Hcl 50 Mg/Ml Vial) 12.5 mg IVPUSH Q6H PRN PRN Reason: Allergic Reaction Last Admin: 09/08/21 21:37 Dose: 12.5 mg Documented by: DESROA Docusate Sodium (Docusate Sodium 100 Mg Capsule) 100 mg PO BID [facility] [place] Last Admin: 09/12/21 09:42 Dose: 100 mg Documented by: DEBORAH Finasteride (Finasteride 5 Mg Tablet) 5 mg PO DAILY [facility] [place] Last Admin: 09/12/21 09:35 Dose: 5 mg Documented by: DEBORAH Ceftriaxone Sodium 1 gm/ (Sodium Chloride) 50 mls @ 100 mls/hr IV Q24H [facility] [place] Last Infusion: 09/11/21 13:50 Dose: 0 mls/hr Documented by: ANTONIA Lactulose (Lactulose 20 Gm/30 Ml Solution) 20 gm PO BID [facility] [place] Last Admin: 09/12/21 09:36 Dose: 20 gm Documented by: DEBORAH Melatonin (Melatonin 3 Mg Tablet) 6 mg PO BEDTIME PRN PRN Reason: Insomnia Last Admin: 09/11/21 22:11 Dose: 6 mg Documented by: SHELLEY Morphine Sulfate (Morphine Sulfate 2 Mg/Ml Cartridge) 2 mg IVPUSH Q4H PRN; Protocol PRN Reason: Pain, Severe (Pain Scale 7-10) Last Admin: 09/11/21 13:47 Dose: 2 mg Documented by: ANTONIA Multivitamins/Vitamin C (Multivitamin Tablet) 1 tab PO DAILY [facility] [place] Last Admin: 09/12/21 09:35 Dose: 1 tab Documented by: DEBORAH Niacin (Niacin Er 250 Mg Tablet.Er) 1,500 mg PO BEDTIME [facility] [place] Last Admin: 09/11/21 22:11 Dose: 1,500 mg Documented by: SHELLEY Omeprazole (Omeprazole 40 Mg Capsule.Dr) 40 mg PO DAILY@0630 [facility] [place] Last Admin: 09/12/21 06:15 Dose: 40 mg Documented by: JEREMY Ondansetron HCl (Ondansetron Hcl 4 Mg/2 Ml Vial) 4 mg IVPUSH ONCE PRN PRN Reason: Nausea and Vomiting Oxybutynin Chloride (Oxybutynin Chloride Er 5 Mg Tab.Er.24) 5 mg PO DAILY [facility] [place] Last Admin: 09/12/21 09:34 Dose: 5 mg Documented by: DEBORAH Oxycodone HCl (Oxycodone Hcl Immed Release 5 Mg Tablet) 5 mg PO Q8H [facility] [place] Last Admin: 09/12/21 09:35 Dose: 5 mg Documented by: DEBORAH Pharmacy Consult (Consult Rx Perform Med Rec) 1 each MISCELLANE ONCE PRN PRN Reason: Consult order Polyethylene Glycol (Polyethylene Glycol 3350 17 Gm Powd.Pack) 17 gm PO DAILY [facility] [place] Last Admin: 09/12/21 09:45 Dose: Not Given Documented by: DEBORAH Non-Admin Reason: NPO Psyllium Hydrophilic Mucilloid (Psyllium Seed 3.4 Gm Powd.Pack) 3.4 gm PO BEDTIME [facility] [place] Last Admin: 09/11/21 22:11 Dose: 3.4 gm Documented by: SHELLEY Tamsulosin HCl (Tamsulosin Hcl 0.4 Mg Capsule) 0.4 mg PO BEDTIME [facility] [place] Last Admin: 09/11/21 22:12 Dose: 0.4 mg Documented by: SHELLEY Thyroid (Thyroid,Pork 30 Mg Tablet) 45 mg PO DAILY [facility] [place] Last Admin: 09/12/21 09:34 Dose: 45 mg Documented by: DEBORAH Comments: Labs CBC & Chem 7: 09/10/21 06:01 09/10/21 06:01 Assessment and Plan (1) Leakage of nephrostomy catheter: Status: Acute (2) Swelling of lower extremity: Status: Acute (3) Hydroureteronephrosis: Status: Acute (4) RO (acute kidney injury): Status: Acute Plan 80M with BPH and bladder CA presented with abdominal discomfort, found to have significant bilateral hydronephrosis, RO (Cr - 10.2) with hyperkalemia (7). he was admitted to ICU, nephrostomy was placed on right, labs improved, downgraded to medical floor. Bilateral lower extremities edema secondary to fluid overload Ultrasound ruled out DVT To give Lasix once today and monitor response Add BNP Nephrostomy tube problem Likely a backflow from bladder Jack catheter placed, to attached to bag specially at nighttime Dr. Davalos to remove the nephrostomy tube and place a double-J today Intractable Back pain Improved Likely secondary to bladder spasm On schedule dose of oxycodone Continue oxybutynin and monitor response RO with hyperkalemia and hypermagnesemia bilateral hydronephrosis due to obstruction Repeated CT scan showed improvement of the right-sided hydronephrosis but around same changes on the left side creatinine fluctuating, improved to 1.6 Potassium back to normal conitnue to monitor s/p right nephrostomy Left ureteric stent replaced with plan to follow-up in the office in [address] concerning for possible cystitis Start Empirical ceftriaxone Negative urine culture Acute on chronic anemia probably secondary to dilution stable, no other source of bleeding Continue to monitor Hematuria resolved AV nereyda block had some taco arrhythmia on tele while in ICU with questionable AV block no further events, was likely due to ro and electrolyte abnormalities, continue to monitor on tele cardiology input appreciated, no intervention needed BPH proscar, flomax hypothyroid on armour thyroid at home can bring in, or have hospital equivalent dvt prophyalxis Heparin need for inpatient stay overnight to continue treatment for pain management, nephrostomy tube problem and control his pain to prevent decompensation and possible readmission Quality Stroke Does the patient have a stroke diagnosis?: No VTE Prior VTE?: No VTE Risk Level:: Medical - moderate - high VTE Device Contraindication: N/A - Device Ordered VTE Drug Contraindication: Treatment Not Tolerated
--- NOTE | 2021-09-12 16:06 | HO.ANESPROP2 ---
HPI - Anesthesia Eval Consult details Narrative: 80 M for cystoscopy , possible stent placement . patient with leakage from the nephrostomy tube site s/p cardiac stent placement in the past , patient seen by cardiology during this admission . No intervention recommended . GERD chronic back pain PMFSH Active Problems Active Problems: All Active Problems (Updated 09/11/21 @ 13:00 by Gary Art MD) Leakage of nephrostomy catheter (Acute) Swelling of lower extremity (Acute) Leukocytosis (Acute) Bradycardia (Acute) Hydroureteronephrosis (Acute) Hypermagnesemia (Acute) Hyperkalemia, diminished renal excretion (Acute) Ischemic heart disease due to coronary artery obstruction (Acute) FAITH (acute kidney injury) (Acute) Bilateral hydronephrosis (Acute) Kidney capsule rupture (Acute) Scrotal swelling (Acute) Lumbar pain (Acute) Hospital discharge follow-up (Acute) Hyperkalemia (Acute) Hydronephrosis (Acute) Bladder cancer (Acute) Hyponatremia (Acute) Prostate hypertrophy (Acute) Back pain (Acute) Back pain with left-sided radiculopathy (Acute) Iron deficiency (Acute) Elevated PSA (Acute) Diverticulosis (Acute) Past Medical History Medical History (Updated 09/11/21 @ 13:00 by Gary Art MD) Benign prostatic hyperplasia with lower urinary tract symptoms Bladder cancer Bladder tumor Bradyarrhythmia Cataract Coronary artery disease Hypertension, essential Ischemic heart disease due to coronary artery obstruction Past heart attack Family History Family History Father Heart problem CHF (congestive heart failure) Diabetes mellitus Mother Diabetes mellitus Sister Throat cancer Daughter No problems noted. Son No problems noted. Son No problems noted. Other Substance use disorder Family history of problems with anesthesia: No Surgical History Surgical History History of coronary artery stent placement History of surgery History of Problems with Anesthesia: No Social History Social History Household Members: Spouse Housing: House Do you presently have visiting nurse or other home services: No Alcohol intake: current Alcohol intake frequency: a few times a month Patient Tobacco Use Status: Never used Tobacco Smoked in Last 30 Days: No Use of substances other than those prescribed or required for medical reasons: No Currently Displaying Signs/Symptoms of Drug Intoxication Withdrawal: No Are you DNR?: No Advance Directives: Yes Advance Directives Information Provided: Yes Advance Directives on File: No Advance Directives Date on File: 09/06/21 Recently lost weight without trying: No Nutrition Risks: No Nutritional Risk service: No Current occupational status: retired Gender identity: Male Meds Allergies Allergy/AdvReac Type Severity Reaction Status Date / Time codeine [Codeine] Allergy Unknown LETHARGY Verified 08/31/21 11:13 sulfamethoxazole Allergy Rash Verified 09/12/21 16:40 [From Bactrim] trimethoprim Allergy Rash Verified 09/12/21 16:40 From Antihistamine AdvReac Unknown CAN'T TAKE Uncoded 08/31/21 11:13 DUE TO BPH Active Medications: Current Medications Acetaminophen (Acetaminophen 325 Mg Tablet) 650 mg PO Q6H PRN PRN Reason: Pain, Mild (Pain Scale 1-3) Last Admin: 09/09/21 14:55 Dose: 650 mg Documented by: Acetaminophen (Acetaminophen 325 Mg Tablet) 650 mg PO Q6H [facility] Last Admin: 09/12/21 09:38 Dose: 650 mg Documented by: Amlodipine Besylate (Amlodipine Besylate 5 Mg Tablet) 5 mg PO DAILY [facility]; Protocol Last Admin: 09/12/21 09:35 Dose: 5 mg Documented by: Diphenhydramine HCl (Diphenhydramine Hcl 50 Mg/Ml Vial) 12.5 mg IVPUSH Q6H PRN PRN Reason: Allergic Reaction Last Admin: 09/08/21 21:37 Dose: 12.5 mg Documented by: Docusate Sodium (Docusate Sodium 100 Mg Capsule) 100 mg PO BID [facility] Last Admin: 09/12/21 09:42 Dose: 100 mg Documented by: Finasteride (Finasteride 5 Mg Tablet) 5 mg PO DAILY [facility] Last Admin: 09/12/21 09:35 Dose: 5 mg Documented by: Heparin Sodium (Porcine) (Heparin Sodium,Porcine 5,000 Unit/Ml Vial) 5,000 unit SUBCUT Q8H [facility] Last Admin: 09/12/21 15:23 Dose: Not Given Documented by: Ceftriaxone Sodium 1 gm/ (Sodium Chloride) 50 mls @ 100 mls/hr IV Q24H [facility] Last Infusion: 09/11/21 13:50 Dose: Infused Documented by: Lactulose (Lactulose 20 Gm/30 Ml Solution) 20 gm PO BID [facility] Last Admin: 09/12/21 09:36 Dose: 20 gm Documented by: Melatonin (Melatonin 3 Mg Tablet) 6 mg PO BEDTIME PRN PRN Reason: Insomnia Last Admin: 09/11/21 22:11 Dose: 6 mg Documented by: Morphine Sulfate (Morphine Sulfate 2 Mg/Ml Cartridge) 2 mg IVPUSH Q4H PRN; Protocol PRN Reason: Pain, Severe (Pain Scale 7-10) Last Admin: 09/11/21 13:47 Dose: 2 mg Documented by: Multivitamins/Vitamin C (Multivitamin Tablet) 1 tab PO DAILY [facility] Last Admin: 09/12/21 09:35 Dose: 1 tab Documented by: Niacin (Niacin Er 250 Mg Tablet.Er) 1,500 mg PO BEDTIME [facility] Last Admin: 09/11/21 22:11 Dose: 1,500 mg Documented by: Omeprazole (Omeprazole 40 Mg Capsule.Dr) 40 mg PO DAILY@0630 [facility] Last Admin: 09/12/21 06:15 Dose: 40 mg Documented by: Ondansetron HCl (Ondansetron Hcl 4 Mg/2 Ml Vial) 4 mg IVPUSH ONCE PRN PRN Reason: Nausea and Vomiting Oxybutynin Chloride (Oxybutynin Chloride Er 5 Mg Tab.Er.24) 5 mg PO DAILY [facility] Last Admin: 09/12/21 09:34 Dose: 5 mg Documented by: Oxycodone HCl (Oxycodone Hcl Immed Release 5 Mg Tablet) 5 mg PO Q8H [facility] Last Admin: 09/12/21 09:35 Dose: 5 mg Documented by: Pharmacy Consult (Consult Rx Perform Med Rec) 1 each MISCELLANE ONCE PRN PRN Reason: Consult order Polyethylene Glycol (Polyethylene Glycol 3350 17 Gm Powd.Pack) 17 gm PO DAILY [facility] Last Admin: 09/12/21 09:45 Dose: Not Given Documented by: Psyllium Hydrophilic Mucilloid (Psyllium Seed 3.4 Gm Powd.Pack) 3.4 gm PO BEDTIME [facility] Last Admin: 09/11/21 22:11 Dose: 3.4 gm Documented by: Tamsulosin HCl (Tamsulosin Hcl 0.4 Mg Capsule) 0.4 mg PO BEDTIME [facility] Last Admin: 09/11/21 22:12 Dose: 0.4 mg Documented by: Thyroid (Thyroid,Pork 30 Mg Tablet) 45 mg PO DAILY [facility] Last Admin: 09/12/21 09:34 Dose: 45 mg Documented by: Home Medications Medication Instructions Recorded Confirmed Last Taken Type niacin 500 mg tablet,extended 3 tab PO BEDTIME 04/13/20 09/03/21 08/30/21 History release 24 hr thyroid (pork) 30 mg tablet 1.5 tab PO DAILY 04/13/20 09/03/21 08/30/21 History ([place] Thyroid) ascorbic acid (vitamin C) 500 mg 500 mg PO DAILY 07/29/21 09/03/21 08/30/21 History tablet (Vitamin C) chlorhexidine gluconate 0.12 % 15 ml PO BID 07/29/21 09/03/21 08/30/21 History mouthwash cholecalciferol (vitamin D3) 10 20 mcg PO DAILY 07/29/21 09/03/21 08/30/21 History mcg (400 unit) tablet (Vitamin D3) multivitamin 1 tab PO DAILY 07/29/21 09/03/21 08/30/21 History Exam Exam Date and Time: September 12, 2021 1606 Height,Weight and Vital Signs: Height 5 ft 9 in Weight 85.5 kg Last Vital Signs Temp 98.4 F 09/12/21 15:41 Pulse 88 09/12/21 15:41 Resp 18 09/12/21 15:41 BP 176/74 H 09/12/21 15:41 Pulse Ox 98 09/12/21 15:41 Pertinent Lab Results Pertinent Lab Results: Laboratory Tests 09/03/21 09/03/21 09/03/21 10:45 10:50 10:51 WBC 11.8 H RBC 4.26 L Hgb 11.6 L Hct 35.9 L MCV 84.3 MCH 27.2 MCHC 32.3 RDW 17.4 H Plt Count 409 H D MPV 9.8 Immature Gran % (Auto) 0.6 H Neut % (Auto) 86.2 H Lymph % (Auto) 6.8 L Tift % (Auto) 6.2 Eos % (Auto) 0.1 Baso % (Auto) 0.1 Lymph # (Auto) 0.8 L Tift # (Auto) 0.7 Eos # (Auto) 0.0 Baso # (Auto) 0.0 Abs Immat Gran (auto) 0.07 H Absolute Neuts (auto) 10.2 H Absolute Nucleated RBC 0.000 Nucleated RBC % (auto) 0.0 Hold Purple Top PT INR Sodium Potassium Chloride Carbon Dioxide Anion Gap BUN Creatinine Estim Creat Clear Calc Estimated GFR POC Glucose Random Glucose Fasting Glucose Lactic Acid 0.5 Calcium Phosphorus Magnesium Total Bilirubin AST ALT Alkaline Phosphatase Total Protein Albumin Lipase Urine Color Urine Appearance Urine pH Ur Specific Mchenry Urine Protein Urine Glucose (UA) Urine Ketones Urine Blood Urine Nitrite Ur Leukocyte Esterase Urine RBC Urine WBC Ur Squamous Epith Cells Urine Bacteria COVID-19 ([facility]) Negative COVID-19 Clin Com See Note 09/03/21 09/03/21 09/03/21 10:51 10:51 10:51 WBC RBC Hgb Hct MCV MCH MCHC RDW Plt Count MPV Immature Gran % (Auto) Neut % (Auto) Lymph % (Auto) Tift % (Auto) Eos % (Auto) Baso % (Auto) Lymph # (Auto) Tift # (Auto) Eos # (Auto) Baso # (Auto) Abs Immat Gran (auto) Absolute Neuts (auto) Absolute Nucleated RBC Nucleated RBC % (auto) Hold Purple Top SEE NOTE PT 13.2 H INR 1.2 H Sodium 132 L Potassium 7.0 H* D Chloride 99 Carbon Dioxide 18 L Anion Gap 22 H BUN 82 H D Creatinine 10.26 H* Estim Creat Clear Calc 5.8 Estimated GFR 5 POC Glucose Random Glucose 114 Fasting Glucose Lactic Acid Calcium 8.5 D Phosphorus Magnesium 4.2 H* Total Bilirubin 0.5 AST 12 D ALT 11 Alkaline Phosphatase 82 D Total Protein 6.5 Albumin 3.3 L Lipase 13 Urine Color Urine Appearance Urine pH Ur Specific Mchenry Urine Protein Urine Glucose (UA) Urine Ketones Urine Blood Urine Nitrite Ur Leukocyte Esterase Urine RBC Urine WBC Ur Squamous Epith Cells Urine Bacteria COVID-19 ([facility]) COVID-19 Usentric Com 09/03/21 09/03/21 09/03/21 16:04 16:04 19:37 WBC RBC Hgb Hct MCV MCH MCHC RDW Plt Count MPV Immature Gran % (Auto) Neut % (Auto) Lymph % (Auto) Tift % (Auto) Eos % (Auto) Baso % (Auto) Lymph # (Auto) Tift # (Auto) Eos # (Auto) Baso # (Auto) Abs Immat Gran (auto) Absolute Neuts (auto) Absolute Nucleated RBC Nucleated RBC % (auto) Hold Purple Top PT INR Sodium 135 Potassium 5.5 H D Chloride 100 Carbon Dioxide 19 L Anion Gap 22 H BUN 82 H Creatinine 10.15 H* Estim Creat Clear Calc 5.9 Estimated GFR 5 POC Glucose 101 Random Glucose 95 Fasting Glucose Lactic Acid Calcium 8.1 L Phosphorus Magnesium 4.1 H* Total Bilirubin AST ALT Alkaline Phosphatase Total Protein Albumin Lipase Urine Color Urine Appearance Urine pH Ur Specific Mchenry Urine Protein Urine Glucose (UA) Urine Ketones Urine Blood Urine Nitrite Ur Leukocyte Esterase Urine RBC Urine WBC Ur Squamous Epith Cells Urine Bacteria COVID-19 ([facility]) COVIDButton 09/03/21 09/04/21 09/04/21 21:10 01:20 05:25 WBC 8.8 RBC 3.53 L Hgb 9.7 L Hct 30.1 L MCV 85.3 MCH 27.5 MCHC 32.2 RDW 17.3 H Plt Count 364 MPV 9.9 Immature Gran % (Auto) 0.5 H Neut % (Auto) 82.9 H Lymph % (Auto) 7.8 L Tift % (Auto) 7.4 Eos % (Auto) 1.1 Baso % (Auto) 0.3 Lymph # (Auto) 0.7 L Tift # (Auto) 0.7 Eos # (Auto) 0.1 Baso # (Auto) 0.0 Abs Immat Gran (auto) 0.04 H Absolute Neuts (auto) 7.3 Absolute Nucleated RBC 0.000 Nucleated RBC % (auto) 0.0 Hold Purple Top PT INR Sodium 138 137 Potassium 5.4 H 5.7 H Chloride 102 106 Carbon Dioxide 22 21 L Anion Gap 19 16 BUN 79 H 71 H Creatinine 9.08 H* 7.07 H* Estim Creat Clear Calc 6.5 8.4 Estimated GFR 6 8 POC Glucose Random Glucose 136 H D 117 H Fasting Glucose Lactic Acid Calcium 8.2 L 7.6 L D Phosphorus Magnesium 4.1 H* 3.9 H* Total Bilirubin AST ALT Alkaline Phosphatase Total Protein Albumin Lipase Urine Color Urine Appearance Urine pH Ur Specific Mchen[place] Urine Protein Urine Glucose (UA) Urine Ketones Urine Blood Urine Nitrite Ur Leukocyte Esterase Urine RBC Urine WBC Ur Squamous Epith Cells Urine Bacteria COVID-19 ([facility]) COVIDButton 0309/05/21 09/05/21 05:25 06:01 06:01 WBC 8.3 RBC 3.11 L Hgb 8.5 L Hct 26.6 L MCV 85.5 MCH 27.3 MCHC 32.0 RDW 17.2 H Plt Count 336 MPV 9.9 Immature Gran % (Auto) 0.5 H Neut % (Auto) 69.3 Lymph % (Auto) 16.6 L Tift % (Auto) 9.7 Eos % (Auto) 3.5 Baso % (Auto) 0.4 Lymph # (Auto) 1.4 Tift # (Auto) 0.8 Eos # (Auto) 0.3 Baso # (Auto) 0.0 Abs Immat Gran (auto) 0.04 H Absolute Neuts (auto) 5.7 Absolute Nucleated RBC 0.000 Nucleated RBC % (auto) 0.0 Hold Purple Top PT INR Sodium 137 138 Potassium 5.4 H 5.0 Chloride 106 108 Carbon Dioxide 21 L 24 Anion Gap 15 11 L BUN 63 H 30 H D Creatinine 5.63 H* 1.89 H Estim Creat Clear Calc 11.7 34.8 Estimated GFR 10 35 POC Glucose Random Glucose 109 TNP Fasting Glucose 109 H Lactic Acid Calcium 7.8 L 7.9 L Phosphorus 4.4 Magnesium 3.7 H* 2.8 H Total Bilirubin AST ALT Alkaline Phosphatase Total Protein Albumin Lipase Urine Color Urine Appearance Urine pH Ur Specific [place] Urine Protein Urine Glucose (UA) Urine Ketones Urine Blood Urine Nitrite Ur Leukocyte Esterase Urine RBC Urine WBC Ur Squamous Epith Cells Urine Bacteria COVID-19 ([facility]) COVID-19 Clin Com 09/06/21 09/06/21 09/07/21 06:30 06:30 06:15 WBC 10.6 9.9 RBC 3.49 L 3.51 L Hgb 9.4 L 9.6 L Hct 29.9 L 30.3 L MCV 85.7 86.3 MCH 26.9 L 27.4 MCHC 31.4 31.7 RDW 17.0 H 16.9 H Plt Count 409 H 428 H MPV 10.1 10.2 Immature Gran % (Auto) Neut % (Auto) Lymph % (Auto) Tift % (Auto) Eos % (Auto) Baso % (Auto) Lymph # (Auto) Tift # (Auto) Eos # (Auto) Baso # (Auto) Abs Immat Gran (auto) Absolute Neuts (auto) Absolute Nucleated RBC 0.000 0.000 Nucleated RBC % (auto) 0.0 0.0 Hold Purple Top PT INR Sodium 137 Potassium 4.6 Chloride 108 Carbon Dioxide 19 L Anion Gap 15 BUN 22 H Creatinine 1.28 Estim Creat Clear Calc 50.9 Estimated GFR 54 POC Glucose Random Glucose Fasting Glucose 109 H Lactic Acid Calcium 8.1 L Phosphorus Magnesium 2.3 Total Bilirubin AST ALT Alkaline Phosphatase Total Protein Albumin Lipase Urine Color Urine Appearance Urine pH Ur Specific [place]hen[place] Urine Protein Urine Glucose (UA) Urine Ketones Urine Blood Urine Nitrite Ur Leukocyte Esterase Urine RBC Urine WBC Ur Squamous Epith Cells Urine Bacteria COVID-19 ([facility]) COVID-19 Usentric Com 09/07/21 09/08/21 09/08/21 06:15 07:01 07:01 WBC 14.7 H RBC 3.55 L Hgb 9.6 L Hct 31.0 L MCV 87.3 MCH 27.0 MCHC 31.0 RDW 17.0 H Plt Count 480 H MPV 9.7 Immature Gran % (Auto) Neut % (Auto) Lymph % (Auto) Tift % (Auto) Eos % (Auto) Baso % (Auto) Lymph # (Auto) Tift # (Auto) Eos # (Auto) Baso # (Auto) Abs Immat Gran (auto) Absolute Neuts (auto) Absolute Nucleated RBC 0.000 Nucleated RBC % (auto) 0.0 Hold Purple Top PT INR Sodium 139 137 Potassium 4.7 5.3 H Chloride 107 105 Carbon Dioxide 23 23 Anion Gap 14 14 BUN 19 H 26 H Creatinine 1.21 2.12 H Estim Creat Clear Calc 53.8 30.8 Estimated GFR 58 30 POC Glucose Random Glucose 143 H 118 H Fasting Glucose Lactic Acid Calcium 8.7 D 8.6 Phosphorus Magnesium Total Bilirubin AST ALT Alkaline Phosphatase Total Protein Albumin Lipase Urine Color Urine Appearance Urine pH Ur Specific [place]hen[place] Urine Protein Urine Glucose (UA) Urine Ketones Urine Blood Urine Nitrite Ur Leukocyte Esterase Urine RBC Urine WBC Ur Squamous Epith Cells Urine Bacteria COVID-19 ([facility]) COVID-19 Usentric Com 09/08/21 09/09/21 09/09/21 Unknown 05:50 05:50 WBC 14.0 H RBC 3.34 L Hgb 9.1 L Hct 28.8 L MCV 86.2 MCH 27.2 MCHC 31.6 RDW 17.0 H Plt Count 454 H MPV 9.3 L Immature Gran % (Auto) Neut % (Auto) Lymph % (Auto) Tift % (Auto) Eos % (Auto) Baso % (Auto) Lymph # (Auto) Tift # (Auto) Eos # (Auto) Baso # (Auto) Abs Immat Gran (auto) Absolute Neuts (auto) Absolute Nucleated RBC 0.000 Nucleated RBC % (auto) 0.0 Hold Purple Top PT INR Sodium 136 Potassium 4.6 Chloride 104 Carbon Dioxide 20 L Anion Gap 17 BUN 28 H Creatinine 1.87 H Estim Creat Clear Calc 34.7 Estimated GFR 35 POC Glucose Random Glucose 122 H Fasting Glucose Lactic Acid Calcium 8.3 L Phosphorus Magnesium Total Bilirubin AST ALT Alkaline Phosphatase Total Protein Albumin Lipase Urine Color YELLOW Urine Appearance CLEAR Urine pH 5.5 Ur Specific Mchenry 1.015 Urine Protein NEG Urine Glucose (UA) NEG Urine Ketones NEG Urine Blood 2+ H Urine Nitrite NEG Ur Leukocyte Esterase TRACE H Urine RBC 30-49 H Urine WBC 10-14 H Ur Squamous Epith Cells 1+ Urine Bacteria TRACE COVID-19 ([facility]) COVID-19 Clin Com 09/10/21 09/10/21 06:01 06:01 WBC 10.8 RBC 3.74 L Hgb 10.1 L Hct 32.3 L MCV 86.4 MCH 27.0 MCHC 31.3 RDW 17.1 H Plt Count 546 H MPV 9.8 Immature Gran % (Auto) Neut % (Auto) Lymph % (Auto) Tift % (Auto) Eos % (Auto) Baso % (Auto) Lymph # (Auto) Tift # (Auto) Eos # (Auto) Baso # (Auto) Abs Immat Gran (auto) Absolute Neuts (auto) Absolute Nucleated RBC 0.000 Nucleated RBC % (auto) 0.0 Hold Purple Top PT INR Sodium 134 L Potassium 4.3 Chloride 101 Carbon Dioxide 21 L Anion Gap 16 BUN 26 H Creatinine 1.52 H Estim Creat Clear Calc 42.7 Estimated GFR 44 POC Glucose Random Glucose 117 H Fasting Glucose Lactic Acid Calcium 8.6 Phosphorus Magnesium Total Bilirubin AST ALT Alkaline Phosphatase Total Protein Albumin Lipase Urine Color Urine Appearance Urine pH Ur Specific Mchenry Urine Protein Urine Glucose (UA) Urine Ketones Urine Blood Urine Nitrite Ur Leukocyte Esterase Urine RBC Urine WBC Ur Squamous Epith Cells Urine Bacteria COVID-19 ([facility]) COVID-19 Clin Com Airway Mallampati Class: III TM Dist: >3cm Neck ROM: Full Loose/Missing/Broken Teeth: Yes Heart: rrr Lungs: bl breath sounds Assessment and Plan Assessment Anesthesia Assessment: Anesthesia Plan Discussed Final Anesthetic Review Family History of Problems with Anesthesia: No History of Problems with Anesthesia: No NPO: Yes ASA Class: III and Emergency Final Preanesthetic Review: Meds/Allgs Chart Reviewed, Consent Obtained/Reviewed and Anes Risks/Benef Reviewed Patient Risk: High Procedure Risk: Intermediate Anesthetic Plan Anesthetic Plan: GA Disposition: Inp. Admit - Standard Bed
[2021-09-12] MEDS: cefTRIAXone sodium 1 GM in 0.9 % Sodium Chloride 50 ML IV (16:18)
--- NOTE | 2021-09-12 16:46 | MHC.SHP ---
Pre-Procedural Eval Section A Date of Service: 09/12/21 The patient is an INPATIENT: Yes Changes since office visit: No Cold of Flu in the past 2 weeks, No New Medical Problems, No Changes in Medication and No Patient answered all questions The History & Physical has been completed within 30 days and I have reviewed it.: Yes Section B Chief Complaint: Bilateal Hydronephrosis/Uremia, PACs Details of Present Illness: Internalization of right nephroureteral stent Allergies: Allergies Allergy/AdvReac Type Severity Reaction Status Date / Time codeine [Codeine] Allergy Unknown LETHARGY Verified 08/31/21 11:13 sulfamethoxazole Allergy Rash Verified 09/12/21 16:40 [From Bactrim] trimethoprim Allergy Rash Verified 09/12/21 16:40 From Antihistamine AdvReac Unknown CAN'T TAKE Uncoded 08/31/21 11:13 DUE TO BPH Plan Diagnosis/Plan: Unchanged ( internalization of right nephroureteral stent) I have reviewed the history and physical and performed a pertinent physical examination on my patient. No changes have occurred unless specified.
--- NOTE | 2021-09-12 17:31 | W.PM.OPN ---
Operative Note Operative Note Date of Service: 09/12/21 Narrative: PreOperative Diagnosis: right percutaneous nephroureteral tube in place Post Operative Diagnosis: above Procedure: internalization of right percutaneous nephroureteral tube - cystoscopy, retrograde, stent placement Surgeon: Dr Claudio Davalos Anesthesia: sedation Indications for procedure: indwelling right percutaneous nephroureteral tube. Leakage with back flow. Discomfort on right side. Recommendation to internalize stent Procedure: After informed consent was verified the patient was brought to the operating room and placed in a supine position. Anesthesia was administered per protocol. patient was placed in modified dorsal lithotomy position and prepped and draped in sterile fashion. Access to the right PCN tube remained. Antibiotics being given. Cystoscopy performed. Difficulty advancing wire alongside nephro ureteral stent. Wire then advanced down nephro ureteral stent from outside into bladder. Cystoscopy performed and wire grasped and removed out through the penis. Nephroureteral stent removed. Open-ended catheter placed from below over the wire. Wire removed from above and percutaneous tract covered. Open-ended catheter placed over wire from below. Retrograde examination performed showing appropriate position within renal pelvis. Wire placed from below with good coil seen within the renal pelvis. Wire backloaded over the cystoscope and cystoscope advanced. 7 Greenlandic by 26 cm double-J stent placed with good coil seen in the renal pelvis and in the bladder. Jack catheter placed Tolerated procedure well was transferred in stable condition to recovery area Pathology: Drains: 7 Greenlandic by 26 cm double-J stent
[2021-09-12] MEDS: Tamsulosin HCL 0.4 MG CAPSULE PO (20:40)
[2021-09-12] MEDS: Heparin Sodium,Porcine 5,000 UNIT/ML VIAL 5000 UNIT SUBCUT (23:10)
[2021-09-13 00:25] VITALS: TEMP 37.6
[2021-09-13 04:00] VITALS: BP 144/58; PULSE 70; RESP 18; TEMP 37.5; O2SAT 97
[2021-09-13] MEDS: Heparin Sodium,Porcine 5,000 UNIT/ML VIAL 5000 UNIT SUBCUT (05:14)
[2021-09-13] MEDS: Acetaminophen 325 MG TABLET 650 MG PO ×2 (05:15→11:49)
[2021-09-13] MEDS: Omeprazole 40 MG CAPSULE.DR PO (05:18)
[2021-09-13 06:00] VITALS: BMI 28.3
[2021-09-13 07:33] VITALS: BP 152/38; PULSE 94; RESP 18; TEMP 36.9; O2SAT 96
[2021-09-13 07:34] LABS: Hematocrit 24.6 % (42.0-52.0); Mean Corpuscular HGB Conc 32.5 g/dl (31.0-36.0); Mean Corpuscular Volume 83.1 fL (80.0-98.0); Mean Platelet Volume 9.7 fL (9.4-12.4); Platelet Count 422 X10*3/uL (160-400); Red Blood Count 2.96 X10*6/uL (4.60-5.80); Red Cell Distribution Width 16.8 % (11.0-16.0); White Blood Count 14.9 X10*3/uL (4.8-10.8)
[2021-09-13 07:54] LABS: B Type Natriuretic Peptide 181 pg/mL (<100)
[2021-09-13 08:10] LABS: Anion Gap 16 (12-20); Blood Urea Nitrogen 23 mg/dL (9-16); Carbon Dioxide 21 mmol/L (22-29); Chloride 102 mmol/L (96-108); Creatinine Clr Calc Pharmacy 39.6; Estimated Glomerular Filt Rate 40; Glucose Random 92 mg/dL (60-115); Potassium 4.6 mmol/L (3.3-5.1); Sodium 134 mmol/L (135-145)
[2021-09-13] MEDS: Multivitamin TABLET 1 TAB PO (08:16)
[2021-09-13] MEDS: Docusate Sodium 100 MG CAPSULE PO (08:16)
[2021-09-13] MEDS: amLODIPine Besylate 5 MG TABLET PO (08:16)
[2021-09-13] MEDS: Finasteride 5 MG TABLET PO (08:16)
[2021-09-13] MEDS: Thyroid,Pork 30 MG TABLET 45 MG PO (08:16)
[2021-09-13 11:22] VITALS: BP 150/32; PULSE 91; RESP 18; TEMP 37.5; O2SAT 98
--- NOTE | 2021-09-13 12:59 | HO.POSTANES ---
Post Anesthesia Evaluation Post Anesthesia Evaluation Vital Signs: Vital Signs Temp Pulse Resp BP Pulse Ox 09/13/21 11:22 99.5 F 91 18 150/32 H 98 09/13/21 07:33 98.4 F 94 18 152/38 H 96 09/13/21 04:00 99.5 F 70 18 144/58 H 97 Anesthesia: General LMA Mental Status: Awake Pain Control: Satisfactory Nausea/Vomiting: None Hydration: Adequate Anesthesia-Related Issues: No Anes. Related Issues
--- NOTE | 2021-09-13 13:12 | P.DS_ITS ---
DS: Providers Provider Date of Service: 09/13/21 Date of admission: 09/03/21 16:01 Primary care physician: Jazmin Dacosta MD Consults: 09/04/21 14:09 Consult to Cardiology Routine Consulting Provider: Josias Martin Reason for consultation: avb block, ?mobitz II DS: Diagnosis Discharge Diagnosis (1) Leakage of nephrostomy catheter: Status: Acute (2) Swelling of lower extremity: Status: Acute (3) Hydroureteronephrosis: Status: Acute (4) FAITH (acute kidney injury): Status: Acute DS: Summary Hospital Course Hospital Course: from hpi: Chief Complaint:? anorexia nausea and diarrhea and anuria ?80-year-old male with a history of benign prostatic hypertrophy as well as h istory of bladder carcinoma that has had multiple procedures all of which were bladder sparing including adjuvant chemotherapy and came in a little over a month ago with left flank pain and was noted to have left hydronephrosis at that time which youth development professional to be not a recurrence of the bladder CA but it was obstruction imposed by the prostate and had a ureteral stent with a postobstructive diuresis and normalizing of his renal function and then he started to have these last 3 days progressive anorexia abdominal discomfort nausea and then his last urination was yesterday and none since and presented to the emergency room currently has very significant bilateral hydronephrosis with a urine extravasation into the retroperitoneum and peritoneal cavity and now has uremia with a BUN and creatinine of 82/10.2 and a potassium of 7.0 so severe hyperkalemia and severe hyper magnesemia at 4.2 so he had insulin and bicarb and glucose and we are awaiting a repeat BNP and were making arrangement to do at least a left-sided nephrostomy with Interventional Radiology ?he had received 2 L of fluid in the ER and I did a bedside echo showing globally normal left ventricular and right ventricular systolic wall motion and no primary valve or pericardial disease and this is a gentleman who was previously stented for coronary disease and 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 Patient underwent urgent right nephrostomy placement with significant improvement in creatinine and resolution of hyperkalemia and hypermagnesemia. Patient also underwent left ureteral stent replacement. Patient had issues of leaking of right nephrostomy, underwent internalization of catheter. Patient currently has a Jack catheter and will be capped with intermittent drainage during the day and attached to bag at night. Patient is feeling much better will be discharged home. On day of discharge his creatinine is about 1.6 and or blood cell count about 14, this should continue to be monitored for improvement as outpatient. Patient should return for any fevers or chills or worsening symptoms. During hospitalization patient had acute on chronic anemia likely due to inflammation, no obvious source of bleeding except for mild hematuria which resolved. Did not require blood transfusion. For his prostatomegaly he was continue on Proscar Flomax. For his hypothyroid he was continued on armor thyroid. Time Spent with Patient Time attestation: Total time spent providing and/or coordinating discharge services: Discharge coordination time: Greater than 30 minutes Quality: Stroke Does the patient have a stroke diagnosis?: No Physical Exam Vital Signs: Vital Signs: Last Vital Signs Temp 99.5 F 09/13/21 11: Pulse 91 09/13/21 11:22 Resp 18 09/13/21 11:22 BP 150/32 H 09/13/21 11:22 Pulse Ox 98 09/13/21 11:22 BMI result Body Mass Index 28.3 General: AO X 3, no acute distress Resp: CTA bilateral, no accessory muscles used CVS: S1,S2,RRR GI: soft, non tender, non distended Neuro: motor grossly intact, alert Psych: appropriate affect, appropriate insight DS: Data Data Completed and Pending Completed studies during hospitalization [Text1]: Procedures Dilation of Left Ureter with Intraluminal Device, Via Natural or Artificial Opening Endoscopic (07/29/21) Fluoroscopy of Left Kidney, Ureter and Bladder (07/29/21) Labs on day of discharge: Laboratory Results - last 24 hr 09/13/21 09/13/21 09/13/21 06:42 06:42 06:42 WBC 14.9 H RBC 2.96 L D Hgb 8.0 L D Hct 24.6 L D MCV 83.1 MCH 27.0 MCHC 32.5 RDW 16.8 H Plt Count 422 H MPV 9.7 Absolute Nucleated RBC 0.000 Nucleated RBC % (auto) 0.0 Sodium 134 L Potassium 4.6 Chloride 102 Carbon Dioxide 21 L Anion Gap 16 BUN 23 H Creatinine 1.65 H Estim Creat Clear Calc 39.6 Estimated GFR 40 Random Glucose 92 Calcium 8.0 L D B-Natriuretic Peptide 181 H Discharge Plan Discharge Patient Disposition: Home, Self-Care Discharge Diagnosis: Acute kidney injury Bilateral hydronephrosis Electrolyte imbalance Referrals: Jazmin Dacosta MD [Primary Care Provider] - 1 Week Discharge Medications: New polyethylene glycol 3350 17 gram Powder In Packet 17 g PO DAILY 30 Days 0RF omeprazole 40 mg Capsule,Delayed Release(Dr/Ec) 40 mg PO DAILY@0630 30 Days Qty: 30 0RF docusate sodium 100 mg Capsule 100 mg PO BID 30 Days Qty: 60 0RF oxybutynin chloride 5 mg Tablet Extended Release 24 Hr 5 mg PO DAILY 30 Days Qty: 30 0RF oxycodone 5 mg Tablet 5 mg PO Q6H PRN (Reason: Pain (Scale Score 7-10)) Qty: 30 0RF Metamucil Fiber Singles 3.4 gram Powder In Packet 3.4 g PO BEDTIME 30 Days 0RF Continued finasteride 5 mg tablet 5 mg PO DAILY 90 Days Qty: 90 1RF lactulose 20 gram/30 mL solution 20 g PO DAILY PRN (Reason: constipation) Qty: 1200 0RF niacin 500 mg tablet extended release 24 hr 3 tab PO BEDTIME 0RF thyroid (pork) [[place] Thyroid] 30 mg tablet 1.5 tab PO DAILY 0RF chlorhexidine gluconate 0.12 % mouthwash 15 ml PO BID 0RF multivitamin Tablet 1 tab PO DAILY 0RF ascorbic acid (vitamin C) [Vitamin C] 500 mg Tablet 500 mg PO DAILY 0RF cholecalciferol (vitamin D3) [Vitamin D3] 10 mcg (400 unit) Tablet 20 mcg PO DAILY 0RF Changed tamsulosin 0.4 mg capsule 0.8 mg PO BEDTIME 90 Days Qty: 90 3RF Discharge Orders: Discharge Order (Routine); Ordered 09/13/21 Ordered By: Mina Burden Diet: advance to usual diet Activity on Discharge: As tolerated Stand Alone Forms: Patient Portal Discharge page Care Plan Goals: Read below Health Concerns: Read below Plan of Treatment: Read below Assessment: cap catheter while awake (drain intermittently), attach to bag and leave open at night Start oxybutynin for bladder spasm Use oxycodone as needed for pain Take laxatives as prescribed, stop for diarrhea To follow-up with Dr. Daavlos as outpatient in 2 weeks
--- NOTE | 2021-09-13 13:12 | MHC.CM.PN ---
pt to be dcd home n o aniyaed servceis orderd by
--- NOTE | 2021-09-13 13:17 | MHC.CM.PN ---
pt dcd home no skilled serrvices ordered by
[2021-09-13] MEDS: cefTRIAXone sodium 1 GM in 0.9 % Sodium Chloride 50 ML IV (14:22)
[2021-09-13] MEDS: oxyCODONE HCl Immed Release 5 MG TABLET PO (16:11)
[2021-09-13 17:16] VITALS: O2SAT 97
== END 2021-09-13 17:32 | disposition home or self-care (01) | DRG 443 ==
LOC: HO.ED 16:06 → HO.EDOVER 16:39 → HO.ICU 17:25 → HO.IMC 09-04 14:33
PROVIDERS: Internal Medicine Pulmonary Disease; Physician Assistant; Physician Assistant Medical; Radiology Diagnostic Radiology; Student in an Organized Health Care Education/Training Program; Urology; Admitting Provider Internal Medicine Cardiovascular Disease; Emergency Provider Emergency Medicine Emergency Medical Services; PCP Internal Medicine; Visit Provider Internal Medicine
PROC: 0T133JD Bypass Right Kidney Pelvis to Cutaneous with Synthetic Substitute, Percutaneous Approach (ICD-10-PCS; principal; 2021-09-03 17:00)
PROC: 0T2BX0Z Change Drainage Device in Bladder, External Approach (ICD-10-PCS; principal; 2021-09-12 16:30)
DX: N13.1 Hydronephrosis with ureteral stricture, not elsewhere classified (principal); N17.9 Acute kidney failure, unspecified; E87.5 Hyperkalemia; E83.42 Hypomagnesemia; D64.89 Other specified anemias; N40.1 Benign prostatic hyperplasia with lower urinary tract symptoms; N13.8 Other obstructive and reflux uropathy; R31.0 Gross hematuria; E03.9 Hypothyroidism, unspecified; I44.30 Unspecified atrioventricular block; I49.1 Atrial premature depolarization; T83.192A Other mechanical complication of indwelling ureteral stent, initial encounter; I25.10 Atherosclerotic heart disease of native coronary artery without angina pectoris; D72.829 Elevated white blood cell count, unspecified; N99.522 Malfunction of incontinent external stoma of urinary tract; Z20.822 Contact with and (suspected) exposure to COVID-19; Z85.51 Personal history of malignant neoplasm of bladder; Z92.21 Personal history of antineoplastic chemotherapy; Z88.2 Allergy status to sulfonamides; Z88.5 Allergy status to narcotic agent; Z79.890 Hormone replacement therapy; Z79.899 Other long term (current) drug therapy
CPT/HCPCS: 36415; 50432; 51798; 74176; 76942; 80048; 80053; 81001; 82947; 83605; 83690; 83735; 83880; 84100; 85025; 85027; 85610; 87040; 87086; 87635; 93005; 93971; 96361; 96374; 96375; 99152; 99153; 99285; 99291; C1729; C1758; C1769; C1887; C1892; C1894; C2617; C2625; J0696; J1100; J1170; J1200; J1885; J1940; J1956; J2250; J2270; J2405; J3010; Q9967